=== PATIENT | male | born 1965 | race Caucasian/White ===

== ENCOUNTER → 2021-06-01 08:03 | Outpatient (BNVA) | payer OTHER, MEDICAID, SELFPAY | PROVIDERS: PCP Internal Medicine Medical Oncology; Visit Provider Nurse Practitioner Family | DX: M48.061 Spinal stenosis, lumbar region without neurogenic claudication (principal); M53.3 Sacrococcygeal disorders, not elsewhere classified; M96.1 Postlaminectomy syndrome, not elsewhere classified | CPT/HCPCS: 99202 ==

== ENCOUNTER 2021-08-31 05:39 | Outpatient (REF) | payer OTHER, MEDICAID, SELFPAY ==
--- NOTE | ~2021-08-31 | FL_ITS ---
EXAMINATION: XR FLUOROSCOPY WITH IMAGES CLINICAL INFORMATION: M53.3 - Sacrococcygeal disorders, not elsewhere classified COMPARISON: MRI lumbar spine 07/26/2012 TECHNIQUE: Fluoroscopy performed by Dr. Lamont Lay. Fluoroscopy time: 0.1 minutes DAP: 3.67 Gycm2 Images: 2 FINDINGS: There are spinal needles overlying the bilateral lower SI joints. Contrast is seen in the atiya-articular soft tissues and likely early intra-articular contrast. No visible vascular communication. FL/FL guidance in treatment room IMPRESSION: Fluoroscopy for pain management procedures.
== END 2021-08-31 05:40 | disposition home or self-care (01) ==
LOC: HO.RADIR 05:39
PROVIDERS: Visit Provider Anesthesiology
DX: M53.3 Sacrococcygeal disorders, not elsewhere classified (principal); M96.1 Postlaminectomy syndrome, not elsewhere classified
CPT/HCPCS: Q9967

== ENCOUNTER → 2021-09-06 08:14 | Outpatient (BNVA) | payer OTHER, MEDICAID, SELFPAY | PROVIDERS: PCP Internal Medicine Medical Oncology; Visit Provider Anesthesiology | DX: M48.061 Spinal stenosis, lumbar region without neurogenic claudication (principal); M53.3 Sacrococcygeal disorders, not elsewhere classified; M96.1 Postlaminectomy syndrome, not elsewhere classified | CPT/HCPCS: 99212 ==

== ENCOUNTER 2024-04-02 10:19 | Outpatient (REF) | payer MEDICARE, SELFPAY ==
--- NOTE | ~2024-04-02 | US_ITS ---
EXAMINATION: US THYROID CLINICAL INFORMATION: Thyroid, and nontoxic, single thyroid nodule COMPARISON: None available. TECHNIQUE: Linear transducer grayscale and color Doppler examination with attention to the region of the thyroid. FINDINGS: SIZE: Measurements of the thyroid lobes and nodules are given in sagittal, anteroposterior and transverse dimensions respectively. Right Thyroid Lobe: 6.8 x 2.0 x 2.6 cm, volume 18.3 mL. Parenchyma: The gland echotexture is homogeneous. Thyroid vascularity is normal. Left Thyroid Lobe: 5.7 x 2.3 x 2.5 cm, volume 16.9 mL. Parenchyma: The gland echotexture is homogeneous. Thyroid vascularity is normal. Isthmus: 0.5 cm in maximum AP dimension. Estimated total number of nodules greater than or equal to 1 cm: 3. Rechecker nodules are described as follows: 1. Location: Right mid. Size: 2.2 x 1.2 x 2.0 cm, volume 2.7 mL. Nodule characteristics: Composition: Solid (2). Echogenicity: Hypoechoic (2). Shape: Not taller than wide (0). Margins: Smooth (0). Echogenic Foci: None (0. ACR TI-RADS total points: 4 ACR TI-RADS category: 4 2. Location: Left mid Size: 2.6 x 1.8 x 1.7 cm, volume 4.2 mL. Nodule characteristics: Composition: Mixed cystic and solid (1). Echogenicity: Isoechoic (1). Shape: Not taller than wide (0). Margins: Smooth (0). Echogenic Foci: None (0. ACR TI-RADS total points: 2 ACR TI-RADS category: 2 3. Location: Left lateral mid Size: 2.3 x 1.8 x 1.9 cm, volume 4.0 mL. Nodule characteristics: Composition: Mixed cystic and solid (1). Echogenicity: Isoechoic (1). Shape: Not taller than wide (0). Margins: Smooth (0). Echogenic Foci: None (0). ACR TI-RADS total points: 2 ACR TI-RADS category: 2 NODES: No lymphadenopathy is seen in the tissue surrounding the thyroid gland. US/US thyroid IMPRESSION: 1. Enlarged homogeneous thyroid gland. 2. 2.2 cm nodule in the mid right lobe, TR 4, fulfills the criteria for FNA. Biopsy should be considered. 3. No further follow-up of the 2 other nodules seen within the thyroid gland. ACR TI-RADS RECOMMENDATION REFERENCE: Ultrasound-guided fine-needle aspiration, followup ultrasound, no further follow up. * TR1 (0 point) and TR2 (2 points): No FNA or follow up. * TR3 (3 points): FNA if more than or equal to 2.5 cm in maximum dimension, followup ultrasound in 1, 3 and 5 years if 1.5 to 2.4 cm in maximum dimension. * TR4 (4-6 points): FNA if more than or equal to 1.5 cm in maximum dimension, followup ultrasound in 1, 2, 3 and 5 years if 1 to 1.4 cm in maximum dimension. * TR5 (more than or equal to 7 points): FNA if more than or equal to 1 cm in maximum dimension, followup ultrasound every year for 5 years if 0.5 to 0.9 cm in maximum dimension. * TR3, TR4 or TR5 nodules that are below the size threshold for followup receive no follow up.
== END 2024-04-02 10:20 | disposition home or self-care (01) ==
LOC: HO.US 10:19
PROVIDERS: PCP Internal Medicine Medical Oncology; Visit Provider Internal Medicine Medical Oncology
DX: E04.1 Nontoxic single thyroid nodule (principal)
CPT/HCPCS: 76536

== ENCOUNTER 2024-06-12 09:05 | Day surgery (SDC) | payer MEDICARE, SELFPAY ==
--- NOTE | ~2024-06-12 | FL_ITS ---
FLUOROSCOPIC GUIDED LUMBAR PUNCTURE INDICATION: Peripheral neuropathy. History of L4-5 laminectomy Risks and benefits and possible complications were discussed with the patient and the consent form was signed. Patient was placed prone on the fluoroscopy table. The back was prepped and draped in routine sterile fashion. Betadine was used as a skin antiseptic. Utilizing fluoroscopic guidance, the laminectomy space at the level of L4-L5 was accessed with a 22 gauge quinkie spinal needle and clear CSF fluid obtained. Opening pressure was 16 cm H20. 9 cc of fluid was sent for analysis. The needle was removed without immediate complications. Total fluoroscopy time: 1.2 min FL/FL guided lumbar puncture LP IMPRESSION: Successful fluoroscopic lumbar puncture at the level of L4/L5. This procedure was performed by Francisco Humphreys PA-C and supervised by Dr. Cameron.
[2024-06-12 09:40] VITALS: BMI 36.5
[2024-06-12 12:00] VITALS: BP 148/84; PULSE 74; RESP 18; TEMP 36.6; O2SAT 98
[2024-06-12 12:30] VITALS: BP 127/82; PULSE 77; RESP 18; O2SAT 97
[2024-06-12 12:45] VITALS: BP 130/81; PULSE 81; RESP 18; TEMP 36.6; O2SAT 98
[2024-06-12 13:01] LABS: CSF Appearance Clear, Colorless; CSF Tube # 1
[2024-06-12 13:10] LABS: Glucose CSF 118 mg/dL; Total Protein CSF 80.3 mg/dL (15-45)
[2024-06-12 13:27] LABS: Appearance CSF CLEAR; CSF Tube # 4; Color CSF COLORLESS; White Blood Cell CSF 4 MM*3
[2024-06-12 13:28] LABS: CSF Monos 64 %; CSF Other Cells % 8 %; Lymphocytes CSF 24 %; Neutrophils CSF 4 %; Red Blood Cell CSF 18 MM*3
[2024-06-15 23:08] LABS: Albumin, CSF 54.2 mg/dL (8.0-42.0); IgG 717 mg/dL (600-1640); IgG Synthesis Rate 1.3 mg/24 h (-9.9-3.3); IgG, CSF 4.2 mg/dL (0.8-7.7)
[2024-06-17 13:10] LABS: Oligoclonal Serum Yes
[2024-06-17 13:57] LABS: Oligoclonal Banding Absent (Absent)
== END 2024-06-12 13:02 | disposition home or self-care (01) ==
PROVIDERS: Physician Assistant Surgical; PCP Internal Medicine Medical Oncology; Visit Provider Psychiatry & Neurology Neurology
PROC: 009U3ZZ Drainage of Spinal Canal, Percutaneous Approach (ICD-10-PCS; CPT 62270; principal; 2024-06-12 11:00)
DX: G62.9 Polyneuropathy, unspecified (principal); I10 Essential (primary) hypertension; E11.9 Type 2 diabetes mellitus without complications; Z79.4 Long term (current) use of insulin; Z79.899 Other long term (current) drug therapy; Z98.890 Other specified postprocedural states
CPT/HCPCS: 62328; 82042; 82945; 83916; 84157; 87015; 87070; 87205; 89051

== ENCOUNTER → 2024-06-12 11:20 | Outpatient (BNV) | payer MEDICARE, SELFPAY | PROVIDERS: PCP Internal Medicine Medical Oncology; Visit Provider Physician Assistant Surgical | DX: G62.9 Polyneuropathy, unspecified (principal) | CPT/HCPCS: 62328 ==

== ENCOUNTER 2024-10-14 08:46 | Outpatient (REF) | payer MEDICARE, SELFPAY ==
--- OUTSIDE RECORDS SUMMARY | 2024-10-14 08:54 | XMS_ITS ---
Author Organization Xander Del Rosario III, MD Address [address] [place] [address] [place] [address] Care Team Providers Care Public Health Inspector Name Role Phone Xander Del Rosario Primary Care Provider [phone] REASON FOR VISIT Message Medications Medication SIG (Take, Route, Fr equency, Duration) Notes Start Date End Date Status Pyridium 200 MG 1 tablet Orally Thre e times a day for 5 days 10/02/2024 10/12/2024 Active Social History Sex Assigned At : Social History Observation Description Sex Assigned At Male Encounters Encounter Location Date Provider Diagnosis Xander Del Rosario III, MD [address] [place] [address] [place] [address] 10/02/2024 Xander Del Rosario Plan Of Treatment Medication Medication Name Sig Start Date Stop Date Notes Pyridium 200 MG 1 tablet Orally Thre e times a day for 5 days 10/02/2024 10/12/2024 Next Appt Details Provider Name:Xander Del Rosario, 11/04/2024 10:45:00 AM, [address] [facility] [place], [address], Provider Name:Xander Del Rosario, 05/14/2025 10:00:00 AM, [address] [place] [address] [place], [address], Progress Notes * Ap JONESDOB: [birth year] (59 yo M)Acc No.[id number]:10/02/2024 Patient:?Ap JONES :1965???Age:59 Y???Sex:Male Address:[address] [place] [id number] * Refills? Start Pyridium Tablet, 200 MG, Orally, 15 Tablet, 1 tablet, Three times a day, 5 days, Refills=1 * true * Date:? Generated for Eladia ramires/Althea/eTcocosmitting on:?10/14/2024 08:54 AM EST
--- OUTSIDE RECORDS SUMMARY | 2024-10-14 08:55 | XMS_ITS | Patient Health Record ---
Author Organization Xander Del Rosario III, MD Address [address] [place] [address] [place] [address] Care Team Providers Care Literature Professor Name Role Phone Xander Del Rosario Primary Care Provider [phone] Allergies Allergen (clinical drug ingredient) Drug/Non Drug Allergy documented on EMR Reaction Allergy Type Onset Date Status Penicillin anaphylaxis Drug Allergy Acti ve erythromycin Erythromycin Unknown Drug Allergy A ctive ciprofloxacin Cipro Unknown Drug Allergy Act tyrese Results Component Value Reference Range Notes URINE DIP STICK Reviewed date:05/13/2024 01:46:20 PM Interpretation: Performing Lab: Notes/Report: SG 1.020 1.005 - 1.025 pH 5.0 5.0 - 9.0 GIO Negative Negative - NIT Negative Negative - PRO 15 Negative - Trace GLU Negative Negative - KET Negative Negative - UBG 0.2 0.1 - 1.8 GLADIS Negative 0.2 - 1.3 BLD Negative Negative - US thyroid Reviewed date:06/30/2024 07:26:08 AM Interpretation: Performing Lab: Notes/Report: [address] [address] Ultrasound Report Signed Patient: Ap Jones MR#: [id number] 41 : 1965 Acct:[id number] Age/Sex: 58 / M ADM Date: 04/02/24 Loc: HO.US Attending Dr: Xander Del Rosario MD Ordering Physician: Xander Del Rosario MD Date of Service: 04/02/24 Procedure(s): US thyroid Accession Number(s): [id number] cc: Xander Del Rosario MD EXAMINATION: US THYROID CLINICAL INFORMATION: Thyroid, and nontoxic, single thyroid nodule COMPARISON: None available. TECHNIQUE: Linear transducer grayscale and color Doppler examination with attention to the region of the thyroid. FINDINGS: SIZE: Measurements of the thyroid lobes and nodules are given in sagittal, anteroposterior and transverse dimensions respectively. Right Thyroid Lobe: 6.8 x 2.0 x 2.6 cm, volume 18.3 mL. Parenchyma: The gland echotexture is homogeneous. Thyroid vascularity is normal. Left Thyroid Lobe: 5.7 x 2.3 x 2.5 cm, volume 16.9 mL. Parenchyma: The gland echotexture is homogeneous. Thyroid vascularity is normal. Isthmus: 0.5 cm in maximum AP dimension. Estimated total number of nodules greater than or equal to 1 cm: 3. Flexographic Press Helper nodules are described as follows: 1. Location: Right mid. Size: 2.2 x 1.2 x 2.0 cm, volume 2.7 mL. Nodule characteristics: Composition: Solid (2). Echogenicity: Hypoechoic (2). Shape: Not taller than wide (0). Margins: Smooth (0). Echogenic Foci: None (0. ACR TI-RADS total points: 4 ACR TI-RADS category: 4 2. Location: Left mid Size: 2.6 x 1.8 x 1.7 cm, volume 4.2 mL. Nodule characteristics: Composition: Mixed cystic and solid (1). Echogenicity: Isoechoic (1). Shape: Not taller than wide (0). Margins: Smooth (0). Echogenic Foci: None (0. ACR TI-RADS total points: 2 ACR TI-RADS category: 2 3. Location: Left lateral mid Size: 2.3 x 1.8 x 1.9 cm, volume 4.0 mL. Nodule characteristics: Composition: Mixed cystic and solid (1). Echogenicity: Isoechoic (1). Shape: Not taller than wide (0). Margins: Smooth (0). Echogenic Foci: None (0). ACR TI-RADS total points: 2 ACR TI-RADS category: 2 NODES: No lymphadenopathy is seen in the tissue surrounding the thyroid gland. US/US thyroid IMPRESSION: 1. Enlarged homogeneous thyroid gland. 2. 2.2 cm nodule in the mid right lobe, TR 4, fulfills the criteria for FNA. Biopsy should be considered. 3. No further follow-up of the 2 other nodules seen within the thyroid gland. ACR TI-RADS RECOMMENDATION REFERENCE: Ultrasound-guided fine-needle aspiration, followup ultrasound, no further follow up. * TR1 (0 point) and TR2 (2 points): No FNA or follow up. * TR3 (3 points): FNA if more than or equal to 2.5 cm in maximum dimension, followup ultrasound in 1, 3 and 5 years if 1.5 to 2.4 cm in maximum dimension. * TR4 (4-6 points): FNA if more than or equal to 1.5 cm in maximum dimension, followup ultrasound in 1, 2, 3 and 5 years if 1 to 1.4 cm in maximum dimension. * TR5 (more than or equal to 7 points): FNA if more than or equal to 1 cm in maximum dimension, followup ultrasound every year for 5 years if 0.5 to 0.9 cm in maximum dimension. * TR3, TR4 or TR5 nodules that are below the size threshold for followup receive no follow up. 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 TECHNIQUE: Linear transducer grayscale and color Doppler examination with attention to the reg ion of the thyroid. FINDINGS: SIZE: Measurements o f the thyroid lobes and nodules are given in sagittal, anteroposterior and transverse dimensions respectively. Right Thyroid Lobe: 6.8 x 2.0 x 2.6 cm, volume 18.3 mL. Parenchyma: The glan d echotexture is homogeneous. Thyroid vascularity is normal. Left Thyroid Lobe: 5 .7 x 2.3 x 2.5 cm, volume 16.9 mL. Parenchyma: The glan d echotexture is homogeneous. Thyroid vascularity is normal. Isthmus: 0.5 cm in maximum AP dimension. Estimated total numb er of nodules greater than or equal to 1 cm: 3. Flexographic Press Helper nodul es are described as follows: 1. Location: Right mid. Size: 2.2 x 1.2 x 2. 0 cm, volume 2.7 mL. Nodule characteristics: Composition: Solid (2). Echogenicity: Hypoechoic (2). Shape: Not taller th an wide (0). Margins: Smooth (0). Echogenic Foci: None (0. ACR TI-RADS total points: 4 ACR TI-RADS category: 4 2. Location: Left mid Size: 2.6 x 1.8 x 1. 7 cm, volume 4.2 mL. Nodule characteristics: Composition: Mixed cystic and solid (1). Echogenicity: Isoech oic (1). Shape: Not taller th an wide (0). Margins: Smooth (0). Echogenic Foci: None (0. ACR TI-RADS total points: 2 ACR TI-RADS category: 2 3. Location: Left lateral mid Size: 2.3 x 1.8 x 1. 9 cm, volume 4.0 mL. Nodule characteristics: Composition: Mixed cystic and solid (1). Echogenicity: Isoech oic (1). Shape: Not taller th an wide (0). Margins: Smooth (0). Echogenic Foci: None (0). ACR TI-RADS total points: 2 ACR TI-RADS category: 2 NODES: No lymphadenopathy is seen in the tissue surrounding the thyroid gland. US/US thyroid IMPRESSION: 1. Enlarged homogene ous thyroid gland. 2. 2.2 cm nodule in the mid right lobe, TR 4, fulfills the criteria for FNA. Biopsy should b e considered. 3. No further follow -up of the 2 other nodules seen within the thyroid gland. ACR TI-RADS RECOMMENDATION REFERENCE: Ultrasound-guided fine-needle aspiration, followup ultrasound, no further follow up. * TR1 (0 point) and TR2 (2 points): No FNA or follow up. * TR3 (3 points): FN A if more than or equal to 2.5 cm in maximum dimension, followup ultrasound in 1, 3 and 5 years if 1.5 to 2.4 cm in maximum dimension. * TR4 (4-6 points): FNA if more than or equal to 1.5 cm in maximum dimension, followup ultrasound in 1, 2, 3 and 5 years if 1 to 1.4 cm in maximum dimension. * TR5 (more than or equal to 7 points): FNA if more than or equal to 1 cm in maximum dimension, followup ultrasound every year for 5 years if 0.5 to 0.9 cm in maximum dimension. * TR3, TR4 or TR5 nodules that are below the size threshold for followup receive no follow up. 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: CSF Glucose Reviewed date:06/30/2024 07:26:08 AM Interpretation: Performing Lab:[address] [address] Notes/Report: CSF Appearance Clear, Colorless RBC butto n present CSF Tube # 1 Glucose CSF 118 CSF Total Protein Reviewed date:06/30/2024 07:26:08 AM Interpretation: Performing Lab:[facility], [address] [place] [phone] Notes/Report: Total Protein CSF 80.3 15-45 mg/dL CSF Cell Count w Diff Reviewed date:06/30/2024 07:26:08 AM Interpretation: Performing Lab:[address] [address] Notes/Report: Appearance CSF CLEAR CSF Tube # 4 CSF Volume 2.0 Color CSF COLORLESS White Blood Cell CSF 4 Body Fluid WBC is a total nucleated cell count. When a differential is performed, the specimen is concentrated by cytocentrifugation. This sometimes results in the number of cells in the differential being greater than the actual cell count performed on the non-concentrated specimen. Red Blood Cell CSF 18 The reference interval(s) and other method performance specifications are unavailable for this body fluid. Comparison of the result with concentration in the blood, serum, or plasma is recommended. Neutrophils CSF 4 Lymphocytes CSF 24 CSF Monos 64 CSF Other Cells % 8 IgG Index CSF Reviewed date:06/30/2024 07:26:08 AM Interpretation: Performing Lab:[facility], [address] [place] [phone] Notes/Report: Albumin 5.0 3.6-5.1 g/dL THIS TEST WAS PERFORMED AT: [facility] [facility] [place] [address] [place], [place] ROXANA MENDIETA MD,PHD IgG 092 255-1423 mg/dL IgG, CSF 4.2 0.8-7.7 mg/dL Albumin, CSF 54.2 8.0-42.0 mg/dL IgG Index 0.54 <0.70 The IgG Synthesis rate, CSF and IgG index, CSF are two formulae for estimating the amount of IgG produced in the central nervous system. Evidence of increased synthesis of IgG provides support for the diagnosis of multiple sclerosis. IgG Synthesis Rate 1.3 -9.9-3.3 mg/24 h Oligoclonal Banding Reviewed date:06/30/2024 07:26:08 AM Interpretation: Performing Lab:[facility], [address] [place] [phone] Notes/Report: Oligoclonal Banding Absent Absent No Oligoclonal bands are identified in the patient's CSF when compared to the corresponding serum sample. Oligoclonal bands are present in the CSF of more than 85% of patients with clinically definite multiple sclerosis (MS). To distinguish between oligoclonal bands in the CSF due to a peripheral gammopathy and oligoclonal bands due to local production in the FRANCHISE MANAGER, serum and CSF should be tested simultaneously. Oligoclonal bands can however be observed in a variety of other diseases, e.g., subacute sclerosing panen- cephalitis, inflammatory polyneuropathy, FRANCHISE MANAGER lupus, and brain tumors and infarctions. The clinical significance of a numerical band count, determined by isoelectric focusing, has not been definitively defined. The data should be interpreted in conjunction with all pertinent clinical and laboratory data for this patient. THIS TEST WAS PERFORMED AT: [facility] [address] ROXANA MENDIETA MD,PHD Gram stain Reviewed date:06/30/2024 07:26:08 AM Interpretation: Performing Lab:[facility], [address] [place] [phone] Notes/Report: TUBE #2 Gram stain Gram stain results: Gram stain No polys Gram stain 3+ red blood cells Gram stain No organisms seen CSF Volume Reviewed date:06/30/2024 07:26:08 AM Interpretation: Performing Lab:[facility], [address] [place] [phone] Notes/Report: TUBE #2 CSF Volume CSF volume mL CSF Volume 2 Appearance Reviewed date:06/30/2024 07:26:08 AM Interpretation: Performing Lab:[facility], [address] [place] [phone] Notes/Report: TUBE #2 Appearance Appearance Appearance Clear Appearance COLORLESS CSF Culture Reviewed date:06/30/2024 07:26:08 AM Interpretation: Performing Lab:[facility], [address] [place] [phone] Notes/Report: TUBE #2 CSF Culture No growth after 3 days. FL guided lumbar puncture LP Reviewed date:06/30/2024 07:26:08 AM Interpretation: Performing Lab: Notes/Report: [address] [place] [address] Fluoroscopy Report Signed Patient: Ap Jones MR#: [id number] 41 : 1965 Acct:[id number] Age/Sex: 58 / M ADM Date: 06/12/24 Loc: [facility] Attending Dr: Rona Ríos MD Ordering Physician: Rona Ríos MD Date of Service: 06/12/24 Procedure(s): FL guided lumbar puncture LP Accession Number(s): [id number] cc: Xander Del Rosario MD; Rona Ríos MD FLUOROSCOPIC GUIDED LUMBAR PUNCTURE INDICATION: Peripheral neuropathy. History of L4-5 laminectomy Risks and benefits and possible complications were discussed with the patient and the consent form was signed. Patient was placed prone on the fluoroscopy table. The back was prepped and draped in routine sterile fashion. Betadine was used as a skin antiseptic. Utilizing fluoroscopic guidance, the laminectomy space at the level of L4-L5 was accessed with a 22 gauge quinkie spinal needle and clear CSF fluid obtained. Opening pressure was 16 cm H20. 9 cc of fluid was sent for analysis. The needle was removed without immediate complications. Total fluoroscopy time: 1.2 min FL/FL guided lumbar puncture LP IMPRESSION: Successful fluoroscopic lumbar puncture at the level of L4/L5. This procedure was performed by Francisco Humphreys PA-C and supervised by Dr. Cameron. 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 Attending Dr: Sharri Ríos MD Ordering Physician: Rona Ríos MD Date of Service: 06/12/24 Procedure(s): FL forrest ded lumbar puncture LP Accession Number(s): [id number] cc: Xander Del Rosario MD; Rona Ríos MD FLUOROSCOPIC GUIDED LUMBAR PUNCTURE INDICATION: Peripher al neuropathy. History of L4-5 laminectomy Risks and benefits a nd possible complications were discussed with the patient and the cons ent form was signed. Patient was placed prone on the fluoroscopy tabl e. The back was prepped and draped in routine sterile fashion. Betadine was used as a skin antiseptic. Utilizing fluoroscopic guidanc e, the laminectomy space at the level of L4-L5 was accessed with a 22 gauge quinkie spinal needle and clear CSF fluid obtained. Opening pressure was 16 cm H20. 9 cc of fluid was sent for analysis. The needle was removed without immediate complications. Total fluoroscopy ti me: 1.2 min FL/FL guided lumbar puncture LP IMPRESSION: Successf ul fluoroscopic lumbar puncture at the level of L4/L5. This procedure was performed by Francisco Humphreys PA-C and supervised by Dr. Cameron. 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 90) Diagnosis 2 Muscle wasting and a trophy, not elsewhere classified, left hand (M62.542) Diagnosis 3 Weakness (R53.1) Referral Organization Xander Del Rosario III, MD Referring Provider First Name Xander Referring Provider Last Name Carin Referring Provider Speciality Internal M edicine Referred Provider Shelby Ochoa Referred Provider Specialty Neurology General Notes Clemencia Dc 2023 03:35:38 PM EDT > Faxed referral and progress noteDao Amber 02/19/2024 02:52:13 PM EDT > Office received referral and will be reaching out to patient to schedule. Referral Priority Routine Referral Appointment Date 03/21/2024 Reason Consult and Treat Re sume Patient Care Chest Tightness Family History of Premature Coronary Artery Disease Diagnosis 1 Chest tightness (R07 .89) Referral Organization Xander Del Rosario III, MD Referring Provider First Name Xander Referring Provider Last Name Carin Referring Provider Speciality Internal edicine Referred Organization [facility]erred Address [address], [place], [id number], Referred Provider Specialty Cardiology General Notes Clemencia Dc 2023 10:15:24 AM EDT > Faxed referral and progress note.Dao Amber 04/11/2024 03:56:04 PM EDT > Patient is considered a new patient and are only able to get him in on 07/29/24 @ 10:05am at the [place] Location at [facility] at [address] Evans, if this does not work for the patient, patient can all [phone]. Patient made aware and mailed appt. Referral Priority Routine Referral Appointment Date 07/29/2024 Reason recent hospitalizati on at [facility] for chest pain nonsustained VT and elevated Tropoinin level Diagnosis 1 Chest pain, unspecif ied type (R07.9) Diagnosis 2 VT (ventricular tach ycardia) (I47.20) Diagnosis 3 Elevated troponin le mary (R79.89) Referral Organization Xander Del Rosario III, MD Referring Provider First Name Xander Referring Provider Last Name Carin Referring Provider Speciality Internal M edicine Referred Provider Wes Horowitz [facility] Referred Provider Specialty Cardiology General Notes Ana Griffith CMA 03/30 10:31:20 AM EDT > ref/progress note/hospital notes/Echo faxed to [facility] asking for a urgent appt , Ana Griffith CMA 04/18/2024 11:22:45 AM EDT > Called [facility] at [phone] they stated they did not received ref and it needs to be faxed to [phone] this was done today asking for urgent appt and for them to contact the patient with appt . , Ana Carter CMA 04/25/2024 01:56:43 PM EDT > I called [facility] they stated they did not have appt for patient as of yet and would leave message for new pt coordinator call office back with appt emilia , Ana Carter CMA 04/25/2024 02:31:15 PM EDT > Left message for Annie Freeman new pt coordinator at [phone] that pt had holter monitor and echo done by [facility] we have not received results and pt thinks he was seen while inpt at [facility] by a [facility] MD he is not going to [facility] cardio and we would like [facility] for follow up with pt cardiology care . LM today for Annie to call back with appt for patient, Ana Pike YOLANDA 08/22/2024 01:13:30 PM >pt was seen today in office for appt and told us he has already been seen by cardiology and is all set at this time Referral Priority Routine Medications Medication SIG (Take, Route, Frequency, Duration) Notes Start Date End Date Status NovoLOG 100 UNIT/ML 10-22 units Injection three times a day on sliding scale E11.9 DM (diabetes mellitus) Active FreeStyle Lite w/Device as directed - patient to test four times a day 10/04/2021 Active metFORMIN HCl 500 MG TAKE 2 TABLETS BY MOUTH TWICE A DAY WITH MEALS for 90 Active LORazepam 2 MG 1 tablet at bedtime as needed Orally every 6 hours x 2 days prn anxiety during air travel 07/30/2024 Active FreeStyle Lite Test - as directed In Vitro testing four times a day 10/04/2021 Active BD Insulin Syringe U/F 31G X 5/16 1 ML USE WITH INSULIN 5 TIMES DAILY Active Ozempic (1 MG/DOSE) 4 MG/3ML as directed Subcutaneous weekly 08/22/2024 Active BD Pen Needle Original U/F 29G X 12.7MM as directed Subcutaneous 3 times a day 08/07/2020 Active Lisinopril 40 MG TAKE 1 TABLET BY MOUTH EVERY DAY Active Meclizine HCl 25 MG 1 tablet as needed Orally every 12 hrs Active hydroCHLOROthiazide 25 MG TAKE 1 TABLET BY MOUTH EVERY DAY IN THE MORNING Active Ozempic (0.25 or 0.5 MG/DOSE) 2 MG/3ML 0.5 mg Subcutaneous weekly 05/03/2024 Active diazePAM 10 MG 1 tablet as needed Orally before closed MRI procedure 04/10/2024 Active Lantus SoloStar 100 UNIT/ML INJECT 50 UN ITS IN THE MORNING AND 70 UNITS AT BEDTIME Active Metoprolol Tartrate 25 MG 1 tablet with food Orally Twice a day Active Meloxicam Active Clobetasol Propionate 0.05 % APPLY DAILY TO SKIN TO AFFECTED AREA TWICE A DAY FOR 2 WEEKS Active Rosuvastatin Calcium 10 MG TAKE 1 TABLET BY MOUTH EVERY DAY Active Ketoconazole 2 % 1 application Externally Twice a day 10/06/2023 Active Fenofibrate 160 MG TAKE 1 TABLET BY MOUTH EVERY DAY WITH MEALS for 90 Active Immunizations Vaccine Route Administration Date Status Comme nts Influenza Unknown 08/07/2014 Administered Pneumococcal SC Subcutaneous 08/29/2014 Administered Tetanus and Diphtheria Toxoids Adsorbed IM Intramuscular 01/30/2017 Administered Pneumococcal Unknown 11/08/2021 Administered Influenza, quad Unknown 11/08/2021 Administered PPV 23 Unknown 08/31/2020 Administered COVID- 19 Vaccine Unknown 02/02/2021 Administered COVID- 19 Vaccine Unknown 08/27/2021 Administered SHINGRIX Unknown 08/31/2020 Administered SHINGRIX Unknown 11/03/2020 Administered Influenza, quad IM Intramuscular 08/04/2022 Administered Influenza, quad Unknown 07/25/2024 Administered Social History Tobacco Use: Social History Observation Description Date Details (start date - stop date) Former Smoker NA - NA Sex Assigned At : Social History Observation Description Sex Assigned At Male Tobacco Use/Smoking Question Answer Notes Patient is a former smoker How long has it been since you last smoked? > 10 years Additional Findings: Tobacco Non-User Ex-cigaret te smoker Alcohol Screen Question Answer Notes Did you have a drink contain ing alcohol in the past year? Yes How often did you have a dri nk containing alcohol in the past year? Monthly or less (1 point) How many drinks did you have on a typical day when you were drinking in the past year? 1 or 2 drinks (0 point) How often did you have 6 or more drinks on one occasion in the past year? Never (0 point) Points 1 Interpretation Negative Problems Problem Type SNOMED Code ICD Code Onset Dates Problem Status W/U Status Risk Notes Problem 9624016 Former smoker (Z87.891) Active confirmed He is highly motivated not to smoke. He has a plan for prevention of abstinence. We have discussed abstinence today. Problem 170981879 Obesity (E66.9) Active confirmed He has gained 4 pounds and now weighs 273 with a body mass index is 38.07. He continues on Ozempic. Problem DM - Diabetes mellitus (90961851) DM (diabetes mellitus) (E11.9) Active confirmed Comprehensive blood work including A1c was ordered today. No change in his medication was necessary. Problem 104884115 Thrombocytopeni a (D69.6) Active confirmed His last platelet count was February 27, 2024. This value was 149,000. He is cleared for surgery. He has had no bleeding. He is not taking aspirin.He had no bleeding during his recent surgery. Problem 1052758 Other specified arthritis, left shoulder (M13.812) Active confirmed He is scheduled to have a left shoulder arthroplasty at [facility]. I have seen and examined him carefully today. Assuming that he is cleared by the clinical social work aide he is cleared medically for the surgery. Because of his comorbidities his risk would be higher than that of the average 60-year-old man but I think the risk is acceptable. He has been instructed to take his insulin night before surgery but not thereafter. Problem 57429345 Essential hypertension (I10) Active confirmed His blood pressure is currently stable. No change in his regimen was made today. Problem 66661867 Penicillin allergy (Z88.0) Active confirmed Problem Thyroid nodule (818575761) Thyroid nodule (E04.1) Active confirmed He has been referred to endocrinology for a biopsy. Problem 577380360 Multinodular thyroid (E04.2) Active confirmed An incidenta l finding on neck arteriography recently was a multinodular thyroid. A thyroid ultrasound has been ordered. Problem 63008454 Hyperlipidemia, unspecified hyperlipidemia type (E78.5) Active confirmed A comprehensivee set of labs will be ordered prior to his next visit which will include a lipid profile. Problem [id number] Herniated intervertebral disc of lumbar spine (M51.26) Active confirmed He continues to have back pain radiates down his leg. He has seen a neurosurgeon. This workup is in progress and treatment will be available. Problem Pure hypercholesterolem ia ([id number]) Hyperlipidemia type II (E78.01) Active confirmed His lipids have been well controlled. His weight is stable. He was continued on current medication and comprehensive blood work with a lipid profile has been ordered. 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 He did not wish to take an antidepressant. He was given emotional support and close follow-up. Problem [id number] Benign prostatic hyperplasia, unspecified whether lower urinary tract symptoms present (N40.0) Active confirmed He rises fro m sleep once a night, sometimes twice. We discussed lifestyle modification as a way of reducing nocturia. Problem [id number] Left foot drop (M21.372) Active confirmed He continues to wear the brace to good effect. His gait is fairly normal. Vital Signs Heart Rate 78 /min 09/23/2024 Temperature 97.1 degrees Fahrenheit 09/23/2024 Blood pressure diastolic 76 mm Hg 09/23/2024 Height 71 in 09/23/2024 Blood pressure systolic 138 mm Hg 09/23/2024 Weight 273 lbs 09/23/2024 BMI 38.07 kg/m2 09/23/2024 Encounters Encounter Location Date Provider Diagnosis Xander Del Rosario III, MD [address] [place] [address] [place] [address] 10/19/2023 Xander Del Rosario Obesity E66.9 ; DM (diabetes mellitus) E11.9 ; Hyperlipidemia, unspecified hyperlipidemia type E78.5 ; Skin rash R21 ; Former smoker Z87.891 and Unspecified thoracic, thoracolumbar and lumbosacral intervertebral disc disorder M51.9 Xander Del Rosario III, MD [address] [place] [address] [place] [address] 01/18/2024 Xander Del Rosario Obesity E66.9 ; Diab etes mellitus type 2 in nonobese E11.9 ; Essential hypertension I10 ; Former smoker Z87.891 ; Reactive depression F32.9 ; Herniated intervertebral disc of lumbar spine M51.26 ; Thrombocytopenia D69.6 and Left foot drop M21.372 Xander Del Rosario III, MD [address] [place] [address] [place] [address] 02/23/2024 Xander Del Rosario Obesity E66.9 ; Left shoulder pain M25.512 ; Former smoker Z87.891 ; Diabetes mellitus type 2 in nonobese E11.9 ; Essential hypertension I10 ; Reactive depression F32.9 ; Herniated intervertebral disc of lumbar spine M51.26 ; Left foot drop M21.372 and Benign prostatic hyperplasia, unspecified whether lower urinary tract symptoms present N40.0 Xander Del Rosario III, MD [address] [place] [address] [place] [address] 03/20/2024 Xander Del Rosario Obesity E66.9 ; Labyrinthitis of both ears H83.03 ; Multinodular thyroid E04.2 ; Former smoker Z87.891 ; Essential hypertension I10 ; Reactive depression F32.9 ; Hyperlipidemia type II E78.01 ; Left foot drop M21.372 ; Benign prostatic hyperplasia, unspecified whether lower urinary tract symptoms present N40.0 and DM (diabetes mellitus) E11.9 Xander Del Rosario III, MD [address] [place] [address] [place] [address] 04/04/2024 Xander Del Rosario Obesity E66.9 ; Diab etes mellitus type 2 in nonobese E11.9 ; Former smoker Z87.891 ; Essential hypertension I10 ; Reactive depression F32.9 ; Herniated intervertebral disc of lumbar spine M51.26 ; Thrombocytopenia D69.6 ; Hyperlipidemia type II E78.01 ; Left foot drop M21.372 ; Benign prostatic hyperplasia, unspecified whether lower urinary tract symptoms present N40.0 and DM (diabetes mellitus) E11.9 Xander Del Rosario III, MD [address] [place] [address] [place] [address] 04/22/2024 Xander Del Rosario Obesity E66.9 ; Form er smoker Z87.891 ; Essential hypertension I10 ; Diabetes mellitus type 2 in nonobese E11.9 and Herniated intervertebral disc of lumbar spine M51.26 Xander Del Rosario III, MD [address] [place] [address] [place] [address] 05/13/2024 Xander Del Rosario Hyperlipidemia type II E78.01 ; Obesity E66.9 ; Former smoker Z87.891 ; Essential hypertension I10 ; Thrombocytopenia D69.6 ; Herniated intervertebral disc of lumbar spine M51.26 ; Reactive depression F32.9 ; Benign prostatic hyperplasia, unspecified whether lower urinary tract symptoms present N40.0 ; Left foot drop M21.372 and Thyroid nodule E04.1 Xander Del Rosario III, MD [address] [place] [address] [place] [address] 08/22/2024 Xander Del Rosario Obesity E66.9 ; Form er smoker Z87.891 ; Essential hypertension I10 ; Thrombocytopenia D69.6 ; Left foot drop M21.372 ; Benign prostatic hyperplasia, unspecified whether lower urinary tract symptoms present N40.0 ; Herniated intervertebral disc of lumbar spine M51.26 ; Other specified arthritis, left shoulder M13.812 and DM (diabetes mellitus) E11.9 Xander Del Rosario III, MD [address] [place] [address] [place] [address] 09/23/2024 Xander Del Rosario Obesity E66.9 ; DM (diabetes mellitus) E11.9 ; Essential hypertension I10 ; Thrombocytopenia D69.6 ; Herniated intervertebral disc of lumbar spine M51.26 ; Hyperlipidemia type II E78.0 ; Former smoker Z87.891 and Left foot drop M21.372 Xander Del Rosario III, MD [address] [place] [address] [place] [address] 11/01/2023 Xander Del Rosario III, MD [address] [place] [address] 11/01/2023 Xander Del Rosario III, MD [address] [facility] [place] [address] 11/21/2023 Xander Del Rosario III, MD [address] [facility] [place] [address] 11/29/2023 Xander Del Rosario III, MD [address] [facility] [place] [address] 12/29/2023 Xander Del Rosario III, MD [address] [place] [address] 01/01/2024 Xander Del Rosario III, MD [address] [facility] [place] [address] 01/11/2024 Xander Del Rosario III, MD [address] [facility] [place] [address] 01/29/2024 Xander Del Rosario III, MD [address] [facility] [place] [address] 01/31/2024 Xander Del Rosario III, MD [address] [facility] [place] [address] 04/08/2024 Xander Del Rosario III, MD [address] [facility] [place] [address] 04/08/2024 Xander Del Rosario Obesity E66.9 Xander Del Rosario III, MD [address] [facility] [place] [address] 04/10/2024 Xander Del Rosario III, MD [address] [place] [address] 04/15/2024 Xander Carin Obesity E66.9 Xander Del Rosario III, MD [address] [facility] [place] [address] 05/03/2024 Xander Del Rosario III, MD [address] [facility] [place] [address] 07/11/2024 Xander Del Rosario III, MD [address] [place] [address] [place] [address] 07/30/2024 Xander Del Rosario III, MD [address] [place] [address] [place] [address] 07/30/2024 Xander Del Rosario III, MD [address] [place] [address] [place] [address] 09/30/2024 Xander Del Rosario Multinodular thyroid E04.2 Xander Del Rosario III, MD [address] [place] [address] [place] [address] 10/02/2024 Xander Del Rosario III, MD [address] [place] [address] [place] [address] 10/02/2024 Xander Del Rosario Assessments Encounter Date Diagnosis (ICD Code) Assessment Notes T reatment Notes Treatment Clinical Notes 10/19/2023 Obesity (ICD-10 - E66.9) He now weighs 252 pounds with a body mass index of 35. We reviewed his weight loss strategy today. He will try to lose weight at a rate of one half of a pound per week. 10/19/2023 DM (diabetes mellitu s) (ICD-10 - E11.9) He was continued on his diabetic regimen today. He will try and lose weight. No change his medications was made. 01/18/2024 Obesity (ICD-10 - E66.9) He has gained 8 pounds since his last visit. His body mass index is 36.2. we have reviewed his weight loss strategy. We have reviewed his nutrition. He will lose weight at a rate of one half of a pound per week to a diet restricted in fat calories and sodium. 01/18/2024 Diabetes mellitus ty pe 2 in nonobese (ICD-10 - E11.9) He has lost 3 pounds and is trying to lose weight further. Comprehensive blood work with a hemoglobin A1c and microalbumin have been ordered. Reports a fasting glucose of 140-150. 02/23/2024 Obesity (ICD-10 - E66.9) He admits to stress eating. He has gained 18 pounds in the last year andd 10 pounds since last September. We reviewed his diet and nutriition. We reeviiewed ways he ccould deal witth stress without eating. I have offered to refer him to the weight loss clinic [facility] and he will deecide about that. 02/23/2024 Left shoulder pain (ICD-10 - M25.512) The pain is unchanged. He will continue to be seen by orthopedics. I suggested acetaminophen instead of ibuprofen in view of the diabetes. He was referred back to orthopedics for another injection. A shoulder replacement has been planned [facility] next July. 03/20/2024 Obesity (ICD-10 - E66.9) He has lost 6 pounds since his last visit. We reviewed his weight loss strategy. He was encouraged to continue to lose weight to his body mass index is in the normal range. 03/20/2024 Labyrinthitis of bot h ears (ICD-10 - H83.03) The vertigo has now resolved with Meclizine. 04/04/2024 Obesity (ICD-10 - E66.9) He has gained 8 pounds since his last visit. We reviewed his weight loss strategy. He was encouraged to continue to lose weight to his body mass index is in the normal range. Patient has 48 hour holter on now ordered by Gisel LONGO done by [facility] pt will be referred to [facility] for eval when progress notes are completed they will be faxed to [facility] for appt 04/04/2024 Diabetes mellitus ty pe 2 in nonobese (ICD-10 - E11.9) He has gained 8 pounds and is trying to lose weight further. Comprehensive blood work with a hemoglobin A1c and microalbumin have been ordered. Reports a fasting glucose of 140-150. 04/22/2024 Former smoker (ICD-1 0 - Z87.891) He is highly motivated not to smoke. He has a plan for prevention of abstinence. We have discussed abstinence today. 04/22/2024 Obesity (ICD-10 - E66.9) I have increased the dose of ozempic and reviewed the elements of the weight-loss diabetic diet. 05/13/2024 Obesity (ICD-10 - E66.9) I have increased the dose of ozempic and reviewed the elements of the weight-loss diabetic diet. His body mass index is 37.1. We reviewed the elements of his weight loss diabetic diet. 05/13/2024 Hyperlipidemia type II (ICD-10 - E78.01) His lipids have been well controlled. His weight is stable. He was continued on current medication and comprehensive blood work with a lipid profile has been ordered. 08/22/2024 Former smoker (ICD-1 0 - Z87.891) He is highly motivated not to smoke. He has a plan for prevention of abstinence. We have discussed abstinence today. 08/22/2024 Obesity (ICD-10 - E66.9) I have increased the dose of ozempic and reviewed the elements of the weight-loss diabetic diet. His body mass index is 37.1. We reviewed the elements of his weight loss diabetic diet. 09/23/2024 Obesity (ICD-10 - E66.9) He has gained 4 pounds and now weighs 273 with a body mass index is 38.07. He continues on Ozempic. 09/23/2024 DM (diabetes mellitu s) (ICD-10 - E11.9) Comprehensive blood work including A1c was ordered today. No change in his medication was necessary. 04/08/2024 Obesity (ICD-10 - E66.9) 04/15/2024 Obesity (ICD-10 - E66.9) 09/30/2024 Multinodular thyroid (ICD-10 - E04.2) 10/19/2023 Hyperlipidemia, unspecified hyperlipidemia type (ICD-10 - E78.5) A comprehensivee set of labs will be ordered prior to his next visit which will include a lipid profile. 01/18/2024 Essential hypertensi on (ICD-10 - I10) His blood pressure is currently in the normal range at 130/70 and no change in his regimen was needed. I have recommended aggressive weight loss and sodium restriction combined with physical activity. 02/23/2024 Former smoker (ICD-1 0 - Z87.891) He is highly motivated not to smoke. He has a plan for prevention of abstinence. We have discussed abstinence today. 03/20/2024 Multinodular thyroid (ICD-10 - E04.2) An incidental finding on neck arteriography recently was a multinodular thyroid. A thyroid ultrasound has been ordered. 04/04/2024 Former smoker (ICD-1 0 - Z87.891) He is highly motivated not to smoke. He has a plan for prevention of abstinence. We have discussed abstinence today. 04/22/2024 Essential hypertensi on (ICD-10 - I10) His blood pressure is currently in the normal range and no change in his regimen was needed. I have recommended aggressive weight loss and sodium restriction combined with physical activity. 05/13/2024 Former smoker (ICD-1 0 - Z87.891) He is highly motivated not to smoke. He has a plan for prevention of abstinence. We have discussed abstinence today. 08/22/2024 Essential hypertensi on (ICD-10 - I10) His blood pressure is currently in the normal range A 135/78 and no change in his regimen was needed. I have recommended aggressive weight loss and sodium restriction combined with physical activity. 09/23/2024 Essential hypertensi on (ICD-10 - I10) His blood pressure is currently stable. No change in his regimen was made today. 10/19/2023 Skin rash (ICD-10 - R21) He will use the cclobetasoll on a when necessary basis. He was warned to avoid putting it on his face. He will notify me once if the rash returns. 01/18/2024 Former smoker (ICD-1 0 - Z87.891) He is highly motivated not to smoke. He has a plan for prevention of abstinence. We have discussed abstinence today. 02/23/2024 Diabetes mellitus ty pe 2 in nonobese (ICD-10 - E11.9) He has lost 3 pounds and is trying to lose weight further. Comprehensive blood work with a hemoglobin A1c and microalbumin have been ordered. Reports a fasting glucose of 140-150. 03/20/2024 Former smoker (ICD-1 0 - Z87.891) He is highly motivated not to smoke. He has a plan for prevention of abstinence. We have discussed abstinence today. 04/04/2024 Essential hypertensi on (ICD-10 - I10) His blood pressure is currently in the normal range at 138/82 and no change in his regimen was needed. I have recommended aggressive weight loss and sodium restriction combined with physical activity. 04/22/2024 Diabetes mellitus ty pe 2 in nonobese (ICD-10 - E11.9) He has gained 1 pound and is trying to lose weight further. Comprehensive blood work with a hemoglobin A1c and microalbumin have been ordered. Reports a fasting glucose of 140-150. 05/13/2024 Essential hypertensi on (ICD-10 - I10) His blood pressure is currently in the normal range A 130/78 and no change in his regimen was needed. I have recommended aggressive weight loss and sodium restriction combined with physical activity. 08/22/2024 Thrombocytopenia (ICD-10 - D69.6) His last platelet count was February 27, 2024. This value was 149,000. He is cleared for surgery. He has had no bleeding. He is not taking aspirin. 09/23/2024 Thrombocytopenia (ICD-10 - D69.6) His last platelet count was February 27, 2024. This value was 149,000. He is cleared for surgery. He has had no bleeding. He is not taking aspirin.He had no bleeding during his recent surgery. 10/19/2023 Former smoker (ICD-1 0 - Z87.891) He is highly motivated not to smoke. He has a plan for prevention of abstinence. We have discussed abstinence today. 01/18/2024 Reactive depression (ICD-10 - F32.9) He has lost his Perdomo feels very sad. He did not wish to take an antidepressant. He was given emotional support and close follow-up. 02/23/2024 Essential hypertensi on (ICD-10 - I10) His blood pressure is currently in the normal range at 130/70 and no change in his regimen was needed. I have recommended aggressive weight loss and sodium restriction combined with physical activity. 03/20/2024 Essential hypertensi on (ICD-10 - I10) His blood pressure is currently in the normal range at 138/82 and no change in his regimen was needed. I have recommended aggressive weight loss and sodium restriction combined with physical activity. 04/04/2024 Reactive depression (ICD-10 - F32.9) He has lost his Perdomo feels very sad. He did not wish to take an antidepressant. He was given emotional support and close follow-up. 04/22/2024 Herniated intervertebral disc of lumbar spine (ICD-10 - M51.26) He continues to have back pain radiates down his leg. He has seen a neurosurgeon. This workup is in progress and treatment will be available. 05/13/2024 Thrombocytopenia (ICD-10 - D69.6) The most recent platelet count is100,000. He is avoiding aspirin. He has had no bleeding. A CBC has been ordered to be done in the next few days. 08/22/2024 Left foot drop (ICD- 10 - M21.372) He continues to wear the brace to good effect. His gait is fairly normal. 09/23/2024 Herniated intervertebral disc of lumbar spine (ICD-10 - M51.26) He continues to have back pain radiates down his leg. He has seen a neurosurgeon. This workup is in progress and treatment will be available. 10/19/2023 Unspecified thoracic , thoracolumbar and lumbosacral intervertebral disc disorder (ICD-10 - M51.9) He continues to have pain in his lumbar spine and neck. His current therapy was continued. 01/18/2024 Herniated intervertebral disc of lumbar spine (ICD-10 - M51.26) He continues to have back pain radiates down his leg. He has seen a neurosurgeon. This workup is in progress and treatment will be available. 02/23/2024 Reactive depression (ICD-10 - F32.9) He has lost his Perdomo feels very sad. He did not wish to take an antidepressant. He was given emotional support and close follow-up. 03/20/2024 Reactive depression (ICD-10 - F32.9) He has lost his Perdomo feels very sad. He did not wish to take an antidepressant. He was given emotional support and close follow-up. 04/04/2024 Herniated intervertebral disc of lumbar spine (ICD-10 - M51.26) He continues to have back pain radiates down his leg. He has seen a neurosurgeon. This workup is in progress and treatment will be available. 05/13/2024 Herniated intervertebral disc of lumbar spine (ICD-10 - M51.26) He continues to have back pain radiates down his leg. He has seen a neurosurgeon. This workup is in progress and treatment will be available. 08/22/2024 Benign prostatic hyperplasia, unspecified whether lower urinary tract symptoms present (ICD-10 - N40.0) He rises from sleep once a night, sometimes twice. We discussed lifestyle modification as a way of reducing nocturia. 09/23/2024 Hyperlipidemia type II (ICD-10 - E78.0) His lipids are currently stable and no change in his regimen was made. 01/18/2024 Thrombocytopenia (ICD-10 - D69.6) The most recent platelet count is100,000. He is avoiding aspirin. He has had no bleeding. A CBC has been ordered to be done in the next few days. 02/23/2024 Herniated intervertebral disc of lumbar spine (ICD-10 - M51.26) He continues to have back pain radiates down his leg. He has seen a neurosurgeon. This workup is in progress and treatment will be available. 03/20/2024 Hyperlipidemia type II (ICD-10 - E78.01) A fasting lipid profile has been ordered. He has lost 3 pounds and is trying to consume a healthy diet. 04/04/2024 Thrombocytopenia (ICD-10 - D69.6) The most recent platelet count is100,000. He is avoiding aspirin. He has had no bleeding. A CBC has been ordered to be done in the next few days. 05/13/2024 Reactive depression (ICD-10 - F32.9) He has lost his Perdomo feels very sad. He did not wish to take an antidepressant. He was given emotional support and close follow-up. 08/22/2024 Herniated intervertebral disc of lumbar spine (ICD-10 - M51.26) He continues to have back pain radiates down his leg. He has seen a neurosurgeon. This workup is in progress and treatment will be available. 09/23/2024 Former smoker (ICD-1 0 - Z87.891) He is highly motivated not to smoke. He has a plan for prevention of abstinence. We have discussed abstinence today. 01/18/2024 Left foot drop (ICD- 10 - M21.372) He continues to wear the brace to good effect. His gait is fairly normal. 02/23/2024 Left foot drop (ICD- 10 - M21.372) He continues to wear the brace to good effect. His gait is fairly normal. 03/20/2024 Left foot drop (ICD- 10 - M21.372) He continues to wear the brace to good effect. His gait is fairly normal. 04/04/2024 Hyperlipidemia type II (ICD-10 - E78.01) A fasting lipid profile has been ordered. He has lost 3 pounds and is trying to consume a healthy diet. 05/13/2024 Benign prostatic hyperplasia, unspecified whether lower urinary tract symptoms present (ICD-10 - N40.0) He rises from sleep once a night, sometimes twice. We discussed lifestyle modification as a way of reducing nocturia. 08/22/2024 Other specified arthritis, left shoulder (ICD-10 - M13.812) He is scheduled to have a left shoulder arthroplasty at [facility]. I have seen and examined him carefully today. Assuming that he is cleared by the clinical social work aide he is cleared medically for the surgery. Because of his comorbidities his risk would be higher than that of the average 60-year-old man but I think the risk is acceptable. He has been instructed to take his insulin night before surgery but not thereafter. 09/23/2024 Left foot drop (ICD- 10 - M21.372) He continues to wear the brace to good effect. His gait is fairly normal. 02/23/2024 Benign prostatic hyperplasia, unspecified whether lower urinary tract symptoms present (ICD-10 - N40.0) 03/20/2024 Benign prostatic hyperplasia, unspecified whether lower urinary tract symptoms present (ICD-10 - N40.0) He rises from sleep once a night, sometimes twice. We discussed lifestyle modification as a way of reducing nocturia. 04/04/2024 Left foot drop (ICD- 10 - M21.372) He continues to wear the brace to good effect. His gait is fairly normal. 05/13/2024 Left foot drop (ICD- 10 - M21.372) He continues to wear the brace to good effect. His gait is fairly normal. 08/22/2024 DM (diabetes mellitu s) (ICD-10 - E11.9) He was continued on his diabetic regimen today. He will try and lose weight. No change his medications was made. 03/20/2024 DM (diabetes mellitu s) (ICD-10 - E11.9) He was continued on his diabetic regimen today. He will try and lose weight. No change his medications was made. 04/04/2024 Benign prostatic hyperplasia, unspecified whether lower urinary tract symptoms present (ICD-10 - N40.0) He rises from sleep once a night, sometimes twice. We discussed lifestyle modification as a way of reducing nocturia. 05/13/2024 Thyroid nodule (ICD- 10 - E04.1) He has been referred to endocrinology for a biopsy. 04/04/2024 DM (diabetes mellitu s) (ICD-10 - E11.9) He was continued on his diabetic regimen today. He will try and lose weight. No change his medications was made. Plan Of Treatment Pending Test Test Name Order Date PROFILE, FASTING (COMPREHENSIVE METABOLI C) 05/18/2020 PROFILE, FASTING (COMPREHENSIVE METABOLI C) 03/25/2020 PROFILE, FASTING (COMPREHENSIVE METABOLI C) 03/03/2023 PROFILE, FASTING (COMPREHENSIVE METABOLI C) 11/04/2022 PROFILE, FASTING (COMPREHENSIVE METABOLI C) 10/25/2019 PROFILE, FASTING (COMPREHENSIVE METABOLI C) 06/03/2019 PROFILE, FASTING (COMPREHENSIVE METABOLI C) 08/04/2022 PROFILE, FASTING (COMPREHENSIVE METABOLI C) 01/31/2022 PROFILE, FASTING (COMPREHENSIVE METABOLI C) 05/03/2022 PROFILE, FASTING (COMPREHENSIVE METABOLI C) 01/12/2021 PROFILE, FASTING (COMPREHENSIVE METABOLI C) 07/17/2018 PROFILE, FASTING (COMPREHENSIVE METABOLI C) 03/18/2022 PROFILE, FASTING (COMPREHENSIVE METABOLI C) 10/01/2021 PROFILE, FASTING (COMPREHENSIVE METABOLI C) 03/14/2018 PROFILE, FASTING (COMPREHENSIVE METABOLI C) 01/16/2018 PROFILE, FASTING (COMPREHENSIVE METABOLI C) 09/23/2024 PROFILE, FASTING (COMPREHENSIVE METABOLI C) 12/02/2021 PROFILE, FASTING (COMPREHENSIVE METABOLI C) 08/21/2020 PROFILE, FASTING (COMPREHENSIVE METABOLI C) 09/19/2023 PROFILE, FASTING (COMPREHENSIVE METABOLI C) 02/23/2024 PROFILE, FASTING (COMPREHENSIVE METABOLI C) 07/30/2021 PROFILE, FASTING (COMPREHENSIVE METABOLI C) 05/09/2023 PROFILE, FASTING (COMPREHENSIVE METABOLI C) 02/12/2019 PROFILE, FASTING (COMPREHENSIVE METABOLI C) 10/19/2023 PROFILE, FASTING (COMPREHENSIVE METABOLI C) 05/13/2024 PROFILE, RANDOM (COMPREHENSIVE METABOLIC ) 11/28/2018 HEMOGLOBIN A1C (GLYCOHEMOGLOBIN) 021 HEMOGLOBIN A1C (GLYCOHEMOGLOBIN) 023 HEMOGLOBIN A1C (GLYCOHEMOGLOBIN) 020 HEMOGLOBIN A1C (GLYCOHEMOGLOBIN) 020 HEMOGLOBIN A1C (GLYCOHEMOGLOBIN) 023 HEMOGLOBIN A1C (GLYCOHEMOGLOBIN) 019 HEMOGLOBIN A1C (GLYCOHEMOGLOBIN) 023 HEMOGLOBIN A1C (GLYCOHEMOGLOBIN) 019 HEMOGLOBIN A1C (GLYCOHEMOGLOBIN) 022 HEMOGLOBIN A1C (GLYCOHEMOGLOBIN) 022 HEMOGLOBIN A1C (GLYCOHEMOGLOBIN) 022 HEMOGLOBIN A1C (GLYCOHEMOGLOBIN) 021 HEMOGLOBIN A1C (GLYCOHEMOGLOBIN) 022 HEMOGLOBIN A1C (GLYCOHEMOGLOBIN) 021 HEMOGLOBIN A1C (GLYCOHEMOGLOBIN) 018 HEMOGLOBIN A1C (GLYCOHEMOGLOBIN) 022 HEMOGLOBIN A1C (GLYCOHEMOGLOBIN) 020 HEMOGLOBIN A1C (GLYCOHEMOGLOBIN) 023 LIPID PANEL 02/12/2019 LIPID PANEL 08/21/2020 LIPID PANEL 05/09/2023 LIPID PANEL 05/18/2020 LIPID PANEL 03/25/2020 LIPID PANEL 03/03/2023 LIPID PANEL 10/25/2019 LIPID PANEL 11/04/2022 LIPID PANEL 07/17/2018 LIPID PANEL 06/03/2019 LIPID PANEL 01/16/2018 LIPID PANEL 01/31/2022 LIPID PANEL 05/03/2022 LIPID PANEL 01/12/2021 LIPID PANEL 03/14/2018 PSA, TOTAL 02/23/2024 PSA, TOTAL 01/31/2022 PSA, TOTAL 01/12/2021 PSA, TOTAL 03/14/2018 PSA, TOTAL 09/19/2023 PSA, TOTAL 10/25/2019 PSA, TOTAL 11/04/2022 PSA, TOTAL 10/01/2021 MICROALBUMIN, RANDOM 05/03/2022 MICROALBUMIN, RANDOM 10/01/2021 MICROALBUMIN, RANDOM 01/31/2022 MICROALBUMIN, RANDOM 09/19/2023 MICROALBUMIN, RANDOM 05/09/2023 MICROALBUMIN, RANDOM 11/28/2018 MICROALBUMIN, RANDOM 03/25/2020 MICROALBUMIN, RANDOM 03/18/2022 MICROALBUMIN, RANDOM 06/03/2019 CBC w DIFF 01/16/2018 CBC w DIFF 12/02/2021 CBC w DIFF 03/18/2022 CBC w DIFF 06/03/2019 CBC w DIFF 07/30/2021 CBC w DIFF 02/12/2019 CBC w DIFF 05/03/2022 CBC w DIFF 01/12/2021 CBC w DIFF 08/21/2020 CBC w DIFF 10/01/2021 CBC w DIFF 03/14/2018 CBC w DIFF 01/31/2022 CBC w DIFF 09/19/2023 CBC w DIFF 05/18/2020 CBC w DIFF 05/09/2023 CBC w DIFF 03/03/2023 CBC w DIFF 11/28/2018 CBC w DIFF 08/04/2022 CBC w DIFF 03/25/2020 CBC w DIFF 10/25/2019 CBC w DIFF 11/04/2022 CBC w DIFF 07/17/2018 PLATELET COUNT (BLUE TOP) 01/16/2018 MRI LUMBAR SPINE NO CONTRAST 11/10/2017 MRI LUMBAR SPINE NO CONTRAST 04/27/2021 MRI PELVIS NO CONTRAST 04/27/2021 XR LUMBAR SPINE 4+ VIEWS 11/03/2017 CBC WITH AUTO DIFF 10/19/2023 CBC WITH AUTO DIFF 05/13/2024 CBC WITH AUTO DIFF 02/23/2024 CBC WITH AUTO DIFF 09/23/2024 Lipid Panel 08/04/2022 Lipid Panel 09/23/2024 Lipid Panel 12/02/2021 Lipid Panel 10/19/2023 Lipid Panel 03/18/2022 Lipid Panel 05/13/2024 Lipid Panel 02/23/2024 Lipid Panel 07/30/2021 Lipid Panel 10/01/2021 Lipid Panel 09/19/2023 Microalbumin, Random 10/19/2023 Microalbumin, Random 02/23/2024 Microalbumin, Random 08/04/2022 US thyroid 09/30/2024 Hemoglobin A1c 09/23/2024 Hemoglobin A1c 05/13/2024 Hemoglobin A1c 10/19/2023 Hemoglobin A1c 02/23/2024 Next Appt Details Provider Name:Xander Del Rosario, 11/04/2024 10:45:00 AM, [address] [place] [address] [place], [address], Provider Name:Xander Del Rosario, 05/14/2025 10:00:00 AM, [address] [place] [address] [place], [address], Insurance Providers Payer Name Payer Address Payer Phone Subscriber Number Group Number Insured Name Patient Relationship to Insured Coverage Start Date Coverage End Date MEDICARE NGS [address] [place] [address] [id number] Ap Jones Self - patient is the insured [facility] CLAIM DIV [address] [place] [address] [id number] Ap Jones Self - patient is the insured Medical (General) History Medical History History ICD Code diabetes mellitus obesity hypertension penicillin allergy erythromycin allergy back pain herniated disc lumbosacral pain hyperlipidemia Mild aortic stenosis Bicuspid aortic multiple thyroid nodules Surgical History Surgery Date(Month/Year) laminectomy of the spine fractured left ankle right hip arthroplasty cardiac catheterization: 25% LAD, EF 65% 02/[address] Jones 01/2018 Left shoulder replacement 08/29/2024 Shoulder replacement surgery - august 29, [facility] 07/2024 Right hip surgery - scoped, no complicat ions since. Hospitalization History Reason Date(Month/Year) intomas [facility] due to hypertension/dehydrati on/vertigo 03/16/2024 No history
--- OUTSIDE RECORDS SUMMARY | 2024-10-14 08:55 | XMS_ITS ---
Author Organization Xander Del Rosario III, MD Address [address] [place] [address] [place] [address] Care Team Providers Care Pediatric Clinical Dietician Name Role Phone Xander Del Rosario Primary Care Provider [phone] REASON FOR VISIT Rx Request Medications Medication SIG (Take, Route, Frequency, Duration) Notes Start Date End Date Status Sulfamethoxazole-Trimetho prim 800-160 MG 1 tablet Orally twice a day for 7 days 10/02/2024 10/09/2024 Active Social History Sex Assigned At : Social History Observation Description Sex Assigned At Male Encounters Encounter Location Date Provider Diagnosis Xander Del Rosario III, MD [address] [place] [address] [place] [address] 10/02/2024 Xander Del Rosario Plan Of Treatment Medication Medication Name Sig Start Date Stop Date Notes Sulfamethoxazole-Trimethopri m 800-160 MG 1 tablet Orally twice a day for 7 days 10/02/2024 10/09/2024 Next Appt Details Provider Name:Xander Del Rosario, 11/04/2024 10:45:00 AM, [address] [place] [address] [place], [address], Provider Name:Xander Del Rosario, 05/14/2025 10:00:00 AM, [address] [place] [address] [place], [address], Progress Notes * Nancy JONES: 4 (59 yo M)Acc No.[id number]:10/02/2024 Patient:?Ap JONES :1965???Age:59 Y???Sex:Male Address:[address] [place] [id number] * Refills? Start Sulfamethoxazole-Trimethoprim Tablet, 800-160 MG, Orally, 14 Tablet, 1 tablet, twice a day, 7 days, Refills=0 Subjective: * Chief Complaints: * ???Rx Request * Medical History:? * Surgical History:? * Hospitalization/Major Diagno stic Procedure:? * Medications:? Objective: * Vitals:? * Physical Examination:? Assessment: Plan: * Treatment: * Procedure Codes:? * true * Date:? Generated for Eladia ramires/Althea/Samanthaitting on:?10/14/2024 08:54 AM EST
--- OUTSIDE RECORDS SUMMARY | 2024-10-14 08:55 | XMS_ITS ---
Author Organization Xander Del Rosario III, MD Address [address] [place] [address] Care Team Providers Care Lead Python Developer Name Role Phone Xander Del Rosario Primary Care Provider REASON FOR VISIT Test results Social History Sex Assigned At : Social History Observation Description Sex Assigned At Male Encounters Encounter Location Date Provider Diagnosis Xander Del Rosario III, MD [address] [place] [address] [place] [address] 09/30/2024 Xander Del Rosario Multinodular thyroid E04.2 Assessments Encounter Date Diagnosis (ICD Code) Assessment Notes Treat ment Notes Treatment Clinical Notes 09/30/2024 Multinodular thyroid (ICD-10 - E04.2) Plan Of Treatment Pending Test Test Name Order Date US thyroid 09/30/2024 Next Appt Details Provider Name:Xander Del Rosario, 11/04/2024 10:45:00 AM, [address] [facility] [place], [address], Provider Name:Xander Del Rosario, 05/14/2025 10:00:00 AM, [address] [facility] [place], [address], Progress Notes * Ap JONESDOB: 4 (59 yo M)Acc No.[id number]:09/30/2024 Patient:?Ap JONES :1965???Age:59 Y???Sex:Male Address:[address] [place] [address] [place] [address] Subjective: * Chief Complaints: * ???Test results * Medical History:? * Surgical History:? * Hospitalization/Major Diagno stic Procedure:? * Medications:? Objective: * Vitals:? * Physical Examination:? Assessment: * Assessment: 1.?Multinodular thyroid - E0 4.2??? Plan: * Treatment: * Procedure Codes:? * true * Date:? Generated for Eladia ramires/Althea/Katiesmitting on:?10/14/2024 08:54 AM EST
--- OUTSIDE RECORDS SUMMARY | 2024-10-14 08:55 | XMS_ITS | Data Portability ---
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 ASSESSMENT: - Advanced arthritis, left shoulder - History of shoulder dislocation - Type 2 diabetes, well-controlled PLAN: The patient has advanced arthritis in the left shoulder, consistent with his symptoms of significant pain and limited motion. The next step in management includes considering a shoulder replacement, specifically a reverse shoulder replacement, due to the severity of the arthritis and the patient's age. The patient is informed about the risks and benefits of the surgery, including the potential for improved pain and function but also the risks of infection and the longevity of the implant. The patient is advised to continue taking Meloxicam and is provided with information about a shoulder cooling unit to help manage postoperative pain and swelling. The patient will undergo a pre-screening visit at [facility] to assess his heart and lungs and ensure he is safe for anesthesia. A CAT scan will be performed to aid in surgical planning. The patient is instructed to avoid formal physical therapy initially to prevent overexertion and is given exercises to perform at home. Follow-up is scheduled to discuss any further questions and to finalize surgical plans. Had a lengthy conversation today with the patient regarding their shoulder. Patient has watched the pre-visit video. Explained to patient in detail the anatomy of a shoulder. Reviewed X-Rays. Reviewed all possible treatment options which include: nothing until pain is unbearable, injections or surgery. Discussed the possible surgical options would be a total shoulder replacement or a reverse shoulder replacement. I am more inclined to perform a reverse for the patient given the anatomic replacement's risk for rotator cuff tearing in the future, as well as the reverse's improved longevity comparatively. Discussed optimal treatment outcomes, with realistic healing, pain and range of motion levels postoperatively. Discussed overall postoperative satisfaction rate of patients, with 97% being satisfied to very satisfied with their outcome, while the remaining 3% are neutral or unsatisfied. Reviewed the seven surgical risks; infection, medical risk factors, dislocation/popping out of socket, implant failure, nerve injury, stress fracture, and the possibility of still having pain. Should any of these complications occur, explained they may be unchanged or worse than their preoperative status. Barring any complications, however, surgical intervention should improve their symptoms reliably. Despite the risks and benefits, they would like to proceed with surgery, as the pain and dysfunction affect their quality of life on a daily basis. He is scheduled for a LEFT Reverse for 08/29/2024. Jordan will administer a cortisone injection into his RIGHT shoulder in-office today. This should not interfere with his upcoming diagnostic lumbar tap this Monday. Reviewed operative and post op healing process. Discussed that patient is allowed to do small movements in front of body and driving usually is allowed within 2-6 weeks, once they are off pain medication and has practiced with family/friends. Patient received a pre-op binder. Given the patient's pain, dysfunction, and advanced degenerative changes, advised against enrollment in a formal physical therapy program, as this will likely exacerbate their shoulder pain. I spent a total of 45 minutes on the day of the visit which included In depth discussion and shared decision making with patient regarding options for non-surgical and surgical treatment. This discussion included but was not limited to preoperative optimization, surgical procedure and approach, appropriate implant selection and technologies, benefits and risks of surgery as well as postoperative care and recovery. This plan is subject to change based on clinical presentation and intraoperative decision making. This appointment note was dictated in real-time using AI-assisted software. The patient consented to use of this software during the duration of their visit with me. Given the limitations of this software, please disregard any redundancies, grammatical errors, or oversimplification of medical terminology throughout this transcript. [email or web address] Not available 06/10/2024 10:49:48 06/10/2024 06/10/2024 PROCEDURE: right shoulder injection MEDICATION: 2 mL Kenalog 40 mg/1 mL, and 2 mL of 0.25% bupivacaine plain (glenohumeral); 1 mL Kenalog 40 mg/1 mL and 1 mL 0.25% bupivacaine plain (subacromial). TREATMENT GIVEN: I confirmed that the patient does not have a history of prior adverse reactions, active infections, or relevant allergies. There was no erythema or warmth, and the skin was clear. After discussion of the risks including, but not limited to infection, localized soreness and swelling, reaction to medications, the patient consented to proceeding with the procedure.?? Under sterile conditions, the shoulder was prepped with alcohol and chlorhexadine. Sterile ultrasound gel and the Avinger Ultrasound was used to ensure accurate needle placement. Using a medial approach and a 20-gauge spinal needle, the glenohumeral injection was performed. The needle was then redirected to the subacromial space, placement confirmed with the ultrasound, and the subacromial injection was performed. Ultrasound images were scanned into the patient's chart. The injection was completed without complication and a Band-Aid was applied. The patient tolerated the procedure well and was instructed to avoid strenuous activity for the next 24-48 hours and use ice, NSAIDs, or Tylenol for pain as needed.?? Not available 06/10/2024 10:23:29 09/06/2024 09/06/2024 59-year-old male status post left RSA 08/29/2024. Incision looks great, I dressed the wound as stated earlier, and applied a new Aquacel. He was instructed to sponge back to keep the dressing dry, and I will see him back in about a week for a wound check in his first postop visit with x-rays. Not available 09/11/2024 10:55:33 09/13/2024 09/13/2024 Diagnostic Imagi ng: Grashey, axillary, and humerus views of left shoulder demonstrate well aligned prosthetic components. There is no evidence of hardware failure, there is no periprosthetic lucency. The prosthesis is well centered. Alignment is unchanged compared to prior x-rays. No radiographic abnormalities noted. Assessment/Plan: 59-year-old male doing well status post left RSA 08/29/2024. X-rays look great, incision looks great. All prosthetic components are in good alignment / position with no evidence of hardware failure. The patient no longer needs to wear the sling during the day but may continue to do so for comfort. The patient should continue to sleep in it at night. The patient may begin to use their shoulder for light ADLs while keeping their hands in front of their body and avoiding motions to the side. The ELBOW can go to the side and behind their back. Taught the patient standard 1st POV exercises to perform on their own at home as they tolerate. The patient can also shower and get the incision site wet, but should avoid soaking in the shower. Additionally, the patient may begin to practice driving with a friend or family member once they feel comfortable, but should be mindful of the gear shift and ensure their operative side stays inside the strikezone when reaching for it. F/u in 4 weeks for their 2nd POV. Not available 09/13/2024 12:35:18 10/07/2024 10/07/2024 X-Ray AP/Grashey Left shoulder-10/07/2024: Well-placed reverse prosthesis. No evidence of hardware failure or radiographic lucencies. ASSESSMENT: - Post-operative follow-up for right shoulder. PLAN: The patient is advised to start using his shoulder more and moving it around without doing any specific exercises. He is instructed not to lift more than 5 lbs for the next six weeks to avoid causing any harm, despite the shoulder being solid. The patient is informed that he can lift anything he wants after six weeks. He is reassured that his shoulder will continue to improve significantly over the next six weeks and beyond. The patient is scheduled for a follow-up appointment in six weeks. Patient presents to clinic 6 weeks s/p reverse total shoulder arthroplasty. They are doing well at this time. All prosthetic components are in good alignment with no notable changes in comparison to previous radiographs. At this time, they no longer need to wear their sling during the day or at night. They no longer need to stay within the strikezone when performing ADLs. Taught them standard 2nd POV exercises to perform on their own at home as they tolerate. Most importantly, they may begin to use their shoulder more often for light ADLs as they tolerate. Emphasized that they will experience great improvements in both pain and ROM over the next 6 weeks. F/u in 6 weeks for their 3rd POV. I spent a total of 15 minutes on the day of the visit with the patient. This includes time spent reviewing pertinent medical records, test results, and radiographs prior to the appointment. With the patient, a medically necessary physical examination was performed. Finally, time was spent counseling/educating the patient on next steps in the postoperative timeline, continued shoulder care, planning and documenting information in the EHR. This appointment note was dictated in real-time using AI-assisted software. Given the limitations of this software, please disregard any redundancies, grammatical errors, or oversimplification of medical terminology throughout this transcript. [email or web address] Not available 10/07/2024 14:24:01 Plan of Treatment Reminders Order Date Submit Date Provider Last Modified By Organization Details Last Modified Time Details Appointments Est. New to Provider 2024 11:30A M QING CALVILLO Not available Not available Not available Post-Oper ative F/U 2024 11:40A M HANSA WATKINS MD Not available Not available Not available Lab None recorded. Referral None recorded. Procedures None recorded. Surgeries orthopaed ic surgery (SURG) 2023 024 [email or web address] [facility] (Surgery Scheduling), [address] [place] [address], [id number], 08/14/2024 14:38:53 Imaging None recorded. Medication Orders Kenalog 40 mg/mL suspensio n for injection 2023 024 [id number], [address], [place], [address], 06/10/2024 13:24:05 Patient TargetsNo targets recorded. Patient InstructionsNo instructions recorded. Reason for Referral None Reported. Results Created Date Observation Date Name Description Value Unit Range Abnormal Flag Note LastModifiedBy Organization Detail LastModifiedTime 08/13/2008/13/2024 HEMOG LOBIN A1C hemoglobin A1C 7.5 % 4.5-6. 2 high Not Available [facility] - Lab [address] [facility], [place], [address], 08/13/2024 15:17:05 08/13/20 24 08/13/2024 HEMOG LOBIN A1C estimated average glucose (instr. calc) 168 mg/dL Not Available [facility] - Lab [address] [facility], [place], [address], 08/13/2024 15:17:05 08/13/20 24 08/13/2024 BASIC METAB OLIC PANEL sodium 138 mmol/ L 135-14 5 Not Available [facility] Lab [address] [facility], [place], [address], 08/13/2024 15:55:09 08/13/2008/13/2024 BASIC METAB OLIC PANEL potassium 4.3 mmol/ L 3.5-5. 3 Not Available [facility] - Lab [address] [facility], [place], [address], 08/13/2024 15:55:09 08/13/20 24 08/13/2024 BASIC METAB OLIC PANEL chloride 100 mmol/ L 100-11 2 Not Available [facility] Lab [address] [facility], [place], [address], 08/13/2024 15:55:09 08/13/20 24 08/13/2024 BASIC METAB OLIC PANEL total CO2 28 mmol/ L 21-30 Not Available [facility] - Lab [address] [facility], [place], [address], 08/13/2024 15:55:09 08/13/20 24 08/13/2024 BASIC METAB OLIC PANEL anion gap 10 mmol/ L 4-20 Not Available [facility] Lab [address] [facility], [place], [address], 08/13/2024 15:55:09 08/13/20 24 08/13/2024 BASIC METAB OLIC PANEL BUN 18 mg/dL 6-20 Not Available [facility] - Lab [address] [facility] [place], [address], 08/13/2024 15:55:09 08/13/20 24 08/13/2024 BASIC METAB OLIC PANEL creatinine 0.70 mg/dL 0.00-1 .30 Not Available [facility] - Lab [address] [facility], [place], [address], 08/13/2024 15:55:09 08/13/20 24 08/13/2024 BASIC METAB OLIC PANEL glucose 108 mg/dL 70-105 high Not Available [facility] - Lab [address] [facility], [place], [address], 08/13/2024 15:55:09 08/13/2008/13/2024 BASIC METAB OLIC PANEL calcium 9.5 mg/dL 8.4-10 .2 Not Available [facility] Lab [address] [facility], [place], [address], 08/13/2024 15:55:09 08/13/20 24 08/13/2024 BASIC METAB OLIC PANEL estimated GFR (CKD-epi) 106 mL/mi n/bsa >=60 Not Available [facility] Lab [address] [facility], [place], [address], 08/13/2024 15:55:09 08/13/20 24 08/13/2024 TYPE AND SCREE N ABO and Rh B POS Not Available [facility] Lab [address] [facility], [place], [address], 08/13/2024 16:41:05 08/13/20 24 08/13/2024 TYPE AND SCREE N antibody screen NEG Not Available [facility] Lab [address] [facility], [place], [address], 08/13/2024 16:41:05 08/13/20 24 08/13/2024 TYPE AND SCREE N ts expiration date 2023 23:59 Not Available [facility] Lab [address] [facility], [place], [address], 08/13/2024 16:41:05 08/13/2008/13/2024 CBC WBC 7.53 K/uL 4.00-1 1.00 Not Available [facility] - Lab [address] [facility], [place], [address], 08/14/2024 07:22:03 08/13/2008/13/2024 CBC RBC 4.73 M/uL 4.20-5 .80 Not Available [facility] - Lab [address] [facility], [place], [address], 08/14/2024 07:22:03 08/13/2008/13/2024 CBC hemoglobin 13.9 g/dL 14.0-1 7.0 low Not Available [facility] - Lab [address] [facility], [place], [address], 08/14/2024 07:22:03 08/13/2008/13/2024 CBC hematocrit 41.9 % 42.0-5 1.0 low Not Available [facility] Lab [address] [facility], [place], [address], 08/14/2024 07:22:03 08/13/2008/13/2024 CBC MCH 29.4 pg 27.0-3 4.0 Not Available [facility] - Lab [address] [facility], [place], [address], 08/14/2024 07:22:03 08/13/2008/13/2024 CBC MCHC 33.2 g/dL 31.0-3 6.0 Not Available [facility] - Lab [address] [facility], [place], [address], 08/14/2024 07:22:03 08/13/2008/13/2024 CBC MCV 89 fL 80-98 Not Available [facility] - Lab [address] [facility], [place], [address], 08/14/2024 07:22:03 08/13/20 24 08/13/2024 CBC RDW 12.8 % 11.5-1 4.5 Not Available [facility] - Lab [address] [facility], [place], [address], 08/14/2024 07:22:03 08/13/20 24 08/13/2024 CBC RDW-SD 41.1 fL 35.1-4 6.3 Not Available [facility] - Lab [address] [facility], [place], [address], 08/14/2024 07:22:03 08/13/2008/13/2024 CBC plt-F Remov ed due to clump ing Previ ously repor braden as 106 K/uL on 08/13 at 5:02 PM EDT Not Available [facility] Lab [address] [facility], [place], [address], 08/14/2024 07:22:03 08/13/20 24 08/13/2024 CBC mean platelet volume 10.0 fL 9.4-12 .4 Not Available [facility] Lab [address] [facility], [place], [address], 08/14/2024 07:22:03 08/13/20 24 08/13/2024 MRSA/ SA BY PCR MRSA/SA by PCR negati ve for methic illin resist ant staphy lococc us aureus . abnormal Negat tyrese for Methi cilli n Resis tant Staph yloco ccus aureu s (MRSA ); Posit tyrese for Staph yloco ccus aureu s. Not Available [facility] Lab [address] [facility], [place], [address], 08/13/2024 19:03:05 08/29/20 24 08/29/2024 POCI GLUCO SE POC glucose 152 mg/dL 70-105 high Not Available [facility] - Lab [address] [facility], [place], [address], 08/29/2024 10:58:26 08/29/20 24 08/29/2024 POCI GLUCO SE POC glucose 264 mg/dL 70-105 high Not Available [facility] - Lab [address] [facility], [place], [address], 08/29/2024 18:06:32 08/29/20 24 08/29/2024 POCI GLUCO SE POC glucose 293 mg/dL 70-105 high Not Available [facility] - Lab [address] [facility], [place], [address], 08/29/2024 21:09:29 08/29/20 24 08/29/2024 SURGI LEATHA PATHO LOGY TISSU E EXAM lab AP case report Surgi leatha Patho logy Repor t Case: [id number] CASE REPOR T Surgi leatha Patho logy Repor t Case: [id number] Autho laestefany Provi brenna: Ruel Watkins MD Colle cted: 08/29 01:04 PM Order ing Locat ion: [facility] Recei caorlina: 08/30 06:58 AM Hospi tyron OR Patho logis t: Geraldo Kimble MD Speci men: Joint , Shoul brenna, Right shoul brenna bone and tissu e FINAL DIAGN OSIS Left shoul brenna joint : Moore es consi stent with osteo arthr itis (akanksha s descr iptio n only) . Elect karrie nick d by Geraldo Kimble MD on 2023 at 6:11 AM [facility] LEATHA INFOR MATIO N Pre-o p diagn osis: Prima ry osteo arthr itis of left shoul brenna LH LAB GROSS DESCR IPTIO N The speci men is recei carolina fresh , label ed with the patie nt's name and left shoul brenna bone and tissu e . It consi sts of multi ple fragm ents of bone and soft tissu e measu ring 6 x 5.5 x 1.5 cm in aggre gate. The large st bone fragm ent is consi stent with a porti on of humer al head measu ring 5.5 [address] in wides t diame ter. The artic ular surfa ce demon strat es areas of eburn ation with the remai lilian carti ted being rough and velve ty. Osteo phyto sis is seen Secti oning demon strat es subch ondra l scler osis under neath the eburn ated areas . Scatt ered throu ghout the bone and soft tissu e are ann white chalk y depos its. Upon secti oning the soft tissu e, no nodul es are ident ified . Gross only. Not Available [facility] Lab [address] [facility], [place], [address], 09/02/2024 06:12:12 08/30/20 24 08/30/2024 POCI GLUCO SE POC glucose 259 mg/dL 70-105 high Not Available [facility] Lab [address] [place], [address], 08/30/2024 01:13:23 08/30/20 24 08/30/2024 POCI GLUCO SE POC glucose 316 mg/dL 70-105 high Not Available [facility] Lab [address] [place], [address], 08/30/2024 05:49:37 08/30/20 24 08/30/2024 POCI GLUCO SE POC glucose 329 mg/dL 70-105 high Not Available [facility] Lab [address] [facility], [place], [address], 08/30/2024 10:53:16 08/30/20 24 08/30/2024 POCI GLUCO SE POC glucose 253 mg/dL 70-105 high Not Available [facility] Lab [address] [place], [address], 09/04/2024 08:49:13 08/30/20 24 08/30/2024 POCI GLUCO SE POC glucose 289 mg/dL 70-105 high Not Available [facility] Lab [address] [facility] [place], [address], 09/04/2024 08:49:15 08/18/20 24 08/13/2024 CT, dez ceja, w/o contr ast [facility] Pt Name : KATIE JULES 2 - Date: 1964 Sex: M Locati on : [facility] CT Visit: [id number] Admit Date: 2023 Date of Servic e: 2023 Exam : CT SHOULD ER LEFT WO CONTRA ST Status : Final Order MD : Courtney WATKINS NDREW Ord Tel#:[phone] CC Provid er:, ------ ------ ------ ------ ------ ------ ------ ------ ------ ------ ------ ------ ------ - CLINIC AL INDICA TION: Preope rative planni ng for should er arthro plasty . Primar y osteoa rthrit is of the left should er. TECHNI QUE: Helica l CT of the left should er withou t contra st was perfor med accord ing to Matchp oint protoc ol. The helica l data set was reform atted in the sagitt al and helms l planes . Additi onally a 3-D model of the data set was perfor med at an indepe [facility]. Dose reduct ion techni ques were utiliz ed includ ing mA and/or kV adjust ment. YENNY GS: Severe left glenoh umeral osteoa rthrit is with bone-o n-bone anteri niko and inferi niko, eburna tion, margin al osteop hytes, joint effusi on, and synovi al minera lizati on. Preser carolina rotato r cuff muscle bulk. Mild degene rative change of the acromi oclavi cular joint. No mass or consol idatio n at the imaged left lung. There are scatte red nonspe cific calcif icatio ns at the slight ly hetero geneou s left thyroi d lobe withou t apprec iable nodule . Helms ry artery and aortic arch calcif icatio ns are noted. No lympha denopa thy. IMPRES QI: Severe left glenoh umeral osteoa rthrit is. Rotato r cuff muscle bulk is preser carolina. REPORT SIGNED BY: NINI MCCABE EARebel 15:11: 17 Left Should er, Pre Op Planni ike for TSA MATC HPOINT PROTOC OL PASU 08/13 @ 11am, please mine munguia same day, thank you [address] [place], [address], 08/18/2024 20:26:16 Result Notes None recorded. Problems Name Problem SNOMED Code Status Onset Date Resolution Date Notes Provider Name and Address Organization Details Recorded Time Localized, primary osteoarthritis of the shoulder region 942586144 Active 2023 QING REYES [address] [place] [address], [id number] [place] [address] [facility] 08:53:39 Problem Notes None recorded. Procedures Surgical History Date Name Laterality Status Provider Name and Address Organization Details Recorded Time Orthopaedic Surgery completed Alvaro Garcia [facility] 09/13/2024 11:39:27 8 Other completed Juany Harvey [facility] 02/05/2024 08:29:13 Imaging Results Imaging Date Name Status LastModified by Organiz ation Details LastModified Time 08/13/2024 CT, shoulder, w/o contrast completed [address] [facility], [place], [address], 08/18/2024 20:26:16 Procedure Notes None recorded. Medical Equipment None Reported. Allergies Allergen ID Allergen Name Allergen Category Reaction Reaction Severity Criticality Documentation Date Start Date Code Code System Note Provider Name and Address Organization Details Recorded Time 20340602 Medicinal product containin g penicilli n and acting as antibacte rial agent (product) medicatio n Not available Not available Not available 02/05/2024 71802 05 SNOMED Juany Harvey [facility] 4 08:27:17 246111 clarithro mycin medicatio n Not available Not available Not available 02/05/202488262 RxNorm Juany chris [facility] 4 08:27:30 290001 Cipro medicatio n Not available Not available Not available 02/05/202482032 3 RxNorm Juany Harvey [facility] 4 08:27:35 Medications Name Sig Start Date Stop Date Status Note LastModified by Organization Details LastModified Time Kenalog 40 mg/mL suspension for injection Take 3 mL by injectio n route. 2023 active US Guided Not Available Not Available Not Available cephalexin 500 mg capsule Take 1 capsule twice a day by oral route for 7 days. 10/07 completed Not Available Not Available Not Available lisinopril active Not Available Not Av ailable Not Available metformin active Not Available Not Kendy ilable Not Available Crestor active Not Available Not Avail able Not Available hydrochlor othiazide (bulk) active Not Available Not Available Not Available Trulicity 06/10 completed Not Available Not Available Not Available Humalog Curtis KwikPen U-100 active Not Available Not Available Not Available Ozempic active Not Available Not Avail able Not Available Vitals Date Recorded Body height Provider Name an d Address Organization Details Last Updated DateTime 06/10/2024 179.07 cm Mahendra [facility] 06/10/2024 09:42:32 Date Recorded Body height Provider Name an d Address Organization Details Last Updated DateTime 09/06/2024 179.07 cm Mahendra [facility] 09/06/2024 13:32:00 Date Recorded Body height Body mass index (BMI) Body weight Provider Name and Address Organization Details Last Updated DateTime 10/07/2024 179.07 cm 36.8 kg/m2 629447.02 g Lakshmi Girard [facility] 10/07/2024 13:52:14 Social History Question Answer Notes LastModified by Organizat ion Details LastModified Time Tobacco Smoking Status Former Smoker Juany Harvey [facility] 02/05/2024 08:26:57 What Is Your Level Of Alcohol Consumption? Occasional Information not available 02/05/2024 Do You Or Have You Ever Used E-cigarettes Or Vape? Never Used Electronic Cigarettes Information not available 02/05/2024 What Is Your Occupation? Retired Information not available 02/05/2024 Do You Or Have You Ever Used Smokeless Tobacco? [id number] Information not available 02/05/2024 How Much Tobacco Do You Smoke? No Information not available 02/05/2024 How Many Years Have You Smoked Tobacco? 2 Information not available 02/05/2024 Sex: Unknown Functional Status None recorded. Mental Status None recorded. Family History Relationship Description Onset Age of this Age Resolved Age Notes LastModified by Organization Details LastModified Time Father Myocardial infarction [email or web address] Not available 06/10 09:43:07 Medical History Condition Response Diabetes Y High Blood Pressure Y Irregular Heartbeat Y Past Encounters Encounter ID Performer Location Encounter Start Date Encounter Closed Date Diagnosis/Indication Diagnosis SNOMED-CT Code Diagnosis ICD10 Code [id number] QING REYES [address] [address] 02/05/2024 07:41:03 02/05/2024 09:55:56 Localized, primary osteoarthritis of the shoulder region 765483631 M19.802 [id number] HANSA WATKINS MD [address] [address] 06/10/2024 09:08:25 06/10/2024 10:26:04 Localized, primary osteoarthritis of the shoulder region 387151883 M19.817 [id number] QING REYES [address] [address] 06/10/2024 10:19:58 06/10/2024 12:48:44 Shoulder pain 22816716 M25.519 [id number] QING REYES [place] [facility] [address] [facility],[address] [address] 09/06/2024 13:25:39 09/06/2024 13:54:27 Localized, primary osteoarthritis of the shoulder region 688766524 M19.776 [id number] QING REYES [place] [facility] [address] [place] [address], [address] [place] [address] 09/13/2024 10:56:18 09/13/2024 13:01:24 Localized, primary osteoarthritis of the shoulder region 095959894 M19.511 [id number] HANSA WATKINS MD [place] [facility] [address] [place] [address] 10/07/2024 13:12:57 10/07/2024 14:14:53 Localized, primary osteoarthritis of the shoulder region 920885935 M19.012 Health Concerns Section Related Observation LastModified by Organization Detai ls LastModified Time None Recorded Concern Status LastModified by Organization Details LastModified Time None Recorded Advance Directives Directive None Recorded Payers Encounter Date Sequence Insurance Name Policy Number Policy Andrade Covered Member ID Andrade Member ID Guarantor Name 06/10/2024 1 [place] Ap J Aubrey [id number] Ap Aubrey 06/10/2024 2 [employer] HE[employer] OPTIONS (MEDICARE SUPPLEMENT) Ap Aubrey [id number] Ap Aubrey 06/10/2024 1 [place] Ap J Aubrey [id number] Ap Aubrey 06/10/2024 2 [employer] HE[employer] OPTIONS (MEDICARE SUPPLEMENT) Ap Aubrey [id number] Ap Aubrey 09/06/2024 1 [place] Ap J Aubrey [id number] Ap Aubrey 09/06/2024 2 [employer] HE[employer] OPTIONS (MEDICARE SUPPLEMENT) Ap Aubrey [id number] Ap Aubrey 09/13/2024 1 [place] Ap J Aubrey [id number] Ap Aurbey 09/13/2024 2 [employer] HEALTHCARE OPTIONS (MEDICARE SUPPLEMENT) Ap Aubrey [id number] Ap Aubrey 10/07/2024 1 [place]ERNMENT [place] Ap J Aubrey [id number] Ap Aubrey 10/07/2024 2 [employer] HE[employer] OPTIONS (MEDICARE SUPPLEMENT) Ap Aubrey [id number] Ap Jules Notes Date Note Type Note Provider Name and Address Organization Details Recorded Time 06/10/2024 text/html Ap Jules i s a 58-year-old male who presents to the clinic for evaluation of his left shoulder pain. The patient reports experiencing significant pain and stiffness in the left shoulder, which limits his range of motion and affects his daily activities and quality of life. He mentions that the shoulder locks up frequently and he is unable to sleep on it at night. The patient has a history of dislocating the shoulder at approximately 17 years old while playing softball, which continued to dislocate intermittently for about five years. He managed to reduce the dislocations himself. Over time, the condition has progressively worsened. The patient has a background in martial arts, including judo, karate, and [employer], which he practiced for the last 23 years but has had to cease due to the shoulder pain. He also experiences pain radiating down into his elbow. The patient has previously had radiographs taken at another facility, which demonstrated arthritis in both shoulders. He is currently taking Meloxicam for pain management. The patient has type 2 diabetes, which is well-controlled. PAIN - {{ 9#}}: ASES - {{ 24#}}: SANE - {{ 24#}}. HANSA WATKINS MD [address] [place] [address], [phone], [facility] 06/11/2024 14:19:09 09/06/2024 text/html 59-year-old male presents to follow-up left RSA 08/29/2024. He contacted yesterday, noted increase in spotting in his dressing, and presents today for a wound check. QING REYES [address] [place] [address], [place], [address], [facility] 09/11/2024 10:55:36 09/13/2024 text/html 59-year-old male status post left RSA 08/29/2024. Overall, is doing very well. His incision is not draining. He is taking the Keflex as directed, and has about 2 days left. He rates pain as 2/10, improved compared to preop. He has been wearing the sling as directed. QING REYES [address] [place] [address], [phone], [facility] 09/13/2024 12:35:20 10/07/2024 text/html Ap Jules i s a 59-year-old male presenting to the clinic due to a post-operative follow-up for his right shoulder. The patient reports that his shoulder is doing pretty well and feels great. He mentions that he has been lifting his arm as high as he can tolerate and has been using his shoulder more, although he has not been doing any specific exercises. He has not used his sling in weeks as he found himself babying it, which caused more pain. He continues to ice his shoulder when it gets sore and uses a machine for relief. He notes that he has a different bump on the side of his shoulder, which feels weird but does not hurt. The patient also mentions a history of a broken wrist, which limits his range of motion. PAIN - {{ 2#}}: ASES - {{ 76#}}: SANE - {{ 70#}}. HANSA WATKINS MD [address] [place], [address], [facility] 10/08/2024 16:54:53
--- OUTSIDE RECORDS SUMMARY | 2024-10-14 08:56 | XMS_ITS | Continuity of Care Document ---
Author Organization [facility] [place] [facility] Address [address] [facility] [address], [address] [place] [address] Care Team Providers Care Digital Technician Name Role Phone RODNEY LAZAR Primary Care Provider Assessment Encounter Date Assessment Date Assessment LastModified by Organization Details LastModified Time 09/13/2024 09/13/2024 Diagnostic Imaging: Grashey, axillary, and humerus views of left [...] their 2nd POV. Not available 09/13/2024 12:35:18 Plan of Treatment Reminders Order Date Submit Date Provider Last Modified By Organization Details Last Modified Time Details Appointments Est. New to Provider 30 2024 11:30A M QING CALVILLO Not available Not available Not available Post-Oper ative F/U 2024 11:40A M HANSA WATKINS MD Not available Not available Not available Lab None recorded. Referral None recorded. Procedures None recorded. Surgeries None recorded. Imaging None recorded. Medication Orders None recorded. Patient TargetsNo targets recorded. Patient InstructionsNo instructions recorded. Reason for Referral None Reported. Results Created Date Observation Date Name Description Value Unit Range Abnormal Flag Note LastModifiedBy Organization Detail LastModifiedTime 08/18/20 24 08/13/2024 CT, dez ceja, w/o contr ast [facility] Pt Name : KATIE JULES 2 - Date: 1964 Sex: M Locati on : [facility] CT Visit: [id number] Admit Date: 2023 Date of Servic e: 2023 Exam : CT SHOULD ER LEFT WO CONTRA ST Status : Final Order MD : Courtney WATKINS NDREW Ord Tel#:[phone] CC Provid er:, ------ ------ ------ ------ [...] reform atted in the sagitt al and jacome l planes . Additi onally a 3-D model of the data set was perfor med at an [facility]. Dose reduct ion techni ques were utiliz [...] lobe withou t apprec iable nodule . Jacome ry artery and aortic arch calcif icatio ns are noted. No lympha denopa thy. IMPRES QI: Severe left glenoh umeral osteoa rthrit is. Rotato r cuff muscle bulk is preser [place]. REPORT SIGNED BY: NINI ADEN 15:11: 17 Left Should er, Pre Op Planni ng for TSA MATC HPOINT PROTOC OL NIDHI 08/13 @ 11am, please mine munguia same day, thank you kle[address] [place] [address] - Rad [address] [facility], [place], [address], 08/18/2024 20:26:16 Result Notes None recorded. Problems Name Problem SNOMED Code Status Onset Date Resolution Date Notes Provider Name and Address Organization Details Recorded Time Localized, primary osteoarthritis of the shoulder region 888535016 Active 2023 QING REYES [address] [place] [address], [place], [address] [place] [address] [facility] 08:53:39 Problem Notes None recorded. Procedures Surgical History Date Name Laterality Status Provider Name and Address Organization Details Recorded Time 4 Orthopaedic Surgery completed Alvaro Garcia [facility] 09/13/2024 11:39:27 8 Other completed Juany Harvey [facility] 02/05/2024 08:29:13 Imaging Results None recorded. Procedure Notes None recorded. Medical Equipment None Reported. Allergies Allergen ID Allergen Name Allergen Category Reaction Reaction Severity Criticality Documentation Date Start Date Code Code System Note Provider Name and Address Organization Details Recorded Time 830998 Medicinal product containin g penicilli n and acting as antibacte rial agent (product) medicatio n Not available Not available Not available 02/05/2024 18231 05 SNOMED Juany crhis [facility] 4 08:27:17 521803 clarithro mycin medicatio n Not available Not available Not available 02/05/2024 05375 RxNorm Juany chris [facility] 4 08:27:30 970658 Cipro medicatio n Not available Not available Not available 02/05/202456657 3 RxNorm Juany chris [facility] 4 08:27:35 Medications Name [...] Available Not Avail able Not Available Vitals None Recorded Social History Question Answer Notes LastModified by Organizat ion Details LastModified Time Tobacco Smoking Status Former Smoker Juany chris [facility] 02/05/2024 08:26:57 What Is Your Level Of Alcohol Consumption? Occasional Information not available 02/05/2024 Do You Or Have You Ever Used E-cigarettes Or Vape? Never Used Electronic Cigarettes Information not available 02/05/2024 What Is Your Occupation? Retired Information not available 02/05/2024 Do You Or Have You Ever Used Smokeless Tobacco? [id number] Information not available 02/05/2024 How Much Tobacco Do You Smoke? No Information not available 02/05/2024 How Many Years Have You Smoked Tobacco? 2 Information not available 02/05/2024 Sex: Unknown Functional Status None recorded. Mental Status None recorded. Family History Relationship Description Onset Age of this Age Resolved Age Notes LastModified by Organization Details LastModified Time Father Myocardial infarction [email or web address] Not available 06/10 09:43:07 Medical History Condition Response Diabetes Y High Blood Pressure Y Irregular Heartbeat Y Past Encounters Encounter ID Performer Location Encounter Start Date Encounter Closed Date Diagnosis/Indication Diagnosis SNOMED-CT Code Diagnosis ICD10 Code [id number] QING REYES [place] [facility] [address] [facility] [address] [place] [address] 09/06/2024 13:25:39 09/06/2024 13:54:27 Localized, primary osteoarthritis of the shoulder region 842560125 M19.727 [id number] QING REYES [place] [facility] [address] [facility], [address] [place] [address] 09/13/2024 10:56:18 09/13/2024 13:01:24 Localized, primary osteoarthritis of the shoulder region 930466667 M19.012 Health Concerns Section Related Observation LastModified by Organization Detai ls LastModified Time None Recorded Concern Status LastModified by Organization Details LastModified Time None Recorded Payers Encounter Date Sequence Insurance Name Policy Number Policy Andrade Covered Member ID Andrade Member ID Guarantor Name 09/13/2024 1 [place] Ap Jules [id number] Ap Jules 09/13/2024 2 [facility] HEALTHC[facility] OPTIONS (MEDICARE SUPPLEMENT) Ap Jules [id number] Ap Jules Notes Date Note Type Note Provider Name and Address Organization Details Recorded Time 09/13/2024 text/html 59-year-old male status post left RSA 08/29/2024. Overall, is doing very well. His incision is not draining. He is taking the Keflex as directed, and has about 2 days left. He rates pain as 2/10, improved compared to preop. He has been wearing the sling as directed. QING REYES [address] [place] [address], [phone], [facility] 09/13/2024 12:35:20
--- OUTSIDE RECORDS SUMMARY | 2024-10-14 08:56 | XMS_ITS ---
Author Organization [facility] Address [address] [place] [address] Care Team Providers Care Retail Sales Associate Seasonal Name Role Phone Xander Del Rosario MD Primary Care Provider Unavailab Xander Hall Unavailable [phone] REASON FOR VISIT Patient presents today for a COLON SCREENING Encounters Encounter Location Date Provider Diagnosis [facility] [address] [place] [phone] 10/10/2023 Xander Moon PLAN OF TREATMENT No Information
--- OUTSIDE RECORDS SUMMARY | 2024-10-14 08:56 | XMS_ITS | Patient Health Record ---
Author Organization [facility] Address [address] [place] [address] Care Team Providers Care Terminal Operations Manager Name Role Phone Carin DURHAM, Xander Primary Care Provider Xander August Unavailable [phone] REASON FOR REFERRAL No Information SOCIAL HISTORY Sex Assigned At : Social History Observation Description Sex Assigned At Unknown PLAN OF TREATMENT No Information Insurance Providers Payer Name Payer Address Payer Phone Subscriber Number Group Number Insured Name Patient Relationship to Insured Coverage Start Date Coverage End Date MEDICARE OF [place] [address] [place] [address] [id number] JORGE A RYLAN Self - patient is the insured AAR MEDI COMP (REFERRAL REQUIRED) [address] [address] [place] [address] [phone] [id number] JORGE A RYLAN Self - patient is the insured
--- OUTSIDE RECORDS SUMMARY | 2024-10-14 08:56 | XMS_ITS ---
Author Organization [facility] Address [address] [place] [address] Care Team Providers Care Civil Engineering Technician Name Role Phone Xander Del Rosario MD Primary Care Provider Unavailab Xander Hall Unavailable [phone] Encounters Encounter Location Date Provider Diagnosis [facility] [address] [place] [address] 10/10/2023 Xander Moon PLAN OF TREATMENT No Information
--- OUTSIDE RECORDS SUMMARY | 2024-10-14 08:56 | XMS_ITS | Continuity of Care Document ---
Author Organization [facility] [place] [facility] Address [address] [place] [address] Care Team Providers Care Card Brusher Name Role Phone NAGI RODNEY Primary Care Provider Assessment Encounter Date Assessment Date Assessment LastModified by Organization Details LastModified Time 10/07/2024 10/07/2024 X-Ray AP/Grashey Left shoulder-10/07/2024: Well-placed [...] Not available Not available Post-Oper ative F/U 20 2024 11:40A M HANSA WATKINS MD Not available Not available Not available Lab None recorded. Referral None recorded. Procedures None recorded. Surgeries None recorded. Imaging None recorded. Medication Orders None recorded. Patient TargetsNo targets recorded. Patient InstructionsNo instructions recorded. Reason for Referral None Reported. Problems Name Problem SNOMED Code Status Onset Date Resolution Date Notes Provider Name and Address Organization Details Recorded Time Localized, primary osteoarthritis of the shoulder region 562640251 Active 2023 QING REYES [address] [place] [address], [phone] [place] [address] [facility] 08:53:39 Problem Notes None recorded. Procedures Surgical History Date Name Laterality Status Provider Name and Address Organization Details Recorded Time 4 Orthopaedic Surgery completed Alvaro Garcia [facility] 09/13/2024 11:39:27 8 Other completed Juany Harvey [facility] 02/05/2024 08:29:13 Imaging [...] Not available Not available Not available 02/05/2024 06511 05 SNOMED Juany chris [place] [facility] 4 08:27:17 653792 clarithro mycin medicatio n Not available Not available Not available 02/05/2024 74672 RxNorm Juany chris [facility] 4 08:27:30 862683 Cipro medicatio n Not available Not available Not available 02/05/202434753 3 RxNorm Juany chris [facility] 4 08:27:35 Medications [...] Not Available Vitals Date Recorded Body height Body mass index (BMI) Body weight Provider Name and Address Organization Details Last Updated DateTime 10/07/2024 179.07 cm 36.8 kg/m2 975803.02 g Lakshmi Girard [facility] 10/07/2024 13:52:14 Social History Question Answer Notes LastModified by Organizat ion Details LastModified Time Tobacco Smoking Status Former Smoker Juany chris [facility] 02/05/2024 08:26:57 What Is Your Level Of Alcohol Consumption? Occasional Information not available 02/05/2024 Do You Or Have You Ever Used E-cigarettes Or Vape? Never Used Electronic Cigarettes Information not available 02/05/2024 What Is Your Occupation? Retired Information not available 02/05/2024 Do You Or Have You Ever Used Smokeless Tobacco? [id number] Information not available 02/05/2024 How Much Tobacco Do You Smoke? No Information not available 02/05/2024 How Many Years Have You Smoked Tobacco? 2 Information not available 02/05/2024 Sex: Unknown Functional Status None recorded. Mental Status None recorded. Family History Relationship Description Onset Age of this Age Resolved Age Notes LastModified by Organization Details LastModified Time Father Myocardial infarction [email or web address] Not available 06/10 09:43:07 Medical History Condition Response Diabetes Y High Blood Pressure Y Irregular Heartbeat Y Past Encounters Encounter ID Performer Location Encounter Start Date Encounter Closed Date Diagnosis/Indication Diagnosis SNOMED-CT Code Diagnosis ICD10 Code [id number] QING REYES [place] [facility] [address] [place] [address], [address] [facility] [place] [address] 09/13/2024 10:56:18 09/13/2024 13:01:24 Localized, primary osteoarthritis of the shoulder region 827082667 M19.359 [id number] HANSA WATKINS MD [place] [facility] [address] [place] [address] 10/07/2024 13:12:57 10/07/2024 14:14:53 Localized, primary osteoarthritis of the shoulder region 239479178 M19.012 Health Concerns Section Related Observation LastModified by Organization Detai ls LastModified Time None Recorded Concern Status LastModified by Organization Details LastModified Time None Recorded Payers Encounter Date Sequence Insurance Name Policy Number Policy Andrade Covered Member ID Andrade Member ID Guarantor Name 10/07/2024 1 [place] Ap Burgos [id number] Ap Aubrey 10/07/2024 2 [employer] OPTIONS (MEDICARE SUPPLEMENT) Ap Huntuto [id number] Ap Huntuto Notes Date Note Type Note Provider Name and Address Organization Details Recorded Time 10/07/2024 text/html Ap Burgos i s a 59-year-old male presenting to [...] SANE - {{ 70#}}. HANSA WATKINS MD [address] [place] [address], [phone], [facility] 10/08/2024 16:54:53
== END 2024-10-14 08:47 | disposition home or self-care (01) ==
LOC: HO.US 08:46
PROVIDERS: PCP Internal Medicine Medical Oncology; Visit Provider Internal Medicine Medical Oncology
DX: E04.2 Nontoxic multinodular goiter (principal)
CPT/HCPCS: 76536

== ENCOUNTER → 2024-10-14 09:08 | Outpatient (BNV) | payer MEDICARE, SELFPAY | PROVIDERS: PCP Internal Medicine Medical Oncology; Visit Provider Radiology Diagnostic Radiology | DX: E04.2 Nontoxic multinodular goiter (principal) | CPT/HCPCS: 76536 ==

== ENCOUNTER 2024-12-26 15:29 | Outpatient (AMB) | payer MEDICARE, SELFPAY ==
[2024-12-26 15:30] VITALS: BP 140/76; PULSE 87; O2SAT 98; BMI 36.1
--- NOTE | 2024-12-26 15:30 | MHC.OFFVIS ---
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 Accompanied by: Self / Same As Patient Allergies Penicillins Allergy (Severe, Verified 12/26/24 15:35) Anaphylaxis ciprofloxacin Allergy (Verified 12/26/24 15:35) Rash erythromycin base Adverse Reaction (Intermediate, Verified 12/26/24 15:35) GI upset Medication List - Last Reconciled 12/26/24 by Laura Villatoro MD fenofibrate 160 mg PO DAILY hydrochlorothiazide 25 mg PO DAILY insulin glargine 70 units subcut QPM insulin lispro (Humalog U-100 Insulin) 10 - 22 units subcut TID lisinopril (Zestril) 40 mg PO DAILY meloxicam 15 mg PO DAILY metformin 850 mg PO BID metoprolol tartrate 25 mg PO BID rosuvastatin 10 mg PO BEDTIME semaglutide (Ozempic) 0.25 mg subcut QWEEK HPI Comments Details: 59-year-old male here today for initial evaluation of multinodular goiter. Ultrasound thyroid from March 2024, I reviewed the images myself showed a right midpole 2.2 cm solid, hypoechoic TR 4 category nodule, this med criteria for FNA. On the left side there was a left upper/midpole 2.6 cm nodule which was solid isoechoic TR 3 category. Another left mid lobe 2.3 cm solid, isoechoic TR 3 category nodule. Ultrasound of the thyroid was repeated in September 2024 which I reviewed the images myself showed a right midpole 2 cm solid hypoechoic TR 4 category nodule which meets criteria for FNA, the left mid superior pole nodule had decreased somewhat in size to 1.9 cm in the maximum dimension which is solid, isoechoic TR 3 category. We can monitor this for now. The left midpole 2.5 cm nodule, is stable in size however solid, hypoechoic/isoechoic with punctate echogenic foci, TR 5 category. This also meets criteria for FNA. Patient currently denies heat or cold intolerance, diarrhea or constipation, hair loss, palpitation, anxiety, , mood changes, low energy, changes in appearance of eyes or vision changes, tremors, increased diaphoresis or dry skin. Lost 40 lbs trying to lose weight. ? Patient denies any difficulty swallowing, pain on swallowing or voice changes or difficulty breathing. Patient denies any history of childhood neck radiation. Denies having ever used lithium, amiodarone or biotin supplements. Patient denies any family history of thyroid cancer or thyroid disease. Physical exam General: sitting comfortably in no acute distress HEENT: normocephalic/atraumatic, Neck: supple, palpable 2 cm right-sided nodule, palpable 2 cm left-sided nodule Cardiac: normal heart sounds Pulm: normal breath sounds B/L, no added breath sounds Abd: not distended, no tenderness Extremities: no edema, no signs of myxedema Labs 11/25/2024 US THYROID 10/14/24 CLINICAL INFORMATION: Multinodular goiter COMPARISON: Ultrasound thyroid 04/02/2024 TECHNIQUE: Linear transducer grayscale and color Doppler examination with attention to the region of the thyroid. FINDINGS: SIZE: Measurements of the thyroid lobes and nodules are given in sagittal, anteroposterior and transverse dimensions respectively. Right Thyroid Lobe: 6.1 x 2.1 x 2.2 cm, volume 14.7 mL. Parenchyma: The gland echotexture is homogeneous. Thyroid vascularity is normal. Left Thyroid Lobe: 5.5 x 2.4 x 2.4 cm, volume 16.7 mL. Enlarged. Parenchyma: The gland echotexture is heterogeneous. Thyroid vascularity is normal. Isthmus: 0.6 cm in maximum AP dimension. Previously measured 0.5 cm Estimated total number of nodules greater than or equal to 1 cm: 3. [employer] nodules are described as follows: 1. Location: Right mid pole. Size: 2.0 x 1.0 x 1.9 cm, volume 2.0 mL. Previously measured 2.2 x 1.2 x 2.0 cm volume 2.7 mL Nodule characteristics: Composition: Solid (2). Echogenicity: Hyperechoic (1). Shape: Wider Margins: Smooth (0). Echogenic Foci: None (0). ACR TI-RADS total points: 4 ACR TI-RADS category: 4 2. Location: Left midpole. Size: 1.9 x 0.9 x 1.8 cm, volume 1.6 mL. Previously measured 2.6 x 1.8 x 1.7 cm and volume 4.2 Nodule characteristics: Composition: Solid (2). Echogenicity: Isoechoic (1). Shape: Wider Margins: Smooth (0). Echogenic Foci: None (0). ACR TI-RADS total points: 3 ACR TI-RADS category: 2 3. Location: Left midpole. Size: 2.5 x 1.9 x 2.0 cm, volume 5.0 mL. Previously measured 2.3 x 1.8 x 1.9 cm Nodule characteristics: Composition: Solid (2). Echogenicity: Hyperechoic (1). Shape: Wider Margins: Smooth (0). Echogenic Foci: None (0 ACR TI-RADS total points: 7 ACR TI-RADS category: Large 5 NODES: No lymphadenopathy is seen in the tissue surrounding the thyroid gland. US/US thyroid IMPRESSION: Enlarged left thyroid lobe. Bilateral nodules are stable compared to previous exam 04/02/2024. There is unchanged in total points and antibiotics in mid pole left thyroid nodule. I would recommend a biopsy of this nodule. US THYROID 04/02/24 CLINICAL INFORMATION: Thyroid, and nontoxic, single thyroid nodule COMPARISON: None available. TECHNIQUE: Linear transducer grayscale and color Doppler examination with attention to the region of the thyroid. FINDINGS: SIZE: Measurements of the thyroid lobes and nodules are given in sagittal, anteroposterior and transverse dimensions respectively. Right Thyroid Lobe: 6.8 x 2.0 x 2.6 cm, volume 18.3 mL. Parenchyma: The gland echotexture is homogeneous. Thyroid vascularity is normal. Left Thyroid Lobe: 5.7 x 2.3 x 2.5 cm, volume 16.9 mL. Parenchyma: The gland echotexture is homogeneous. Thyroid vascularity is normal. Isthmus: 0.5 cm in maximum AP dimension. Estimated total number of nodules greater than or equal to 1 cm: 3. [employer] nodules are described as follows: 1. Location: Right mid. Size: 2.2 x 1.2 x 2.0 cm, volume 2.7 mL. Nodule characteristics: Composition: Solid (2). Echogenicity: Hypoechoic (2). Shape: Not taller than wide (0). Margins: Smooth (0). Echogenic Foci: None (0. ACR TI-RADS total points: 4 ACR TI-RADS category: 4 2. Location: Left mid Size: 2.6 x 1.8 x 1.7 cm, volume 4.2 mL. Nodule characteristics: Composition: Mixed cystic and solid (1). Echogenicity: Isoechoic (1). Shape: Not taller than wide (0). Margins: Smooth (0). Echogenic Foci: None (0. ACR TI-RADS total points: 2 ACR TI-RADS category: 2 3. Location: Left lateral mid Size: 2.3 x 1.8 x 1.9 cm, volume 4.0 mL. Nodule characteristics: Composition: Mixed cystic and solid (1). Echogenicity: Isoechoic (1). Shape: Not taller than wide (0). Margins: Smooth (0). Echogenic Foci: None (0). ACR TI-RADS total points: 2 ACR TI-RADS category: 2 NODES: No lymphadenopathy is seen in the tissue surrounding the thyroid gland. US/US thyroid IMPRESSION: 1. Enlarged homogeneous thyroid gland. 2. 2.2 cm nodule in the mid right lobe, TR 4, fulfills the criteria for FNA. Biopsy should be considered. 3. No further follow-up of the 2 other nodules seen within the thyroid gland. [facility] Medical History (Updated 12/26/24 @ 15:53 by Laura Villatoro MD) Multinodular goiter Surgical History History of left shoulder replacement Physical Exam Vital Signs: Last Vital Signs Pulse 87 12/26/24 15:30 BP 140/76 H 12/26/24 15:30 Pulse Ox 98 12/26/24 15:30 Oxygen Delivery Method Room Air 12/26/24 15:30 BMI result Body Mass Index 36.1 Assessment & Plan Assessment & Plan (1) Multinodular goiter: Code(s): E04.2 - Nontoxic multinodular goiter Category: Medical Plan: 59-year-old male here today for initial evaluation of multinodular goiter. Ultrasound thyroid from March 2024, I reviewed the images myself showed a right midpole 2.2 cm solid, hypoechoic TR 4 category nodule, this med criteria for FNA. On the left side there was a left upper/midpole 2.6 cm nodule which was solid isoechoic TR 3 category. Another left mid lobe 2.3 cm solid, isoechoic TR 3 category nodule. Ultrasound of the thyroid was repeated in September 2024 which I reviewed the images myself showed a right midpole 2 cm solid hypoechoic TR 4 category nodule which meets criteria for FNA, the left mid superior pole nodule had decreased somewhat in size to 1.9 cm in the maximum dimension which is solid, isoechoic TR 3 category. We can monitor this for now. The left midpole 2.5 cm nodule, is stable in size however solid, hypoechoic/isoechoic with punctate echogenic foci, TR 5 category. This also meets criteria for FNA. I explained that it is common to have thyroid nodules. About 95% of the time these nodules are benign. However if the nodule is > 1 cm in size or suspicious on ultrasound then a fine need aspiration biopsy is recommended. We discussed that a FNAB involves 4-5 passes with a small gauge needle and material obtained is sent off for cytology.If the cytopathology is benign then the nodule will be followed annually with repeat ultrasounds. However if it is suspicious or malignant, we will need to discuss further management. Indeterminate cytology can be further investigated with repeat FNA, genetic testing or empiric lobectomy. Malignant cytology is managed with either lobectomy or total thyroidectomy. We discussed briefly that thyroid cancer is, in most patients, an indolent disease that does not affect mortality. We will arrange for FNA of the right mid 2 cm and left mid 2.5 cm thyroid nodules at next available opening and patient will follow up with me in clinic thereafter for results and further decision making. Plan: -scheduled for FNA of the right mid 2 cm and left mid 2.5 cm thyroid nodules and a follow up 2 weeks after to discuss results Plan See above Orders: Orders US biopsy thyroid Today E04.2 - Nontoxic multinodular goiter Coding Level of Care Code New Pt Level 4 (31092) Diagnoses Multinodular goiter E04.2
--- OUTSIDE RECORDS SUMMARY | 2024-12-26 18:48 | XMS_ITS | Data Portability ---
Author Organization [place] - [facility], [facility] Office Address [address] [facility], [address] [place] [address] Care Team Providers Care Personal Care Attendant Name Role Phone RODNEY LAZAR Primary Care Provider [phone] Assessment Encounter Date Assessment Date Assessment LastModified [...] transcript. [email or web address] Not available 10/07/2024 14:24:01 11/13/2024 11/13/2024 Ap is a 59-year-old male presents today for evaluation of the lumbar spine. He has past surgical history of a laminectomy in 2018 after which she endorsed improvement in posture as well as lower extremity symptoms but has been consistently burdened by low back pain since. He reports progressive lower extremity weakness as well as limitations in standing and walking. He is not able to walk more than about 25 feet before needing to sit to rest. Similarly he cannot stand for greater than 5 minutes citing lower extremity weakness as well as back pain. On exam he has 3/5 weakness bilaterally in dorsiflexion and great toe extension. He reports left-sided weakness has been longstanding since his previous surgery in 2018 but his right sided foot drop is new. I discussed with Ap that given his profound lower extremity motor weakness coupled with his progressive symptoms of neurogenic claudication I feel that conservative treatment will have limited utility in his case. I believe that surgical intervention is likely in his best interest at this point. We discussed updating his lumbar MRI and having him return for full spine x-rays as well as surgical consultation with Dr. Gold. He and his are in agreement with this plan, he will go for an MRI and was instructed to call to arrange follow-up with Dr. Gold once he knows the date of that imaging. He and his had all questions and concerns addressed. [email or web address] Not available 11/13/2024 12:35:44 11/22/2024 11/22/2024 Ap is a 59-year-old male with right shoulder pain, here for cortisone injection today. After discussion of the risks including, but not limited to infection, localized soreness and swelling, reaction to medications, the patient elected to proceed with a right subacromial and glenohumeral cortisone injection. Confirmed that the patient does not have history of prior adverse reactions, active infections, or relevant allergies. There was no erythema, or warmth, and the skin was clear. The skin was sterilized with alcohol & Betadine. Bitrockr Ultrasound was used to ensure accuracy of placement of the injection. 1cc of Kenalog and 1cc of Lidocaine was injected into the subacromial space was visualized and confirmed on ultrasound. Direction was turned to the glenohumeral joint. Anesthesia was achieved subcutaneously with 2cc of 2% Lidocaine. Augmi Labsolta Ultrasound was used to ensure accuracy of placement of the injection. After re-prepping with Betadine, A 22-gauge spinal needle was used inject 2cc of Kenalog and 2cc of Lidocaine under ultrasound guidance into the glenohumeral joint with sterile gel and a sterile probe. Injection was visualized and confirmed to be in the correct location on ultrasound. The injection was completed without complication and Band-Aids were applied. The patient tolerated the procedure well and was instructed to avoid strenuous activity for the next 24-48 hours and use ice, NSAIDs or Tylenol for pain as needed. The patient will call immediately with any signs of infection or allergic reaction. He tolerated the procedure well today. He will follow-up with Dr. Watkins on an as-needed basis. [email or web address] Not available 11/22/2024 16:07:02 11/22/2024 11/22/2024 X-Ray AP/Grashey left shoulder-11/22/24: Well-placed reverse prosthesis. No evidence of hardware failure or radiographic lucencies. ASSESSMENT: - Post-operative shoulder stiffness - Normal post-operative fatigue PLAN: I advised the patient that his shoulder is healing well and that he can continue to perform activities as tolerated. I reassured him that the stiffness and fatigue he is experiencing are normal parts of the recovery process and will improve over time. I recommended that he continue with his current activities and follow up at the 1-year cindy, with subsequent follow-ups at the 2-year, 5-year, and 10-year alarcon. If any issues arise, he should contact the office. Patient will also proceed with a right shoulder cortisone injection with Chitra Tavarez PA-C today. Patient presents to clinic 3 months s/p reverse total shoulder arthroplasty. They are doing well at this time. Explained that all prosthetic components are well-fixated with no evidence of hardware failure or radiographic lucencies. Taught them standard 3rd POV exercises to encourage stretching and strengthening. At this point, they are cleared to continue using their shoulder for whatever actions they tolerate. F/u in 9 months for their 1 year f/u appointment. I spent a total of 15 minutes [...] throughout this transcript. [email or web address] 1 Not available 11/22/2024 12:00:37 12/11/2024 12/11/2024 Ap is a 59-year-old male presents today for follow-up of the lumbar spine He has past surgical history of a laminectomy in 2018 which she endorses having improved his lower extremity symptoms and his posture but his back pain persisted. Seen by us for initial evaluation on November 13 he reported longstanding and progressive low back as well as lower extremity symptoms described as weakness in his lower extremities. He reports pain into his bilateral buttocks as well as shakiness and cramping into his bilateral quads. He is not able to stand or walk more than a few minutes without needing to sit to rest. On exam he had left-sided weakness and great toe extension and dorsiflexion which she reports have been present since his previous surgery in 2018 however he also had right sided weakness in dorsiflexion and great toe extension which she felt was newer. He has participated in physical therapy extensively and also reports having undergone lumbar spine injections which would provide transient relief. I discussed with Ap today that his lumbar MRI shows severe central spinal stenosis above the levels of his previous laminectomy. We discussed that given his significant functional limitations nonoperative treatments would have limited utility here. He will return for an in person visit with Dr. Gold to discuss his options regarding surgical intervention. He was in agreement with this plan, he will questions or concerns addressed. [email or web address] Not available 12/11/2024 11:05:20 Plan of Treatment Reminders Order Date Submit Date Provider Last Modified By Organization Details Last Modified Time Details Appointments Establish ed 30 2024 09:00A M NOE GOLD MD Not available Not available Not available Lab None recorded. Referral None recorded. Procedures None recorded. Surgeries None recorded. Imaging MRI, lumbar spine, w/wo contrast 2024 025 [email or web address] [facility] ([facility]), [address], [place], [address], 11/14/2024 16:25:22 Medication Orders Kenalog 40 mg/mL suspensio n for injection 2024 025 [email or web address] [id number], [address] [place], [address], 11/22/2024 12:36:28 Patient TargetsNo targets recorded. Patient InstructionsNo instructions recorded. Reason for Referral None Reported. Results Created Date Observation Date Name Description Value Unit Range Abnormal Flag Note LastModifiedBy Organization Detail LastModifiedTime 11/13/1905/03/2021 MRI, lumba r spine , w/o contr ast No observ ation record ed. [email or web address] [facility] ([facility]) [address], [place], [address], 11/13/2024 15:19:17 12/12/19 25 12/09/2024 MRI, lumba r spine , w/wo contr ast [facility] Access ion Number : [id number] Bobbi smith Name: Ramu Burgos Record Number : [id number] Date of : 1964 Date of Exam: 2024 Referr ing Physic diann: Virgil Ibrahim [facility] [address] [facility] [address], [place] [address] Exam: MR Lumbar Spine (C-/C+ ) CPT 92203 Room Descri ption: Angela Siem Verio 3.0T HISTOR Y: Low back pain. Neurog enic claudi cation . Bilate ral leg pain and parest hesias . Previo us lumbar surger y. TECHNI QUE: Multip lanar multis equenc e MRI of the lumbar spine was obtain ed before and after the admini strati on of 26 cc of Dotare m. COMPAR ROSALIND: 05/03/20 21 FINDIN GS: Multip le images are degrad ed by bobbi lofton which dimini shes detail , and interp retati on was made in light of this techni leatha confin e. A transi tional verteb ral body is presen t, and this may repres ent a partia lly lumbar ized sacral verteb ral body which will be labele d S1 for the purpos es of this examin ation. A mild rightw seamus curvat ure of the lumbar spine is presen t. No signif icant sublux ation. There is new mild chroni c loss of height of the L1 verteb ral body. Mild chroni c loss of height of L3 is unchan ged. No spondy lolysi s or marrow edema. Congen ital narrow ing of the spinal canal due to shorte milind pedicl es. Multil evel loss of disc space height is simila r with severe loss of height of L5-S1 and modera te-sev ere loss of height of L2-L3 and L4-L5. Vacuum disc phenom enon, margin al osteop hytes, and facet arthro ses are presen t at multip le levels . The visual ized lower thorac ic cord is unrema rkable , and the conus termin ates at approx imatel y L1-L2. No epidur al fluid collec tion or abnorm al leptom eninge al enhanc ement. Fatty atroph y and postop erativ e change s of the street light mechanic ior parasp inal muscul ature. Atroph y of the iliacu s muscle s. L1-L2: Mild concen tric disc bulge with anteri or margin al spurri ng. Minima l centra l canal narrow ing. Mild forami nal narrow ing. L2-L3: Concen tric disc-o steoph yte comple x asymme tric to the left street light mechanic iorly. Mild-m oderat e to modera te centra l canal stenos is. Left subart icular recess narrow ing with crowdi ng of and probab le compre ssion of the left L3 nerve roots. Mild right and modera te left forami nal stenos is. No signif icant overal l change . L3-L4: Concen tric disc-o steoph yte comple x. A superi mposed centra l disc extrus ion has decrea sed in size. Facet arthro sis and ligame ntum flavum infold ing. Modera te-sev ere centra l canal stenos is. Subart icular recess narrow ing with crowdi ng of and possib le imping ement of the L4 nerve roots. Modera te right and severe left forami nal stenos is. Possib le small right lamino caitlyn defect . L4-L5: Status post right lamino caitlyn. No signif icant granul ation tissue . Concen tric disc-o steoph yte comple x. Mild-m oderat e centra l canal stenos is (right greate r than left). Right subart icular recess narrow ing with crowdi ng of the right L5 nerve roots. At least modera te bilate ral forami nal stenos es. L5-S1: Concen tric disc-o steoph yte comple x. Facet arthro sis. Mild-m oderat e centra l canal stenos is. Subart icular recess narrow ing with crowdi ng of the S1 nerve roots. Modera te right and mild-m oderat e left forami nal stenos is. Possib le small lamino caitlyn defect s. No signif icant granul ation tissue . IMPRES QI: 1. Transi tional verteb ral body and counti ng scheme as descri bed above. 2. Degene rative and postop erativ e change s of the lumbar spine superi mposed upon a congen itally -narro wed spinal canal with centra l canal and forami nal narrow ing as detail ed above. These can be correl ated with the patien t's sympto ms and neurol ogical examin ation. Electr onical ly Signed By: Severo Whittaker MD [email or web address] [facility] ([facility]) [address], [place], [address], 12/12/2024 11:58:54 12/12/19 25 12/09/2024 MRI, lumba r spine , w/o contr ast No observ ation record ed. [email or web address] [address] [place], [address], 12/12/2024 12:01:31 Result Notes None recorded. Problems Name Problem SNOMED Code Status Onset Date Resolution Date Notes Provider Name and Address Organization Details Recorded Time Localized, primary osteoarthritis of the shoulder region 468651830 Active 2023 QING REYES [address] [place] [address], [phone] , [facility] 08:53:39 Problem Notes None recorded. Procedures Surgical History Date Name Laterality Status Provider Name and Address Organization Details Recorded Time Orthopaedic Surgery completed Alvaro Garcia [facility] 09/13/2024 11:39:27 8 Other completed Juany Harvey [facility] 02/05/2024 08:29:13 Imaging Results Imaging Date Name Status LastModified by Organiz ation Details LastModified Time 05/03/2021 MRI, lumbar spine, w/o contrast completed [email or web address] [facility] ([facility]) [address] [place], [address], 11/13/2024 15:19:17 12/09/2024 MRI, lumbar spine, w/wo contrast completed [email or web address] [facility] ([facility]) [address] [place], [address], 12/12/2024 11:58:54 12/09/2024 MRI, lumbar spine, w/o contrast completed [email or web address] [address] [place], [address], 12/12/2024 12:01:31 Procedure Notes None recorded. Medical Equipment None Reported. Allergies Allergen ID Allergen Name Allergen Category Reaction Reaction Severity Criticality Documentation Date Start Date Code Code System Note Provider Name and Address Organization Details Recorded Time 20340602 Product containin g penicilli n (product) medicatio n Not available Not available Not available 02/05/2024 47013 8001 SNOMED Juany Harvey [facility] 4 08:27:17 585781 clarithro mycin medicatio n Not available Not available Not available 02/05/2024 81256 RxNorm Juany Adamesrowan [facility] 4 08:27:30 042283 Cipro medicatio n Not available Not available Not available 02/05/202485184 3 RxNorm Juany Harvey [facility] 4 08:27:35 Medications Name Sig Start Date Stop Date Status Note LastModified by Organization Details LastModified Time Kenalog 40 mg/mL suspension for injection Take 3 mL by injection route. 2024 active Not Available Not Available Not Avai lable Valium 5 mg tablet Take 1 tablet 30 minutes prior to MRI, take second tablet as needed 2024 active Not Available Not Available Not Avai lable cephalexin 500 mg capsule Take 1 capsule twice a day by oral route for 7 days. 10/07 completed Not Available Not Available Not Available lisinopril active Not Available Not Av ailable Not Available metformin active Not Available Not Kendy ilable Not Available Crestor active Not Available Not Avail able Not Available hydrochloro thiazide (bulk) active Not Available Not Available Not Available Trulicity 06/10 completed Not Available Not Available Not Available Humalog Curtis KwikPen U-100 active Not Available Not Available Not Available Ozempic active Not Available Not Avail able Not Available Vitals Date Recorded Body height Body mass index (BMI) Body weight Provider Name and Address Organization Details Last Updated DateTime 10/07/2024 179.07 cm 36.8 kg/m2 007074.02 g Lakshmi Girard [facility] 10/07/2024 13:52:14 Date Recorded Body height Provider Name an d Address Organization Details Last Updated DateTime 11/13/2024 179.07 cm Hieu Vaughan [facility] 11/13/2024 11:48:02 Date Recorded Body height Body mass index (BMI) Body weight Provider Name and Address Organization Details Last Updated DateTime 11/22/2024 179.07 cm 36.8 kg/m2 441936.02 g Mercy Bee-Jennifer choudhary [facility] 11/22/2024 11:12:49 Date Recorded Body height Provider Name an d Address Organization Details Last Updated DateTime 11/22/2024 179.07 cm Emily Case [facility] 11/22/2024 11:45:43 Date Recorded Body height Provider Name an d Address Organization Details Last Updated DateTime 12/11/2024 179.07 cm Hieu Vaughan [facility] 12/11/2024 10:21:58 Social History Question Answer Notes LastModified by Organizat ion Details LastModified Time Tobacco Smoking Status [facility] 02/05/2024 08:26:57 What Is Your Level Of Alcohol Consumption? Occasional Information not available 02/05/2024 Do You Or Have You Ever Used E-cigarettes Or Vape? Never Used Electronic Cigarettes Information not available 02/05/2024 What Is Your Occupation? Retired Information not available 02/05/2024 Do You Or Have You Ever Used Smokeless Tobacco? [id number] Information not available 02/05/2024 How Much Tobacco Do You Smoke? No Information not available 02/05/2024 How Many Years Have You Smoked Tobacco? 2 Information not available 02/05/2024 Sex: Unknown Functional Status None recorded. Mental Status None recorded. Family History Relationship Description Onset Age of this Age Resolved Age Notes LastModified by Organization Details LastModified Time Father Myocardial infarction Not available 06/10 09:43:07 Medical History Condition Response High Blood Pressure Y Irregular Heartbeat Y Diabetes Y Past Encounters Encounter ID Performer Location Encounter Start Date Encounter Closed Date Diagnosis/Indication Diagnosis SNOMED-CT Code Diagnosis ICD10 Code Diagnosis Note [id number] QING REYES [facility] Office [address] [place] [address] 02/05/2024 07:41:03 02/05/2024 09:55:56 Localized, primary osteoarthritis of the shoulder region 742040513 M19.972 [id number] HANSA WATKINS MD [address] [address] 06/10/2024 09:08:25 06/10/2024 10:26:04 Localized, primary osteoarthritis of the shoulder region 197258894 M19.630 [id number] QING REYES [address] [address] 06/10/2024 10:19:58 06/10/2024 12:48:44 Shoulder pain 13293264 M25.524 [id number] QING REYES [facility] Office [address] [address] 09/06/2024 13:25:39 09/06/2024 13:54:27 Localized, primary osteoarthritis of the shoulder region 639048557 M19.958 [id number] QING REYES [facility] Office [address] [facility], [address] [place] [address] 09/13/2024 10:56:18 09/13/2024 13:01:24 Localized, primary osteoarthritis of the shoulder region 037439830 M19.442 [id number] HANSA WATKINS MD [address] [address] 10/07/2024 13:12:57 10/07/2024 14:14:53 Localized, primary osteoarthritis of the shoulder region 865184148 M19.752 [id number] QING CALVILLO [address] [address] 11/13/2024 10:37:20 11/13/2024 13:07:27 Degenerative lumbar spinal stenosis 898181001 M48.994 [id number] HANSA WATKINS MD [address] [address] 11/22/2024 10:40:47 11/22/2024 11:21:35 Localized, primary osteoarthritis of the shoulder region 722907467 M19.447 [id number] QING SAGE [address] [place] [address] 11/22/2024 11:38:23 11/22/2024 12:35:31 Osteoarthritis of joint of right shoulder region 3185934303 55391 M19.319 [id number] QING Calvillo Office [address] [place] [address], [address] [place] [address] 12/11/2024 09:57:58 12/11/2024 11:22:12 Spinal stenosis of lumbar region 79251447 M48.062 Weakness o f bilateral lower limb 6236942442 28044 M62.81 Health Concerns Section Related Observation LastModified by Organization Detai ls LastModified Time None Recorded Concern Status LastModified by Organization Details LastModified Time None Recorded Advance Directives Directive None Recorded Payers Encounter Date Sequence Insurance Name Policy Number Policy Andrade Covered Member ID Andrade Member ID Guarantor Name 10/07/2024 1 [place] Ap J Aubrey [id number] Ap Aubrey 10/07/2024 2 [employer] OPTIONS (MEDICARE SUPPLEMENT) Ap Aubrey [id number] Ap Aubrey 11/13/2024 1 [place] Ap J Aubrey [id number] Ap Aubrey 11/13/2024 2 [employer] OPTIONS (MEDICARE SUPPLEMENT) Ap Aubrey [id number] Ap Aubrey 11/22/2024 1 [place] Ap J Aubrey [id number] Ap Aubrey 11/22/2024 2 [employer] OPTIONS (MEDICARE SUPPLEMENT) Ap Aubrey [id number] Ap Aubrey 11/22/2024 1 [place] Ap J Aubrey [id number] Ap Aubrey 11/22/2024 2 [employer] OPTIONS (MEDICARE SUPPLEMENT) Ap Aubrey [id number] Ap Aubrey 12/11/2024 1 [place] Ap J Aubrey [id number] Ap Aubrey 12/11/2024 2 [employer] OPTIONS (MEDICARE SUPPLEMENT) Ap Aubrey [id number] Ap Burgos Notes Date Note Type Note Provider Name [...] SANE - {{ 70#}}. HANSA WATKINS MD [address] [place] [address], [phone] 10/08/2024 16:54:53 11/13/2024 text/html Ap is a 59 y/o male who presents today for evaluation of the lumbar spine He reports past surgical history of lumbar laminectomy [place] [address] Jones which he reports improved his ability to stand up straight and also reports some improvement in lower extremity symptoms but back pain continued to be a significant issue. Today he reports right sided low back pain which can progress to become diffuse describing stiffness, he struggles with bending and twisting. He reports right greater than left LE symptoms describing shakiness and cramping into his quads bilaterally, he endorses pain bilaterally into his buttocks. He reports longstanding left sided foot drop since 2018 but also endorses diffuse LE global weakness which has been progressing, He is not able to walk for more than about 25 feet before needing to sit, he reports back pain and LE weakness as limiting him in this capacity. He can only stand for a few minutes as well. He endorses a positive shopping cart sign. Sitting is comfortable for him in most cases depending on the chair. He has had multiple falls including one recently where he suffered a rib fracture. He endorses some intermittent urinary leakage, reports he is on antibiotics from his PCP for a prostate infection. He reports bowel function is normal, he denies any numbness/tingling around his penis anus or scrotum. He reports doing physical therapy in the aftermath of surgery in 2018 but denies any recent treatments. He also reports having undergone injections in the remote past which provided transient relief of symtpoms. QING CALVILLO [address] [place] [address], [place], [address], [facility] 11/14/2024 09:50:28 11/22/2024 text/html Ap Burgos i s a 59-year-old male who presents for a post-operative follow-up. He reports significant improvement since his surgery, describing the outcome as a godsend. He mentions experiencing some stiffness, particularly when reaching behind his back, but notes that his shoulder is generally doing well. He was able to lift 100 pounds of salt yesterday without any issues from his shoulder, although his back did not tolerate it as well. He experiences normal fatigue towards the end of the day, which he recognizes as part of his recovery process. He is currently able to perform most activities without significant discomfort.PAIN - {{ 2#}}: ASES - {{ 82#}}: SANE - {{ 88#}}. HANSA WATKINS MD [address] [place] [address], [phone], [facility] 11/22/2024 13:35:52 11/22/2024 text/html Ap is a 59-year-old male who is seen in the office today by Dr. Watkins for follow-up evaluation of his left shoulder replacement. While in the office today, he reported worsening right shoulder pain. He has had an injection in the right shoulder with Jordan previously with good effect. He is interested in repeating this injection today and provides consent for the procedure. QING SAGE [address] [place] [address], [place], [address], [facility] 11/25/2024 08:49:03 12/11/2024 text/html Ap is a 59-year-old male presents today for follow up of the lumbar spine. He has past surgical history of a laminectomy in 2018 after which she endorsed improvement in posture as well as lower extremity symptoms but has been consistently burdened by low back pain since. He reports progressive lower extremity weakness as well as limitations in standing and walking. He is not able to walk more than about 25 feet before needing to sit to rest. Similarly he cannot stand for greater than 5 minutes citing lower extremity weakness as well as back pain. He reports pain into his buttocks bilaterally. On exam he had 3/5 weakness bilaterally in dorsiflexion and great toe extension. He reports left-sided weakness has been longstanding since his previous surgery in 2018 but his right sided foot drop is new. Today Ap denies any change in symptoms since his last office visit. He denies any bowel/bladder dysfunction or numbness around his penis anus or scrotum. QING Calvillo [address] [place] [address], [phone], [facility] [place] 12/11/2024 16:11:36
--- OUTSIDE RECORDS SUMMARY | 2024-12-26 18:49 | XMS_ITS ---
Author Organization Xander Del Rosario III, MD Address [address] [place] [address] [place] [address] Care Team Providers Care Inward Toll Operator Name Role Phone Xander Del Rosario Primary Care Provider [phone] REASON FOR VISIT Message Social History Sex Assigned At : Social History Observation Description Sex Assigned At Male Encounters Encounter Location Date Provider Diagnosis Xander Del Rosario III, MD [address] [place] [address] [place] [address] 12/03/2024 Xander Del Rosario Plan Of Treatment Next Appt Details Provider Name:Xander Del Rosario, 02/03/2025 10:45:00 AM, [address] [place] [address] [place], [address], Provider Name:Xander Del Rosario, 05/14/2025 10:00:00 AM, [address] [place] [address] [place], [address], Progress Notes * Ap JONESDOB: [birth year] (59 yo M)Acc No.[id number]:12/03/2024 Patient:?Ap JONES :1965???Age:59 Y???Sex:Male Address:[place] [address] * true * Date:? Generated for Printi ng/Faxing/eTransmitting on:?12/26/2024 06:48 PM EST
--- OUTSIDE RECORDS SUMMARY | 2024-12-26 18:49 | XMS_ITS | Continuity of Care Document ---
Author Organization [place] [facility] Office Address [address] [facility] [address], [address] [place] [address] Care Team Providers Care Corset Fitter Name Role Phone RODNEY LAZAR Primary Care Provider Assessment Encounter Date Assessment Date Assessment LastModified by Organization Details LastModified Time 12/11/2024 12/11/2024 Ap is a 59-year-old male [...] ast No observ ation record ed. [email or web address] [facility] ([facility]) [address], [place], [address], 11/13/2024 15:19:17 12/12/1912/09/2024 MRI, lumba r spine , w/wo contr ast [facility] Access ion Number : [id number] Bobbi sarah Name: Ramu Burgos Record Number : [id number] Date of : 1964 Date of Exam: 2024 Referr ing Physic diann: Virgil Ibrahim [facility] [address] [facility] [place] [address] Exam: MR Lumbar Spine (C-/C+ ) CPT 46514 Room Descri ption: [facility] Verio 3.0T HISTOR Y: Low back pain. [...] le images are degrad ed by bobbi smith motion which dimini shes detail , and interp [...] postop erativ e change s of the promotions executive ior parasp inal muscul ature. Atroph y of the iliacu s muscle s. L1-L2: Mild concen tric disc bulge with anteri or margin al spurri ng. Minima l centra l canal narrow ing. Mild forami nal narrow ing. L2-L3: Concen tric disc-o steoph yte comple x asymme tric to the left promotions executive iorly. Mild-m oderat e to modera te [...] onical ly Signed By: Severo Whittaker MD [facility] ([facility]) [address] [place], [address], 12/12/2024 11:58:54 12/12/19 25 12/09/2024 MRI, lumba r spine , w/o contr ast No observ ation record ed. [address], [address], 12/12/2024 12:01:31 Result Notes None recorded. Problems Name Problem SNOMED Code Status Onset Date Resolution Date Notes Provider Name and Address Organization Details Recorded Time Localized, primary osteoarthritis of the shoulder region 038766414 Active 2023 QING REYES [address] [place] [address], [phone] , [facility] [place] 08:53:39 Problem Notes None recorded. Procedures Surgical History Date Name Laterality Status Provider Name and Address Organization Details Recorded Time 4 Orthopaedic Surgery completed Alvaro Garcia [facility] [place] 09/13/2024 11:39:27 8 Other completed Juanydavid Harvey [facility] [place] 02/05/2024 08:29:13 Imaging Results None recorded. Procedure Notes None recorded. Medical Equipment None Reported. Allergies Allergen ID Allergen Name Allergen Category Reaction Reaction Severity Criticality Documentation Date Start Date Code Code System Note Provider Name and Address Organization Details Recorded Time 20340602 Product containin g penicilli n (product) medicatio n Not available Not available Not available 02/05/2024 63241 8001 SNOMED Juanydavid Harvey [facility] [place] 4 08:27:17 938549 clarithro mycin medicatio n Not available Not available Not available 02/05/2024 92231 RxNorm Juany Harvey [facility] [place] 4 08:27:30 078559 Cipro medicatio n Not available Not available Not available 02/05/202423606 3 RxNorm Juany McGmarco [facility] [place] 4 08:27:35 Medications Name Sig Start Date [...] Updated DateTime 12/11/2024 179.07 cm Hieu Vaughan [facility] [place] 12/11/2024 10:21:58 Social History Question Answer Notes LastModified by Organizat ion Details LastModified Time Tobacco Smoking Status Former Smoker Juany Harvey aries [facility] [place] 02/05/2024 08:26:57 What Is Your Level Of Alcohol Consumption? Occasional Information not available 02/05/2024 Do You Or Have You Ever Used E-cigarettes Or Vape? Never Used Electronic Cigarettes Information not available 02/05/2024 What Is Your Occupation? Retired Information not available 02/05/2024 Do You Or Have You Ever Used Smokeless Tobacco? [id number] Information not available 02/05/2024 How Much Tobacco Do You Smoke? No Information not available 02/05/2024 How Many Years Have You Smoked Tobacco? 2 Information not available 02/05/2024 Sex: Unknown Functional Status None recorded. Mental Status None recorded. Family History Relationship Description Onset Age of this Age Resolved Age Notes LastModified by Organization Details LastModified Time Father Myocardial infarction [email or web address] Not available 06/10 09:43:07 Medical History Condition Response High Blood Pressure Y Irregular Heartbeat Y Diabetes Y Past Encounters Encounter ID Performer Location Encounter Start Date Encounter Closed Date Diagnosis/Indication Diagnosis SNOMED-CT Code Diagnosis ICD10 Code Diagnosis Note [id number] QING CALVILLO [address] [address] 11/13/2024 10:37:20 11/13/2024 13:07:27 Degenerative lumbar spinal stenosis 915596009 M48.736 [id number] HANSA WATKINS MD [address] [address] 11/22/2024 10:40:47 11/22/2024 11:21:35 Localized, primary osteoarthritis of the shoulder region 123239775 M19.169 [id number] QING SAGE [address] [address] 11/22/2024 11:38:23 11/22/2024 12:35:31 Osteoarthritis of joint of right shoulder region 2158060443 02379 M19.663 [id number] QING Calvillo [place] [facility] [address] [facility], [address] [place] [address] 12/11/2024 09:57:58 12/11/2024 11:22:12 Spinal stenosis of lumbar region 07706027 M48.062 Weakness o f bilateral lower limb 9829383507 67416 M62.81 Health Concerns Section Related Observation LastModified by Organization Detai ls LastModified Time None Recorded Concern Status LastModified by Organization Details LastModified Time None Recorded Payers Encounter Date Sequence Insurance Name Policy Number Policy Andrade Covered Member ID Andrade Member ID Guarantor Name 12/11/2024 1 [place] [employer] Ap Martines Aubrey [id number] Ap Aubrey 12/11/2024 2 [employer] OPTIONS (MEDICARE SUPPLEMENT) Ap Aubrey [id number] Ap Aubrey Notes Date Note Type Note Provider Name and Address Organization Details Recorded Time 12/11/2024 text/html Ap is a 59-year-old male [...] his penis anus or scrotum. QING Calvillo [address] [place], [address], [facility] [place] 12/11/2024 16:11:36
--- OUTSIDE RECORDS SUMMARY | 2024-12-26 18:49 | XMS_ITS ---
Author Organization [facility] Address [address] [place] [address] Care Team Providers Care Cylinder Press Feeder Name Role Phone Xander Del Rosario MD Primary Care Provider Unavailab Xander Hall Unavailable [phone] REASON FOR VISIT Patient presents today for a COLON SCREENING Encounters Encounter Location Date Provider Diagnosis [facility] [address] [place] [address] 10/10/2023 Xander Moon PLAN OF TREATMENT No Information
--- OUTSIDE RECORDS SUMMARY | 2024-12-26 18:49 | XMS_ITS ---
Author Organization Xander Del Rosario III, MD Address [address] [facility] [place] [address] Care Team Providers Care Administrative Law Judge Name Role Phone Xander Del Rosario Primary Care Provider REASON FOR VISIT Refills Medications Medication SIG (Take, Route, Frequency, Duration) Notes Start Date End Date Status BD Pen Needle Original U/F 29G X 12.7MM use three times a day to administer insulin for 90 days use three times a day to administer insulin DX: E11.9 Diabetes 08/07/2020 Active Social History Sex Assigned At : Social History Observation Description Sex Assigned At Male Encounters Encounter Location Date Provider Diagnosis Xander Del Rosario III, MD [address] [place] [address] [place] [address] 12/03/2024 Xander Del Rosario Plan Of Treatment Medication Medication Name Sig Start Date Stop Date Notes BD Pen Needle Original U/F 29G X 12.7MM use three times a day to administer insulin for 90 days 08/07/2020 DX: E11.9 Diabetes Next Appt Details Provider Name:Xander Del Rosario, 02/03/2025 10:45:00 AM, [address] [facility] [place], [address], Provider Name:Xander Del Rosario, 05/14/2025 10:00:00 AM, [address] [facility] [place], [address], Progress Notes * Ap JONESDOB: [birth year] (59 yo M)Acc No.[id number]:12/03/2024 Patient:?Ap JONES :1965???Age:59 Y???Sex:Male Address:[address] [place] [address] * Refills? Refill BD Pen Needle Original U/F Miscellaneous, 29G X 12.7MM, 6 Pack, use three times a day to administer insulin, 90 days, Refills=3 * true * Date:? Generated for Eladia ramires/Althea/eTcocosmitting on:?12/26/2024 06:49 PM EST
--- OUTSIDE RECORDS SUMMARY | 2024-12-26 18:50 | XMS_ITS | Continuity of Care Document ---
Author Organization [facility] ter Address [address] [place] [address]- Care Team Providers Care Dispensing Lead Name Role Phone Carin DURHAM, Xander Monk Primary Care Physician Encounter 12/09/24 - 12/10/[address] [address]- Attending Physician: Not on Staff, Attending MD Referring Physician: Not on Staff, Referring MD Encounter Type: [facility] Allergies, Adverse Reactions, Alerts Substance Criticality Severity Reaction Reaction Severity Status erythromycin Active penicillin Active Medications Marcela By Mouth, 0 Refills, Maintenance, 07/29/24 10:10:00 AM EDT, Partial fill upon patient request if theprescription is for a schedule II opioid drug. Start Date: 07/29/24 Status: Ordered Repeat number: 1 amLODIPine 10 mg oral tablet 10 mg, 1, tablet, By Mouth, Daily, # 90 tablet, Refills 3, Tot. Refills 3, Maintenance, 01/12/21 3:28:00 PM EDT, Route to Pharmacy Electronically, [facility]/pharmacy #[id number], 180, cm, 11/21/19 15:05:00 EST, Height Start Date: 01/12/21 Stop Date: 01/07/22 Status: Ordered Quantity: 90.0 Unit: tablet Repeat number: 4 amLODIPine 10 mg oral tablet 1 tablet, By Mouth, Daily, # 90 tablet, 3 Refills, [id number], 180, cm, 07/01/21 12:56:00 EDT,Height Start Date: 10/27/21 Status: Ordered Quantity: 90.0 Unit: tablet Repeat number: 1 BD INSULIN SYR UF 1 ML [id number] BD INSULIN SYR UF 1 ML [id number], 0 Refills, Maintenance, 01/10/19 2:03:06 PM EDT Start Date: 01/10/19 Status: Ordered Repeat number: 1 cyclobenzaprine 10 mg oral tablet 10 mg, 1, tablet, By Mouth, Daily at bedtime, # 14 tablet, Refills 5, Maintenance, 07/29/24 10:09:00AM EDT, Partial fill upon patient request if the prescription is for a schedule II opioid drug. Start Date: 07/29/24 Status: Ordered Quantity: 14.0 Unit: tablet Repeat number: 1 fenofibrate 160 mg oral tablet 1 tablet = 160 mg, By Mouth, Daily, # 90 tablet, 3 Refills, Maintenance, 08/05/13 2:11:50 PM EDT, [facility] Start Date: 08/05/13 Status: Ordered Quantity: 90.0 Unit: tablet Repeat number: 4 GlipiZIDE By Mouth, Daily, 0 Refills, Maintenance, 10/05/17 3:40:25 PM EST Start Date: 10/05/17 Status: Ordered Repeat number: 1 hydrochlorothiazide 25 mg oral tablet 25 mg, 1, tablet, By Mouth, Daily, # 30 tablet, Refills 11, Tot. Refills 11, Maintenance, 02/28/17 9:50:35 AM EDT, Route to Pharmacy Electronically, [facility]/pharmacy #[id number] Start Date: 02/28/17 Stop Date: 02/23/18 Status: Ordered Quantity: 30.0 Unit: tablet Repeat number: 12 Insulin Syringe, BD Ultra-Fine 1 cc 31 G x 8 mm (5/16in) See Instructions, # 450 each, Refills 5, Tot. Refills 5, Maintenance, use with insulin 5x daily, 08/06/19 2:30:38 PM EDT, E11.9, 90 DAY SUPPLY, Compound Start Date: 08/06/19 Status: Ordered Quantity: 450.0 Unit: each Repeat number: 6 Lantus Solostar Pen 100 units/mL subcutaneous solution 60, Subcutaneous Injection, Daily, 60 u in Am 70 U pm, # 10 mL, 0 Refills, Maintenance, 07/29/24 10:09:00 AM EDT, Solution, Partial fill upon patient request if the prescription is for a schedule II opioid drug. Start Date: 07/29/24 Status: Ordered Quantity: 10.0 Unit: mL Repeat number: 1 lisinopril 40 mg oral tablet 1 tablet = 40 mg, By Mouth, Daily, # 30 tablet, 7 Refills, Maintenance, 01/17/11 12:11:59 PM EDT, Tablet, [facility] Start Date: 01/17/11 Status: Ordered Quantity: 30.0 Unit: tablet Repeat number: 8 meloxicam 15 mg oral tablet 1 tablet = 15 mg, By Mouth, Daily, # 90 tablet, 0 Refills, Maintenance, 07/29/24 10:08:00 AM EDT, Tablet, Partial fill upon patient request if the prescription is for a schedule II opioid drug. Start Date: 07/29/24 Status: Ordered Quantity: 90.0 Unit: tablet Repeat number: 1 metFORMIN 500 mg oral tablet 2 tablet = 1,000 mg, By Mouth, 2 times a day, # 360 tablet, 5 Refills, Maintenance, 08/06/19 2:31:50PM EDT, Tablet, [facility]/pharmacy #2476, E11.9, 90 DAY SUPPLY Start Date: 08/06/19 Status: Ordered Quantity: 360.0 Unit: tablet Repeat number: 6 Metoprolol Tartrate 25 mg oral tablet 1 tablet = 25 mg, By Mouth, 2 times a day, # 60 tablet, 0 Refills, Maintenance, 07/29/24 10:10:00 AMEDT, Tablet, Partial fill upon patient request if the prescription is for a schedule II opioid drug. Start Date: 07/29/24 Status: Ordered Quantity: 60.0 Unit: tablet Repeat number: 1 Novolin N human recombinant 100 u/ml subcutaneous injection Subcutaneous Infusion, 2 times a day, 20iu in am and 55iu in pm, 0 Refills, Maintenance, 08/28/14 10:34:52 AM EDT Start Date: 08/28/14 Status: Ordered Repeat number: 1 Novolin R human recombinant 100 u/ml injectable injection Subcutaneous Infusion, sliding scale, 0 Refills, Maintenance, 08/28/14 10:34:36 AM EDT Start Date: 08/28/14 Status: Ordered Repeat number: 1 One Touch Delica Lancets See Instructions, # 400 application, Refills 3, Tot. Refills 3, Maintenance, Test blood glucose 4X daily, 02/18/11 2:00:09 PM EDT Start Date: 02/18/11 Status: Ordered Quantity: 400.0 Unit: application Repeat number: 4 Ozempic 2 mg/3 mL (0.25 mg or 0.5 mg dose) subcutaneous solution = 0.5 mg, Subcutaneous Injection, Every week, rotate injection sites, # 1 each, 0 Refills, Maintenance, 07/29/24 10:09:00 AM EDT, Solution, Partial fill upon patient request if the prescription is fora schedule II opioid drug. Start Date: 07/29/24 Status: Ordered Quantity: 1.0 Unit: each Repeat number: 1 rosuvastatin 5 mg oral tablet 2 tablet = 10 mg, By Mouth, Daily, # 180 tablet, 3 Refills, Maintenance, 11/13/12 11:52:09 AM EST, Tablet, [facility] Start Date: 11/13/12 Stop Date: 11/08/13 Status: Ordered Quantity: 180.0 Unit: tablet Repeat number: 4 Trulicity Pen 1.5 mg/0.5 mL subcutaneous solution 0.5 mL = 1.5 mg, Subcutaneous Injection, Every week, # 2.5 mL, 11 Refills, Maintenance, 08/06/19 2:32:27 PM EDT, Solution, [facility]/pharmacy #2476, E11.9 Start Date: 08/06/19 Status: Ordered Quantity: 2.5 Unit: mL Repeat number: 12 ZyrTEC 10 mg oral tablet 1 tablet = 10 mg, By Mouth, Daily, 0 Refills, Maintenance, 08/06/15 9:11:48 AM EDT Start Date: 08/06/15 Status: Ordered Repeat number: 1 Problem List Condition Confirmation Course Effective Dates Status Health St atus Informant Dyslipidemia Confirmed Active Hypertension Confirmed 08/15/11 Active Obesity Confirmed Active Severe obesity (BMI 35.0-39.9) with comorbidity Confirmed Active Type 2 diabetes mellitus Confirmed Active Social History Social History Type Response Smoking Status Former smoker; Tobac co user in household: No; Other: He quit in December of 1989; entered on: 08/06/15 Sex Sex Representation Male (finding) Patient Care team information Care Team Personnel Name: Xander Del Rosario MD Position: [facility] Physician - Oncology Member Role: PCP Address: [address] [place] [address] [address] [place] [address]- Telecom: Care Team Related Persons Name: JORGE ASTIVEN Insurance Providers Guarantor name: RYLAN Ohmx Plan Information #: 1 Payer: MEDICARE PART B OUTPT Member Number: NA Policy Number: NA Group Number: NA Health Plan Information #: 2 Payer: [employer] SUP Member Number: NA Policy Number: NA Group Number: NA
--- OUTSIDE RECORDS SUMMARY | 2024-12-26 18:50 | XMS_ITS | Clinical Summary ---
Author Organization [facility] Address [address] [place] [address] Phone Care Team Providers Care Boiler House Mechanic Name Role Phone Xander Del Rosario MD Primary Care Provider Allergies Active Allergy Reactions Criticality Noted Date Comments Ciprofloxacin Anaphylaxis,Unknown High 08/13/2024 Clarithromycin Unknown 08/13/2024 diarrhea Erythromycin 11/10/2024 Penicillins Anaphylaxis,Unknown High 08/13/2024 Medications No known medications Encounters Date Type Department Care Team Description 11/10/2024 12:43 PM EST - 11/10/2024 4:40 PM EST Emergency [facility] Emergency [address] [place] [address] Discharge Disposition: Home or Self Care from Last 3 Months Social History Tobacco Use Types Packs/Day Years Used Date Smoking Tobacco: Unknown Tobacco Cessation:Counseling Given: Not Answered Sex and Gender Information Value Date Recorded Sex Assigned at Not on file Legal Sex Male 12:51 PM EST Gender Identity Not on file Sexual Orientation Not on file Obstetrics History Last Filed Vital Signs Vital Sign Reading Time Taken Comments Blood Pressure 151/88 11/10/2024 1:28 PM EST Pulse 98 11/10/2024 1:28 PM EST Temperature 37.2 ??C (99 ??F) 11/10/2024 1:28 PM EST Respiratory Rate 20 11/10/2024 1:28 PM EST Oxygen Saturation 97% 11/10/2024 1:28 PM EST Inhaled Oxygen Concentration - - Weight 125 kg (275 lb) 11/10/2024 1:28 PM EST Height 177.8 cm (5' 10 ) 11/10/2024 1:28 PM EST Body Mass Index 39.46 11/10/2024 1:28 PM EST Plan of Treatment Health Maintenance Due Date Last Done Comments Diabetes: Annual Foot Exam 1974 Diabetes: Annual Retina Eye Exam 1974 Cholesterol Screening (Lipid Panel) 09/27/2022 Colorectal Cancer Screening: Colonoscopy 09/27/2022 Depression Screening 09/27/2022 HIV Screening 09/27/2022 Hepatitis C Screening 09/27/2022 Medicare Annual Wellness Visit 09/27/2022 Social Influencers of Health Screening 09/27/2022 Pneumococcal Vaccine: 50+ Years (2 of 2 - PCV) 11/08/2022 11/08/2021, 08/31/2020 COVID-19 Vaccine ( season) 2024 08/27/2021, 02/02/2021, 01/05/2021 RSV Immunization Patients 60+ Years Old (1 - Risk 60-74 years 1-dose series) 2024 Diabetes: Annual Urine Albumin-Creatinine Ratio (uACR) 11/10/2024 Diabetes: Blood Sugar Control Test (HGBA1C) 02/11/2025 08/13/2024 Diabetes: Annual GFR (Glomerular Filtration Rate) 11/10/2025 11/10/2024, 08/13/2024, 08/13/2024 Hypertension/CHF/CAD Annual BMP Blood Test 11/10/2025 11/10/2024, 08/13/2024, 08/13/2024 DTaP,Tdap,and Td Vaccines (2 - Td or Tdap) 01/30/2027 01/30/2017 Zoster Vaccines Completed 11/03/2020, 08/31/2020 Pneumococcal Vaccine: Pediatrics (0 to 5 Years) and At-Risk Patients (6 to 64 Years) Aged Out 11/08/2021, 08/31/2020 No longer eligibl e based on patient's age to complete this topic Influenza Vaccine Completed 07/25/2024, , 11/08/2021, Additional history exists HIB Vaccines Aged Out No longer eligi ble based on patient's age to complete this topic HPV Vaccines Aged Out No longer eligi ble based on patient's age to complete this topic Hepatitis A Vaccines Aged Out No long er eligible based on patient's age to complete this topic Hepatitis B Vaccines Aged Out No long er eligible based on patient's age to complete this topic IPV Vaccines Aged Out No longer eligi ble based on patient's age to complete this topic MMR Vaccines Aged Out No longer eligi ble based on patient's age to complete this topic Meningococcal ACWY Vaccine Aged Out N o longer eligible based on patient's age to complete this topic Meningococcal B Vacine Aged Out No lo nger eligible based on patient's age to complete this topic RSV Immunization Patients Under 20 months Aged Out No longer eligible based on patient's age to complete this topic Varicella Vaccines Aged Out No longer eligible based on patient's age to complete this topic Procedures Procedure Name Priority Date/Time Associated Diagnosis Comments CBC WITH AUTO DIFFERENTIAL STAT 11/10/2024 1:47 PM EST HERNANDEZ URINE CULTURE TUBE STAT 11/10/2024 1:47 PM EST URINALYSIS WITH REFLEX MICROSCOPIC AND CULTURE STAT 11/10/2024 1:47 PM EST BASIC METABOLIC PANEL STAT 11/10/2024 1:47 PM EST CBC AND DIFFERENTIAL STAT 11/10/2024 1:47 PM EST URINALYSIS WITH REFLEX MICROSCOPIC AND CULTURE STAT 11/10/2024 1:47 PM EST CULTURE URINE STAT 11/10/2024 1:47 PM EST from Last 3 Months Results * (ABNORMAL) Urinalysis with reflex microscopic and culture (11/10/2024 1:47 PM EST) Specific [place] Urine 1.020 1.003 - 1.030 LAB URINALYSIS - AUTOMATED METHOD 11/10/2024 2:09 PM EST [facility] pH, Urine 5.5 5.0 - 8.0 pH LAB URINALYSIS - AUTOMATED METHOD 11/10/2024 2:09 PM EST [facility] Leukocytes, Urine Large(A) Negative LAB URINALYSIS - AUTOMATED METHOD 11/10/2024 2:09 PM [facility] Nitrite, Urine Negative Negative LAB URINALYSIS - AUTOMATED METHOD 11/10/2024 2:09 PM [facility] Protein, Urine Trace <=Trace mg/dL LAB URINALYSIS - AUTOMATED METHOD 11/10/2024 2:09 PM [facility] Glucose, Urine Negative Negative mg/dL LAB URINALYSIS - AUTOMATED METHOD 11/10/2024 2:09 PM [facility] Ketones, Urine Negative Negative mg/dL LAB URINALYSIS - AUTOMATED METHOD 11/10/2024 2:09 PM [facility] Urobilinogen, Urine 1.0 0.2 - 1.0 mg/dL LAB URINALYSIS - AUTOMATED METHOD 11/10/2024 2:09 PM [facility] Bilirubin, Urine Negative Negative LAB URINALYSIS - AUTOMATED METHOD 11/10/2024 2:09 PM [facility] Blood, Urine Large(A) Negative LAB URINALYSIS - AUTOMATED METHOD 11/10/2024 2:09 PM [facility] RBC, Urine 573.2(H) 0 - 4 /HPF LAB URINALYSIS - AUTOMATED METHOD 11/10/2024 2:09 PM [facility] WBC, Urine 410.2(H) 0 - 4 /HPF LAB URINALYSIS - AUTOMATED METHOD 11/10/2024 2:09 PM [facility] Squamous Epithelial, Urine 14 0 - 60 /LPF LAB URINALYSIS - AUTOMATED METHOD 11/10/2024 2:09 PM [facility] Bacteria, Urine Negative Negative /HPF LAB URINALYSIS - AUTOMATED METHOD 11/10/2024 2:09 PM [facility] Hyaline Casts, Urine 0.0 0 - 3 /LPF LAB URINALYSIS - AUTOMATED METHOD 11/10/2024 2:09 PM [facility] Urine Urine specimen obtained by clean catch procedure / Unknown Non-blood Collection / Unknown 11/10/2024 1:47 PM EST 11/10/2024 1:58 PM EST Yosef Freed MD LAB URINE ORDERABLES Betty l Result Performing Organization Address [facility]/ZIP Co de Phone Number [facility] [address] [place] [address], [place] [phone] * Hernandez urine culture tube (11/10/2024 1:47 PM EST) Pathologist [facility] Extra Tube Hold for add-ons. 11/10/2024 3:01 PM EST [facility] Comment:Auto resulted. Urine Urine specimen obtained by clean catch procedure / Unknown Non-blood Collection / Unknown 11/10/2024 1:47 PM EST 11/10/2024 1:58 PM EST Yosef Freed MD LAB URINE ORDERABLES Betty l Result Performing Organization Address [facility]/ZIP Co de Phone Number [facility] [address] [place] [address], [place] [phone] * (ABNORMAL) CBC auto differential (11/10/2024 1:47 PM EST) WBC 10.4 4.8 - 10.8 K/mcL LAB HEMETOLOGY METHOD 11/10/2024 2:31 PM [facility] RBC 4.70 4.50 - 5.50 M/mcL LAB HEMETOLOGY METHOD 11/10/2024 2:31 PM [facility] Hemoglobin 13.6 13.5 - 17.5 g/dL LAB HEMETOLOGY METHOD 11/10/2024 2:31 PM [facility] Hematocrit 40.8(L) 42.0 - 54.0 % LAB HEMETOLOGY METHOD 11/10/2024 2:31 PM [facility] MCV 86.4 79.0 - 98.0 FL LAB HEMETOLOGY METHOD 11/10/2024 2:31 PM [facility] MCH 28.8 27.0 - 32.0 pcg LAB HEMETOLOGY METHOD 11/10/2024 2:31 PM [facility] MCHC 33.3 32.0 - 37.0 g/dL LAB HEMETOLOGY METHOD 11/10/2024 2:31 PM [facility] RDW 13.1 11.0 - 15.0 % LAB HEMETOLOGY METHOD 11/10/2024 2:31 PM [facility] Platelets 11/10/2024 2:31 PM [facility] Comment:Not measured. Unable to quantitate due to platelet clumping MPV 9.0 7.0 - 11.0 FL LAB HEMETOLOGY METHOD 11/10/2024 2:31 PM [facility] NRBC 0.0 <1.0 % LAB HEMETOLOGY METHOD 11/10/2024 2:31 PM [facility] NRBC Absolute 0.00 <0.10 K/mcL LAB HEMETOLOGY METHOD 11/10/2024 2:31 PM [facility] Neutrophils Relative 68.5 % LAB HEMETOLOGY METHOD 11/10/2024 2:31 PM [facility] Lymphocytes Relative 20.9 % LAB HEMETOLOGY METHOD 11/10/2024 2:31 PM [facility] Monocytes Relative 8.4 % LAB HEMETOLOGY METHOD 11/10/2024 2:31 PM [facility] Eosinophils Relative 1.5 % LAB HEMETOLOGY METHOD 11/10/2024 2:31 PM [facility] Basophils Relative 0.2 % LAB HEMETOLOGY METHOD 11/10/2024 2:31 PM [facility] Immature Granulocytes Relative 0.5 % LAB HEMETOLOGY METHOD 11/10/2024 2:31 PM EST [facility] Neutrophils Absolute 7.15(H) 1.50 - 7.00 K/mcL LAB HEMETOLOGY METHOD 11/10/2024 2:31 PM [facility] Lymphocytes Absolute 2.18 1.00 - 5.00 K/mcL LAB HEMETOLOGY METHOD 11/10/2024 2:31 PM EST [facility] Monocytes Absolute 0.88 0.20 - 1.00 K/mcL LAB HEMETOLOGY METHOD 11/10/2024 2:31 PM [facility] Eosinophils Absolute 0.16 0.00 - 0.50 K/mcL LAB HEMETOLOGY METHOD 11/10/2024 2:31 PM [facility] Basophils Absolute 0.02 0.00 - 0.20 K/mcL LAB HEMETOLOGY METHOD 11/10/2024 2:31 PM [facility] Immature Granulocytes Absolute 0.05(H) 0.00 - 0.03 K/mcL LAB HEMETOLOGY METHOD 11/10/2024 2:31 PM [facility] Blood Venous blood specimen / Unknown Venipuncture / Unknown 11/10/2024 1:47 PM EST 11/10/2024 1:59 PM EST Yosef Freed MD LAB BLOOD ORDERABLES Betty ambrose Result [facility] [address] [place] [address], * Culture urine (11/10/2024 1:47 PM EST) Culture, Urine <10,000 CFU/mL gram negative bacilli, insignificant count, no further workup 11/11/2024 11:20 AM EST [facility] Urine Urine specimen obtained by clean catch procedure / Unknown Non-blood Collection / Unknown 11/10/2024 1:47 PM EST 11/10/2024 2:09 PM EST us Yosef Freed MD LAB MICROBIOLOGY - GENERA L ORDERABLES Final Result [facility] [address] [place] [address], [place] [phone] * (ABNORMAL) Basic metabolic panel (11/10/2024 1:47 PM EST) Sodium 131(L) 133 - 145 mmol/L LAB CHEMISTRY METHOD 11/10/2024 2:26 PM [facility] Potassium 4.2 3.5 - 5.5 mmol/L LAB CHEMISTRY METHOD 11/10/2024 2:26 PM [facility] Chloride 99 96 - 110 mmol/L LAB CHEMISTRY METHOD 11/10/2024 2:26 PM [facility] CO2 29 21 - 32 mmol/L LAB CHEMISTRY METHOD 11/10/2024 2:26 PM [facility] Anion Gap 3 3 - 11 LAB CHEMISTRY METHOD 11/10/2024 2:26 PM [facility] Glucose 114(H) 70 - 100 mg/dL LAB CHEMISTRY METHOD 11/10/2024 2:26 PM [facility] BUN 25 5 - 25 mg/dL LAB CHEMISTRY METHOD 11/10/2024 2:26 PM [facility] Creatinine 0.87 0.70 - 1.30 mg/dL LAB CHEMISTRY METHOD 11/10/2024 2:26 PM [facility] eGFR 99 >=60 mL/min/1. 73m2 LAB CHEMISTRY METHOD 11/10/2024 2:26 PM [facility] Comment:Calculation based on the??Chronic Kidney Disease Epidemiology Collaboration (CKD-EPI) equation refit??without adjustment for race. BUN/Creatinine Ratio 28.7 LAB CHEMISTRY METHOD 11/10/2024 2:26 PM [facility] Calcium 9.3 8.5 - 10.5 mg/dL LAB CHEMISTRY METHOD 11/10/2024 2:26 PM EST [facility] Blood Venous blood specimen / Unknown Venipuncture / Unknown 11/10/2024 1:47 PM EST 11/10/2024 1:59 PM EST us Yosef Freed MD LAB BLOOD ORDERABLES Betty l Result [facility] [address] [place] [address], [place] [phone] from Last 3 Months Insurance [facility] MEDICARE Care Teams Boiler House Mechanic Relationship Specialty Start Date End Date Xander Del Rosario MD PCP - General Oncology 01/10/18
--- OUTSIDE RECORDS SUMMARY | 2024-12-26 18:50 | XMS_ITS | Patient Health Record ---
Author Organization [facility] Address [address] [place] [phone] Care Team Providers Care Cold Header Name Role Phone Carin DURHAM, Xander Primary Care Provider Xander August Unavailable [phone] REASON FOR REFERRAL No Information SOCIAL HISTORY Sex Assigned At : Social History Observation Description Sex Assigned At Unknown PLAN OF TREATMENT No Information Insurance Providers Payer Name Payer Address Payer Phone Subscriber Number Group Number Insured Name Patient Relationship to Insured Coverage Start Date Coverage End Date MEDICARE OF [place] [address] [place] [address] [phone] [id number] JORGE A RYLAN Self - patient is the insured [employer] (REFERRAL REQUIRED) [address] [address] [place] [address] [id number] JORGE A RYLAN Self - patient is the insured
--- OUTSIDE RECORDS SUMMARY | 2024-12-26 18:50 | XMS_ITS ---
Author Organization [facility] Address [address] [place] [phone] Care Team Providers Care Microelectronics Engineer Name Role Phone Xander Del Rosario MD Primary Care Provider Unavailab Xander Hall Unavailable [phone] Encounters Encounter Location Date Provider Diagnosis [facility] [address] [place] [phone] 10/10/2023 Xander Moon PLAN OF TREATMENT No Information
== END 2024-12-26 15:58 | disposition home or self-care (01) ==
PROVIDERS: PCP Internal Medicine Medical Oncology; Visit Provider Student in an Organized Health Care Education/Training Program
DX: E04.2 Nontoxic multinodular goiter (principal)
CPT/HCPCS: 99204

== ENCOUNTER → 2024-12-26 15:29 | Outpatient (BNVA) | payer MEDICARE, SELFPAY | PROVIDERS: PCP Internal Medicine Medical Oncology; Visit Provider Student in an Organized Health Care Education/Training Program | DX: E04.2 Nontoxic multinodular goiter (principal) | CPT/HCPCS: 99202 ==

== ENCOUNTER 2025-01-08 07:44 | Outpatient (REF) | payer MEDICARE, SELFPAY ==
--- OUTSIDE RECORDS SUMMARY | 2025-01-08 07:47 | XMS_ITS ---
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 Name Role Phone Xander Del Rosario Primary Care Provider Allergies Allergen (clinical drug ingredient) Drug/Non Drug Allergy documented on EMR Reaction Allergy Type Onset Date Status Penicillin anaphylaxis Drug Allergy Acti ve erythromycin Erythromycin Unknown Drug Allergy A ctive ciprofloxacin Cipro Unknown Drug Allergy Act tyrese REASON FOR VISIT Insulin-dependent diabetes mellitus, Urinary tract infection, resolved, Sinusitis, resolved, Obesity, Back pain, Benign prostatic hypertrophy, Multinodular goiter Medications Medication SIG (Take, Route, Frequency, Duration) Notes Start Date End Date Status Lantus SoloStar 100 UNIT/ML INJECT 50 UNITS IN THE MORNING AND 70 UNITS AT BEDTIME Active Ozempic (2 MG/DOSE) 8 MG/3ML 2 mg Subcutaneous weekly 11/04/2024 Active Meloxicam Active Meclizine HCl 25 MG 1 tablet as needed Orally every 12 hrs Active FreeStyle Lite w/Device as directed - patient to test four times a day 10/04/2021 Active FreeStyle Lite Test - as directed In Vitro testing four times a day 10/04/2021 Active Ketoconazole 2 % 1 application Externally Twice a day 10/06/2023 Active hydroCHLOROthiazide 25 MG TAKE 1 TABLET BY MOUTH EVERY DAY IN THE MORNING Active BD Insulin Syringe U/F 31G X 5/16 1 ML USE WITH INSULIN 5 TIMES DAILY Active Metoprolol Tartrate 25 MG 1 tablet with food Orally Twice a day Active Lisinopril 40 MG TAKE 1 TABLET BY MOUTH EVERY DAY Active Clobetasol Propionate 0.05 % APPLY DAILY TO SKIN TO AFFECTED AREA TWICE A DAY FOR 2 WEEKS Active Rosuvastatin Calcium 10 MG TAKE 1 TABLET BY MOUTH EVERY DAY Active diazePAM 10 MG 1 tablet as needed Orally before closed MRI procedure 04/10/2024 Active Doxycycline Hyclate 100 MG 1 capsule Ora lly twice a day 11/12/2024 Active Fenofibrate 160 MG TAKE 1 TABLET BY MOUTH EVERY DAY WITH MEALS Active metFORMIN HCl 500 MG TAKE 2 TABLETS BY MOUTH TWICE A DAY WITH MEALS Active LORazepam 2 MG 1 tablet at bedtime as needed Orally every 6 hours x 2 days prn anxiety during air travel 07/30/2024 Active NovoLOG 100 UNIT/ML 10-22 units Injection three times a day on sliding scale E11.9 DM (diabetes mellitus) Active BD Pen Needle Original U/F 29G X 12.7MM use three times a day to administer insulin use three times a day to administer insulin DX: E11.9 Diabetes 08/07/2020 Active Basaglar KwikPen 100 UNIT/ML as directed Subcutaneous 50 units every morning and 70 units every evening please dispense one month supply 11/13/2024 Active Social History Tobacco Use: Social History Observation Description Date Details (start date - stop date) Former Smoker NA - NA Sex Assigned At : Social History Observation Description Sex Assigned At Male Tobacco Use/Smoking Question Answer Notes Patient is a former smoker How long has it been since you last smoked? > 10 years Additional Findings: Tobacco Non-User Ex-cigaret te smoker Vital Signs Height 71 in 12/23/2024 Weight 276 lbs 12/23/2024 BMI 38.49 kg/m2 12/23/2024 Encounters Encounter Location Date Provider Diagnosis Xander Del Rosario III, MD [address] [place] [address] DR [place], [place] [phone] 12/23/2024 Xander Del Rosario Former smoker Z87.89 1 ; Diabetes mellitus type 2 in nonobese E11.9 ; Essential hypertension I10 ; Obesity E66.9 and Acute non-recurrent sinusitis of other sinus J01.80 Assessments Encounter Date Diagnosis (ICD Code) Assessment Notes Treatment Notes Treatment Clinical Notes 12/23/2024 Former smoker (ICD-10 - Z87.891) He is highly motivated not to smoke. He has a plan for prevention of abstinence. We have discussed abstinence today. 12/23/2024 Diabetes mellitus type 2 in nonobese (ICD-10 - E11.9) He has gained 1 pound and is trying to lose weight further. Comprehensive blood work with a hemoglobin A1c and microalbumin have been ordered. Reports a fasting glucose of 140-150. 12/23/2024 Essential hypertension (ICD-10 - I10) His blood pressure has been stable. No change in his regimen was made today. 12/23/2024 Obesity (ICD-10 - E66.9) His weight has been stable. He continues on Ozempic. 12/23/2024 Acute non-recurrent sinusitis of other sinus (ICD-10 - J01.80) He reports that the sinus suction has resolved. Plan Of Treatment Medication Medication Name Sig Start Date Stop Date Notes Lantus SoloStar 100 UNIT/ML INJECT 50 UN ITS IN THE MORNING AND 70 UNITS AT BEDTIME Ozempic (2 MG/DOSE) 8 MG/3ML 2 mg Subcut aneous weekly 11/04/2024 Meloxicam Meclizine HCl 25 MG 1 tablet as needed Orally every 12 hrs FreeStyle Lite w/Device as directed - patient to test four times a day 10/04/2021 FreeStyle Lite Test - as directed In Vit ro testing four times a day 10/04/2021 Ketoconazole 2 % 1 application Externally Twice a day 10/06/2023 hydroCHLOROthiazide 25 MG TAKE 1 TABLET BY MOUTH EVERY DAY IN THE MORNING BD Insulin Syringe U/F 31G X 5/16 1 ML USE WITH INSULIN 5 TIMES DAILY Metoprolol Tartrate 25 MG 1 tablet with food Orally Twice a day Lisinopril 40 MG TAKE 1 TABLET BY MOUTH EVERY DAY Clobetasol Propionate 0.05 % APPLY DAILY TO SKIN TO AFFECTED AREA TWICE A DAY FOR 2 WEEKS Rosuvastatin Calcium 10 MG TAKE 1 TABLET BY MOUTH EVERY DAY diazePAM 10 MG 1 tablet as needed Orally before closed MRI procedure 04/10/2024 Doxycycline Hyclate 100 MG 1 capsule Ora lly twice a day 11/12/2024 Fenofibrate 160 MG TAKE 1 TABLET BY MOUTH EVERY DAY WITH MEALS metFORMIN HCl 500 MG TAKE 2 TABLETS BY MOUTH TWICE A DAY WITH MEALS LORazepam 2 MG 1 tablet at bedtime as needed Orally every 6 hours x 2 days prn anxiety during air travel 07/30/2024 NovoLOG 100 UNIT/ML 10-22 units Injection three times a day on sliding scale E11.9 DM (diabetes mellitus) BD Pen Needle Original U/F 29G X 12.7MM use three times a day to administer insulin 08/07/2020 DX: E11.9 Diabetes Basaglar KwikPen 100 UNIT/ML as directed Subcutaneous 50 units every morning and 70 units every evening 11/13/2024 please dispense one month supply Pending Test Test Name Order Date PROFILE, FASTING (COMPREHENSIVE METABOLI C) 12/23/2024 CBC WITH AUTO DIFF 12/23/2024 Lipid Panel 12/23/2024 Hemoglobin A1c 12/23/2024 Next Appt Details Follow Up: As Scheduled, Rosenda son: OV Provider Name:Xander Del Rosario, 02/03/2025 10:45:00 AM, [address] [place] [address] [address], [place], [phone], Provider Name:Xander Del Rosario, 05/14/2025 10:00:00 AM, [address] [place] [address] [address], [place], [phone], Progress Notes * Ap JONESDOB: [birth year] (59 yo M)Acc No.[id number]:12/23/2024 Patient:?Ap JONES Provider:?Xander Del Rosario MD :1965???Age:59 Y???Sex:Male Jaylan e:12/23/2024 Address:[address] [place] [id number] Subjective: * Chief Complaints: * ???Insulin-dependent diabete s mellitusUrinary tract infection, resolvedSinusitis, resolvedObesityBack painBenign prostatic hypertrophyMultinodular goiter * HPI: ???:? He returns for management of multiple problems.? He has an appointment with orthopedics in [place] to discuss the surgical therapy of his shoulder pain.? It has improved somewhat with physical therapy.? He is taking 70 units of Zaccaro every morning and 60 at night.? He has been feeling fairly well.? His low back pain is stable at present continuously.He has no new complaints.? He has a multinodular goiter with one thyroid nodule that meets criteria for biopsy.? He has been referred to endocrinology and is awaiting this appointment.? He shows no signs of hyperthyroidism. ?Telehealth?Location of provider rendering services:?{...} [address] [facility] [address] ?Location of patient:?address listed in demographics for today's visit ?Patient identification confirmed using:?Name, ?Telehealth method:?Telephone only. Patient not visible to care provider. ?Consent:?Patient verbally consented to treatment, Patient verbally consented to billing insurance company, Patient informed of any privacy concerns related to method of visit ?Total time spent with patient (mins)?15 * ROS:?General/Constitutional:?pain?Shoulders and low back.?Chills?denies.?Fatigue?admits.?Fever?denies.?ENT:?Decreased hearing?denies.?Respiratory:?Cough?denies.?Cardiovascular:?Chest pain with exertion?denies.?Dyspnea on exertion?denies.?Shortness of breath?denies.?Gastrointestinal:?Constipation?occasional.?Decreased appetite?denies.?Diarrhea?denies.?Heartburn?denies.?Nausea?denies.?Rectal bleeding?denies.?Vomiting?denies.?Hematology:?bruising?denies.?petechiae?denies.?Swollen glands?none have been noted.?Genitourinary:?Frequent urination?twice a night.?Musculoskeletal:?Muscle aches?denies.?Painful joints?Hips knees and low back and shoulders.?Sciatica?denies.?Weakness?in the left leg.?Skin:?Itching?denies.?Rash?denies.?Skin lesion(s)?denies.?Neurologic:?Difficulty speaking?denies.?Dizziness?denies.?Headache?denies.?Low back pain?denies.?Psychiatric:?Depressed mood?denies.? * Medical History:? * Surgical History:?laminectom y of the spine fractured left ankle right hip arthroplasty cardiac catheterization: 25% LAD, EF 65% 02/2011decompresion Dr. Jones 01/2018Left shoulder replacement 08/29/2024Shoulder replacement surgery - august 29, [facility] ight hip surgery - scoped, no complications since. * Hospitalization/Major Diagno stic Procedure:?inpt [facility] due to hypertension/dehydration/vertigo 03/16/2024Left shoulder replacement, [place] 2024 * Family History:?Father: dece ased 51 yrs, diagnosed with Hyperlipidemia.?Mother: angina, hemochromatosis.?Maternal Grand Mother: hemochromatosis.?2 brother(s) . .? His mother and grand mother had hemochromotosis. His mother had CAD and copd. His father at 51 of obesity, hyperlipidemia and CAD. He has a personal history of depression. Other than that, he has no knowledge of any family history of mental illness or substance use disorder, or addictions. * Social History:?Tobacco Use:?Tobacco Use/Smoking?Patient is a?former smoker ?How long has it been since you last smoked??> 10 years ?Additional Findings: Tobacco Non-User?Ex-cigarette smoker ???He lives with his and does not smoke. 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 He was born in [place], [place]. * Medications:?TakingBasaglar KwikPen 100 UNIT/ML Solution Pen-injector as directed Subcutaneous 50 units every morning and 70 units every evening , Notes to Pharmacist: please dispense one month supplyDoxycycline Hyclate 100 MG Capsule 1 capsule Orally twice a day Fenofibrate 160 MG Tablet TAKE 1 TABLET BY MOUTH EVERY DAY WITH MEALS metFORMIN HCl 500 MG Tablet TAKE 2 TABLETS BY MOUTH TWICE A DAY WITH MEALS LORazepam 2 MG Tablet 1 tablet at bedtime as needed Orally every 6 hours x 2 days prn anxiety during air travel NovoLOG 100 UNIT/ML Solution 10-22 units Injection three times a day on sliding scale , Notes to Pharmacist: E11.9 DM (diabetes mellitus)Clobetasol Propionate 0.05 % Cream APPLY DAILY TO SKIN TO AFFECTED AREA TWICE A DAY FOR 2 WEEKS Rosuvastatin Calcium 10 MG Tablet TAKE 1 TABLET BY MOUTH EVERY DAY diazePAM 10 MG Tablet 1 tablet as needed Orally before closed MRI procedure Metoprolol Tartrate 25 MG Tablet 1 tablet with food Orally Twice a day Lisinopril 40 MG Tablet TAKE 1 TABLET BY MOUTH EVERY DAY hydroCHLOROthiazide 25 MG Tablet TAKE 1 TABLET BY MOUTH EVERY DAY IN THE MORNING BD Insulin Syringe U/F 31G X 5/16 1 ML Miscellaneous USE WITH INSULIN 5 TIMES DAILY FreeStyle Lite w/Device Kit as directed - patient to test four times a day FreeStyle Lite Test - Strip as directed In Vitro testing four times a day Ketoconazole 2 % Cream 1 application Externally Twice a day Lantus SoloStar 100 UNIT/ML Solution Pen-injector INJECT 50 UNITS IN THE MORNING AND 70 UNITS AT BEDTIME Meloxicam Meclizine HCl 25 MG Tablet 1 tablet as needed Orally every 12 hrs Ozempic (2 MG/DOSE) 8 MG/3ML Solution Pen-injector 2 mg Subcutaneous weekly BD Pen Needle Original U/F 29G X 12.7MM Miscellaneous use three times a day to administer insulin use three times a day to administer insulin, Notes to Pharmacist: DX: E11.9 DiabetesTaking Basaglar KwikPen 100 UNIT/ML Solution Pen-injector as directed Subcutaneous 50 units every morning and 70 units every evening , Notes to Pharmacist: please dispense one month supplyTaking Doxycycline Hyclate 100 MG Capsule 1 capsule Orally twice a day Taking Fenofibrate 160 MG Tablet TAKE 1 TABLET BY MOUTH EVERY DAY WITH MEALS Taking metFORMIN HCl 500 MG Tablet TAKE 2 TABLETS BY MOUTH TWICE A DAY WITH MEALS Taking LORazepam 2 MG Tablet 1 tablet at bedtime as needed Orally every 6 hours x 2 days prn anxiety during air travel Taking NovoLOG 100 UNIT/ML Solution 10-22 units Injection three times a day on sliding scale , Notes to Pharmacist: E11.9 DM (diabetes mellitus)Taking Clobetasol Propionate 0.05 % Cream APPLY DAILY TO SKIN TO AFFECTED AREA TWICE A DAY FOR 2 WEEKS Taking Rosuvastatin Calcium 10 MG Tablet TAKE 1 TABLET BY MOUTH EVERY DAY Taking diazePAM 10 MG Tablet 1 tablet as needed Orally before closed MRI procedure Taking Metoprolol Tartrate 25 MG Tablet 1 tablet with food Orally Twice a day Taking Lisinopril 40 MG Tablet TAKE 1 TABLET BY MOUTH EVERY DAY Taking hydroCHLOROthiazide 25 MG Tablet TAKE 1 TABLET BY MOUTH EVERY DAY IN THE MORNING Taking BD Insulin Syringe U/F 31G X 5/16 1 ML Miscellaneous USE WITH INSULIN 5 TIMES DAILY Taking FreeStyle Lite w/Device Kit as directed - patient to test four times a day Taking FreeStyle Lite Test - Strip as directed In Vitro testing four times a day Taking Ketoconazole 2 % Cream 1 application Externally Twice a day Taking Lantus SoloStar 100 UNIT/ML Solution Pen-injector INJECT 50 UNITS IN THE MORNING AND 70 UNITS AT BEDTIME Taking Meloxicam Taking Meclizine HCl 25 MG Tablet 1 tablet as needed Orally every 12 hrs Taking Ozempic (2 MG/DOSE) 8 MG/3ML Solution Pen-injector 2 mg Subcutaneous weekly Taking BD Pen Needle Original U/F 29G X 12.7MM Miscellaneous use three times a day to administer insulin use three times a day to administer insulin, Notes to Pharmacist: DX: E11.9 DiabetesDiscontinuedOzempic (1 MG/DOSE) 4 MG/3ML Solution Pen-injector as directed Subcutaneous weekly Medication List reviewed and reconciled with the patientDiscontinued Ozempic (1 MG/DOSE) 4 MG/3ML Solution Pen-injector as directed Subcutaneous weekly Medication List reviewed and reconciled with the patient * Allergies:?ErythromycinCipro Penicillin: anaphylaxisno[Allergies Verified] Objective: * Vitals:?Ht: 71, Wt: 276, BMI :38.49, Ht-cm: 180.34, Wt-k.19. * ???Past Orders: Imaging:US thyroid * Performed Date 10/14/2024 04/02/2024 09:08 AM 10:49 AM Order Date 10/14/2024 04/02/2024 Assessment: * Assessment: 1.?Diabetes mellitus type 2 in nonobese - E11.9 (Primary)???Notes :He has gained 1 pound and is trying to lose weight further. Comprehensive blood work with a hemoglobin A1c and microalbumin have been ordered. Reports a fasting glucose of 140-150.???2.?Former smoker - Z87.891???Notes :He is highly motivated not to smoke. He has a plan for prevention of abstinence. We have discussed abstinence today.???3.?Essential hypertension - I10???Notes :His blood pressure has been?stable. No change in his regimen was made today.???4.?Obesity - E66.9???Notes :His weight has been stable. ?He continues on Ozempic.???5.?Acute non-recurrent sinusitis of other sinus - J01.80???Notes :He reports that the sinus suction has resolved.??? Plan: * Treatment: 2.?Others? Continue BD Pen Needle Original U/F Miscellaneous, 29G X 12.7MM, use three times a day to administer insulin use three times a day to administer insulin, Notes to Pharmacist: DX: E11.9 Diabetes;?Continue Basaglar KwikPen Solution Pen-injector, 100 UNIT/ML, as directed, Subcutaneous, 50 units every morning and 70 units every evening, Notes to Pharmacist: please dispense one month supply;?Continue Doxycycline Hyclate Capsule, 100 MG, 1 capsule, Orally, twice a day;?Continue Fenofibrate Tablet, 160 MG, TAKE 1 TABLET BY MOUTH EVERY DAY WITH MEALS;?Continue metFORMIN HCl Tablet, 500 MG, TAKE 2 TABLETS BY MOUTH TWICE A DAY WITH MEALS;?Continue LORazepam Tablet, 2 MG, 1 tablet at bedtime as needed, Orally, every 6 hours x 2 days prn anxiety during air travel;?Continue NovoLOG Solution, 100 UNIT/ML, 10-22 units, Injection, three times a day on sliding scale, Notes to Pharmacist: E11.9 DM (diabetes mellitus);?Continue Clobetasol Propionate Cream, 0.05 %, APPLY DAILY TO SKIN TO AFFECTED AREA TWICE A DAY FOR 2 WEEKS;?Continue Rosuvastatin Calcium Tablet, 10 MG, TAKE 1 TABLET BY MOUTH EVERY DAY;?Continue diazePAM Tablet, 10 MG, 1 tablet as needed, Orally, before closed MRI procedure;?Continue Metoprolol Tartrate Tablet, 25 MG, 1 tablet with food, Orally, Twice a day;?Continue Lisinopril Tablet, 40 MG, TAKE 1 TABLET BY MOUTH EVERY DAY; Continue hydroCHLOROthiazide Tablet, 25 MG, TAKE 1 TABLET BY MOUTH EVERY DAY IN THE MORNING;?Continue BD Insulin Syringe U/F Miscellaneous, 31G X 5/16 1 ML, USE WITH INSULIN 5 TIMES DAILY; Continue FreeStyle Lite Kit, w/Device, as directed, -, patient to test four times a day;?Continue FreeStyle Lite Test Strip, -, as directed, In Vitro, testing four times a day;?Continue Ketoconazole Cream, 2 %, 1 application, Externally, Twice a day;?Continue Lantus SoloStar Solution Pen-injector, 100 UNIT/ML, INJECT 50 UNITS IN THE MORNING AND 70 UNITS AT BEDTIME;?Continue Meloxicam;?Continue Meclizine HCl Tablet, 25 MG, 1 tablet as needed, Orally, every 12 hrs.?? * Labs:? * ?Lab: PROFILE, FASTING ( COMPREHENSIVE METABOLIC) ?Lab: CBC WITH AUTO DIFF ?Lab: Lipid Panel ?Lab: Hemoglobin A1c * Procedure Codes:? * Preventive Medicine:? ??Counseling:?Care goal follow-up plan:?Counseling for abnormal BMI given?Yes ?Above Normal BMI Follow-up?Dietary management education, guidance, and counseling, Dietary needs education, Exercise promotion: strength training, Exercise promotion: stretching, Feeding regime, Giving encouragement to exercise, Lifestyle education regarding diet, Nutrition / feeding management, Nutrition therapy, Prescribed activity/exercise education, Prescribed diet education, Prescribed dietary intake, Special diet education, Weight monitoring , Intervention, Order not done: Medical or Other reason not done ?Smoking/Tobacco Use?Patient counseled on the dangers of tobacco use and urged to quit.?12/23/2024 ??DM Care Plan:?Patient Lifestyle Goals?Patient wants to be able to manage diabetes without too much effort.?Treatment Goals?HbA1C < 7.0, Blood Sugars less than < 115.?Barriers?no barriers.?Self-Managment Goals?Work on weight loss, with a goal of losing 1 lb per week.? * Follow Up:?As Scheduled (Rosenda son: OV) * Images: * Sign off status: Completed true * Provider:?Xander Del Rosario MD Date:?12/01 Generated for Eladia ramires/Althea/Juan José on:?01/08/2025 07:47 AM EDT History and Physical Notes * HPI (History of Present Illness) Category Sub-Category Detail Notes Telehealth Location of [facility] rendering services:: {...} [address] [facility] [address] [place] [id number] Location of patient:: address listed in demographics for today's visit Patient identification confirmed using:: Name, Telehealth method:: Telephone only. Robyn ent not visible to care provider. Consent:: Patient verbally c onsented to treatment, Patient verbally consented to billing insurance company, Patient informed of any privacy concerns related to method of visit Total time spent with patient (mins): 15
--- OUTSIDE RECORDS SUMMARY | 2025-01-08 07:47 | XMS_ITS | Clinical Summary ---
Author Organization [facility] Address [address] [place] [address] Phone Care Team Providers Care Architect In Training Name Role Phone Xander Del Rosario MD Primary Care Provider [phone] Allergies Active Allergy Reactions Criticality Noted Date Comments Ciprofloxacin Anaphylaxis,Unknown High 08/13/2024 Clarithromycin Unknown 08/13/2024 diarrhea Erythromycin 11/10/2024 Penicillins Anaphylaxis,Unknown High 08/13/2024 Medications No known medications Encounters Date Type Department Care Team Description 11/10/2024 12:43 PM EST - 11/10/2024 4:40 PM EST [facility] Emergency [address] [place] [address] Discharge Disposition: Home or Self [...] and culture (11/10/2024 1:47 PM EST) Specific [place] Urine 1.020 1.003 - 1.030 LAB URINALYSIS - AUTOMATED METHOD 11/10/2024 2:09 PM EST [facility] pH, Urine 5.5 5.0 - 8.0 pH LAB URINALYSIS - AUTOMATED METHOD 11/10/2024 2:09 PM EST [facility] Leukocytes, Urine Large(A) Negative LAB URINALYSIS - AUTOMATED METHOD 11/10/2024 2:09 PM [facility] Nitrite, Urine Negative Negative LAB URINALYSIS - AUTOMATED METHOD 11/10/2024 2:09 PM [facility] Protein, Urine Trace <=Trace mg/dL LAB URINALYSIS - AUTOMATED METHOD 11/10/2024 2:09 PM [facility] Glucose, Urine Negative Negative mg/dL LAB URINALYSIS - AUTOMATED METHOD 11/10/2024 2:09 PM [facility] Ketones, Urine Negative Negative mg/dL LAB URINALYSIS - AUTOMATED METHOD 11/10/2024 2:09 PM [facility] Urobilinogen, Urine 1.0 0.2 - 1.0 mg/dL LAB URINALYSIS - AUTOMATED METHOD 11/10/2024 2:09 PM [facility] Bilirubin, Urine Negative Negative LAB URINALYSIS - AUTOMATED METHOD 11/10/2024 2:09 PM [facility] Blood, Urine Large(A) Negative LAB URINALYSIS - AUTOMATED METHOD 11/10/2024 2:09 PM [facility] RBC, Urine 573.2(H) 0 - 4 /HPF LAB URINALYSIS - AUTOMATED METHOD 11/10/2024 2:09 PM [facility] WBC, Urine 410.2(H) 0 - 4 /HPF LAB URINALYSIS - AUTOMATED METHOD 11/10/2024 2:09 PM [facility] Squamous Epithelial, Urine 14 0 - 60 /LPF LAB URINALYSIS - AUTOMATED METHOD 11/10/2024 2:09 PM [facility] Bacteria, Urine Negative Negative /HPF LAB URINALYSIS - AUTOMATED METHOD 11/10/2024 2:09 PM [facility] Hyaline Casts, Urine 0.0 0 - 3 /LPF LAB URINALYSIS - AUTOMATED METHOD 11/10/2024 2:09 PM [facility] Urine Urine specimen obtained by clean catch procedure / Unknown Non-blood Collection / Unknown 11/10/2024 1:47 PM EST 11/10/2024 1:58 PM EST Yosef Freed MD LAB URINE ORDERABLES Betty l Result Performing Organization Address [facility]/ZIP Co de Phone Number [facility] [address] [place] [address], [place] [phone] * Hernandez urine culture tube (11/10/2024 1:47 PM EST) Pathologist [facility] Extra Tube Hold for add-ons. 11/10/2024 3:01 PM EST [facility] Comment:Auto resulted. Urine Urine specimen obtained by clean catch procedure / Unknown Non-blood Collection / Unknown 11/10/2024 1:47 PM EST 11/10/2024 1:58 PM EST Yosef Freed MD LAB URINE ORDERABLES Betty l Result Performing Organization Address [facility]/ZIP Co de Phone Number [facility] [address] [place] [address], [place] [phone] * (ABNORMAL) CBC auto differential (11/10/2024 1:47 PM EST) WBC 10.4 4.8 - 10.8 K/mcL LAB HEMETOLOGY METHOD 11/10/2024 2:31 PM [facility] RBC 4.70 4.50 - 5.50 M/mcL LAB HEMETOLOGY METHOD 11/10/2024 2:31 PM [facility] Hemoglobin 13.6 13.5 - 17.5 g/dL LAB HEMETOLOGY METHOD 11/10/2024 2:31 PM [facility] Hematocrit 40.8(L) 42.0 - 54.0 % LAB HEMETOLOGY METHOD 11/10/2024 2:31 PM [facility] MCV 86.4 79.0 - 98.0 FL LAB HEMETOLOGY METHOD 11/10/2024 2:31 PM [facility] MCH 28.8 27.0 - 32.0 pcg LAB HEMETOLOGY METHOD 11/10/2024 2:31 PM [facility] MCHC 33.3 32.0 - 37.0 g/dL LAB HEMETOLOGY METHOD 11/10/2024 2:31 PM [facility] RDW 13.1 11.0 - 15.0 % LAB HEMETOLOGY METHOD 11/10/2024 2:31 PM [facility] Platelets 11/10/2024 2:31 PM [facility] Comment:Not measured. Unable to quantitate due to platelet clumping MPV 9.0 7.0 - 11.0 FL LAB HEMETOLOGY METHOD 11/10/2024 2:31 PM [facility] NRBC 0.0 <1.0 % LAB HEMETOLOGY METHOD 11/10/2024 2:31 PM [facility] NRBC Absolute 0.00 <0.10 K/mcL LAB HEMETOLOGY METHOD 11/10/2024 2:31 PM [facility] Neutrophils Relative 68.5 % LAB HEMETOLOGY METHOD 11/10/2024 2:31 PM [facility] Lymphocytes Relative 20.9 % LAB HEMETOLOGY METHOD 11/10/2024 2:31 PM [facility] Monocytes Relative 8.4 % LAB HEMETOLOGY METHOD 11/10/2024 2:31 PM [facility] Eosinophils Relative 1.5 % LAB HEMETOLOGY METHOD 11/10/2024 2:31 PM [facility] Basophils Relative 0.2 % LAB HEMETOLOGY METHOD 11/10/2024 2:31 PM [facility] Immature Granulocytes Relative 0.5 % LAB HEMETOLOGY METHOD 11/10/2024 2:31 PM EST [facility] Neutrophils Absolute 7.15(H) 1.50 - 7.00 K/mcL LAB HEMETOLOGY METHOD 11/10/2024 2:31 PM [facility] Lymphocytes Absolute 2.18 1.00 - 5.00 K/mcL LAB HEMETOLOGY METHOD 11/10/2024 2:31 PM EST [facility] Monocytes Absolute 0.88 0.20 - 1.00 K/mcL LAB HEMETOLOGY METHOD 11/10/2024 2:31 PM [facility] Eosinophils Absolute 0.16 0.00 - 0.50 K/mcL LAB HEMETOLOGY METHOD 11/10/2024 2:31 PM [facility] Basophils Absolute 0.02 0.00 - 0.20 K/mcL LAB HEMETOLOGY METHOD 11/10/2024 2:31 PM [facility] Immature Granulocytes Absolute 0.05(H) 0.00 - 0.03 K/mcL LAB HEMETOLOGY METHOD 11/10/2024 2:31 PM [facility] Blood Venous blood specimen / Unknown Venipuncture / Unknown 11/10/2024 1:47 PM EST 11/10/2024 1:59 PM EST Yosef Freed MD LAB BLOOD ORDERABLES Betty ambrose Result [facility] [address] [place] [address], * Culture urine (11/10/2024 1:47 PM EST) Culture, Urine <10,000 CFU/mL gram negative bacilli, insignificant count, no further workup 11/11/2024 11:20 AM EST [facility] Urine Urine specimen obtained by clean catch procedure / Unknown Non-blood Collection / Unknown 11/10/2024 1:47 PM EST 11/10/2024 2:09 PM EST us Yosef Freed MD LAB MICROBIOLOGY - GENERA L ORDERABLES Final Result [facility] [address] [place] [address], [place] [phone] * (ABNORMAL) Basic metabolic panel (11/10/2024 1:47 PM EST) Sodium 131(L) 133 - 145 mmol/L LAB CHEMISTRY METHOD 11/10/2024 2:26 PM [facility] Potassium 4.2 3.5 - 5.5 mmol/L LAB CHEMISTRY METHOD 11/10/2024 2:26 PM [facility] Chloride 99 96 - 110 mmol/L LAB CHEMISTRY METHOD 11/10/2024 2:26 PM [facility] CO2 29 21 - 32 mmol/L LAB CHEMISTRY METHOD 11/10/2024 2:26 PM [facility] Anion Gap 3 3 - 11 LAB CHEMISTRY METHOD 11/10/2024 2:26 PM [facility] Glucose 114(H) 70 - 100 mg/dL LAB CHEMISTRY METHOD 11/10/2024 2:26 PM [facility] BUN 25 5 - 25 mg/dL LAB CHEMISTRY METHOD 11/10/2024 2:26 PM [facility] Creatinine 0.87 0.70 - 1.30 mg/dL LAB CHEMISTRY METHOD 11/10/2024 2:26 PM [facility] eGFR 99 >=60 mL/min/1. 73m2 LAB CHEMISTRY METHOD 11/10/2024 2:26 PM [facility] Comment:Calculation based on the??Chronic Kidney Disease Epidemiology Collaboration (CKD-EPI) equation refit??without adjustment for race. BUN/Creatinine Ratio 28.7 LAB CHEMISTRY METHOD 11/10/2024 2:26 PM [facility] Calcium 9.3 8.5 - 10.5 mg/dL LAB CHEMISTRY METHOD 11/10/2024 2:26 PM EST [facility] Blood Venous blood specimen / Unknown Venipuncture / Unknown 11/10/2024 1:47 PM EST 11/10/2024 1:59 PM EST us Yosef Freed MD LAB BLOOD ORDERABLES Betty l Result [facility] [address] [place] [address], [place] [phone] from Last [address] [facility] MEDICARE Care Teams Architect In Training Relationship Specialty Start Date End Date Xander Del Rosario MD PCP - General Oncology 01/10/18
--- OUTSIDE RECORDS SUMMARY | 2025-01-08 07:47 | XMS_ITS ---
Author Organization Xander Del Rosario III, MD Address [address] [place] [address] Care Team Providers Care Morgue Librarian Name Role Phone Xander Del Rosario Primary Care Provider [phone] REASON FOR VISIT Message Social History Sex Assigned At : Social History Observation Description Sex Assigned At Male Encounters Encounter Location Date Provider Diagnosis Xander Del Rosario III, MD [address] [place] [address] [place] [address] 01/07/2025 Xander Del Rosario Plan Of Treatment Next Appt Details Provider Name:Xandre Del Rosario, 02/03/2025 10:45:00 AM, [address] [place] [address] [place], [address], Provider Name:Xander Del Rosario, 05/14/2025 10:00:00 AM, [address] [place] [address] [place], [address], Progress Notes * Ap JONESDOB: 4 (59 yo M)Acc No.[id number]:01/07/2025 Patient:?JORGE AAp :1965???Age:59 Y???Sex:Male Address:[place] [address] * * Date:?
--- OUTSIDE RECORDS SUMMARY | 2025-01-08 07:47 | XMS_ITS ---
Author Organization Xander Del Rsoario III, MD Address [address] [place] [address] Care Team Providers Care Plate Conditioner Name Role Phone Xander Del Rosario Primary Care Provider [phone] REASON FOR VISIT Refills Medications Medication SIG [...] Diagnosis Xander Del Rosario III, MD [address] [place] [address] [place] [address] 12/03/2024 Xander Del Rosario Plan Of Treatment Medication Medication Name Sig Start Date Stop Date Notes BD Pen Needle Original U/F 29G X 12.7MM use three times a day to administer insulin for 90 days 08/07/2020 DX: E11.9 Diabetes Next Appt Details Provider Name:Xander Del Rosario, 02/03/2025 10:45:00 AM, [address], [address], Provider Name:Xander Del Rosario, 05/14/2025 10:00:00 AM, [address] [place], [address], Progress Notes * Ap JONESDOB: [birth year] (59 yo M)Acc No.[id number]:12/03/2024 Patient:?Ap JONES :1965???Age:59 Y???Sex:Male Address:[address] [place] [address] * Refills? Refill BD Pen Needle Original U/F Miscellaneous, 29G X 12.7MM, 6 Pack, use three times a day to administer insulin, 90 days, Refills=3 * true * Date:? Generated for Eladia ramires/Althea/eTcocosmitting on:?01/08/2025 07:46 AM EDT
--- OUTSIDE RECORDS SUMMARY | 2025-01-08 07:47 | XMS_ITS | Patient Health Record ---
Author Organization [facility] Address [address] [place] [address] Care Team Providers Care Netezza Developer Name Role Phone Xander Del Rosario MD Primary Care Provider Xander August Unavailable [phone] Reason For Referral No Information Plan Of Treatment No Information Insurance Providers Payer Name Payer Address Payer Phone Subscriber Number Group Number Insured Name Patient Relationship to Insured Coverage Start Date Coverage End Date MEDICARE OF [place] [address] [place] [address] [phone] [id number] RYLAN JULES Self - patient is the [facility]AL [facility]QUIRED[facility] [address] [address] [place] [address] [id number] RYLAN JULES Self - patient is the insured
--- OUTSIDE RECORDS SUMMARY | 2025-01-08 07:47 | XMS_ITS | Data Portability ---
Author Organization [place] [facility], [facility] Office Address [address] [place] [address] Care Team Providers Care Sequins Slinger Name Role Phone RODNEY LAZAR Primary Care Provider [phone] Assessment Encounter Date Assessment Date Assessment LastModified [...] skin was sterilized with alcohol & Betadine. [employer] Ultrasound was used to ensure accuracy of placement of the injection. 1cc of Kenalog and 1cc of Lidocaine was injected into the subacromial space was visualized and confirmed on ultrasound. Direction was turned to the glenohumeral joint. Anesthesia was achieved subcutaneously with 2cc of 2% Lidocaine. [employer] Ultrasound was used to ensure accuracy of [...] MRI, lumbar spine, w/wo contrast 2024 025 [email or web address] [facility] ([facility]), [address], [place], [address], 11/14/2024 16:25:22 Medication Orders Kenalog 40 mg/mL suspensio n for injection 2024 025 [email or web address] [id number], [address] [place], [address], 11/22/2024 12:36:28 Patient TargetsNo targets recorded. Patient InstructionsNo instructions recorded. Reason for Referral None Reported. Results Created Date Observation Date Name Description Value Unit Range Abnormal Flag Note LastModifiedBy Organization Detail LastModifiedTime 11/13/1905/03/2021 MRI, lumba r spine , w/o contr ast No observ ation record ed. [email or web address] [facility] ([facility]) [address], [place], [address], 11/13/2024 15:19:17 12/12/19 25 12/09/2024 MRI, lumba r spine , w/wo contr ast [facility] Access ion Number : [id number] Bobbi smith Name: Ramu Burgos Record Number : [id number] Date of : 1964 Date of Exam: 2024 Referr ing Physic diann: Virgil Ibrahim [facility] [address] [facility] [place] [address] Exam: MR Lumbar Spine (C-/C+ ) CPT 13419 Room Descri ption: [facility] Verio 3.0T HISTOR Y: Low back pain. [...] postop erativ e change s of the application release manager ior parasp inal muscul ature. Atroph y of the iliacu s muscle s. L1-L2: Mild concen tric disc bulge with anteri or margin al spurri ng. Minima l centra l canal narrow ing. Mild forami nal narrow ing. L2-L3: Concen tric disc-o steoph yte comple x asymme tric to the left application release manager iorly. Mild-m oderat e to modera te [...] onical ly Signed By: Severo Whittaker MD [email or web address] [facility] ([facility]) [address], [place], [address], 12/12/2024 11:58:54 12/12/19 25 12/09/2024 MRI, lumba r spine , w/o contr ast No observ ation record ed. [email or web address] [facility] [address] [place], [address], 12/12/2024 12:01:31 Result Notes None recorded. Problems Name Problem SNOMED Code Status Onset Date Resolution Date Notes Provider Name and Address Organization Details Recorded Time Localized, primary osteoarthritis of the shoulder region 978724219 Active 2023 QING REYES [address] [place] [address], [address] [place] [address] [facility] 08:53:39 Problem Notes None recorded. Procedures Surgical History Date Name Laterality Status Provider Name and Address Organization Details Recorded Time Orthopaedic Surgery completed Alvaro Garcia [facility] 09/13/2024 11:39:27 8 Other completed Juany Harvey [facility] 02/05/2024 08:29:13 Imaging Results Imaging Date Name Status LastModified by Organiz ation Details LastModified Time 05/03/2021 MRI, lumbar spine, w/o contrast completed [email or web address] [facility] ([facility] [address] [facility] [address], [place], [address], 11/13/2024 15:19:17 12/09/2024 MRI, lumbar spine, w/wo contrast completed [email or web address] [facility] [address] [facility] [place], [address], 12/12/2024 11:58:54 12/09/2024 MRI, lumbar spine, w/o contrast completed [facility] [address] [place], [address], 12/12/2024 12:01:31 Procedure Notes None recorded. Medical Equipment None Reported. Allergies Allergen ID Allergen Name Allergen Category Reaction Reaction Severity Criticality Documentation Date Start Date Code Code System Note Provider Name and Address Organization Details Recorded Time 20340602 Product containin g penicilli n (product) medicatio n Not available Not available Not available 02/05/2024 90404 8001 SNOMED Juany Harvey [facility] 4 08:27:17 938327 clarithro mycin medicatio n Not available Not available Not available 02/05/2024 58953 RxNorm Juany Damonmarco [facility] 4 08:27:30 595173 Cipro medicatio n Not available Not available Not available 02/05/202407022 3 RxNorm Juany Harvey [facility] 4 08:27:35 Medications Name Sig Start Date [...] Updated DateTime 10/07/2024 179.07 cm 36.8 kg/m2 044116.02 g Lakshmi Girard [facility] 10/07/2024 13:52:14 Date Recorded Body height Provider Name an d Address Organization Details Last Updated DateTime 11/13/2024 179.07 cm Hieu Vaughan [facility] 11/13/2024 11:48:02 Date Recorded Body height Body mass index (BMI) Body weight Provider Name and Address Organization Details Last Updated DateTime 11/22/2024 179.07 cm 36.8 kg/m2 389377.02 g Mercy BeeBarbara choudhary [facility] 11/22/2024 11:12:49 Date Recorded Body height Provider Name an d Address Organization Details Last Updated DateTime 11/22/2024 179.07 cm Emily Case [facility] [place] [facility] [place] 11/22/2024 11:45:43 Date Recorded Body height Provider Name an d Address Organization Details Last Updated DateTime 12/11/2024 179.07 cm Hieu Vaughan [facility] 12/11/2024 10:21:58 Social History Question Answer Notes LastModified by Organizat ion Details LastModified Time Tobacco Smoking Status [facility] 02/05/2024 08:26:57 What Is Your Level Of Alcohol Consumption? Occasional Information not available 02/05/2024 Do You Or Have You Ever Used E-cigarettes Or Vape? Never Used Electronic Cigarettes Information not available 02/05/2024 What Is Your Occupation? Retired Information not available 02/05/2024 Do You Or Have You Ever Used Smokeless Tobacco? [id number] Information not available 02/05/2024 How Much Tobacco Do You Smoke? No Information not available 02/05/2024 How Many Years Have You Smoked Tobacco? 2 Information not available 02/05/2024 Sex: Unknown Functional Status None recorded. Mental Status None recorded. Family History Relationship Description Onset Age of this Age Resolved Age Notes LastModified by Organization Details LastModified Time Father Myocardial infarction [email or web address] Not available 06/10 09:43:07 Medical History Condition Response Diabetes Y High Blood Pressure Y Irregular Heartbeat Y Past Encounters Encounter ID Performer Location Encounter Start Date Encounter Closed Date Diagnosis/Indication Diagnosis SNOMED-CT Code Diagnosis ICD10 Code Diagnosis Note [id number] QING REYES [facility] Office [address] [place] [address] 02/05/2024 07:41:03 02/05/2024 09:55:56 Localized, primary osteoarthritis of the shoulder region 698467051 M19.106 [id number] HANSA WATKINS MD [address] [address] 06/10/2024 09:08:25 06/10/2024 10:26:04 Localized, primary osteoarthritis of the shoulder region 757663821 M19.450 [id number] QING REYES [address] [address] 06/10/2024 10:19:58 06/10/2024 12:48:44 Shoulder pain 65273186 M25.[id number] [facility] Office [address] [address] 09/06/2024 13:25:39 09/06/2024 13:54:27 Localized, primary osteoarthritis of the shoulder region 916557013 M19.174 [id number] QING REYES [facility] Office [address] [facility], [address] [place] [address] 09/13/2024 10:56:18 09/13/2024 13:01:24 Localized, primary osteoarthritis of the shoulder region 878819058 M19.601 [id number] HANSA WATKINS MD [address] [address] 10/07/2024 13:12:57 10/07/2024 14:14:53 Localized, primary osteoarthritis of the shoulder region 062332424 M19.055 [id number] QING CALVILLO [address] [address] 11/13/2024 10:37:20 11/13/2024 13:07:27 Degenerative lumbar spinal stenosis 665558196 M48.719 [id number] HANSA WATKINS MD [address] [address] 11/22/2024 10:40:47 11/22/2024 11:21:35 Localized, primary osteoarthritis of the shoulder region 423714149 M19.039 [id number] QING SAGE [address] [place] [address] 11/22/2024 11:38:23 11/22/2024 12:35:31 Osteoarthritis of joint of right shoulder region 4711638862 40817 M19.140 [id number] QING Calvillo [place] [facility] [address] [place] [address], [address] [place] [address] 12/11/2024 09:57:58 12/11/2024 11:22:12 Spinal stenosis of lumbar region 50222653 M48.062 Weakness o f bilateral lower limb 1969788164 20385 M62.81 Health Concerns Section Related Observation LastModified by Organization Detai ls LastModified Time None Recorded Concern Status LastModified by Organization Details LastModified Time None Recorded Advance Directives Directive None Recorded Payers Encounter Date Sequence Insurance Name Policy Number Policy Andrade Covered Member ID Andrade Member ID Guarantor Name 10/07/2024 1 [place] [employer] Ap J Aubrey [id number] Ap Aubrey 10/07/2024 2 [employer] OPTIONS (MEDICARE SUPPLEMENT) Ap Aubrey [id number] Ap Aubrey 11/13/2024 1 [place] Ap J Aubrey [id number] Ap Aubrey 11/13/2024 2 [employer] OPTIONS (MEDICARE SUPPLEMENT) Ap Aubrey [id number] Ap Aubrey 11/22/2024 1 [place] Ap J Aubrey [id number] Ap Aubrey 11/22/2024 2 [employer] OPTIONS (MEDICARE SUPPLEMENT) Ap Aubrey [id number] Ap Aubrey 11/22/2024 1 [place] Ap J Aubrey [id number] Ap Aubrey 11/22/2024 2 [employer] OPTIONS (MEDICARE SUPPLEMENT) Ap Aubrey [id number] Ap Aubrey 12/11/2024 1 [place] Ap J Aubrey [id number] Ap Aubrey 12/11/2024 2 [employer] OPTIONS (MEDICARE SUPPLEMENT) Ap Aubrey [id number] Ap Burgos Notes Date Note Type Note [...] SANE - {{ 70#}}. HANSA WATKINS MD [address] [place] [address], [address] 10/08/2024 16:54:53 11/13/2024 text/html Ap is a [...] provided transient relief of symtpoms. QING CALVILLO [address] [place] [address], [address], [facility] 11/14/2024 09:50:28 11/22/2024 text/html Ap Burgos i [...] SANE - {{ 88#}}. HANSA WATKINS MD [address] [place] [address], [address], [facility] 11/22/2024 13:35:52 11/22/2024 text/html Ap is a [...] provides consent for the procedure. QING SAGE [address] [facility], [place], [address], [facility] 11/25/2024 08:49:03 12/11/2024 text/html Ap is a [...] his penis anus or scrotum. QING Calvillo [address] [place] [address], [phone], [facility] 12/11/2024 16:11:36
--- OUTSIDE RECORDS SUMMARY | 2025-01-08 07:47 | XMS_ITS ---
Author Organization [facility] Address [address] [place] [address] Care Team Providers Care Cnc Field Service Engineer Name Role Phone Carin DURHAM, Xander Primary Care Provider Unavailab Xander Hall [facility] [phone] REASON FOR VISIT Patient presents today for a COLON SCREENING Encounters Encounter Location Date Provider Diagnosis [facility] [address] [place] [phone] 10/10/2023 Xander Moon Plan Of Treatment No Information Progress Notes * RYLAN JULESDOB: 4 (59 yo M)Acc No.[id number]:10/10/2023 Progress Notes Patient:?RYLAN JULES Provider:?Xander Moon MD :1965???Age:58 Y???Sex:Male Jaylan e:10/10/2023 Address:[address] [place], [place] [id number] Pcp:Xander Del Rosario MD Subjective: * Chief Complaints: * ???1. Patient presents today for a COLON SCREENING. * Medical History:? Objective: * Vitals:? Assessment: Plan: * Treatment: * * The named appointment provid er may or may not be the originator of this progress note, and it is not deemed complete until electronically signed by the appointment provider. Sign off status: Pending * Provider:?Xander Moon MD Date:? 023 Generated for Eladia ramires/Althea/eTransmitting on:?01/08/2025 07:46 AM EDT
--- OUTSIDE RECORDS SUMMARY | 2025-01-08 07:47 | XMS_ITS ---
Author Organization [facility] Address [address] [place] [phone] Care Team Providers Care Rd Project Manager Name Role Phone Carin DURHAM, Xander Primary Care Provider Unavailab Xander Hall Unavailable [phone] Encounters Encounter Location Date Provider Diagnosis [facility] [address] [place] [phone] 10/10/2023 Xander Moon Plan Of Treatment No Information Progress Notes * RYLAN JULESDOB: 4 (58 yo M)Acc No.[id number]:10/10/2023 Patient:?RYLAN JULES :1965???Age:58 Y???Sex:Male Address:[address] [place] [address], [address] * true * Date:? Generated for Eladia ramires/Althea/eTransmitting on:?01/08/2025 07:47 AM EDT
--- OUTSIDE RECORDS SUMMARY | 2025-01-08 07:47 | XMS_ITS | Continuity of Care Document ---
Author Organization [facility] Office Address [address] , [address] [place] [address] Care Team Providers Care Usability Specialist Name Role Phone RODNEY LAZAR Primary Care [...] ast No observ ation record ed. [email or web address] [facility] ([facility] [address], [place], [address], 11/13/2024 15:19:17 12/12/1912/09/2024 MRI, lumba r spine , w/wo contr ast [facility] Access ion Number : [id number] Robyncastillo smith Name: Ramu Burgos Record Number : [id number] Date of : 1964 Date of Exam: 2024 Referr ing Physic diann: Virgil Ibrahim [facility] [address] [facility] [place] [address] Exam: MR Lumbar Spine (C-/C+ ) CPT 59202 Room Descri ption: Kimberton Siem Verio 3.0T HISTOR Y: Low back [...] postop erativ e change s of the resistor coater ior parasp inal muscul ature. Atroph y of the iliacu s muscle s. L1-L2: Mild concen tric disc bulge with anteri or margin al spurri ng. Minima l centra l canal narrow ing. Mild forami nal narrow ing. L2-L3: Concen tric disc-o steoph yte comple x asymme tric to the left resistor coater iorly. Mild-m oderat e to modera te [...] onical ly Signed By: Severo Whittaker MD [email or web address] [facility] ([facility]) [address] [place], [address], 12/12/2024 11:58:54 12/12/19 25 12/09/2024 MRI, lumba r spine , w/o contr ast No observ ation record ed. [address], [address], 12/12/2024 12:01:31 Result Notes None recorded. Problems Name Problem SNOMED Code Status Onset Date Resolution Date Notes Provider Name and Address Organization Details Recorded Time Localized, primary osteoarthritis of the shoulder region 911304465 Active 2023 QING REYES [address] [place] [address], [phone], [facility] [place] [facility] 08:53:39 Problem Notes None recorded. Procedures Surgical History Date Name Laterality Status Provider Name and Address Organization Details Recorded Time 4 Orthopaedic Surgery completed Alvaro Garcia [facility] [place] 09/13/2024 11:39:27 8 Other completed Juanydavid Harvey [facility] [place] 02/05/2024 08:29:13 Imaging Results None recorded. Procedure Notes None recorded. Medical Equipment None Reported. Allergies Allergen ID Allergen Name Allergen Category Reaction Reaction Severity Criticality Documentation Date Start Date Code Code System Note Provider Name and Address Organization Details Recorded Time 20340602 Product containin g penicilli n (product) medicatio n Not available Not available Not available 02/05/2024 29823 8001 SNOMED Juany Harvey [facility] [place] 4 08:27:17 008293 clarithro mycin medicatio n Not available Not available Not available 02/05/2024 80392 RxNorm Juany Harvey [facility] [place] 4 08:27:30 729508 Cipro medicatio n Not available Not available Not available 02/05/2024 21669 3 RxNorm Juany Nelsonmarco [facility] [place] 4 08:27:35 Medications Name Sig Start Date [...] Updated DateTime 12/11/2024 179.07 cm Hieu Vaughan [facility] [place] 12/11/2024 10:21:58 Social History Question Answer Notes LastModified by Organizat ion Details LastModified Time Tobacco Smoking Status Former Smoker Juany Harvey aries [facility] [place] 02/05/2024 08:26:57 What Is Your Level Of Alcohol Consumption? Occasional Information not available 02/05/2024 Do You Or Have You Ever Used E-cigarettes Or Vape? Never Used Electronic Cigarettes Information not available 02/05/2024 What Is Your Occupation? Retired Information not available 02/05/2024 Do You Or Have You Ever Used Smokeless Tobacco? [id number] Information not available 02/05/2024 How Much Tobacco [...] SNOMED-CT Code Diagnosis ICD10 Code Diagnosis Note [id number] QING CALVILLO [address] [address] 11/13/2024 10:37:20 11/13/2024 13:07:27 Degenerative lumbar spinal stenosis 257704365 M48.411 [id number] HANSA WATKINS MD [address] [address] 11/22/2024 10:40:47 11/22/2024 11:21:35 Localized, primary osteoarthritis of the shoulder region 909011153 M19.756 [id number] QING SAGE [address] [address] 11/22/2024 11:38:23 11/22/2024 12:35:31 Osteoarthritis of joint of right shoulder region 2123450804 75844 M19.030 [id number] QING Calvillo [facility] [address] [facility], [address] [place] [address] 12/11/2024 09:57:58 12/11/2024 11:22:12 Spinal stenosis of lumbar region 34516582 M48.062 Weakness o f bilateral lower limb 8540168174 73350 M62.81 Health Concerns Section Related Observation LastModified by Organization Detai ls LastModified Time None Recorded Concern Status LastModified by Organization Details LastModified Time None Recorded Payers Encounter Date Sequence Insurance Name Policy Number Policy Andrade Covered Member ID Andrade Member ID Guarantor Name 12/11/2024 1 MEDICARE [place]: [employer] Ap Martines Aubrey [id number] Ap Aubrey 12/11/2024 2 [employer] OPTIONS (MEDICARE SUPPLEMENT) Ap Aubrey [id number] Ap Aubrey Notes Date Note Type Note [...] his penis anus or scrotum. QING Calvillo [address] [place] [address], [phone], [facility] 12/11/2024 16:11:36
--- NOTE | 2025-01-08 08:44 | PM.PROC ---
Brief Operative Note Date of procedure: 01/08/25 Post-op diagnosis: same Procedure: THYROID FINE NEEDLE ASPIRATION PROCEDURE NOTE ? PROCEDURE PERFORMED: Ultrasound-guided FNA of thyroid nodule ? OPERATORS: Dr. Laura Villatoro ? INDICATION: right mid 2 cm and left mid 2.5 cm thyroid nodules; FNA performed to assess for malignancy ? DESCRIPTION OF PROCEDURE: The indications for FNA (to assess for malignancy) were reviewed with the patient in detail. Potential complications (e.g., bleeding, infection, damage to local structures, absence of clear diagnosis after FNA) were reviewed. Alternatives to FNA including conservative observation or surgery were described. The patient understood and agreed to proceed. This was documented by the signing of the written informed consent form. A time-out was performed to confirm the patient's identity and the site of planned FNA. The nodules of interest were identified using ultrasound (14 MHz linear array probe). The sites of FNA was then draped in the usual fashion and carefully cleaned and prepared using alcohol swabs. The skin at the previously-identified sites of needle insertion was iced and sprayed with numbing spray. First for the right mid 2 cm nodule , Under ultrasound guidance, _4_ passes were performed using a 1.5-inch, 25-gauge needle, and sample was obtained via capillary action. The needle tip was clearly visualized to be within the nodule at the time of sampling for _4_ of _4_ passes. Then for the left mid 2.5 cm nodule , Under ultrasound guidance, _5_ passes were performed using a 1.5-inch, 25-gauge needle, and sample was obtained via capillary action. The needle tip was clearly visualized to be within the nodule at the time of sampling for _3_ of _5_ passes The patient tolerated the procedure well. There were no immediate complications. A small adhesive bandage was applied, and the patient was advised to take acetaminophen (rather than NSAIDs) for any discomfort and to report any signs of inflammation/infection or marked swelling. IMPRESSION: Technically successful ultrasound-guided fine needle aspiration of right mid 2 cm and left mid 2.5 cm thyroid nodules. PLAN: The patient was advised that I will provide follow-up regarding the cytology result and any subsequent plans. Laura Villatoro MD Endocrinology Attending Condition: stable Disposition: same day
== END 2025-01-08 07:45 | disposition home or self-care (01) ==
LOC: HO.US 07:44
PROVIDERS: PCP Internal Medicine Medical Oncology; Visit Provider Student in an Organized Health Care Education/Training Program
DX: E04.2 Nontoxic multinodular goiter (principal)
CPT/HCPCS: 10005; 10006; 88173; 88305

== ENCOUNTER → 2025-01-08 07:44 | Outpatient (BNV) | payer MEDICARE, SELFPAY | PROVIDERS: PCP Internal Medicine Medical Oncology; Visit Provider Student in an Organized Health Care Education/Training Program | DX: E04.2 Nontoxic multinodular goiter (principal) | CPT/HCPCS: 10005; 10006 ==

== ENCOUNTER 2025-01-22 12:50 | Outpatient (AMB) | payer MEDICARE, SELFPAY ==
[2025-01-22 12:54] VITALS: BP 147/81; PULSE 96; O2SAT 96; BMI 38.1
--- NOTE | 2025-01-22 12:54 | MHC.OFFVIS ---
Vital Signs 01/22/25 12:54 Height 5 ft 11 in Weight 273 lb 5.971 oz BMI 38.1 BP 147/81 H Blood Pressure Location Rt brachial Position Sitting Pulse 96 Pulse Source Pulse Oximeter Pulse Oximetry (%) 96 Oxygen Delivery Method Room Air Intake Visit Reasons: Biopsy f/u Intake Note: Patient present today for Biopsy Results. Pump And Still Operator Required: No Accompanied by: Significant Other Allergies Penicillins Allergy (Severe, Verified 01/22/25 12:56) Anaphylaxis ciprofloxacin Allergy (Verified 01/22/25 12:56) Rash erythromycin base Adverse Reaction (Intermediate, Verified 01/22/25 12:56) GI upset HPI Comments Details: 59-year-old male here today for follow up of multinodular goiter. HPI from prior visit Ultrasound thyroid from March 2024, I reviewed the images myself showed a right midpole 2.2 cm solid, hypoechoic TR 4 category nodule, this med criteria for FNA. On the left side there was a left upper/midpole 2.6 cm nodule which was solid isoechoic TR 3 category. Another left mid lobe 2.3 cm solid, isoechoic TR 3 category nodule. Ultrasound of the thyroid was repeated in September 2024 which I reviewed the images myself showed a right midpole 2 cm solid hypoechoic TR 4 category nodule which meets criteria for FNA, the left mid superior pole nodule had decreased somewhat in size to 1.9 cm in the maximum dimension which is solid, isoechoic TR 3 category. We can monitor this for now. The left midpole 2.5 cm nodule, is stable in size however solid, hypoechoic/isoechoic with punctate echogenic foci, TR 5 category. This also meets criteria for FNA. Patient currently denies heat or cold intolerance, diarrhea or constipation, hair loss, palpitation, anxiety, , mood changes, low energy, changes in appearance of eyes or vision changes, tremors, increased diaphoresis or dry skin. Lost 40 lbs trying to lose weight. ? Patient denies any difficulty swallowing, pain on swallowing or voice changes or difficulty breathing. Patient denies any history of childhood neck radiation. Denies having ever used lithium, amiodarone or biotin supplements. Patient denies any family history of thyroid cancer or thyroid disease. Normal TFTs from October 2024. Interval history 01/08/2025: Underwent FNA of the right midpole 2 cm nodule which came back as nondiagnostic, [place] category 1. Also underwent FNA of the left midpole 2.5 cm nodule which came back as benign [place] category 2. Physical exam General: sitting comfortably in no acute distress HEENT: normocephalic/atraumatic, Neck: supple, palpable 2 cm right-sided nodule, palpable 2 cm left-sided nodule Cardiac: normal heart sounds Pulm: normal breath sounds B/L, no added breath sounds Abd: not distended, no tenderness Extremities: no edema, no signs of myxedema Labs 11/25/2024 US THYROID 10/14/24 CLINICAL INFORMATION: Multinodular goiter COMPARISON: Ultrasound thyroid 04/02/2024 TECHNIQUE: Linear transducer grayscale and color Doppler examination with attention to the region of the thyroid. FINDINGS: SIZE: Measurements of the thyroid lobes and nodules are given in sagittal, anteroposterior and transverse dimensions respectively. Right Thyroid Lobe: 6.1 x 2.1 x 2.2 cm, volume 14.7 mL. Parenchyma: The gland echotexture is homogeneous. Thyroid vascularity is normal. Left Thyroid Lobe: 5.5 x 2.4 x 2.4 cm, volume 16.7 mL. Enlarged. Parenchyma: The gland echotexture is heterogeneous. Thyroid vascularity is normal. Isthmus: 0.6 cm in maximum AP dimension. Previously measured 0.5 cm Estimated total number of nodules greater than or equal to 1 cm: 3. [employer] nodules are described as follows: 1. Location: Right mid pole. Size: 2.0 x 1.0 x 1.9 cm, volume 2.0 mL. Previously measured 2.2 x 1.2 x 2.0 cm volume 2.7 mL Nodule characteristics: Composition: Solid (2). Echogenicity: Hyperechoic (1). Shape: Wider Margins: Smooth (0). Echogenic Foci: None (0). ACR TI-RADS total points: 4 ACR TI-RADS category: 4 2. Location: Left midpole. Size: 1.9 x 0.9 x 1.8 cm, volume 1.6 mL. Previously measured 2.6 x 1.8 x 1.7 cm and volume 4.2 Nodule characteristics: Composition: Solid (2). Echogenicity: Isoechoic (1). Shape: Wider Margins: Smooth (0). Echogenic Foci: None (0). ACR TI-RADS total points: 3 ACR TI-RADS category: 2 3. Location: Left midpole. Size: 2.5 x 1.9 x 2.0 cm, volume 5.0 mL. Previously measured 2.3 x 1.8 x 1.9 cm Nodule characteristics: Composition: Solid (2). Echogenicity: Hyperechoic (1). Shape: Wider Margins: Smooth (0). Echogenic Foci: None (0 ACR TI-RADS total points: 7 ACR TI-RADS category: Large 5 NODES: No lymphadenopathy is seen in the tissue surrounding the thyroid gland. US/US thyroid IMPRESSION: Enlarged left thyroid lobe. Bilateral nodules are stable compared to previous exam 04/02/2024. There is unchanged in total points and antibiotics in mid pole left thyroid nodule. I would recommend a biopsy of this nodule. US THYROID 04/02/24 CLINICAL INFORMATION: Thyroid, and nontoxic, single thyroid nodule COMPARISON: None available. TECHNIQUE: Linear transducer grayscale and color Doppler examination with attention to the region of the thyroid. FINDINGS: SIZE: Measurements of the thyroid lobes and nodules are given in sagittal, anteroposterior and transverse dimensions respectively. Right Thyroid Lobe: 6.8 x 2.0 x 2.6 cm, volume 18.3 mL. Parenchyma: The gland echotexture is homogeneous. Thyroid vascularity is normal. Left Thyroid Lobe: 5.7 x 2.3 x 2.5 cm, volume 16.9 mL. Parenchyma: The gland echotexture is homogeneous. Thyroid vascularity is normal. Isthmus: 0.5 cm in maximum AP dimension. Estimated total number of nodules greater than or equal to 1 cm: 3. [employer] nodules are described as follows: 1. Location: Right mid. Size: 2.2 x 1.2 x 2.0 cm, volume 2.7 mL. Nodule characteristics: Composition: Solid (2). Echogenicity: Hypoechoic (2). Shape: Not taller than wide (0). Margins: Smooth (0). Echogenic Foci: None (0. ACR TI-RADS total points: 4 ACR TI-RADS category: 4 2. Location: Left mid Size: 2.6 x 1.8 x 1.7 cm, volume 4.2 mL. Nodule characteristics: Composition: Mixed cystic and solid (1). Echogenicity: Isoechoic (1). Shape: Not taller than wide (0). Margins: Smooth (0). Echogenic Foci: None (0. ACR TI-RADS total points: 2 ACR TI-RADS category: 2 3. Location: Left lateral mid Size: 2.3 x 1.8 x 1.9 cm, volume 4.0 mL. Nodule characteristics: Composition: Mixed cystic and solid (1). Echogenicity: Isoechoic (1). Shape: Not taller than wide (0). Margins: Smooth (0). Echogenic Foci: None (0). ACR TI-RADS total points: 2 ACR TI-RADS category: 2 NODES: No lymphadenopathy is seen in the tissue surrounding the thyroid gland. US/US thyroid IMPRESSION: 1. Enlarged homogeneous thyroid gland. 2. 2.2 cm nodule in the mid right lobe, TR 4, fulfills the criteria for FNA. Biopsy should be considered. 3. No further follow-up of the 2 other nodules seen within the thyroid gland. [facility] Medical History Multinodular goiter Surgical History (Updated 01/22/25 @ 12:57 by WALT Berkowitz) History of biopsy History of left shoulder replacement Physical Exam Vital Signs: BMI result Body Mass Index 38.1 Assessment & Plan Assessment & Plan (1) Multinodular goiter: Code(s): E04.2 - Nontoxic multinodular goiter Category: Medical Plan: 59-year-old male here today for follow up of multinodular goiter. Ultrasound thyroid from March 2024, I reviewed the images myself showed a right midpole 2.2 cm solid, hypoechoic TR 4 category nodule, this med criteria for FNA. On the left side there was a left upper/midpole 2.6 cm nodule which was solid isoechoic TR 3 category. Another left mid lobe 2.3 cm solid, isoechoic TR 3 category nodule. Ultrasound of the thyroid was repeated in September 2024 which I reviewed the images myself showed a right midpole 2 cm solid hypoechoic TR 4 category nodule which meets criteria for FNA, the left mid superior pole nodule had decreased somewhat in size to 1.9 cm in the maximum dimension which is solid, isoechoic TR 3 category. We can monitor this for now. The left midpole 2.5 cm nodule, is stable in size however solid, hypoechoic/isoechoic with punctate echogenic foci, TR 5 category. This also meets criteria for FNA. 01/08/2025: Underwent FNA of the right midpole 2 cm nodule which came back as nondiagnostic, [place] category 1. Also underwent FNA of the left midpole 2.5 cm nodule which came back as benign [place] category 2. I explained to the patient that benign results me less than 3% chance of malignancy. This nodule we will just need follow up imaging. However given the right midpole 2 cm nodule came back as nondiagnostic, which could me in 5-20% risk of malignancy, we should repeat procedure. Plan: -scheduled for repeat FNA of the right mid 2 cm thyroid nodule in 3 months and a follow up 2 weeks after to discuss results Plan See above Orders: Orders US biopsy thyroid Today E04.2 - Nontoxic multinodular goiter Patient Instructions: We will bring you back in March for repeat right sided biopsy Coding Level of Care Code Est Pt Level 3 (75959) Diagnoses Multinodular goiter E04.2
--- OUTSIDE RECORDS SUMMARY | 2025-01-22 15:11 | XMS_ITS ---
Author Organization Xander Del Rosario III, MD Address [address] [place] [address] Care Team Providers Care Owner Oral Surgeon Name Role Phone Xander Del Rosario Primary [...] Provider Diagnosis Xander Del Rosario III, MD [address] [place] [address] [place] [address] 12/03/2024 Xander Del Rosario Plan Of Treatment Medication Medication Name Sig Start Date Stop Date Notes BD Pen Needle Original U/F 29G X 12.7MM use three times a day to administer insulin for 90 days 08/07/2020 DX: E11.9 Diabetes Next Appt Details Provider Name:Xander Del Rosario, 02/03/2025 10:45:00 AM, [address] [facility] [place], [address], Provider Name:Xander Del Rosario, 05/14/2025 10:00:00 AM, [address] [facility] [place], [address], Progress Notes * Ap JONESDOB: 4 (59 yo M)Acc No.[id number]:12/03/2024 Patient:?Ap JONES :1965???Age:59 Y???Sex:Male Address:[address] [place] [phone] * Refills? Refill BD Pen Needle Original U/F Miscellaneous, 29G X 12.7MM, 6 Pack, use three times a day to administer insulin, 90 days, Refills=3 * true * Date:? Generated for Eladia ramires/Althea/eTcocosmitting on:?01/22/2025 03:11 PM EDT
--- OUTSIDE RECORDS SUMMARY | 2025-01-22 15:11 | XMS_ITS | Data Portability ---
Author Organization [place] [facility], [facility] - INPATIENT Address [address] [place] [address] Care Team Providers Care Film And Video Graphics Designer Name Role Phone RODNEY LAZAR Primary Care Provider [phone] Assessment Encounter Date Assessment Date Assessment LastModified by Organization Details LastModified Time 11/13/2024 11/13/2024 Ap is a 59-year-old male [...] as well as surgical consultation with Dr. Hemphill. He and his are in agreement with this plan, he will go for an MRI and was instructed to call to arrange follow-up with Dr. Hemphill once he knows the date of that [...] skin was sterilized with alcohol & Betadine. [employer] Ultrasound was used to ensure accuracy of placement of the injection. 1cc of Kenalog and 1cc of Lidocaine was injected into the subacromial space was visualized and confirmed on ultrasound. Direction was turned to the glenohumeral joint. Anesthesia was achieved subcutaneously with 2cc of 2% Lidocaine. [employer] Ultrasound was used to ensure accuracy of [...] for an in person visit with Dr. Hemphill to discuss his options regarding surgical intervention. He was in agreement with this plan, he will questions or concerns addressed. [email or web address] Not available 12/11/2024 11:05:20 01/14/2025 01/14/2025 ASSESSMENT: - Lumbar spine stenosis, severe. PLAN: I discussed with the patient the complexity of back pain and the potential need for surgical intervention. We reviewed the patient's MRI and noted significant stenosis. I recommended a laminectomy with possible fusion of the affected vertebrae to address the stenosis and alleviate symptoms. I will order a CT scan to better define the bony anatomy and confirm the surgical plan. We will have a preoperative meeting to discuss the specifics of the surgery once the CT scan results are available. The patient will need to undergo preoperative evaluation at [facility]. The patient was informed about the potential for a more extensive surgery in the future if the spine continues to degenerate. Follow-up appointments will be scheduled at three weeks, three months, six months, and one year postoperatively to monitor progress and ensure proper healing. [email or web address] Not available 01/14/2025 12:28:05 Plan of Treatment Reminders Order Date Submit Date Provider Last Modified By Organization Details Last Modified Time Details Appointments None recorded. Lab None recorded. Referral None recorded. Procedures None recorded. Surgeries None recorded. Imaging MRI, lumbar spine, w/wo contrast 2024 025 [email or web address] [facility] ([facility]), [address] [place], [address], 5 16:25:22 Medication Orders Kenalog 40 mg/mL suspension for injection 2024 025 [email or web address] [id number], [address] [place], [address], 5 12:36:28 Patient TargetsNo targets recorded. Patient InstructionsNo instructions recorded. Reason for Referral None Reported. Results Created Date Observation Date Name Description Value Unit Range Abnormal Flag Note LastModifiedBy Organization Detail LastModifiedTime 11/13/19 25 05/03/2021 MRI, lumba r spine , w/o contr ast No observ ation record ed. [email or web address] [facility] ([facility]) [address], [place], [address], 11/13/2024 15:19:17 12/12/19 25 12/09/2024 MRI, lumba r spine , w/wo contr ast [facility] Access ion Number : [id number] Bobbi smith Name: Ramu Burgosa arnol Record Number : [id number] Date of : 1964 Date of Exam: 2024 Referr ing Physic diann: Virgil Ibrahim [facility] Nichol dav[address], [place] [address] Exam: MR Lumbar Spine (C-/C+ ) CPT 55325 Room Descri ption: [facility] Verio 3.0T HISTOR Y: Low back [...] postop erativ e change s of the pattern lease inspector ior parasp inal muscul ature. Atroph y of the iliacu s muscle s. L1-L2: Mild concen tric disc bulge with anteri or margin al spurri ng. Minima l centra l canal narrow ing. Mild forami nal narrow ing. L2-L3: Concen tric disc-o steoph yte comple x asymme tric to the left pattern lease inspector iorly. Mild-m oderat e to modera te [...] onical ly Signed By: Severo Whittaker MD [email or web address] [facility] ([facility]) [address] [place], [address], 12/12/2024 11:58:54 12/12/19 25 12/09/2024 MRI, lumba r spine , w/o contr ast No observ ation record ed. [email or web address] [address], [address], 12/12/2024 12:01:31 Result Notes None recorded. Problems Name Problem SNOMED Code Status Onset Date Resolution Date Notes Provider Name and Address Organization Details Recorded Time Localized, primary osteoarthritis of the shoulder region 837439101 Active 2023 QING REYES [address] [place] [address], [phone], [facility] 4 08:53:39 Adult degenerative scoliosis deformity of spine Active 2024 Fernando Hemphill MD [address] [place] [address], [address], [facility] 5 12:28:06 Spinal stenosis of lumbar region 91421518 Active 2024 Fernando Hemphill MD [address] [place] [address], [address], [facility] 5 12:28:07 Problem Notes None recorded. Procedures Surgical History Date Name Laterality Status Provider Name and Address Organization Details Recorded Time 4 Orthopaedic Surgery completed Alvaro Garcia [facility] 09/13/2024 11:39:27 8 Other completed Juany Harvey [facility] 02/05/2024 08:29:13 Imaging Results Imaging Date Name Status LastModified by Organiz ation Details LastModified Time 05/03/2021 MRI, lumbar spine, w/o contrast completed [email or web address] [facility] ([facility]) [address] [place], [address], 11/13/2024 15:19:17 12/09/2024 MRI, lumbar spine, w/wo contrast completed [facility] ([facility]) [address], [place], [address], 12/12/2024 11:58:54 12/09/2024 MRI, lumbar spine, w/o contrast completed [email or web address] [facility] [address] [place], [address], 12/12/2024 12:01:31 Procedure Notes None recorded. Medical Equipment None Reported. Allergies Allergen ID Allergen Name Allergen Category Reaction Reaction Severity Criticality Documentation Date Start Date Code Code System Note Provider Name and Address Organization Details Recorded Time 20340602 Product containin g penicilli n (product) medicatio n Not available Not available Not available 02/05/2024 48075 8001 SNOMED Juany Harvey [facility] 4 08:27:17 960704 clarithro mycin medicatio n Not available Not available Not available 02/05/202423459 RxNorm Juany Harvey [facility] 4 08:27:30 866056 Cipro medicatio n Not available Not available Not available 02/05/202422694 3 RxNorm Juany chrsi [facility] 4 08:27:35 Medications Name Sig Start Date [...] Details Last Updated DateTime 11/13/2024 179.07 cm Hieuaurelio Parrterese [facility] 11/13/2024 11:48:02 Date Recorded Body height Body mass index (BMI) Body weight Provider Name and Address Organization Details Last Updated DateTime 11/22/2024 179.07 cm 36.8 kg/m2 718760.02 [facility] 11/22/2024 11:12:49 Date Recorded Body height Provider Name an d Address Organization Details Last Updated DateTime 11/22/2024 179.07 cm Emily Case [facility] [place] 11/22/2024 11:45:43 Date Recorded Body height Provider Name an d Address Organization Details Last Updated DateTime 12/11/2024 179.07 cm Hieu Parrterese [facility] 12/11/2024 10:21:58 Date Recorded Body height Provider Name an d Address Organization Details Last Updated DateTime 01/14/2025 179.07 cm Royce Malik [facility] 01/14/2025 08:53:46 Social History Question Answer Notes LastModified by Organizat ion Details LastModified Time Tobacco Smoking Status Former Smoker Juany chris [place] [facility] 02/05/2024 08:26:57 What Is Your Level Of Alcohol Consumption? Occasional Information not available 02/05/2024 Do You Or Have You Ever Used E-cigarettes Or Vape? Never Used Electronic Cigarettes Information not available 02/05/2024 What Is Your Occupation? Retired Information not available 02/05/2024 Do You Or Have You Ever Used Smokeless Tobacco? [id number] Information not available 02/05/2024 How Much Tobacco Do You Smoke? No Information not available 02/05/2024 How Many Years Have You Smoked Tobacco? 2 Information not available 02/05/2024 Sex: Unknown Functional Status None recorded. Mental Status None recorded. Family History Relationship Description Onset Age of this Age Resolved Age Notes LastModified by Organization Details LastModified Time Father Myocardial infarction [email or web address] Not available 06/10 09:43:07 Medical History Condition Response High Blood Pressure Y Irregular Heartbeat Y Diabetes Y Past Encounters Encounter ID Performer Location Encounter Start Date Encounter Closed Date Diagnosis/Indication Diagnosis SNOMED-CT Code Diagnosis ICD10 Code Diagnosis Note [id number] QING REYES [facility] Office [address] [place] [phone] 1 02/05/2024 07:41:03 02/05/2024 09:55:56 Localized, primary osteoarthritis of the shoulder region 161503874 M19.530 [id number] HANSA WATKINS MD [facility] Office [address] [place] [phone] 1 06/10/2024 09:08:25 06/10/2024 10:26:04 Localized, primary osteoarthritis of the shoulder region 689191136 M19.636 [id number] QING REYES [address] [address] 06/10/2024 10:19:58 06/10/2024 12:48:44 Shoulder pain 09763366 M25.342 [id number] QING REYES [facility] [address] [facility],[address] [address] 09/06/2024 13:25:39 09/06/2024 13:54:27 Localized, primary osteoarthritis of the shoulder region 399541929 M19.618 [id number] QING REYES [facility] Office [address] [place] [phone] 4 09/13/2024 10:56:18 09/13/2024 13:01:24 Localized, primary osteoarthritis of the shoulder region 079285642 M19.585 [id number] HANSA WATKINS MD [facility] Office [address] [place] [address] 1 10/07/2024 13:12:57 10/07/2024 14:14:53 Localized, primary osteoarthritis of the shoulder region 978960660 M19.169 [id number] QING CALVILLO [facility] [address] [place] [phone] 1 11/13/2024 10:37:20 11/13/2024 13:07:27 Degenerative lumbar spinal stenosis 869373353 M48.786 [id number] HANSA WATKINS MD [facility] Office [address] [place] [address] 1 11/22/2024 10:40:47 11/22/2024 11:21:35 Localized, primary osteoarthritis of the shoulder region 225325137 M19.022 [id number] QING SAGE [address] [address] 11/22/2024 11:38:23 11/22/2024 12:35:31 Osteoarthritis of joint of right shoulder region 6189490518 69288 M19.311 [id number] QING Calvillo [place] [facility] [address] [place] [address], [address] [place] [phone] 12/11/2024 09:57:58 12/11/2024 11:22:12 Spinal stenosis of lumbar region 74350410 M48.062 Weakness o f bilateral lower limb 0682472523 63433 M62.81 [id number] Fernando Hemphill MD [facility] [facility] [address] [place] [id number] 1 01/14/2025 08:45:19 01/14/2025 12:47:49 Adult degenerative scoliosis deformity of spine 5780314760 M41.80 CT Lumbar Spinal mallory nosis of lumbar region 53192765 M48.062 Health Concerns Section Related Observation LastModified by Organization Detai ls LastModified Time None Recorded Concern Status LastModified by Organization Details LastModified Time None Recorded Advance Directives Directive None Recorded Payers Encounter Date Sequence Insurance Name Policy Number Policy Andrade Covered Member ID Andrade Member ID Guarantor Name 11/13/2024 1 [place] Ap Martines Aubrey [id number] Ap Aubrey 11/13/2024 2 [employer] OPTIONS (MEDICARE SUPPLEMENT) Ap Aubrey [id number] Ap Aubrey 11/22/2024 1 [place] Ap Martines Aubrey [id number] Ap Aubrey 11/22/2024 2 [employer] OPTIONS (MEDICARE SUPPLEMENT) Ap Aubrey [id number] Ap Aubrey 11/22/2024 1 [place] Ap Martines Aubrey [id number] Ap Aubrey 11/22/2024 2 [employer] OPTIONS (MEDICARE SUPPLEMENT) Ap Aubrey [id number] Ap Aubrey 12/11/2024 1 [place] Ap Martines Aubrey [id number] Ap Aubrey 12/11/2024 2 [employer] OPTIONS (MEDICARE SUPPLEMENT) Ap Aubrey [id number] Ap Aubrey 01/14/2025 1 [place] Ap Martines Aubrey [id number] Ap Aubrey 01/14/2025 2 [employer] OPTIONS (MEDICARE SUPPLEMENT) Ap Aubrey [id number] Ap Aubrey Notes Date Note Type Note Provider Name and Address Organization Details Recorded Time 11/13/2024 text/html Ap is a 59 y/o [...] provided transient relief of symtpoms. QING CALVILLO [address] [place] [address], [phone], [facility] 11/14/2024 09:50:28 11/22/2024 text/html Ap Burgos i [...] SANE - {{ 88#}}. HANSA WATKINS MD [address] [place] [address], [phone], [facility] 11/22/2024 13:35:52 11/22/2024 text/html Ap is a [...] provides consent for the procedure. QING SAGE [address] [place] [address], [phone], [facility] 11/25/2024 08:49:03 12/11/2024 text/html Ap is a [...] his penis anus or scrotum. QING Calvillo [address] [place] [address], [phone], [facility] 12/11/2024 16:11:36 01/14/2025 text/html Ap Burgos i s a 59-year-old male who presents for a follow-up visit regarding his lumbar spine. He reports experiencing mostly right-sided lower back pain, which is severe and limits his ability to walk. He states that the pain is alleviated when sitting. He has not received a cortisone injection in his back since 2018. Fernando Hemphill MD [address] [place] [address], [phone], [facility] 01/14/2025 12:28:40
--- OUTSIDE RECORDS SUMMARY | 2025-01-22 15:11 | XMS_ITS ---
Author Organization [facility] Address [address] [place] [phone] Care Team Providers Care Field Case Manager Name Role Phone Carin DURHAM, Xander Primary Care Provider Unavailab Xander [facility] [phone] REASON FOR VISIT Patient presents today for a COLON SCREENING Encounters Encounter Location Date Provider Diagnosis [facility] [address] [place] [phone] 10/10/2023 Xander Moon Plan Of Treatment No Information Progress Notes * RYLAN JULESDOB: 4 (59 yo M)Acc No.[id number]:10/10/2023 Progress Notes Patient:?RYLAN JULES Provider:?Xander Moon MD :1965???Age:58 Y???Sex:Male Jaylan e:10/10/2023 Address:[address] [place], [place] [phone] Pcp:Xander Del Rosario MD Subjective: * Chief [...] MD Date:? 023 Generated for Eladia ramires/Althea/eTransmitting on:?01/22/2025 03:11 PM EDT
--- OUTSIDE RECORDS SUMMARY | 2025-01-22 15:11 | XMS_ITS ---
Author Organization Xander Del Rosario III, MD Address [address] [place] [address] Care Team Providers Care Golf Course Equipment Operator Name Role Phone Xander Del Rosario Primary Care Provider [phone] REASON FOR VISIT Message Social History Sex Assigned At : Social History Observation Description Sex Assigned At Male Encounters Encounter Location Date Provider Diagnosis Xander Del Rosario III, MD [address] [place] [address] [place] [address] 01/07/2025 Xander Del Rosario Plan Of Treatment Next Appt Details Provider Name:Xander Del Rosario, 02/03/2025 10:45:00 AM, [address] [place] [address] [place], [address], Provider Name:Xander Del Rosario, 05/14/2025 10:00:00 AM, [address] [place] [address] [place], [address], Progress Notes * Ap JONESDOB: [birth year] (59 yo M)Acc No.[id number]:01/07/2025 Patient:?Ap JONES :1965???Age:59 Y???Sex:Male Address:[place] [address] * true * Date:? Generated for Printi ng/Faxing/eTransmitting on:?01/22/2025 03:10 PM EDT
--- OUTSIDE RECORDS SUMMARY | 2025-01-22 15:12 | XMS_ITS | Clinical Summary ---
Author Organization [facility] Address [address] [place] [address] Phone Care Team Providers Care Cable Inspector Name Role Phone Xander Del Rosario MD Primary Care Provider [phone] Allergies Active Allergy Reactions Criticality Noted Date Comments Ciprofloxacin Anaphylaxis,Unknown High 08/13/2024 Clarithromycin Unknown 08/13/2024 diarrhea Erythromycin 11/10/2024 Penicillins Anaphylaxis,Unknown High 08/13/2024 Medications No known medications Encounters Date Type Department Care Team Description 11/10/2024 12:43 PM EST - 11/10/2024 4:40 PM EST Emergency [facility] Emergency [address] [place] [address] Discharge Disposition: Home or Self [...] and culture (11/10/2024 1:47 PM EST) Specific [place] Urine 1.020 1.003 - 1.030 LAB URINALYSIS - AUTOMATED METHOD 11/10/2024 2:09 PM EST [facility] pH, Urine 5.5 5.0 - 8.0 pH LAB URINALYSIS - AUTOMATED METHOD 11/10/2024 2:09 PM EST [facility] Leukocytes, Urine Large(A) Negative LAB URINALYSIS - AUTOMATED METHOD 11/10/2024 2:09 PM [facility] Nitrite, Urine Negative Negative LAB URINALYSIS - AUTOMATED METHOD 11/10/2024 2:09 PM [facility] Protein, Urine Trace <=Trace mg/dL LAB URINALYSIS - AUTOMATED METHOD 11/10/2024 2:09 PM [facility] Glucose, Urine Negative Negative mg/dL LAB URINALYSIS - AUTOMATED METHOD 11/10/2024 2:09 PM [facility] Ketones, Urine Negative Negative mg/dL LAB URINALYSIS - AUTOMATED METHOD 11/10/2024 2:09 PM [facility] Urobilinogen, Urine 1.0 0.2 - 1.0 mg/dL LAB URINALYSIS - AUTOMATED METHOD 11/10/2024 2:09 PM [facility] Bilirubin, Urine Negative Negative LAB URINALYSIS - AUTOMATED METHOD 11/10/2024 2:09 PM [facility] Blood, Urine Large(A) Negative LAB URINALYSIS - AUTOMATED METHOD 11/10/2024 2:09 PM [facility] RBC, Urine 573.2(H) 0 - 4 /HPF LAB URINALYSIS - AUTOMATED METHOD 11/10/2024 2:09 PM [facility] WBC, Urine 410.2(H) 0 - 4 /HPF LAB URINALYSIS - AUTOMATED METHOD 11/10/2024 2:09 PM [facility] Squamous Epithelial, Urine 14 0 - 60 /LPF LAB URINALYSIS - AUTOMATED METHOD 11/10/2024 2:09 PM [facility] Bacteria, Urine Negative Negative /HPF LAB URINALYSIS - AUTOMATED METHOD 11/10/2024 2:09 PM [facility] Hyaline Casts, Urine 0.0 0 - 3 /LPF LAB URINALYSIS - AUTOMATED METHOD 11/10/2024 2:09 PM [facility] Urine Urine specimen obtained by clean catch procedure / Unknown Non-blood Collection / Unknown 11/10/2024 1:47 PM EST 11/10/2024 1:58 PM EST Yosef Frede MD LAB URINE ORDERABLES Betty l Result Performing Organization Address [facility]/ZIP Co de Phone Number [facility] [address] [place] [address], [place] [phone] * Hernandez urine culture tube (11/10/2024 1:47 PM EST) Pathologist [facility] Extra Tube Hold for add-ons. 11/10/2024 3:01 PM EST [facility] Comment:Auto resulted. Urine Urine specimen obtained by clean catch procedure / Unknown Non-blood Collection / Unknown 11/10/2024 1:47 PM EST 11/10/2024 1:58 PM EST Yosef Freed MD LAB URINE ORDERABLES Betty l Result Performing Organization Address [facility]/ZIP Co de Phone Number [facility] [address] [place] [address], [place] [phone] * (ABNORMAL) CBC auto differential (11/10/2024 1:47 PM EST) WBC 10.4 4.8 - 10.8 K/mcL LAB HEMETOLOGY METHOD 11/10/2024 2:31 PM [facility] RBC 4.70 4.50 - 5.50 M/mcL LAB HEMETOLOGY METHOD 11/10/2024 2:31 PM [facility] Hemoglobin 13.6 13.5 - 17.5 g/dL LAB HEMETOLOGY METHOD 11/10/2024 2:31 PM [facility] Hematocrit 40.8(L) 42.0 - 54.0 % LAB HEMETOLOGY METHOD 11/10/2024 2:31 PM [facility] MCV 86.4 79.0 - 98.0 FL LAB HEMETOLOGY METHOD 11/10/2024 2:31 PM [facility] MCH 28.8 27.0 - 32.0 pcg LAB HEMETOLOGY METHOD 11/10/2024 2:31 PM [facility] MCHC 33.3 32.0 - 37.0 g/dL LAB HEMETOLOGY METHOD 11/10/2024 2:31 PM [facility] RDW 13.1 11.0 - 15.0 % LAB HEMETOLOGY METHOD 11/10/2024 2:31 PM [facility] Platelets 11/10/2024 2:31 PM [facility] Comment:Not measured. Unable to quantitate due to platelet clumping MPV 9.0 7.0 - 11.0 FL LAB HEMETOLOGY METHOD 11/10/2024 2:31 PM [facility] NRBC 0.0 <1.0 % LAB HEMETOLOGY METHOD 11/10/2024 2:31 PM [facility] NRBC Absolute 0.00 <0.10 K/mcL LAB HEMETOLOGY METHOD 11/10/2024 2:31 PM [facility] Neutrophils Relative 68.5 % LAB HEMETOLOGY METHOD 11/10/2024 2:31 PM [facility] Lymphocytes Relative 20.9 % LAB HEMETOLOGY METHOD 11/10/2024 2:31 PM [facility] Monocytes Relative 8.4 % LAB HEMETOLOGY METHOD 11/10/2024 2:31 PM [facility] Eosinophils Relative 1.5 % LAB HEMETOLOGY METHOD 11/10/2024 2:31 PM [facility] Basophils Relative 0.2 % LAB HEMETOLOGY METHOD 11/10/2024 2:31 PM [facility] Immature Granulocytes Relative 0.5 % LAB HEMETOLOGY METHOD 11/10/2024 2:31 PM EST [facility] Neutrophils Absolute 7.15(H) 1.50 - 7.00 K/mcL LAB HEMETOLOGY METHOD 11/10/2024 2:31 PM [facility] Lymphocytes Absolute 2.18 1.00 - 5.00 K/mcL LAB HEMETOLOGY METHOD 11/10/2024 2:31 PM EST [facility] Monocytes Absolute 0.88 0.20 - 1.00 K/mcL LAB HEMETOLOGY METHOD 11/10/2024 2:31 PM [facility] Eosinophils Absolute 0.16 0.00 - 0.50 K/mcL LAB HEMETOLOGY METHOD 11/10/2024 2:31 PM [facility] Basophils Absolute 0.02 0.00 - 0.20 K/mcL LAB HEMETOLOGY METHOD 11/10/2024 2:31 PM [facility] Immature Granulocytes Absolute 0.05(H) 0.00 - 0.03 K/mcL LAB HEMETOLOGY METHOD 11/10/2024 2:31 PM [facility] Blood Venous blood specimen / Unknown Venipuncture / Unknown 11/10/2024 1:47 PM EST 11/10/2024 1:59 PM EST Yosef Freed MD LAB BLOOD ORDERABLES Betty ambrose Result [facility] [address] [place] [address], * Culture urine (11/10/2024 1:47 PM EST) Culture, Urine <10,000 CFU/mL gram negative bacilli, insignificant count, no further workup 11/11/2024 11:20 AM EST [facility] Urine Urine specimen obtained by clean catch procedure / Unknown Non-blood Collection / Unknown 11/10/2024 1:47 PM EST 11/10/2024 2:09 PM EST us Yosef Freed MD LAB MICROBIOLOGY - GENERA L ORDERABLES Final Result [facility] [address] [place] [address], [place] [phone] * (ABNORMAL) Basic metabolic panel (11/10/2024 1:47 PM EST) Sodium 131(L) 133 - 145 mmol/L LAB CHEMISTRY METHOD 11/10/2024 2:26 PM [facility] Potassium 4.2 3.5 - 5.5 mmol/L LAB CHEMISTRY METHOD 11/10/2024 2:26 PM [facility] Chloride 99 96 - 110 mmol/L LAB CHEMISTRY METHOD 11/10/2024 2:26 PM [facility] CO2 29 21 - 32 mmol/L LAB CHEMISTRY METHOD 11/10/2024 2:26 PM [facility] Anion Gap 3 3 - 11 LAB CHEMISTRY METHOD 11/10/2024 2:26 PM [facility] Glucose 114(H) 70 - 100 mg/dL LAB CHEMISTRY METHOD 11/10/2024 2:26 PM [facility] BUN 25 5 - 25 mg/dL LAB CHEMISTRY METHOD 11/10/2024 2:26 PM [facility] Creatinine 0.87 0.70 - 1.30 mg/dL LAB CHEMISTRY METHOD 11/10/2024 2:26 PM [facility] eGFR 99 >=60 mL/min/1. 73m2 LAB CHEMISTRY METHOD 11/10/2024 2:26 PM [facility] Comment:Calculation based on the??Chronic Kidney Disease Epidemiology Collaboration (CKD-EPI) equation refit??without adjustment for race. BUN/Creatinine Ratio 28.7 LAB CHEMISTRY METHOD 11/10/2024 2:26 PM [facility] Calcium 9.3 8.5 - 10.5 mg/dL LAB CHEMISTRY METHOD 11/10/2024 2:26 PM EST [facility] Blood Venous blood specimen / Unknown Venipuncture / Unknown 11/10/2024 1:47 PM EST 11/10/2024 1:59 PM EST us Yosef Freed MD LAB BLOOD ORDERABLES Betty l Result [facility] [address] [place] [address], [place] [phone] from Last 3 Months Insurance [facility] MEDICARE Care Teams Cable Inspector Relationship Specialty Start Date End Date Xander Del Rosario MD PCP - General Oncology 01/10/18
--- OUTSIDE RECORDS SUMMARY | 2025-01-22 15:12 | XMS_ITS ---
Author Organization [facility] Address [address] [place] [address] Care Team Providers Care Civil Engineering Professional Name Role Phone Carin DURHAM, Xander Primary Care Provider Unavailab Xander Hall Unavailable [phone] Encounters Encounter Location Date Provider Diagnosis [facility] [address] [place] [phone] 10/10/2023 Xander Moon Plan Of Treatment No Information Progress Notes * RYLAN JULESDOB: 4 (58 yo M)Acc No.[id number]:10/10/2023 Patient:?RYLAN JULES :1965???Age:58 Y???Sex:Male Address:[address] [place] [address], [address] * true * Date:? Generated for Eladia ramires/Althea/eTransmitting on:?01/22/2025 03:12 PM EDT
--- OUTSIDE RECORDS SUMMARY | 2025-01-22 15:12 | XMS_ITS | Continuity of Care Document ---
Author Organization [facility] Office Address [address] [place] [address] Care Team Providers Care All Round Butcher Name Role Phone RODNEY LAZAR Primary Care Provider Assessment Encounter Date Assessment Date Assessment LastModified by Organization Details LastModified Time 01/14/2025 01/14/2025 ASSESSMENT: - Lumbar spine stenosis, [...] will need to undergo preoperative evaluation at [facility]. The patient was informed about the potential for a more extensive surgery in the future if the spine continues to degenerate. Follow-up appointments will be scheduled at three weeks, three months, six months, and one year postoperatively to monitor progress and ensure proper healing. Not available 01/14/2025 12:28:05 Plan of Treatment Reminders Order Date Submit Date Provider Last Modified By Organization Details Last Modified Time Details Appointments None record ed. Lab None record ed. Referral None record ed. Procedures None record ed. Surgeries None record ed. Imaging None record ed. Medication Orders None record ed. Patient TargetsNo targets recorded. Patient Instructions Encounter Date Encounter Id Patient Instructions Last Modified By Organization Details Last Modified Time 01/14/[id number] LUMBAR Will schedule surgery - likely L3-5 laminectomy and fusion, instrumentation Pre-op meeting with JAJA ruiz Not available 01/14/2025 12:27:43 Reason for Referral None Reported. Problems Name Problem SNOMED Code Status Onset Date Resolution Date Notes Provider Name and Address Organization Details Recorded Time Localized, primary osteoarthritis of the shoulder region 906791864 Active 2023 QING REYES [address] [place] [address], [phone], [facility] 4 08:53:39 Adult degenerative scoliosis deformity of spine Active 2024 Fernando Hemphill MD [address] [place] [address], [phone], [facility] 5 12:28:06 Spinal stenosis of lumbar region 61076145 Active 2024 Fernando Hemphill MD [address] [place] [address], [phone], [facility] 5 12:28:07 Problem Notes None recorded. Procedures Surgical History Date Name Laterality Status Provider Name and Address Organization Details Recorded Time 4 Orthopaedic Surgery completed Alvaro Garcia [facility] 09/13/2024 11:39:27 8 Other completed Juany Harvey [facility] 02/05/2024 08:29:13 Imaging Results None recorded. Procedure Notes None recorded. Medical Equipment None Reported. Allergies Allergen ID Allergen Name Allergen Category Reaction Reaction Severity Criticality Documentation Date Start Date Code Code System Note Provider Name and Address Organization Details Recorded Time 20340602 Product containin g penicilli n (product) medicatio n Not available Not available Not available 02/05/2024 47428 8001 SNOMED Juany Harvey [facility] 4 08:27:17 332194 clarithro mycin medicatio n Not available Not available Not available 02/05/202477397 RxNorm Juany Harvey [facility] 4 08:27:30 900838 Cipro medicatio n Not available Not available Not available 02/05/202435705 3 [facility] 08:27:35 Medications Name Sig Start Date [...] Updated DateTime 01/14/2025 179.07 cm Royce Malik [facility] [place] 01/14/2025 08:53:46 Social History Question Answer Notes LastModified by Organizat ion Details LastModified Time Tobacco Smoking Status Former Smoker Juany chris [facility] 02/05/2024 08:26:57 What Is Your Level Of Alcohol Consumption? Occasional Information not available 02/05/2024 Do You Or Have You Ever Used E-cigarettes Or Vape? Never Used Electronic Cigarettes Information not available 02/05/2024 What Is Your Occupation? Retired Information not available 02/05/2024 Do You Or Have You Ever Used Smokeless Tobacco? [id number] Information not available 02/05/2024 How Much Tobacco Do You Smoke? No Information not available 02/05/2024 How Many Years Have You Smoked Tobacco? 2 Information not available 02/05/2024 Sex: Unknown Functional Status None recorded. Mental Status None recorded. Family History Relationship Description Onset Age of this Age Resolved Age Notes LastModified by Organization Details LastModified Time Father Myocardial infarction [email or web address] Not available 06/10 09:43:07 Medical History Condition Response High Blood Pressure Y Irregular Heartbeat Y Diabetes Y Past Encounters Encounter ID Performer Location Encounter Start Date Encounter Closed Date Diagnosis/Indication Diagnosis SNOMED-CT Code Diagnosis ICD10 Code Diagnosis Note [id number] Fernando Hemphill MD [facility] [address] [place] [phone] 01/14/2025 08:45:19 01/14/2025 12:47:49 Adult degenerative scoliosis deformity of spine 3907101704 M41.80 CT Lumbar Spinal mallory nosis of lumbar region 32462581 M48.062 Health Concerns Section Related Observation LastModified by Organization Detai ls LastModified Time None Recorded Concern Status LastModified by Organization Details LastModified Time None Recorded Payers Encounter Date Sequence Insurance Name Policy Number Policy Andrade Covered Member ID Andrade Member ID Guarantor Name 01/14/2025 1 [place] [employer] Ap Martines Caputo [id number] Ap Huntuto 01/14/2025 2 [employer] OPTIONS (MEDICARE SUPPLEMENT) Ap Huntuto [id number] Ap Lopezo Notes Date Note Type Note Provider Name and Address Organization Details Recorded Time 01/14/2025 text/html Ap Burgos i s a 59-year-old male who presents for a follow-up visit regarding his lumbar spine. He reports experiencing mostly right-sided lower back pain, which is severe and limits his ability to walk. He states that the pain is alleviated when sitting. He has not received a cortisone injection in his back since 2018. Fernando Hemphill MD [address] [place] [address], [phone], [facility] 01/14/2025 12:28:40
--- OUTSIDE RECORDS SUMMARY | 2025-01-22 15:12 | XMS_ITS ---
Author Organization Xander Del Rosario III, MD Address [address] [place] [address] [place] [address] Care Team Providers Care Glass Setter Name Role Phone Xander Del Rosario Primary Care Provider [phone] Allergies Allergen (clinical drug ingredient) Drug/Non Drug [...] Provider Diagnosis Xander Del Rosario III, MD [address] [place] [address] DR [place]DA[place], TEE [phone] 12/23/2024 Xander Del Rosario Former smoker Z87.89 [...] Provider Name:Xander Del Rosario, 02/03/2025 10:45:00 AM, [address] [place] [address] [address], [place], [phone], Provider Name:Xander Del Rosario, 05/14/2025 10:00:00 AM, [address] [place] [address] [address], [place], [address], Progress Notes * Ap JONESDOB: 4 (59 yo M)Acc No.[id number]:12/23/2024 Patient:?Ap JONES Provider:?Xander Del Rosario MD :1965???Age:59 Y???Sex:Male Jaylan e:12/23/2024 Address:[address] [place] [phone] Subjective: * Chief Complaints: * ???Insulin-dependent diabete s mellitusUrinary tract infection, resolvedSinusitis, resolvedObesityBack painBenign prostatic hypertrophyMultinodular goiter * HPI: ???:? He returns for management of multiple problems.? He has an appointment with orthopedics in [place] to discuss the surgical therapy of his [...] rendering services:?{...} [address] [facility] [address] ?Location of patient:?address listed in demographics for [...] replacement 08/29/2024Shoulder replacement surgery - august 29, [facility] ight hip surgery - scoped, no complications since. 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 He was born in [place], [place]. * Medications:?TakingBasaglar KwikPen 100 UNIT/ML Solution [...] MD Date:?12/01 Generated for Eladia ramires/Althea/Juan José on:?01/22/2025 03:11 PM EDT History and Physical Notes * HPI (History of Present Illness) Category Sub-Category Detail Notes [facility] {...} [facility] [address] [place] [address] Location of patient:: address listed in demographics [...]
--- OUTSIDE RECORDS SUMMARY | 2025-01-22 15:12 | XMS_ITS | Patient Health Record ---
Author Organization [facility] Address [address] [place] [address] Care Team Providers Care Manager Acquisition Name Role Phone Xander Del Rosario MD Primary Care Provider Xander August Unavailable [phone] Reason For Referral No Information Plan Of Treatment No Information Insurance Providers Payer Name Payer Address Payer Phone Subscriber Number Group Number Insured Name Patient Relationship to Insured Coverage Start Date Coverage End Date MEDICARE OF [place] [address] [place] [address] [id number] RYLAN JULES Self - patient is the insured [facility]ERRAL [facility]QU[facility]) [address] [address] [place] [address] [phone] [id number] RYLAN JULES Self - patient is the insured
== END 2025-01-22 13:11 | disposition home or self-care (01) ==
LOC: HO.ENCR 12:51
PROVIDERS: PCP Internal Medicine Medical Oncology; Visit Provider Student in an Organized Health Care Education/Training Program
DX: E04.2 Nontoxic multinodular goiter (principal)
CPT/HCPCS: 99213

== ENCOUNTER → 2025-01-22 12:50 | Outpatient (BNVA) | payer MEDICARE, SELFPAY | PROVIDERS: PCP Internal Medicine Medical Oncology; Visit Provider Student in an Organized Health Care Education/Training Program | DX: E04.2 Nontoxic multinodular goiter (principal) | CPT/HCPCS: 99212 ==

== ENCOUNTER 2025-04-02 09:42 | Outpatient (REF) | payer MEDICARE, SELFPAY ==
--- OUTSIDE RECORDS SUMMARY | 2025-04-02 10:11 | XMS_ITS | Patient Health Record ---
Author Organization Xander Del Rosario III, MD Address [address] [place] [address] [place] [address] Care Team Providers Care Head Of Digital Advertising & Integration Name Role Phone Xander Del Rosario Primary [...] date:06/30/2024 07:26:08 AM Interpretation: Performing Lab: Notes/Report: [address] [address] Ultrasound Report Signed Patient: Ap Jones MR#: [id number] 41 : 1965 Acct:[id number] Age/Sex: 58 / M ADM Date: 04/02/24 Loc: HO.US Attending Dr: Xander Del Rosario MD Ordering Physician: Xander Del Rosario MD Date of Service: 04/02/24 Procedure(s): US thyroid Accession Number(s): [id number] cc: Xander Del Rosario MD EXAMINATION: US [...] than or equal to 1 cm: 3. Optical Assistant nodules are described as follows: 1. Location: [...] in OV> 04/16/24 1641 DD/ 1049 TD/TT: Beam Builder Helper: [place] [address] Ultrasound Report Signed Patient: Lui Jones MR#: [id number] 41 : 1965 Acct:[id number] Age/Sex: 58 / M ADM Date: 04/02/24 Loc: HO.US Attending Dr: Xander Del Rosario MD Ordering Physician: Xander Del Rosario MD Date of Service: 04/02/24 Procedure(s): US thyroid Accession Number(s): [id number] cc: Xander Del Rosario MD EXAMINATION: US [...] than or equal to 1 cm: 3. Optical Assistant nodul es are described as follows: 1. [...] in OV> 04/16/24 1641 DD/ 1049 TD/TT: Beam Builder Helper: CSF Glucose Reviewed date:06/30/2024 07:26:08 AM Interpretation: Performing Lab:[address] [address] Notes/Report: CSF Appearance Clear, Colorless RBC butto n present CSF Tube # 1 Glucose CSF 118 CSF Total Protein Reviewed date:06/30/2024 07:26:08 AM Interpretation: Performing Lab:[facility], [address] [place] [address] Notes/Report: Total Protein CSF 80.3 15-45 mg/dL CSF Cell Count w Diff Reviewed date:06/30/2024 07:26:08 AM Interpretation: Performing Lab:[address] [address] Notes/Report: Appearance CSF CLEAR CSF Tube # [...] CSF Reviewed date:06/30/2024 07:26:08 AM Interpretation: Performing Lab:[facility], [address] [place] [address] Notes/Report: Albumin 5.0 3.6-5.1 g/dL THIS TEST WAS PERFORMED AT: [facility] [facility] [address] [place], [place] ROXANA MENDIETA MD,PHD IgG [phone] mg/dL IgG, CSF 4.2 0.8-7.7 mg/dL Albumin, [...] Banding Reviewed date:06/30/2024 07:26:08 AM Interpretation: Performing Lab:[facility], [address] [place] [address] Notes/Report: Oligoclonal Banding Absent Absent No Oligoclonal bands are identified in the patient's CSF when compared to the corresponding serum sample. Oligoclonal bands are present in the CSF of more than 85% of patients with clinically definite multiple sclerosis (MS). To distinguish between oligoclonal bands in the CSF due to a peripheral gammopathy and oligoclonal bands due to local production in the MINISTER, serum and CSF should be tested simultaneously. Oligoclonal bands can however be observed in a variety of other diseases, e.g., subacute sclerosing panen- cephalitis, inflammatory polyneuropathy, MINISTER lupus, and brain tumors and infarctions. The clinical significance of a numerical band count, determined by isoelectric focusing, has not been definitively defined. The data should be interpreted in conjunction with all pertinent clinical and laboratory data for this patient. THIS TEST WAS PERFORMED AT: [facility] [phone] ROXANA MENDIETA MD,PHD Gram stain Reviewed date:06/30/2024 07:26:08 AM Interpretation: Performing Lab:[facility], [address] [place] [address] Notes/Report: TUBE #2 Gram stain Gram stain results: Gram stain No polys Gram stain 3+ red blood cells Gram stain No organisms seen CSF Volume Reviewed date:06/30/2024 07:26:08 AM Interpretation: Performing Lab:[facility], [address] [place] [address] Notes/Report: TUBE #2 CSF Volume CSF volume mL CSF Volume 2 Appearance Reviewed date:06/30/2024 07:26:08 AM Interpretation: Performing Lab:[facility], [address] [place] [address] Notes/Report: TUBE #2 Appearance Appearance Appearance Clear Appearance COLORLESS CSF Culture Reviewed date:06/30/2024 07:26:08 AM Interpretation: Performing Lab:[facility], [address] [place] [phone] Notes/Report: TUBE #2 CSF Culture No growth after 3 days. FL guided lumbar puncture LP Reviewed date:06/30/2024 07:26:08 AM Interpretation: Performing Lab: Notes/Report: [address] [place] [address] Fluoroscopy Report Signed Patient: Ap Jones MR#: [id number] 41 : 1965 Acct:[id number] Age/Sex: 58 / M ADM Date: 06/12/24 Loc: [facility] Attending Dr: Rona Ríos MD Ordering Physician: Rona Ríos MD Date of Service: 06/12/24 Procedure(s): FL guided lumbar puncture LP Accession Number(s): [id number] cc: Xander Del Rosario MD; Rona Ríos [...] in OV> 06/12/24 1557 DD/ 1150 TD/TT: Beam Builder Helper: [place] [address] Fluoroscopy Report Signed Patient: Lui Jones MR#: [id number] 41 : 1965 Acct:[id number] Age/Sex: 58 / M ADM Date: 06/12/24 Loc: .[facility] Attending Dr: Sharri Ríos MD Ordering Physician: Rona Ríos MD Date of Service: 06/12/24 Procedure(s): FL forrest ded lumbar puncture LP Accession Number(s): [id number] cc: Xander Del Rosario MD; Rona Ríos [...] in OV> 06/12/24 1557 DD/ 1150 TD/TT: Beam Builder Helper: US thyroid Reviewed date:12/06/2024 09:31:56 AM Interpretation: Performing Lab: Notes/Report: [address] [address] Ultrasound Report Signed Patient: Ap Jones MR#: [id number] 41 : 1965 Acct:[id number] Age/Sex: 59 / M ADM Date: 10/14/24 Loc: HO.US Attending Dr: Xander Del Rosario MD Ordering Physician: Xander Del Rosario MD Date of Service: 10/14/24 Procedure(s): US thyroid Accession Number(s): [id number] cc: Xander Del Rosario MD EXAMINATION: US THYROID CLINICAL INFORMATION: Multinodular goiter COMPARISON: Ultrasound thyroid 04/02/2024 TECHNIQUE: Linear transducer grayscale and color Doppler examination with attention to the region of the thyroid. FINDINGS: SIZE: Measurements of the thyroid lobes and nodules are given in sagittal, anteroposterior and transverse dimensions respectively. Right Thyroid Lobe: 6.1 x 2.1 x 2.2 cm, volume 14.7 mL. Parenchyma: The gland echotexture is homogeneous. Thyroid vascularity is normal. Left Thyroid Lobe: 5.5 x 2.4 x 2.4 cm, volume 16.7 mL. Enlarged. Parenchyma: The gland echotexture is heterogeneous. Thyroid vascularity is normal. Isthmus: 0.6 cm in maximum AP dimension. Previously measured 0.5 cm Estimated total number of nodules greater than or equal to 1 cm: 3. Optical Assistant nodules are described as follows: 1. Location: Right mid pole. Size: 2.0 x 1.0 x 1.9 cm, volume 2.0 mL. Previously measured 2.2 x 1.2 x 2.0 cm volume 2.7 mL Nodule characteristics: Composition: Solid (2). Echogenicity: Hyperechoic (1). Shape: Wider Margins: Smooth (0). Echogenic Foci: None (0). ACR TI-RADS total points: 4 ACR TI-RADS category: 4 2. Location: Left midpole. Size: 1.9 x 0.9 x 1.8 cm, volume 1.6 mL. Previously measured 2.6 x 1.8 x 1.7 cm and volume 4.2 Nodule characteristics: Composition: Solid (2). Echogenicity: Isoechoic (1). Shape: Wider Margins: Smooth (0). Echogenic Foci: None (0). ACR TI-RADS total points: 3 ACR TI-RADS category: 2 3. Location: Left midpole. Size: 2.5 x 1.9 x 2.0 cm, volume 5.0 mL. Previously measured 2.3 x 1.8 x 1.9 cm Nodule characteristics: Composition: Solid (2). Echogenicity: Hyperechoic (1). Shape: Wider Margins: Smooth (0). Echogenic Foci: None (0 ACR TI-RADS total points: 7 ACR TI-RADS category: Large 5 NODES: No lymphadenopathy is seen in the tissue surrounding the thyroid gland. US/US thyroid IMPRESSION: Enlarged left thyroid lobe. Bilateral nodules are stable compared to previous exam 04/02/2024. There is unchanged in total points and antibiotics in mid pole left thyroid nodule. I would recommend a biopsy of this nodule. ACR TI-RADS RECOMMENDATION REFERENCE: Ultrasound-guided fine-needle aspiration, [...] threshold for followup receive no follow up. Electronically signed by: Chase Richard MD 11/12/2024 03:38 PM EST Dictated By: Chase Richard MD Signed By: <Electronically signed by Chase Richard MD in OV> 11/12/24 1538 DD/ 0908 TD/TT: 10/14/24 0916 Beam Builder Helper: [place] [id number] Ultrasound Report Signed Patient: Lui Jones MR#: [id number] 41 : 1965 Acct:[id number] Age/Sex: 59 / M ADM Date: 10/14/24 Loc: HO.US Attending Dr: Xander Del Rosario MD Ordering Physician: Xander Del Rosario MD Date of Service: 10/14/24 Procedure(s): US thyroid Accession Number(s): [id number] cc: Xander Del Rosario MD EXAMINATION: US THYROID CLINICAL INFORMATION: Multinodular goiter COMPARISON: Ultrasound thyroid 04/02/2024 TECHNIQUE: Linear transducer grayscale and color Doppler examination with attention to the reg ion of the thyroid. FINDINGS: SIZE: Measurements o f the thyroid lobes and nodules are given in sagittal, anteroposterior and transverse dimensions respectively. Right Thyroid Lobe: 6.1 x 2.1 x 2.2 cm, volume 14.7 mL. Parenchyma: The glan d echotexture is homogeneous. Thyroid vascularity is normal. Left Thyroid Lobe: 5 .5 x 2.4 x 2.4 cm, volume 16.7 mL. Enlarged. Parenchyma: The glan d echotexture is heterogeneous. Thyroid vascularity is normal. Isthmus: 0.6 cm in maximum AP dimension. Previously measured 0.5 cm Estimated total numb er of nodules greater than or equal to 1 cm: 3. Optical Assistant nodul es are described as follows: 1. Location: Right m id pole. Size: 2.0 x 1.0 x 1. 9 cm, volume 2.0 mL. Previously measured 2.2 x 1.2 x 2.0 cm volume 2.7 mL Nodule characteristics: Composition: Solid (2). Echogenicity: Hyperechoic (1). Shape: Wider Margins: Smooth (0). Echogenic Foci: None (0). ACR TI-RADS total points: 4 ACR TI-RADS category: 4 2. Location: Left midpole. Size: 1.9 x 0.9 x 1. 8 cm, volume 1.6 mL. Previously measured 2.6 x 1.8 x 1.7 cm and vol ume 4.2 Nodule characteristics: Composition: Solid (2). Echogenicity: Isoech oic (1). Shape: Wider Margins: Smooth (0). Echogenic Foci: None (0). ACR TI-RADS total points: 3 ACR TI-RADS category: 2 3. Location: Left midpole. Size: 2.5 x 1.9 x 2. 0 cm, volume 5.0 mL. Previously measured 2.3 x 1.8 x 1.9 cm Nodule characteristics: Composition: Solid (2). Echogenicity: Hyperechoic (1). Shape: Wider Margins: Smooth (0). Echogenic Foci: None (0 ACR TI-RADS total points: 7 ACR TI-RADS category : Large 5 NODES: No lymphadenopathy is seen in the tissue surrounding the thyroid gland. US/US thyroid IMPRESSION: Enlarged left thyroi d lobe. Bilateral nodules ar e stable compared to previous exam 04/02/2024. There is unchanged in tota l points and antibiotics in mid pole left thyroid nodule. I would recommend a biopsy of this nodule. ACR TI-RADS RECOMMENDATION REFERENCE: Ultrasound-guided fine-needle aspiration, [...] threshold for followup receive no follow up. Electronically sandoval d by: Chase Richard MD 11/12/2024 03:38 PM [facility] Dictated By: Chase Richard MD Signed By: <Electronically signed by Chase Richard MD in OV> 11/12/24 1538 DD/ 7 TD/TT: 10/14/24915 Beam Builder Helper: [facility] Pathology Reviewed date:02/08/2025 04:55:00 AM Interpretation: Performing Lab:[facility], [address] [place] [address] Notes/Report: --- Name: AubreyAp Age/Sex: 59/M : 1965 Unit#: [id number] Attend Dr: Laura Villatoro MD Re01/08/25 Status : DEP REF Location: [facility] Disch: --- SPEC : [id number] RECD : 01/09/25 STATUS: MIRANDA FELIX NUM: [id number] JONO: 01/08/[address]: Laura Villatoro MD ENTERED: 01/09/25 SP TYPE: Cytology OT DR: Xander Del Rosario MD ORDERED: Cell Block, Fine Ndl Asp/2 Diagnosis A. Thyroid, right mi d pole 2 cm nodule, fine needle aspiration: Non-diagnostic ([place] category I). COMMENT (A): Blood, fibrin and peripheral blood elements only. No follicular epithelial cells identified. Th e cell block is acellular and non-contributory. B. Thyroid, left mid pole 2.5 cm nodule, fine needle aspiration: Benign ([place] category II). COMMENT (B): Satisfactory for evaluation; moderately cellular specimen. Groups of follicular epithelia l cells mostly in a macrofollicular arrangement are seen; no cytologic atypia is present. Focal Hurthle cell change is present. Colloid is readily seen. Taken together , the findings are consistent with a benign thyroid nodule. Clinical History Right mid 2 cm and l eft mid 2.5 cm thyroid nodule FNA biopsy Material Received A. Right mid 2 cm thyroid nodule FNA biopsy B. Left mid 2.5 cm thyroid nodule FNA biopsy Gross Description A. Received is 30 cc of clear red fluid from which a ThinPrep slide and cell block are prepared. B. Received is 30 cc of clear, colorless fluid from which a ThinPrep slide is prepared. Copies To: Xander Del Rosario MD [address] [place] [address], [address] [place] [address] Laura Villatoro MD [facility] Endocrinology [address] [place] [address] [address] [place] [address] [email or web address] CONTINUED ON NEXT PAGE --- Name: Ap Jones Age/Sex: 59/M : 1965 Unit#: [id number] Attend Dr: Laura Villatoro MD Re01/08/25 Status : DEP REF Location: [facility] Disch: --- SPEC : [id number] RECD : 01/09/25 STATUS: MIRANDA FELIX NUM: [id number] JONO: 01/08/[address] [facility] [address]: Laura Villatoro MD ENTERED: 01/09/25 SP TYPE: Cytology OTHR DR: Xander Del Rosario MD ORDERED: Cell Block, Fine Ndl Asp/2 --- Signed (signature on file) Philipp Andrade MD 01/10/25 1627 --- END OF REPORT Reason For Referral Reason recent hospitalizati on at [facility] for chest pain nonsustained VT and elevated Tropoinin level Diagnosis 1 Chest pain, unspecif ied type (R07.9) Diagnosis 2 VT (ventricular tach ycardia) (I47.20) Diagnosis 3 Elevated troponin le mary (R79.89) Referral Organization Xander Del Rosario III, MD Referring Provider First Name Xander Referring Provider Last Name Del Rosario Referring Provider Speciality Internal M edicine Referred Provider Wes Horowitz Referred Provider Specialty Cardiology General Notes NachoDesireAnaajay GUERRERO 03/30 10:31:20 AM EDT > ref/progress note/hospital notes/Echo faxed to [facility] asking for a urgent appt , Ana Griffith CMA 04/18/2024 11:22:45 AM EDT > Called [facility] at [phone] they stated they did not received ref and it needs to be faxed to [phone] this was done today asking for urgent appt and for them to contact the patient with appt . , Ana Carter [facility] 04/25/2024 01:56:43 PM EDT > I called [facility] they stated they did not have appt for patient as of yet and would leave message for new pt coordinator call office back with appt info , Ana Carter [facility] 04/25/2024 02:31:15 PM EDT > Left message for Garry Freeman new pt coordinator at [phone] that pt had holter monitor and echo done by [facility] we have not received results and pt thinks he was seen while inpt at [facility] by a [facility] MD he is not going to [facility] cardio and we would like [facility] for follow up with pt cardiology care . LM today for Garry to call back with appt for patient, Ana Pike YOLANDA 08/22/2024 01:13:30 PM >pt was seen today in office for appt and told us he has already been seen by cardiology and is all set at this time Referral Priority Routine Reason Evaluate and Treat Thyroid Nodule that meets criteria for biospy Diagnosis 1 Thyroid nodule (E04. 1) Referral Organization Xander Del Rosario III, MD Referring Provider First Name Xander Referring Provider Last Name Del Rosario Referring Provider Speciality Internal M edicine Referred Provider [facility] Referred Provider Specialty Endocrinolog y General Notes Clemencia Krishna 11/13/2024 01:57:20 PM > Referral, Ultrasounds, and last progress note faxed., Clemencia Krishna 11/26/2024 09:28:29 AM > patient is being seen by Dr. Villatoro on 12/20/24 @ 8am Referral Priority Routine Referral Appointment Date 12/20/2024 Medications Medication SIG (Take, Route, Frequency, Duration) Notes Start Date End Date Status Lantus SoloStar 100 UNIT/ML INJECT 50 UNITS IN THE MORNING AND 70 UNITS AT BEDTIME Active Clobetasol Propionate 0.05 % APPLY DAILY TO SKIN TO AFFECTED AREA TWICE A DAY FOR 2 WEEKS Active Meloxicam Active Rosuvastatin Calcium 10 MG TAKE 1 TABLET BY MOUTH EVERY DAY Active Meclizine HCl 25 MG 1 tablet as needed Orally every 12 hrs Active diazePAM 10 MG 1 tablet as needed Orally before closed MRI procedure 04/10/2024 Active Ozempic (2 MG/DOSE) 8 MG/3ML 2 mg Subcutaneous weekly 11/04/2024 Active BD Pen Needle Original U/F 29G X 12.7MM use three times a day to administer insulin use three times a day to administer insulin DX: E11.9 Diabetes 08/07/2020 Active hydroCHLOROthiazide 25 MG 1 tablet every morning Orally Once a day for 90 days Active Basaglar KwikPen 100 UNIT/ML as directed Subcutaneous 50 units every morning and 70 units every evening please dispense one month supply 11/13/2024 Active BD Insulin Syringe U/F 31G X 5/16 1 ML USE WITH INSULIN 5 TIMES DAILY Active Fenofibrate 160 MG TAKE 1 TABLET BY MOUTH EVERY DAY WITH MEALS Active FreeStyle Lite w/Device as directed - patient to test four times a day 10/04/2021 Active Lisinopril 40 MG TAKE 1 TABLET BY MOUTH EVERY DAY for 90 Active metFORMIN HCl 500 MG TAKE 2 TABLETS BY MOUTH TWICE A DAY WITH MEALS Active FreeStyle Lite Test - as directed In Vitro testing four times a day 10/04/2021 Active LORazepam 2 MG 1 tablet at bedtime as needed Orally every 6 hours x 2 days prn anxiety during air travel 07/30/2024 Active Ketoconazole 2 % 1 application Externally Twice a day 10/06/2023 Active NovoLOG 100 UNIT/ML 10-22 units Injection three times a day on sliding scale E11.9 DM (diabetes mellitus) Active Metoprolol Tartrate 25 MG TAKE 1 TABLET BY MOUTH TWICE A DAY WITH FOOD FOR 30 DAYS for 90 Active Immunizations Vaccine Route Administration [...] Problem Status W/U Status Risk Notes Problem 0293875 Former smoker (Z87.891) Active confirmed He is highly motivated not to smoke. He has a plan for prevention of abstinence. We have discussed abstinence today. Problem 091776494 Obesity (E66.9) Active confirmed His body mass index is 37. We discussed diet and nutrition. Continue issues Ebbers her weight loss. Problem DM - Diabetes mellitus (34815470) DM (diabetes mellitus) (E11.9) Active confirmed Comprehensive blood work including A1c was ordered today. No change in his medication was necessary. Problem 064664261 Thrombocytopenia (D69.6) Active confirmed His last platelet count was February 27, 2024. This value was 149,000. He is cleared for surgery. He has had no bleeding. He is not taking aspirin.He had no bleeding during his recent surgery. Problem 9925462 Other specified arthritis, left shoulder (M13.812) Active confirmed He is scheduled to have a left shoulder arthroplasty at [facility]. I have seen and examined him carefully today. Assuming that he is cleared by the auto glass installer he is cleared medically for the surgery. Because of his comorbidities his risk would be higher than that of the average 60-year-old man but I think the risk is acceptable. He has been instructed to take his insulin night before surgery but not thereafter. Problem 69299754 Essential hypertension (I10) Active confirmed His blood pressure is 130/70. No change in his regimen was made today. Problem 95345562 Penicillin allergy (Z88.0) Active confirmed Problem 87586808 Left shoulder pain (M25.512) Active confirmed He has recently undergone shoulder replacement in [place] on the left side.He says he is feeling much better. Problem Diabetes mellitus type 2 in nonobese (983526999) Diabetes mellitus type 2 in nonobese (E11.9) Active confirmed He reports his fasting glucoses about 130 to 135.No changes in his regimen were made today. Problem 200940412 Multinodular thyroid (E04.2) Active confirmed An incidenta l finding on neck arteriography recently was a multinodular thyroid. A thyroid ultrasound has been ordered. Problem Pure hypercholesterolem ia (484595896) Hyperlipidemia type II (E78.01) Active confirmed His lipids have been well controlled. His weight is stable. He was continued on current medication and comprehensive blood work with a lipid profile has been ordered. 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 He did not wish to take an antidepressant . He was given emotional support and close follow-up. Problem 216968994 Benign prostatic hyperplasia, unspecified whether lower urinary tract symptoms present (N40.0) Active confirmed He rises from sleep once or twice a night to urinate. We have discussed lifestyle modifications achromatic reduce nocturia. We have discussed medications he could take. Problem 17351876 Spinal stenosis of lumbar region with neurogenic claudication (M48.062) Active confirmed He has been scheduled for a second laminectomy in [place] in the near future. Platelet count will be checked. Problem 865675494970817 Left foot drop (M21.372) Active confirmed He continues to wear the brace to good effect. His gait is fairly normal. Problem 626643653 Scoliosis of thoracolumbar spine, unspecified scoliosis type (M41.9) Active confirmed Diagnosis stenosing orthopedic facility with spinal stenosis and scoliosis. Debilitating pain and has been scheduled for garry operative procedure. Vital Signs Heart Rate 67 /min 03/17/2025 Temperature 97 degrees Fahrenheit 03/17/2025 Respiratory Rate 14 /min 03/17/2025 Oximetry 100 % 03/17/2025 Blood pressure diastolic 70 mm Hg 03/17/2025 Height 71 in 03/17/2025 Blood pressure systolic 130 mm Hg 03/17/2025 Weight 271 lbs 03/17/2025 BMI 37.79 kg/m2 03/17/2025 Encounters Encounter Location Date Provider Diagnosis Xander Del Rosario III, MD [address] [place] [address] [place] [address] 04/04/2024 Xander Del Rosario Obesity E66.9 ; [...] mellitus) E11.9 Xander Del Rosario III, MD [address] [place] [address] [place] [address] 04/22/2024 Xander Del Rosario Obesity E66.9 ; Form er smoker Z87.891 ; Essential hypertension I10 ; Diabetes mellitus type 2 in nonobese E11.9 and Herniated intervertebral disc of lumbar spine M51.26 Xander Del Rosario III, MD [address] [place] [address] [place] [address] 05/13/2024 Xander Del Rosario Hyperlipidemia type II E78.01 ; Obesity E66.9 ; Former smoker Z87.891 ; Essential hypertension I10 ; Thrombocytopenia D69.6 ; Herniated intervertebral disc of lumbar spine M51.26 ; Reactive depression F32.9 ; Benign prostatic hyperplasia, unspecified whether lower urinary tract symptoms present N40.0 ; Left foot drop M21.372 and Thyroid nodule E04.1 Xander Del Rosario III, MD [address] [place] [address] [place] [address] 08/22/2024 Xander Del Rosario Obesity E66.9 ; Form er smoker Z87.891 ; Essential hypertension I10 ; Thrombocytopenia D69.6 ; Left foot drop M21.372 ; Benign prostatic hyperplasia, unspecified whether lower urinary tract symptoms present N40.0 ; Herniated intervertebral disc of lumbar spine M51.26 ; Other specified arthritis, left shoulder M13.812 and DM (diabetes mellitus) E11.9 Xander Del Rosario III, MD [address] [place] [address] [place] [address] 09/23/2024 Xander Del Rosario Obesity E66.9 ; DM (diabetes mellitus) E11.9 ; Essential hypertension I10 ; Thrombocytopenia D69.6 ; Herniated intervertebral disc of lumbar spine M51.26 ; Hyperlipidemia type II E78.0 ; Former smoker Z87.891 and Left foot drop M21.372 Xander Del Rosario III, MD [address] [place] [address] [place] [address] 11/04/2024 Xander Del Rosario Former smoker Z87.89 1 ; Low back pain M54.5 ; Essential hypertension I10 ; Diabetes mellitus type 2 in nonobese E11.9 ; Obesity E66.9 ; Thrombocytopenia D69.6 ; Herniated intervertebral disc of lumbar spine M51.26 ; Hyperlipidemia type II E78.0 ; Left foot drop M21.372 ; Benign prostatic hyperplasia, unspecified whether lower urinary tract symptoms present N40.0 ; Multinodular thyroid E04.2 and Other specified arthritis, left shoulder M13.812 Xander Del Rosario III, MD [address] [place] [address] [place] [address] 11/25/2024 Xander Del Rosario Former smoker Z87.89 1 ; Left thyroid nodule E04.1 ; Essential hypertension I10 ; Diabetes mellitus type 2 in nonobese E11.9 ; Obesity E66.9 ; Thrombocytopenia D69.6 ; Left shoulder pain M25.512 and Left foot drop M21.372 Xander Del Rosario III, MD [address] [place] [address] [place] [address] 12/23/2024 Xander Del Rosario Former smoker Z87.89 1 ; Diabetes mellitus type 2 in nonobese E11.9 ; Essential hypertension I10 ; Obesity E66.9 and Acute non-recurrent sinusitis of other sinus J01.80 Xander Del Rosario III, MD [address] [place] [address] [place] [address] 02/03/2025 Xander Del Rosario Former smoker Z87.89 1 ; Spinal stenosis of lumbar region with neurogenic claudication M48.062 ; Obesity E66.9 ; Essential hypertension I10 ; Thrombocytopenia D69.6 ; Reactive depression F32.9 ; Scoliosis of thoracolumbar spine, unspecified scoliosis type M41.9 and DM (diabetes mellitus) E11.9 Xander Del Rosario III, MD [address] [place] [address] [place] [address] 03/17/2025 Xander Del Rosario Former smoker Z87.89 1 ; Spinal stenosis of lumbar region with neurogenic claudication M48.062 ; Obesity E66.9 ; Essential hypertension I10 ; Diabetes mellitus type 2 in nonobese E11.9 ; Benign prostatic hyperplasia, unspecified whether lower urinary tract symptoms present N40.0 ; Multinodular thyroid E04.2 and Other specified arthritis, left shoulder M13.812 Xander Del Rosario III, MD [address] [place] [address] [place] [address] 04/08/2024 Xander Del Rosario III, MD [address] [place] [address] [place] [address] 04/08/2024 Xander Del Rosario Obesity E66.9 Xander Del Rosario III, MD [address] [place] [address] [place] [address] 04/10/2024 Xander Del Rosario III, MD [address] [place] [address] [place] [address] 04/15/2024 Xander Del Rosario Obesity E66.9 Xander Del Rosario III, MD [address] [place] [address] [place] [address] 05/03/2024 Xander Del Rosario III, MD [address] [place] [address] [place] [address] 07/11/2024 Xander Del Rosario III, MD [address] [place] [address] [place] [address] 07/30/2024 Xander Del Rosario III, MD [address] [place] [address] [place] [address] 07/30/2024 Xander Del Rosario III, MD [address] [place] [address] [place] [address] 09/30/2024 Xander Del Rosario Multinodular thyroid E04.2 Xander Del Rosario III, MD [address] [facility] [place] [address] 10/02/2024 Xander Del Rosario III, MD [address] [place] [address] [place] [address] 10/02/2024 Xander Del Rosario III, MD [address] [place] [address] [place] [address] 10/21/2024 Xander Del Rosario Urinary tract infect ion without hematuria, site unspecified N39.0 Xander Del Rosario III, MD [address] [place] [address] [place] [address] 10/21/2024 Xander Del Rosario III, MD [address] [place] [address] [place] [address] 11/07/2024 Xander Del Rosario III, MD [address] [place] [address] [place] [address] 11/11/2024 Xander Del Rosario III, MD [address] [place] [address] [place] [address] 11/12/2024 Xander Del Rosario III, MD [address] [place] [address] [place] [address] 11/13/2024 Xander Del Rosario III, MD [address] [place] [address] [place] [address] 11/13/2024 Xander Del Rosario III, MD [address] [place] [address] [place] [address] 12/02/2024 Xander Del Rosario III, MD [address] [place] [address] [place] [address] 12/02/2024 Xander Del Rosario III, MD [address] [place] [address] [place] [address] 12/03/2024 Xander Del Rosario III, MD [address] [place] [address] [place] [address] 12/03/2024 Xander Del Rosario III, MD [address] [place] [address] [place] [address] 01/07/2025 Xander Del Rosario Assessments Encounter Date Diagnosis (ICD Code) Assessment Notes Treat ment Notes Treatment Clinical Notes 04/04/2024 Obesity (ICD-10 - E66.9) He has gained 8 pounds since his last visit. We reviewed his weight loss strategy. He was encouraged to continue to lose weight to his body mass index is in the normal range. Patient has 48 hour holter on now ordered by Gisel LONGO done by [facility] pt will be referred to [facility] for eval when progress notes are completed they will be faxed to [facility] for appt 04/04/2024 Diabetes mellitus ty pe [...] No change in his medication was necessary. 11/04/2024 Former smoker (ICD-1 0 - Z87.891) He is highly motivated not to smoke. He has a plan for prevention of abstinence. We have discussed abstinence today. 11/04/2024 Low back pain (ICD-1 0 - M54.5) He has undergone surgery with decompression in the past. Scheduled for further surgery in [place] on his back in the near future. 11/25/2024 Former smoker (ICD-1 0 - Z87.891) He is highly motivated not to smoke. He has a plan for prevention of abstinence. We have discussed abstinence today. 11/25/2024 Left thyroid nodule (ICD-10 - E04.1) One of the nodules in the midpole of the lef lobe of the thhyroid is 2.5 x 1.9 x 2.0 cm. A biopsy of this nodule is being a range.. 12/23/2024 Former smoker (ICD-1 0 - Z87.891) He is highly motivated not to smoke. He has a plan for prevention of abstinence. We have discussed abstinence today. 12/23/2024 Diabetes mellitus ty pe 2 in nonobese (ICD-10 - E11.9) He has gained 1 pound and is trying to lose weight further. Comprehensive blood work with a hemoglobin A1c and microalbumin have been ordered. Reports a fasting glucose of 140-150. 02/03/2025 Former smoker (ICD-1 0 - Z87.891) He is highly motivated not to smoke. He has a plan for prevention of abstinence. We have discussed abstinence today. 02/03/2025 Spinal stenosis of lumbar region with neurogenic claudication (ICD-10 - M48.062) He has been scheduled for a second laminectomy in [place] in the near future. Platelet count will be checked. 03/17/2025 Former smoker (ICD-1 0 - Z87.891) He is highly motivated not to smoke. He has a plan for prevention of abstinence. We have discussed abstinence today. 03/17/2025 Spinal stenosis of lumbar region with neurogenic claudication (ICD-10 - M48.062) He has been scheduled for a second laminectomy in [place] in the near future. Platelet count will be checked. 04/08/2024 Obesity (ICD-10 - E66.9) 04/15/2024 Obesity (ICD-10 - E66.9) 09/30/2024 Multinodular thyroid (ICD-10 - E04.2) 10/21/2024 Urinary tract infection without hematuria, site unspecified (ICD-10 - N39.0) 04/04/2024 Former smoker (ICD-1 0 - Z87.891) [...] change in his regimen was made today. 11/04/2024 Essential hypertensi on (ICD-10 - I10) His blood pressure is currently stable. No change in his regimen was made today. 11/25/2024 Essential hypertensi on (ICD-10 - I10) His blood pressure is currently stable. No change in his regimen was made today. 12/23/2024 Essential hypertensi on (ICD-10 - I10) His blood pressure has been stable. No change in his regimen was made today. 02/03/2025 Obesity (ICD-10 - E66.9) He weighs 270 pounds his body mass index was 37. He has lost 6 pouunds. He continues on Ozempic 0.5 mg by injection weekly. 03/17/2025 Obesity (ICD-10 - E66.9) His body mass index is 37. We discussed diet and nutrition. Continue issues Ebbers her weight loss. 04/04/2024 Essential hypertensi on (ICD-10 - I10) [...] had no bleeding during his recent surgery. 11/04/2024 Diabetes mellitus ty pe 2 in nonobese (ICD-10 - E11.9) He has gained 1 pound and is trying to lose weight further. Comprehensive blood work with a hemoglobin A1c and microalbumin have been ordered. Reports a fasting glucose of 140-150. 11/25/2024 Diabetes mellitus ty pe 2 in nonobese (ICD-10 - E11.9) He has gained 1 pound and is trying to lose weight further. Comprehensive blood work with a hemoglobin A1c and microalbumin have been ordered. Reports a fasting glucose of 140-150. 12/23/2024 Obesity (ICD-10 - E66.9) His weight has been stable. He continues on Ozempic. 02/03/2025 Essential hypertensi on (ICD-10 - I10) His blood pressure has been stable. No change in his regimen was made today. 03/17/2025 Essential hypertensi on (ICD-10 - I10) His blood pressure is 130/70. No change in his regimen was made today. 04/04/2024 Reactive depression (ICD-10 - F32.9) He [...] in progress and treatment will be available. 11/04/2024 Obesity (ICD-10 - E66.9) He has gained 4 pounds and now weighs 273 with a body mass index is 38.07. He continues on Ozempic. 11/25/2024 Obesity (ICD-10 - E66.9) He has gained 4 pounds and now weighs 273 with a body mass index is 38.07. He continues on Ozempic. 12/23/2024 Acute non-recurrent sinusitis of other sinus (ICD-10 - J01.80) He reports that the sinus suction has resolved. 02/03/2025 Thrombocytopenia (ICD-10 - D69.6) His last platelet count was February 27, 2024. This value was 149,000. He is cleared for surgery. He has had no bleeding. He is not taking aspirin.He had no bleeding during his recent surgery. 03/17/2025 Diabetes mellitus ty pe 2 in nonobese (ICD-10 - E11.9) He reports his fasting glucoses about 130 to 135.No changes in his regimen were made today. 04/04/2024 Herniated intervertebral disc of lumbar spine [...] no change in his regimen was made. 11/04/2024 Thrombocytopenia (ICD-10 - D69.6) His last platelet count was February 27, 2024. This value was 149,000. He is cleared for surgery. He has had no bleeding. He is not taking aspirin.He had no bleeding during his recent surgery. 11/25/2024 Thrombocytopenia (ICD-10 - D69.6) His last platelet count was February 27, 2024. This value was 149,000. He is cleared for surgery. He has had no bleeding. He is not taking aspirin.He had no bleeding during his recent surgery. 02/03/2025 Reactive depression (ICD-10 - F32.9) He has lost his Perdomo feels very sad. He did not wish to take an antidepressant. He was given emotional support and close follow-up. 03/17/2025 Benign prostatic hyperplasia, unspecified whether lower urinary tract symptoms present (ICD-10 - N40.0) He rises from sleep once or twice a night to urinate. We have discussed lifestyle modifications achromatic reduce nocturia. We have discussed medications he could take. 04/04/2024 Thrombocytopenia (ICD-10 - D69.6) The most [...] of abstinence. We have discussed abstinence today. 11/04/2024 Herniated intervertebral disc of lumbar spine (ICD-10 - M51.26) He continues to have back pain radiates down his leg. He has seen a neurosurgeon. This workup is in progress and treatment will be available. 11/25/2024 Left shoulder pain (ICD-10 - M25.512) He has recently undergone shoulder replacement in [place] on the left side.He says he is feeling much better. 02/03/2025 Scoliosis of thoracolumbar spine, unspecified scoliosis type (ICD-10 - M41.9) Diagnosis stenosing orthopedic facility with spinal stenosis and scoliosis. Debilitating pain and has been scheduled for garry operative procedure. 03/17/2025 Multinodular thyroid (ICD-10 - E04.2) An incidental finding on neck arteriography recently was a multinodular thyroid. A thyroid ultrasound has been ordered. 04/04/2024 Hyperlipidemia type II (ICD-10 - E78.01) [...] to have a left shoulder arthroplasty at [facility]. I have seen and examined him carefully today. Assuming that he is cleared by the auto glass installer he is cleared medically for the surgery. [...] good effect. His gait is fairly normal. 11/04/2024 Hyperlipidemia type II (ICD-10 - E78.0) His lipids are currently stable and no change in his regimen was made. 11/25/2024 Left foot drop (ICD- 10 - M21.372) He continues to wear the brace to good effect. His gait is fairly normal. 02/03/2025 DM (diabetes mellitu s) (ICD-10 - E11.9) Comprehensive blood work including A1c was ordered today. No change in his medication was necessary. 03/17/2025 Other specified arthritis, left shoulder (ICD-10 - M13.812) He is scheduled to have a left shoulder arthroplasty at [facility]. I have seen and examined him carefully today. Assuming that he is cleared by the auto glass installer he is cleared medically for the surgery. Because of his comorbidities his risk would be higher than that of the average 60-year-old man but I think the risk is acceptable. He has been instructed to take his insulin night before surgery but not thereafter. 04/04/2024 Left foot drop (ICD- 10 - [...] weight. No change his medications was made. 11/04/2024 Left foot drop (ICD- 10 - M21.372) He continues to wear the brace to good effect. His gait is fairly normal. 04/04/2024 Benign prostatic hyperplasia, unspecified whether lower urinary tract symptoms present (ICD-10 - N40.0) He rises from sleep once a night, sometimes twice. We discussed lifestyle modification as a way of reducing nocturia. 05/13/2024 Thyroid nodule (ICD- 10 - E04.1) He has been referred to endocrinology for a biopsy. 11/04/2024 Benign prostatic hyperplasia, unspecified whether lower urinary tract symptoms present (ICD-10 - N40.0) He rises from sleep once a night, sometimes twice. We discussed lifestyle modification as a way of reducing nocturia. 04/04/2024 DM (diabetes mellitu s) (ICD-10 - E11.9) He was continued on his diabetic regimen today. He will try and lose weight. No change his medications was made. 11/04/2024 Multinodular thyroid (ICD-10 - E04.2) An incidental finding on neck arteriography recently was a multinodular thyroid. A thyroid ultrasound has been ordered. 11/04/2024 Other specified arthritis, left shoulder (ICD-10 - M13.812) He is scheduled to have a left shoulder arthroplasty at [facility]. I have seen and examined him carefully today. Assuming that he is cleared by the auto glass installer he is cleared medically for the surgery. Because of his comorbidities his risk would be higher than that of the average 60-year-old man but I think the risk is acceptable. He has been instructed to take his insulin night before surgery but not thereafter. Plan Of Treatment Pending Test Test Name Order Date PROFILE, FASTING (COMPREHENSIVE METABOLI C) 12/23/2024 PROFILE, FASTING (COMPREHENSIVE METABOLI C) 11/04/2024 PROFILE, FASTING (COMPREHENSIVE METABOLI C) 03/17/2025 TSH (THYROID STIMULATING HORMONE) 2024 PSA, TOTAL 03/17/2025 CBC w DIFF 11/04/2024 CBC w DIFF 03/17/2025 MRI LUMBAR SPINE NO CONTRAST 11/10/2017 MRI LUMBAR SPINE NO CONTRAST 04/27/2021 MRI PELVIS NO CONTRAST 04/27/2021 XR LUMBAR SPINE 4+ VIEWS 11/03/2017 CBC WITH AUTO DIFF 12/23/2024 Lipid Panel 11/04/2024 Lipid Panel 03/17/2025 Lipid Panel 12/23/2024 Free T4 (Free Thyroxine) 11/04/2024 Microalbumin, Random 03/17/2025 Microalbumin, Random 11/04/2024 Hemoglobin A1c 11/04/2024 Hemoglobin A1c 12/23/2024 Hemoglobin A1c 03/17/2025 Next Appt Details Provider Name:Xander Del Rosario, 05/14/2025 10:00:00 AM, [address] [place] [address] [address], [place], [address], Insurance Providers Payer Name Payer Address Payer Phone Subscriber Number Group Number Insured Name Patient Relationship to Insured Coverage Start Date Coverage End Date MEDICARE NGS [address] [place] [phone] [id number] Ap Jones Self - patient is the insured [facility] CLAIM DIV [address] [place] [address] [id number] Ap Jones Self - patient is the insured Medical (General) History Medical History History ICD Code diabetes mellitus obesity hypertension penicillin allergy erythromycin allergy back pain herniated disc lumbosacral pain hyperlipidemia Mild aortic stenosis Bicuspid aortic multiple thyroid nodules Surgical History Surgery Date(Month/Year) Right hip surgery - scoped, no complicat ions since. Shoulder replacement surgery - august 29, [facility] 07/2024 Left shoulder replacement 08/29/[address] Jones 01/2018 cardiac catheterization: 25% LAD, EF 65% 02/2011 right hip arthroplasty fractured left ankle laminectomy of the spine Hospitalization History Reason Date(Month/Year) Left shoulder replacement, 2024 intomas [facility] due to hypertension/dehydrati on/vertigo 03/16/2024
--- NOTE | 2025-04-02 10:17 | PM.PROC ---
Brief Operative Note Date of procedure: 04/02/25 Pre-op diagnosis: right mid pole 2.2 cm thyroid nodule FNA biopsy Post-op diagnosis: same Procedure: THYROID FINE NEEDLE ASPIRATION PROCEDURE NOTE ? PROCEDURE PERFORMED: Ultrasound-guided FNA of thyroid nodule ? OPERATORS: Dr. Laura Villatoro ? INDICATION: right mid pole 2.2 cm thyroid nodule ; FNA performed to assess for malignancy ? DESCRIPTION OF PROCEDURE: The indications for FNA (to assess for malignancy) were reviewed with the patient in detail. Potential complications (e.g., bleeding, infection, damage to local structures, absence of clear diagnosis after FNA) were reviewed. Alternatives to FNA including conservative observation or surgery were described. The patient understood and agreed to proceed. This was documented by the signing of the written informed consent form. A time-out was performed to confirm the patient's identity and the site of planned FNA. The nodule of interest was identified using ultrasound (14 MHz linear array probe). The site of FNA was then draped in the usual fashion and carefully cleaned and prepared using alcohol swabs. The skin at the previously-identified site of needle insertion was iced and sprayed with numbing spray. Under ultrasound guidance, _5_ passes were performed using a 1.5-inch, 25-gauge needle, and sample was obtained via capillary action. The needle tip was clearly visualized to be within the nodule at the time of sampling for _5_ of 5__ passes The patient tolerated the procedure well. There were no immediate complications. A small adhesive bandage was applied, and the patient was advised to take acetaminophen (rather than NSAIDs) for any discomfort and to report any signs of inflammation/infection or marked swelling. IMPRESSION: Technically successful ultrasound-guided fine needle aspiration of right mid pole 2.2 cm thyroid nodule . PLAN: The patient was advised that I will provide follow-up regarding the cytology result and any subsequent plans. Laura Villatoro MD Endocrinology Attending Condition: stable Disposition: same day
== END 2025-04-02 09:43 | disposition home or self-care (01) ==
LOC: HO.US 09:42
PROVIDERS: PCP Internal Medicine Medical Oncology; Visit Provider Student in an Organized Health Care Education/Training Program
DX: E04.2 Nontoxic multinodular goiter (principal)
CPT/HCPCS: 10005; 88173; 88305

== ENCOUNTER → 2025-04-02 09:42 | Outpatient (BNV) | payer MEDICARE, SELFPAY | PROVIDERS: PCP Internal Medicine Medical Oncology; Visit Provider Student in an Organized Health Care Education/Training Program | DX: E04.1 Nontoxic single thyroid nodule (principal) | CPT/HCPCS: 10005 ==

== ENCOUNTER 2025-04-23 12:37 | Outpatient (AMB) | payer MEDICARE, SELFPAY ==
--- NOTE | 2025-04-23 12:39 | A.OFFVIS_ITS ---
Vital Signs 3 04/23/25 12:40 Height 5 ft 11 in Weight 267 lb 10.259 oz BMI 37.3 BP 138/78 Blood Pressure Location Lt brachial Position Sitting Pulse 84 Pulse Source Pulse Oximeter Pulse Oximetry (%) 96 Oxygen Delivery Method Room Air Intake Visit Reasons: Biopsy f/u Intake Note: Patient present today for follow up to biopsy. Appeals Specialist Required: No Accompanied by: Self / Same As Patient Allergies Penicillins Allergy (Severe, Verified 04/23/25 12:45) Anaphylaxis ciprofloxacin Allergy (Verified 04/23/25 12:45) Rash erythromycin base Adverse Reaction (Intermediate, Verified 04/23/25 12:45) GI upset HPI Comments Details: 59-year-old male here today for follow up of multinodular goiter. HPI from prior visit Ultrasound thyroid from March 2024, I reviewed the images myself showed a right midpole 2.2 cm solid, hypoechoic TR 4 category nodule, this med criteria for FNA. On the left side there was a left upper/midpole 2.6 cm nodule which was solid isoechoic TR 3 category. Another left mid lobe 2.3 cm solid, isoechoic TR 3 category nodule. Ultrasound of the thyroid was repeated in September 2024 which I reviewed the images myself showed a right midpole 2 cm solid hypoechoic TR 4 category nodule which meets criteria for FNA, the left mid superior pole nodule had decreased somewhat in size to 1.9 cm in the maximum dimension which is solid, isoechoic TR 3 category. We can monitor this for now. The left midpole 2.5 cm nodule, is stable in size however solid, hypoechoic/isoechoic with punctate echogenic foci, TR 5 category. This also meets criteria for FNA. Patient currently denies heat or cold intolerance, diarrhea or constipation, hair loss, palpitation, anxiety, , mood changes, low energy, changes in appearance of eyes or vision changes, tremors, increased diaphoresis or dry skin. Lost 40 lbs trying to lose weight. ? Patient denies any difficulty swallowing, pain on swallowing or voice changes or difficulty breathing. Patient denies any history of childhood neck radiation. Denies having ever used lithium, amiodarone or biotin supplements. Patient denies any family history of thyroid cancer or thyroid disease. Normal TFTs from October 2024. 01/08/2025: Underwent FNA of the right midpole 2 cm nodule which came back as nondiagnostic, [place] category 1. Also underwent FNA of the left midpole 2.5 cm nodule which came back as benign [place] category 2. Interval history 04/02/2025: Status post repeat FNA of the right midpole 2.2 cm nodule which again came back as nondiagnostic, [place] category 1. Physical exam General: sitting comfortably in no acute distress HEENT: normocephalic/atraumatic, Neck: supple, palpable 2 cm right-sided nodule, palpable 2 cm left-sided nodule Cardiac: normal heart sounds Pulm: normal breath sounds B/L, no added breath sounds Abd: not distended, no tenderness Extremities: no edema, no signs of myxedema Labs 11/25/2024 US THYROID 10/14/24 CLINICAL INFORMATION: Multinodular goiter COMPARISON: Ultrasound thyroid 04/02/2024 TECHNIQUE: Linear transducer grayscale and color Doppler examination with attention to the region of the thyroid. FINDINGS: SIZE: Measurements of the thyroid lobes and nodules are given in sagittal, anteroposterior and transverse dimensions respectively. Right Thyroid Lobe: 6.1 x 2.1 x 2.2 cm, volume 14.7 mL. Parenchyma: The gland echotexture is homogeneous. Thyroid vascularity is normal. Left Thyroid Lobe: 5.5 x 2.4 x 2.4 cm, volume 16.7 mL. Enlarged. Parenchyma: The gland echotexture is heterogeneous. Thyroid vascularity is normal. Isthmus: 0.6 cm in maximum AP dimension. Previously measured 0.5 cm Estimated total number of nodules greater than or equal to 1 cm: 3. [facility] nodules are described as follows: 1. Location: Right mid pole. Size: 2.0 x 1.0 x 1.9 cm, volume 2.0 mL. Previously measured 2.2 x 1.2 x 2.0 cm volume 2.7 mL Nodule characteristics: Composition: Solid (2). Echogenicity: Hyperechoic (1). Shape: Wider Margins: Smooth (0). Echogenic Foci: None (0). ACR TI-RADS total points: 4 ACR TI-RADS category: 4 2. Location: Left midpole. Size: 1.9 x 0.9 x 1.8 cm, volume 1.6 mL. Previously measured 2.6 x 1.8 x 1.7 cm and volume 4.2 Nodule characteristics: Composition: Solid (2). Echogenicity: Isoechoic (1). Shape: Wider Margins: Smooth (0). Echogenic Foci: None (0). ACR TI-RADS total points: 3 ACR TI-RADS category: 2 3. Location: Left midpole. Size: 2.5 x 1.9 x 2.0 cm, volume 5.0 mL. Previously measured 2.3 x 1.8 x 1.9 cm Nodule characteristics: Composition: Solid (2). Echogenicity: Hyperechoic (1). Shape: Wider Margins: Smooth (0). Echogenic Foci: None (0 ACR TI-RADS total points: 7 ACR TI-RADS category: Large 5 NODES: No lymphadenopathy is seen in the tissue surrounding the thyroid gland. US/US thyroid IMPRESSION: Enlarged left thyroid lobe. Bilateral nodules are stable compared to previous exam 04/02/2024. There is unchanged in total points and antibiotics in mid pole left thyroid nodule. I would recommend a biopsy of this nodule. US THYROID 04/02/24 CLINICAL INFORMATION: Thyroid, and nontoxic, single thyroid nodule COMPARISON: None available. TECHNIQUE: Linear transducer grayscale and color Doppler examination with attention to the region of the thyroid. FINDINGS: SIZE: Measurements of the thyroid lobes and nodules are given in sagittal, anteroposterior and transverse dimensions respectively. Right Thyroid Lobe: 6.8 x 2.0 x 2.6 cm, volume 18.3 mL. Parenchyma: The gland echotexture is homogeneous. Thyroid vascularity is normal. Left Thyroid Lobe: 5.7 x 2.3 x 2.5 cm, volume 16.9 mL. Parenchyma: The gland echotexture is homogeneous. Thyroid vascularity is normal. Isthmus: 0.5 cm in maximum AP dimension. Estimated total number of nodules greater than or equal to 1 cm: 3. [facility] nodules are described as follows: 1. Location: Right mid. Size: 2.2 x 1.2 x 2.0 cm, volume 2.7 mL. Nodule characteristics: Composition: Solid (2). Echogenicity: Hypoechoic (2). Shape: Not taller than wide (0). Margins: Smooth (0). Echogenic Foci: None (0. ACR TI-RADS total points: 4 ACR TI-RADS category: 4 2. Location: Left mid Size: 2.6 x 1.8 x 1.7 cm, volume 4.2 mL. Nodule characteristics: Composition: Mixed cystic and solid (1). Echogenicity: Isoechoic (1). Shape: Not taller than wide (0). Margins: Smooth (0). Echogenic Foci: None (0. ACR TI-RADS total points: 2 ACR TI-RADS category: 2 3. Location: Left lateral mid Size: 2.3 x 1.8 x 1.9 cm, volume 4.0 mL. Nodule characteristics: Composition: Mixed cystic and solid (1). Echogenicity: Isoechoic (1). Shape: Not taller than wide (0). Margins: Smooth (0). Echogenic Foci: None (0). ACR TI-RADS total points: 2 ACR TI-RADS category: 2 NODES: No lymphadenopathy is seen in the tissue surrounding the thyroid gland. US/US thyroid IMPRESSION: 1. Enlarged homogeneous thyroid gland. 2. 2.2 cm nodule in the mid right lobe, TR 4, fulfills the criteria for FNA. Biopsy should be considered. 3. No further follow-up of the 2 other nodules seen within the thyroid gland. [facility] Medical History Multinodular goiter Surgical History History of biopsy History of left shoulder replacement Physical Exam Vital Signs: Last Vital Signs Pulse 84 04/23/25 12:40 BP 138/78 04/23/25 12:40 Pulse Ox 96 04/23/25 12:40 Oxygen Delivery Method Room Air 04/23/25 12:40 BMI result Body Mass Index 37.3 Assessment & Plan Assessment & Plan (1) Multinodular goiter: Code(s): E04.2 - Nontoxic multinodular goiter Category: Medical Plan: 59-year-old male here today for follow up of multinodular goiter. Ultrasound thyroid from March 2024, I reviewed the images myself showed a right midpole 2.2 cm solid, hypoechoic TR 4 category nodule, this med criteria for FNA. On the left side there was a left upper/midpole 2.6 cm nodule which was solid isoechoic TR 3 category. Another left mid lobe 2.3 cm solid, isoechoic TR 3 category nodule. Ultrasound of the thyroid was repeated in September 2024 which I reviewed the images myself showed a right midpole 2 cm solid hypoechoic TR 4 category nodule which meets criteria for FNA, the left mid superior pole nodule had decreased somewhat in size to 1.9 cm in the maximum dimension which is solid, isoechoic TR 3 category. We can monitor this for now. The left midpole 2.5 cm nodule, is stable in size however solid, hypoechoic/isoechoic with punctate echogenic foci, TR 5 category. This also meets criteria for FNA. 01/08/2025: Underwent FNA of the right midpole 2 cm nodule which came back as nondiagnostic, [place] category 1. Also underwent FNA of the left midpole 2.5 cm nodule which came back as benign [place] category 2. 04/02/2025: Status post repeat FNA of the right midpole 2.2 cm nodule which again came back as nondiagnostic, [place] category 1. I explained to the patient that benign results me less than 3% chance of malignancy. This nodule we will just need follow up imaging. For the right midpole 2 cm nodule came back as nondiagnostic x2, which could yield a 5-20% risk of malignancy, however overall it appears low risk, we will keep an eye on this 1 as well.. Plan: -ordered ultrasound of the thyroid to be done in February 2026 with follow up in March 2026 -ordered TSH and free T4 to be done prior to follow up in March 2026 Plan See above Orders: Orders 2 US thyroid 03/16/26 E04.2 - Nontoxic multinodular goiter TSH reflex Free T4 03/16/26 E04.2 - Nontoxic multinodular goiter Patient Instructions: Do ultrasound of the thyroid in February 2026, someone we will call you to schedule this, please make sure this is done a few weeks prior to your follow up in March 2026 Do blood work a few days prior to your follow up in 03/2026, orders placed. Coding Level of Care Code Est Pt Level 3 (34493) Diagnoses Multinodular goiter E04.2
[2025-04-23 12:40] VITALS: BP 138/78; PULSE 84; O2SAT 96; BMI 37.3
--- OUTSIDE RECORDS SUMMARY | 2025-04-23 14:39 | XMS_ITS | Patient Health Record ---
Author Organization Xander Del Rosario III, MD Address [address] [place] [address] [place] [address] Care Team Providers Care Lurer Name Role Phone Xander Del Rosario Primary [...] 0.2 - 1.3 BLD Negative Negative - CSF Glucose Reviewed date:06/30/2024 07:26:08 AM Interpretation: Performing Lab:[facility], [address] [place] [address] Notes/Report: CSF Appearance Clear, Colorless RBC butto n present CSF Tube # 1 Glucose CSF 118 CSF Total Protein Reviewed date:06/30/2024 07:26:08 AM Interpretation: Performing Lab:[facility], [address] [place] [address] Notes/Report: Total Protein CSF 80.3 15-45 mg/dL CSF Cell Count w Diff Reviewed date:06/30/2024 07:26:08 AM Interpretation: Performing Lab:[facility], [address] [place] [address] Notes/Report: Appearance CSF CLEAR CSF Tube # [...] CSF Reviewed date:06/30/2024 07:26:08 AM Interpretation: Performing Lab:[facility], [address] [place] [address] Notes/Report: Albumin 5.0 3.6-5.1 g/dL THIS TEST WAS PERFORMED AT: [facility]/[address] [address] ROXANA MENDIETA MD,PHD IgG [phone] mg/dL IgG, CSF 4.2 0.8-7.7 mg/dL Albumin, [...] Banding Reviewed date:06/30/2024 07:26:08 AM Interpretation: Performing Lab:[facility], [address] [place] [address] Notes/Report: Oligoclonal Banding Absent Absent No Oligoclonal bands are identified in the patient's CSF when compared to the corresponding serum sample. Oligoclonal bands are present in the CSF of more than 85% of patients with clinically definite multiple sclerosis (MS). To distinguish between oligoclonal bands in the CSF due to a peripheral gammopathy and oligoclonal bands due to local production in the NUTRITION SPECIALIST, serum and CSF should be tested simultaneously. Oligoclonal bands can however be observed in a variety of other diseases, e.g., subacute sclerosing panen- cephalitis, inflammatory polyneuropathy, NUTRITION SPECIALIST lupus, and brain tumors and infarctions. The clinical significance of a numerical band count, determined by isoelectric focusing, has not been definitively defined. The data should be interpreted in conjunction with all pertinent clinical and laboratory data for this patient. THIS TEST WAS PERFORMED AT: [facility]/[address] [address] ROXANA MENDIETA MD,PHD Gram stain Reviewed date:06/30/2024 07:26:08 AM Interpretation: Performing Lab:[facility], [address] [place] [address] Notes/Report: TUBE #2 Gram stain Gram stain results: Gram stain No polys Gram stain 3+ red blood cells Gram stain No organisms seen CSF Volume Reviewed date:06/30/2024 07:26:08 AM Interpretation: Performing Lab:[facility], [address] [place] [address] Notes/Report: TUBE #2 CSF Volume CSF volume mL CSF Volume 2 Appearance Reviewed date:06/30/2024 07:26:08 AM Interpretation: Performing Lab:[facility], [address] [place] [phone] Notes/Report: TUBE #2 Appearance Appearance Appearance Clear Appearance COLORLESS CSF Culture Reviewed date:06/30/2024 07:26:08 AM Interpretation: Performing Lab:[facility], [address] [place] [phone] Notes/Report: TUBE #2 CSF Culture No growth after 3 days. FL guided lumbar puncture LP Reviewed date:06/30/2024 07:26:08 AM Interpretation: Performing Lab: Notes/Report: [address] [address] Fluoroscopy Report Signed Patient: Ap Jones MR#: [id number] 41 : 1965 Acct:[id number] Age/Sex: 58 / M ADM Date: 06/12/24 Loc: [facility] Attending Dr: Rona Ríos MD Ordering Physician: Rona Ríos MD Date of Service: 06/12/24 Procedure(s): FL guided lumbar puncture LP Accession Number(s): [id number] cc: Xander Del Rosario MD; Rona Ríos [...] in OV> 06/12/24 1557 DD/ 1150 TD/TT: [place]: [place] [address] Fluoroscopy Report Signed Patient: Lui Jones MR#: [id number] 41 : 1965 Acct:[id number] Age/Sex: 58 / M ADM Date: 06/12/24 Loc: [facility] Attending Dr: Sharri Ríos MD Ordering Physician: Rona Ríos MD Date of Service: 06/12/24 Procedure(s): FL forrest ded lumbar puncture LP Accession Number(s): [id number] cc: Xander Del Rosario MD; Rona Ríos MD FLUOROSCOPIC GUIDED LUMBAR PUNCTURE INDICATION: Peripher al neuropathy. History of L4-5 laminectomy Risks and benefits a nd possible complications were discussed with the patient and the cons ent form was signed. Patient was placed prone on the fluoroscopy tabl e. The back was prepped and draped in routine sterile fashion. Bet adine was used as a skin antiseptic. Utilizing fluoroscopic guidanc e, the laminectomy space at the level of L4-L5 was accessed with a 22 g auge quinkie spinal needle and clear CSF fluid obtained. Opening pr essure was 16 cm H20. 9 cc of fluid was sent for analysis. The needle was removed without immediate complications. Total fluoroscopy ti me: 1.2 min F L/FL guided lumbar puncture LP IMPRESSION: Successf ul fluoroscopic lumbar puncture at the level of L4/L5. This procedure was performed by Francisco Humphreys PA-C and supervised by Dr. Cameron. Dictated By: Jarret Humphreys Signed By: <Electron ically signed by Francisco Humphreys in OV> 06/12/24 1554 <Electronically sign ed by Kodi Cameron MD in OV> 06/12/24 1557 DD/ 1150 TD/TT: [place]: US thyroid Reviewed date:12/06/2024 09:31:56 AM Interpretation: Performing Lab: Notes/Report: [address] [address] Ultrasound Report Signed Patient: Ap Jones MR#: [id number] 41 : 1965 Acct:[id number] Age/Sex: 59 / M ADM Date: 10/14/24 Loc: HO.US Attending Dr: Xander Del Rosario MD Ordering Physician: Xander Del Rosario MD Date of Service: 10/14/24 Procedure(s): US thyroid Accession Number(s): [id number] cc: Xander Del Rosario MD EXAMINATION: US [...] than or equal to 1 cm: 3. Warper Creeler nodules are described as follows: 1. Location: [...] by: Chase Richard MD 11/12/2024 03:38 PM [facility] Dictated By: Chase Richard MD Signed By: <Electronically signed by Chase Richard MD in OV> 11/12/24 1538 DD/ 0908 TD/TT: 10/14/24 0916 [place]: [place] [address] Ultrasound Report Signed Patient: Lui Jones MR#: [id number] 41 : 1965 Acct:[id number] Age/Sex: 59 / M ADM Date: 10/14/24 Loc: HO.US Attending Dr: Xander Del Rosario MD Ordering Physician: Xander Del Rosario MD Date of Service: 10/14/24 Procedure(s): US thyroid Accession Number(s): [id number] cc: Xander Del Rosario MD EXAMINATION: US THYROID CLINICAL INFORMATION: Multinodular goiter COMPARISON: Ultrasound thyroid 04/02/2024 TECHNIQUE: Linear transducer grayscale and color Doppler examination with attention to the reg ion of the thyroid. FINDINGS: SIZE: Measurements o f the thyroid lobes and nodules are given in sagittal, anteropost erior and transverse dimensions respectively. Right Thyroid Lobe: 6.1 x 2.1 x 2.2 cm, volume 14.7 mL. Parenchyma: The glan d echotexture is homogeneous. Thyroid vascularity is normal. Left Thyroid Lobe: 5 .5 x 2.4 x 2.4 cm, volume 16.7 mL. Enlarged. Parenchyma: The glan d echotexture is heterogeneous. Thyroid vascularity is normal. Isthmus: 0.6 cm in m aximum AP dimension. Previously measured 0.5 cm Estimated total numb er of nodules greater than or equal to 1 cm: 3. Warper Creeler nodul es are described as follows: 1. Location: Right m id pole. Size: 2.0 x 1.0 x 1. 9 cm, volume 2.0 mL. Previously measured 2.2 x 1.2 x 2.0 cm volume 2.7 mL Nodule characteristics: Composition: Solid (2). Echogenicity: Hypere choic (1). Shape: Wider Margins: Smooth (0). Echogenic Foci: None (0). ACR TI-RADS total po ints: 4 ACR TI-RADS category: 4 2. Location: Left midpole. Size: 1.9 x 0.9 x 1. 8 cm, volume 1.6 mL. Previously measured 2.6 x 1.8 x 1.7 cm and vol ume 4.2 Nodule characteristics: Composition: Solid (2). Echogenicity: Isoech oic (1). Shape: Wider Margins: Smooth (0). Echogenic Foci: None (0). ACR TI-RADS total po ints: 3 ACR TI-RADS category: 2 3. Location: Left midpole. Size: 2.5 x 1.9 x 2. 0 cm, volume 5.0 mL. Previously measured 2.3 x 1.8 x 1.9 cm Nodule characteristics: Composition: Solid (2). Echogenicity: Hypere choic (1). Shape: Wider Margins: Smooth (0). Echogenic Foci: None (0 ACR TI-RADS total po ints: 7 ACR TI-RADS category : Large 5 NODES: No lymphadeno lita is seen in the tissue surrounding the thyroid gland. U S/US thyroid IMPRESSION: Enlarged left thyroi d lobe. Bilateral nodules ar e stable compared to previous exam 04/02/2024. There is unchanged in tota l points and antibiotics in mid pole left thyroid nodule. I would laura mmend a biopsy of this nodule. ACR TI-RADS RECOMMEN DATION REFERENCE: Ultrasound-guided fine-needle aspiration, followup ultrasound, no [...] or equal to 1 cm in maximum dimens ion, followup ultrasound every year for 5 years if 0.5 to 0.9 cm in max imum dimension. * TR3, TR4 or TR5 no dules that are below the size threshold for followup receive no follow up. Electronically sandoval d by: Chase Richard MD 11/12/2024 03:38 PM [facility] Dictated By: Mr hany Richard MD Signed By: <[facility]ron [facility] Chase Richard MD in OV> 11/12/24 1538 DD/ 7 TD/TT: 10/14/24915 [place]: [facility] Pathology Reviewed date:02/08/2025 04:55:00 AM Interpretation: Performing Lab:[facility], [address] [place] [phone] Notes/Report: ------ Name: AubreyAp Age/Sex: 59/M : 1965 Unit#: [id number] Attend Dr: Laura Villatoro MD Re01/08/25 Status : DEP REF Location: [facility] Disch: ------ SPEC : [id number] REC STATUS: MIRANDA FELIX NUM: [id number] JONO: 01/08/[address] [facility] [address]: Laura Villatoro MD ENTERED: 01/09/25 SP TYPE: Cytology OTHR DR: Xander Del Rosario MD ORDERED: Cell Block, Fine Ndl Asp/2 Diagnosis A. Thyroid, right mi d pole 2 cm nodule, fine needle aspiration: Non-diagnostic (Morganza category I). COMMENT (A): Blood, fibrin and peripheral blood elements only. No follicular epithelial cells identified. Th e cell block is acellular and non-contributory. B. Thyroid, left mid pole 2.5 cm nodule, fine needle aspiration: Benign (Morganza category II). COMMENT (B): Satisfa ctory for evaluation; moderately cellular specimen. Groups of [...] Material Received A. Right mid 2 cm th yroid nodule FNA biopsy B. Left mid 2.5 cm t hyroid nodule FNA biopsy Gross Description A. Received is 30 cc of clear red fluid from which a ThinPrep slide and cell block are prepared. B. Received is 30 cc of clear, colorless fluid from which a ThinPrep slide is prepared. Copies To: Xander Del Rosario MD [address] [place] [address], [address] [place] [address] Laura Villatoro MD [facility] Endocrinology [address] [place] [address] [address] [place] [address] [email or web address] CONTINUED ON NEXT PAGE ------ Name: Ap Jones Age/Sex: 59/M : 1965 Unit#: [id number] Attend Dr: Laura Villatoro MD Re01/08/25 Status : DEP REF Location: [facility] Disch: ------ SPEC : [id number] RECD : 01/09/25 STATUS: MIRANDA FELIX NUM: [id number] JONO: 01/08/[address] [facility] [address]: Laura Villatoro MD ENTERED: 01/09/25-05 21 SP TYPE: Cytology OTHR DR: Xander Del Rosario MD ORDERED: Dalia Berrios Asp/2 ------ Signed (signature on file) Philipp Andrade MD 01/10/25 4747 ------ END OF REPORT Pathology (Not yet reviewed by provider) Interpretation: Performing Lab:[facility], [address] [place] [phone] Notes/Report: ------ Name: Ap Jones Age/Sex: 59/M : 1965 Unit#: [id number] Attend Dr: Laura Villatoro MD Re04/02/25 Status : DEP REF Location: [facility] Disch: ------ SPEC : [id number] RECD : 04/02/25-114 STATUS: MIRANDA FELIX NUM: [id number] JONO: 04/02/25-[address] [facility] [address]: Laura Villatoro MD ENTERED: 04/02/25-12 02 SP TYPE: Cytology OTHR DR: Xander Del Rosario MD ORDERED: Cell Block, Fine Ndl Asp Diagnosis Thyroid, right mid n odule, fine needle aspiration: Non-diagnostic (Morganza category I). COMMENT: Review of t he cytology preparation demonstrates rare follicular groups. The cell block shows sca nt material. The follicular cell cellularity is insufficient therefore, specimen is non-diagnostic. A repeat aspiration should be considered if clinically indicated. Clinical History Right mid pole 2.2 c m thyroid nodule FNA biopsy, was previously biopsied 01/08/2025 with non- diagnostic cytology Material Received Right mid pole 2.2 c m thyroid nodule FNA biopsy Gross Description Received are 31 cc o f bloody tinged CytoLyt fluid from which a ThinPrep slide and cell block are prepared. IHC S/NG Disclaimer NOTE: Unless otherwi se stated, all tissue is formalin-fixed and paraffin-embedded. Some or all of the immunohistochemical tests reported herein may have been developed and their performance characteristics determined by [facility]. They have not been cleared or appr laurel by the U.S. Food and Drug Administration (FDA). However, the FDA has determined that such clearance or approval is not necessary. This laboratory is certified under the Clinical Laboratory Improvement Amendments of 1988 (CLIA) as qualified to perform high comp lexity clinical laboratory testing. Copies To: Xander Del Rosario MD [address] [place] [address], [address] [place] [address] Laura Villatoro MD [facility] Endocrinology [address] [place] [address] [address] [place] [address] CONTINUED ON NEXT PAGE ------ Name: Ap Jones Age/Sex: 59/M : 1965 Unit#: [id number] Attend Dr: Laura Villatoro MD Re04/02/25 Status : DEP REF Location: [facility] Disch: ------ SPEC : [id number] RECD : 04/02/25 STATUS: MIRANDA FELIX NUM: [id number] JONO: 04/02/25-[address] [facility] [address]: Laura Villatoro MD ENTERED: 04/02/25 SP TYPE: Cytology OTHR DR: Xander Del Rosario MD ORDERED: Cell Block, Fine Ndl Asp Copies To: (Continued) [email or web address] ------ Signed (signature on file) Marybeth Ang MD 04/03/25 1038 ------ END OF REPORT Reason For Referral Reason Evaluate and Treat Thyroid Nodule that meets criteria for biospy Diagnosis 1 Thyroid nodule (E04. 1) Referral Organization Xander Del Rosario III, MD Referring Provider First Name Xander Referring Provider Last Name Carin Referring Provider Speciality Internal M edicine Referred Provider [facility] Referred Provider Specialty [...] administer insulin DX: E11.9 Diabetes 08/07/2020 Active FreeStyle Lite Test - as directed In Vitro testing four times a day 10/04/2021 Active NovoLOG 100 UNIT/ML 10-22 units Injection three times a day on sliding scale for 90 days DX: Diabetes E11.9 Active FreeStyle Lite w/Device as directed - patient to test four times a day 10/04/2021 Active BD Insulin Syringe U/F 31G X 5/16 1 ML USE WITH INSULIN 5 TIMES DAILY Active diazePAM 10 MG 1 tablet as needed Orally before closed MRI procedure 04/10/2024 Active Metoprolol Tartrate 25 MG TAKE 1 TABLET BY MOUTH TWICE A DAY WITH FOOD FOR 30 DAYS Active Basaglar KwikPen 100 UNIT/ML as directed Subcutaneous 50 units every morning and 70 units every evening please dispense one month supply 11/13/2024 Active metFORMIN HCl 500 MG TAKE 2 TABLETS BY MOUTH TWICE A DAY WITH MEALS Active Meloxicam Active Fenofibrate 160 MG TAKE 1 TABLET BY MOUTH EVERY DAY WITH MEALS Active Lantus SoloStar 100 UNIT/ML INJECT 50 UNITS IN THE MORNING AND 70 UNITS AT BEDTIME Active Ketoconazole 2 % 1 application Externally Twice a day 10/06/2023 Active Rosuvastatin Calcium 10 MG TAKE 1 TABLET BY MOUTH EVERY DAY Active Lisinopril 40 MG TAKE 1 TABLET BY MOUTH EVERY DAY Active Clobetasol Propionate 0.05 % APPLY DAILY TO SKIN TO AFFECTED AREA TWICE A DAY FOR 2 WEEKS Active hydroCHLOROthiazide 25 MG 1 tablet every morning Orally Once a day Active Ozempic (2 MG/DOSE) 8 MG/3ML 2 mg Subcutaneous weekly 11/04/2024 Active LORazepam 2 MG 1 tablet at bedtime as needed Orally every 6 hours x 2 days prn anxiety during air travel 07/30/2024 Active Meclizine HCl 25 MG 1 tablet as needed Orally every 12 hrs Active Immunizations Vaccine Route Administration Date Status [...] Problem Status W/U Status Risk Notes Problem 1825982 Former smoker (Z87.891) Active confirmed He is highly motivated not to smoke. He has a plan for prevention of abstinence. We have discussed abstinence today. Problem 339976420 Obesity (E66.9) Active confirmed His body mass index is 37. We discussed diet and nutrition. Continue issues Ebbers her weight loss. Problem DM (diabetes mellitus) (E11.9) Active confirmed Comprehens tyrese blood work including A1c was ordered today. No change in his medication was necessary. Problem 038899627 Thrombocytopenia (D69.6) Active confirmed His last platelet count was February 27, 2024. This value was 149,000. He is cleared for surgery. He has had no bleeding. He is not taking aspirin.He had no bleeding during his recent surgery. Problem 6366221 Other specified arthritis, left shoulder (M13.812) Active confirmed He is scheduled to have a left shoulder arthroplasty at [facility]. I have seen and examined him carefully today. Assuming that he is cleared by the pattern keeper he is cleared medically for the surgery. Because of his comorbidities his risk would be higher than that of the average 60-year-old man but I think the risk is acceptable. He has been instructed to take his insulin night before surgery but not thereafter. Problem 52243459 Essential hypertension (I10) Active confirmed His blood pressure is 130/70. No change in his regimen was made today. Problem 08162709 Penicillin allergy (Z88.0) Active confirmed Problem 31239260 Left shoulder pain (M25.512) Active confirmed He has recently undergone shoulder replacement in [place] on the left side.He says he is feeling much better. Problem Diabetes mellitus type 2 in nonobese (745177258) Diabetes mellitus type 2 in nonobese (E11.9) Active confirmed He reports his fasting glucoses about 130 to 135.No changes in his regimen were made today. Problem 453196661 Multinodular thyroid (E04.2) Active confirmed An incidenta l finding on neck arteriography recently was a multinodular thyroid. A thyroid ultrasound has been ordered. Problem Hyperlipidemia type II (E78.01) Active confirmed His lipids have been well controlled. His weight is stable. He was continued on current medication and comprehensive blood work with a lipid profile has been ordered. Problem 28949393 Reactive depression (F32.9) Active confirmed He has lost his Perdomo feels very sad. He did not wish to take an antidepressant . He was given emotional support and close follow-up. Problem 700979843 Benign prostatic hyperplasia, unspecified whether lower urinary tract symptoms present (N40.0) Active confirmed He rises from sleep once or twice a night to urinate. We have discussed lifestyle modifications achromatic reduce nocturia. We have discussed medications he could take. Problem 24188374 Spinal stenosis of lumbar region with neurogenic claudication (M48.062) Active confirmed He has been scheduled for a second laminectomy in [place] in the near future. Platelet count will be checked. Problem 268241481170345 Left foot drop (M21.372) Active confirmed He continues to wear the brace to good effect. His gait is fairly normal. Problem 239178617 Scoliosis of thoracolumbar spine, unspecified scoliosis type (M41.9) Active confirmed Diagnosis stenosing orthopedic facility with spinal stenosis and scoliosis. Debilitating pain and has been scheduled for garry operative procedure. Vital Signs Heart Rate 67 /min 03/17/2025 Temperature 97 degrees Fahrenheit 03/17/2025 Respiratory Rate 14 /min 03/17/2025 Oximetry 100 % 03/17/2025 Blood pressure diastolic 70 mm Hg 03/17/2025 Height 71 in 04/07/2025 Blood pressure systolic 130 mm Hg 03/17/2025 Weight 271 lbs 04/07/2025 BMI 37.79 kg/m2 04/07/2025 Encounters Encounter Location Date Provider Diagnosis Xander Del Rosario III, MD [address] [place] [address] [place] [address] 05/13/2024 Xander Del Rosario Hyperlipidemia type II E78.01 ; Obesity E66.9 ; Former smoker Z87.891 ; Essential hypertension I10 ; Thrombocytopenia D69.6 ; Herniated intervertebral disc of lumbar spine M51.26 ; Reactive depression F32.9 ; Benign prostatic hyperplasia, unspecified whether lower urinary tract symptoms present N40.0 ; Left foot drop M21.372 and Thyroid nodule E04.1 Xander Del Rosario III, MD [address] [place] [address] [place] [address] 08/22/2024 Xander Del Rosario Obesity E66.9 ; Form er smoker Z87.891 ; Essential hypertension I10 ; Thrombocytopenia D69.6 ; Left foot drop M21.372 ; Benign prostatic hyperplasia, unspecified whether lower urinary tract symptoms present N40.0 ; Herniated intervertebral disc of lumbar spine M51.26 ; Other specified arthritis, left shoulder M13.812 and DM (diabetes mellitus) E11.9 Xander Del Rosario III, MD [address] [place] [address] [place] [address] 09/23/2024 Xander Del Rosario Obesity E66.9 ; DM (diabetes mellitus) E11.9 ; Essential hypertension I10 ; Thrombocytopenia D69.6 ; Herniated intervertebral disc of lumbar spine M51.26 ; Hyperlipidemia type II E78.0 ; Former smoker Z87.891 and Left foot drop M21.372 Xander Del Rosario III, MD [address] [place] [address] [place] [address] 11/04/2024 Xander Del Rosario Former smoker Z87.89 [...] shoulder M13.812 Xander Del Rosario III, MD [address] [place] [address] [place] [address] 11/25/2024 Xander [place]woodr[place] Former smoker Z87.89 1 ; Left thyroid nodule E04.1 ; Essential hypertension I10 ; Diabetes mellitus type 2 in nonobese E11.9 ; Obesity E66.9 ; Thrombocytopenia D69.6 ; Left shoulder pain M25.512 and Left foot drop M21.372 Xander Del Rosario III, MD [address] [place] [address] [place] [address] 12/23/2024 Xander [place] Former smoker Z87.89 1 ; Diabetes mellitus type 2 in nonobese E11.9 ; Essential hypertension I10 ; Obesity E66.9 and Acute non-recurrent sinusitis of other sinus J01.80 Xander Del Rosario III, MD [address] [place] [address] [place] [address] 02/03/2025 Xander Del Rosario Former smoker Z87.89 1 ; Spinal stenosis of lumbar region with neurogenic claudication M48.062 ; Obesity E66.9 ; Essential hypertension I10 ; Thrombocytopenia D69.6 ; Reactive depression F32.9 ; Scoliosis of thoracolumbar spine, unspecified scoliosis type M41.9 and DM (diabetes mellitus) E11.9 Xander Del Rosario III, MD [address] [place] [address] [place] [address] 03/17/2025 Xander [place]rne Former smoker Z87.89 1 ; Spinal stenosis of lumbar region with neurogenic claudication M48.062 ; Obesity E66.9 ; Essential hypertension I10 ; Diabetes mellitus type 2 in nonobese E11.9 ; Benign prostatic hyperplasia, unspecified whether lower urinary tract symptoms present N40.0 ; Multinodular thyroid E04.2 and Other specified arthritis, left shoulder M13.812 Xander Del Rosario III, MD [address] [place] [address] [place] [address] 04/07/2025 Xander Del Rosario Former smoker Z87.89 1 ; Benign prostatic hyperplasia, unspecified whether lower urinary tract symptoms present N40.0 ; Obesity E66.9 ; Essential hypertension I10 ; Thrombocytopenia D69.6 ; Multinodular thyroid E04.2 ; Other specified arthritis, left shoulder M13.812 ; Left shoulder pain M25.512 and Viral syndrome B34.9 Xander Del Rosario III, MD [address] [place] [address] [place] [address] 05/03/2024 Xander Del Rosario III, MD [address] [place] [address] [place] [address] 07/11/2024 Xander Del Rosario III, MD [address] [place] [address] [place] [address] 07/30/2024 Xander Del Rosario III, MD [address] [place] [address] [place] [address] 07/30/2024 Xander Del Rosario III, MD [address] [place] [address] [place] [address] 09/30/2024 Xander Del Rosario Multinodular thyroid E04.2 Xander Del Rosario III, MD [address] [place] [address] [place] [address] 10/02/2024 Xander Del Rosario III, MD [address] [place] [address] [place] [address] 10/02/2024 Xander Del Rosario III, MD [address] [place] [address] [place] [address] 10/21/2024 Xander Del Rosario Urinary tract infect ion without hematuria, site unspecified N39.0 Xander Del Rosario III, MD [address] [place] [address] [place] [address] 10/21/2024 Xander Del Rosario III, MD [address] [place] [address] [place] [address] 11/07/2024 Xander Del Rosario III, MD [address] [place] [address] [place] [address] 11/11/2024 Xander Del Rosario III, MD [address] [place] [address] [place] [address] 11/12/2024 Xander Del Rosario III, MD [address] [place] [address] [place] [address] 11/13/2024 Xander Del Rosario III, MD [address] [place] [address] [place] [address] 11/13/2024 Xander Del Rosario III, MD [address] [place] [address] [place] [address] 12/02/2024 Xander Del Rosario III, MD [address] [place] [address] [place] [address] 12/02/2024 Xander Del Rosario III, MD [address] [place] [address] [place] [address] 12/03/2024 Xander Del Rosario III, MD [address] [place] [address] [place] [address] 12/03/2024 Xander Del Rosario III, MD [address] [place] [address] [place] [address] 01/07/2025 Xander Del Rosario III, MD [address] [place] [address] [place] [address] 04/14/2025 Xander Del Rosario Assessments Encounter Date Diagnosis (ICD Code) Assessment Notes Treat ment Notes Treatment Clinical Notes 05/13/2024 Obesity (ICD-10 - E66.9) I have [...] the past. Scheduled for further surgery in [place] on his back in the near future. [...] been scheduled for a second laminectomy in [place] in the near future. Platelet count will be checked. 03/17/2025 Former smoker (ICD-1 0 - Z87.891) He is highly motivated not to smoke. He has a plan for prevention of abstinence. We have discussed abstinence today. 03/17/2025 Spinal stenosis of lumbar region with neurogenic claudication (ICD-10 - M48.062) He has been scheduled for a second laminectomy in [place] in the near future. Platelet count will be checked. 04/07/2025 Former smoker (ICD-1 0 - Z87.891) He is highly motivated not to smoke. He has a plan for prevention of abstinence. We have discussed abstinence today. 04/07/2025 Benign prostatic hyperplasia, unspecified whether lower urinary tract symptoms present (ICD-10 - N40.0) He rises from sleep once or twice a night to urinate. We have discussed lifestyle modifications achromatic reduce nocturia. We have discussed medications he could take. 09/30/2024 Multinodular thyroid (ICD-10 - E04.2) 10/21/2024 Urinary tract infection without hematuria, site unspecified (ICD-10 - N39.0) 05/13/2024 Former smoker (ICD-1 0 - Z87.891) [...] nutrition. Continue issues Ebbers her weight loss. 04/07/2025 Obesity (ICD-10 - E66.9) His body mass index is 37. We discussed diet and nutrition. Continue issues Ebbers her weight loss. 05/13/2024 Essential hypertensi on (ICD-10 - I10) [...] change in his regimen was made today. 04/07/2025 Essential hypertensi on (ICD-10 - I10) His blood pressure is 130/70. No change in his regimen was made today. 05/13/2024 Thrombocytopenia (ICD-10 - D69.6) The most [...] changes in his regimen were made today. 04/07/2025 Thrombocytopenia (ICD-10 - D69.6) His last platelet count was February 27, 2024. This value was 149,000. He is cleared for surgery. He has had no bleeding. He is not taking aspirin.He had no bleeding during his recent surgery. 05/13/2024 Herniated intervertebral disc of lumbar spine [...] We have discussed medications he could take. 04/07/2025 Multinodular thyroid (ICD-10 - E04.2) An incidental finding on neck arteriography recently was a multinodular thyroid. A thyroid ultrasound has been ordered. 05/13/2024 Reactive depression (ICD-10 - F32.9) He [...] He has recently undergone shoulder replacement in [place] on the left side.He says he is feeling much better. 02/03/2025 Scoliosis of thoracolumbar spine, unspecified scoliosis type (ICD-10 - M41.9) Diagnosis stenosing orthopedic facility with spinal stenosis and scoliosis. Debilitating pain and has been scheduled for garry operative procedure. 03/17/2025 Multinodular thyroid (ICD-10 - E04.2) An incidental finding on neck arteriography recently was a multinodular thyroid. A thyroid ultrasound has been ordered. 04/07/2025 Other specified arthritis, left shoulder (ICD-10 - M13.812) He is scheduled to have a left shoulder arthroplasty at [facility]. I have seen and examined him carefully today. Assuming that he is cleared by the pattern keeper he is cleared medically for the surgery. Because of his comorbidities his risk would be higher than that of the average 60-year-old man but I think the risk is acceptable. He has been instructed to take his insulin night before surgery but not thereafter. 05/13/2024 Benign prostatic hyperplasia, unspecified whether lower urinary tract symptoms present (ICD-10 - N40.0) He rises from sleep once a night, sometimes twice. We discussed lifestyle modification as a way of reducing nocturia. 08/22/2024 Other specified arthritis, left shoulder (ICD-10 - M13.812) He is scheduled to have a left shoulder arthroplasty at [facility]. I have seen and examined him carefully today. Assuming that he is cleared by the pattern keeper he is cleared medically for the surgery. [...] to have a left shoulder arthroplasty at [facility]. I have seen and examined him carefully today. Assuming that he is cleared by the pattern keeper he is cleared medically for the surgery. Because of his comorbidities his risk would be higher than that of the average 60-year-old man but I think the risk is acceptable. He has been instructed to take his insulin night before surgery but not thereafter. 04/07/2025 Left shoulder pain (ICD-10 - M25.512) He has recently undergone shoulder replacement in [place] on the left side.He says he is feeling much better. 05/13/2024 Left foot drop (ICD- 10 - [...] good effect. His gait is fairly normal. 04/07/2025 Viral syndrome (ICD- 10 - B34.9) I recommended a coronavirus test. He will use acetaminophen and antitussive and a decongestant. He will report immediately if he feels worse. 05/13/2024 Thyroid nodule (ICD- 10 - E04.1) He has been referred to endocrinology for a biopsy. 11/04/2024 Benign prostatic hyperplasia, unspecified whether lower urinary tract symptoms present (ICD-10 - N40.0) He rises from sleep once a night, sometimes twice. We discussed lifestyle modification as a way of reducing nocturia. 11/04/2024 Multinodular thyroid (ICD-10 - E04.2) An incidental finding on neck arteriography recently was a multinodular thyroid. A thyroid ultrasound has been ordered. 11/04/2024 Other specified arthritis, left shoulder (ICD-10 - M13.812) He is scheduled to have a left shoulder arthroplasty at [facility]. I have seen and examined him carefully today. Assuming that he is cleared by the pattern keeper he is cleared medically for the surgery. [...] 11/04/2024 Microalbumin, Random 03/17/2025 Microalbumin, Random 11/04/2024 Pathology 04/02/2025 Hemoglobin A1c 11/04/2024 Hemoglobin A1c 12/23/2024 Hemoglobin A1c 03/17/2025 Next Appt Details Provider Name:Xander Del Rosario, 05/14/2025 10:00:00 AM, [address] [place] [address] LU[place], [place], [address], Insurance Providers Payer Name Payer Address Payer Phone Subscriber Number Group Number Insured Name Patient Relationship to Insured Coverage Start Date Coverage End Date MEDICARE NGS [address] [place] [phone] [id number] Ap Jones Self - patient is the insured [facility] CLAIM DIV [address] [place] [address] [id number] Ap Jones Self - patient is the insured Medical (General) History Medical History History ICD Code diabetes mellitus obesity hypertension penicillin allergy erythromycin allergy back pain herniated disc lumbosacral pain hyperlipidemia Mild aortic stenosis Bicuspid aortic multiple thyroid nodules Surgical History Surgery Date(Month/Year) Right hip surgery - scoped, no complicat ions since. Shoulder replacement surgery - august 29, [facility] 07/2024 Left shoulder replacement 08/29/[address] Jones 01/2018 cardiac catheterization: 25% LAD, EF 65% 02/2011 right hip arthroplasty fractured left ankle laminectomy of the spine Hospitalization History Reason Date(Month/Year) Left shoulder replacement, 2024 inpt [facility] due to hypertension/dehydrati on/vertigo 03/16/2024
== END 2025-04-23 13:06 | disposition home or self-care (01) ==
LOC: HO.ENCR 12:37
PROVIDERS: PCP Internal Medicine Medical Oncology; Visit Provider Student in an Organized Health Care Education/Training Program
DX: E04.2 Nontoxic multinodular goiter (principal)
CPT/HCPCS: 99213

== ENCOUNTER → 2025-04-23 12:37 | Outpatient (BNVA) | payer MEDICARE, SELFPAY | PROVIDERS: PCP Internal Medicine Medical Oncology; Visit Provider Student in an Organized Health Care Education/Training Program | DX: E04.2 Nontoxic multinodular goiter (principal) | CPT/HCPCS: 99212 ==

== ENCOUNTER 2025-07-03 08:33 | Outpatient (REF) | payer MEDICARE, SELFPAY ==
--- OUTSIDE RECORDS SUMMARY | 2025-04-14 07:10 | XMS_ITS ---
Author Organization Xander Del Rosario III, MD Address [address] [place] [address] [place] [address] Care Team Providers Care Ledger Poster Name Role Phone Xander Del Rosario Primary Care Provider [phone] REASON FOR VISIT Rx Refill/Message Medications Medication SIG (Take, Route, Frequency, Duration) Notes Start Date End Date Status NovoLOG 100 UNIT/ML 10-22 units Injection three times a day on sliding scale for 90 days DX: Diabetes E11.9 Active Social History Sex Assigned At : Social History Observation Description Sex Assigned At Male Encounters Encounter Location Date Provider Diagnosis Xander Del Rosario III, MD [address] [place] [address] [place] [address] 04/14/2025 Xander Del Rosario Plan Of Treatment Medication Medication Name Sig Start Date Stop Date Notes NovoLOG 100 UNIT/ML 10-22 units Injectio n three times a day on sliding scale for 90 days DX: Diabetes E 11.9 Next Appt Details Provider Name:Xander Del Rosario, 09/01/2025 10:30:00 AM, [address] [facility], [address], Provider Name:Xander Del Rosario, 05/18/2026 10:00:00 AM, [address] [facility] [place], [address], Progress Notes * Nancy JONES: 4 (59 yo M)Acc No.[id number]:04/14/2025 Patient: Ap GAO :1965 A ge:59 Y S ex:Male Address:[address] [place] [address] * Refills Refill NovoLOG Solution, 100 UNIT/ML, 60, 10-22 units Injection three times a day on sliding scale, 90 days, Refills=3 * true * Date: Generated for Eladia ramires/Althea/Katiesmitting on: 0 07/03/2025 09:03 AM EDT
--- OUTSIDE RECORDS SUMMARY | 2025-05-14 06:00 | XMS_ITS ---
Author Organization Xander Del Rosario III, MD Address [address] [place] [address] [place] [address] Care Team Providers Care Poultry Scalder Name Role Phone Xander Del Rosario Primary Care Provider [phone] Allergies Allergen (clinical drug ingredient) Drug/Non Drug [...] Active BD Insulin Syringe U/F 31G X 16 1 ML USE WITH INSULIN 5 TIMES [...] Provider Diagnosis Xander Del Rosario III, MD [address] [place] [address] [place], [place] [address] 05/14/2025 Xander Del Rosario Former smoker Z87.89 [...] to have a left shoulder arthroplasty at [facility]. I have seen and examined him carefully today. Assuming that he is cleared by the advertising intern he is cleared medically for the surgery. [...] been scheduled for a second laminectomy in [place] in the near future. Platelet count will [...] 6 Weeks, Reason: OV Provider Name:Xander Del Rosario, 09/01/2025 10:30:00 AM, [address] [facility] [address], [place], [address], Provider Name:Xander Del Rosario, 05/18/2026 10:00:00 AM, [address] [facility] [address], [place], [address], Progress Notes * Ap JONESDOB: 4 (59 yo M)Acc No.[id number]:05/14/2025 Progress Notes Patient: Ap GAO Provider: Royce Del Rosario MD :1965 A ge:59 Y S ex:Male Date:05/14/2025 Address:[address] [place], [place] [address] [id number] Subjective: * Chief Complaints: * A nnual [...] is under the care of orthopedics in [place] who of recommended a major surgical procedure [...] replacement 08/29/2024Shoulder replacement surgery - august 29, [facility] ight hip surgery - scoped, no complications since. 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 * Medications: T akingBD Pen Needle [...] to have a left shoulder arthroplasty at [facility]. I have seen and examined him carefully today. Assuming that he is cleared by the advertising intern he is cleared medically for the surgery. [...] been scheduled for a second laminectomy in [place] in the near future. Platelet count will [...] * Provider: Royce Del Rosario MD Date: 05/14/2025 Generated for Eladia ramires/Althea/Samanthaitting on: 07/03/2025 09:03 AM EDT History and Physical Notes * [...]
--- OUTSIDE RECORDS SUMMARY | 2025-06-06 10:36 | XMS_ITS ---
Author Organization Xander Del Rosario III, MD Address [address] [place] [address] [place] [address] Care Team Providers Care Paste Maker Name Role Phone Xander Del Rosario Primary Care Provider Social History Sex Assigned At : Social History Observation Description Sex Assigned At Male Encounters Encounter Location Date Provider Diagnosis Xander Del Rosario III, MD [address] [place] [address] [place] [address] 06/06/2025 Xander Del Rosario Plan Of Treatment Next Appt Details Provider Name:Xander Del Rosario, 09/01/2025 10:30:00 AM, [address] [place] [address] [place], [address], Provider Name:Xander Del Rosario, 05/18/2026 10:00:00 AM, [address] [place] [address] [place], [address], Progress Notes * Ap JONESDOB: 4 (59 yo M)Acc No.[id number]:06/06/2025 Patient: Nain SMITHAkinAp :1965 A ge:59 Y S ex:Male Address:[address] [place] [address] [place] [address] * true * Date: Generated for Maryi ike/Althea/eTransmitting on: 0 07/03/2025 09:03 AM EDT
--- OUTSIDE RECORDS SUMMARY | 2025-06-25 13:15 | XMS_ITS ---
Author Organization Xander Del Rosario III, MD Address [address] [place] [address] Care Team Providers Care Needle Maker Name Role Phone Xander Del Rosario Primary Care Provider REASON FOR VISIT Follow up Social History Sex Assigned At : Social History Observation Description Sex Assigned At Male Encounters Encounter Location Date Provider Diagnosis Xander Del Rosario III, MD [address] [place] [address] [place] [address] 06/25/2025 Xander Del Rosario Plan Of Treatment Next Appt Details Provider Name:Xander Del Rosario, 09/01/2025 10:30:00 AM, [address] [place] [address] [place], [address], Provider Name:Xander Del Rosario, 05/18/2026 10:00:00 AM, [address] [place] [address] [place], [address], Progress Notes * Lui JONESakshatDOB: 4 (59 yo M)Acc No.[id number]:06/25/2025 Progress Notes Patient: Ap GAO Provider: Royce Del Rosario MD :1965 A ge:59 Y S ex:Male Date:06/25/2025 Address:[address] [place] [address] [id number] Subjective: * Chief Complaints: * 1 . [...] 0 06/25/2025 Generated for Eladia ramires/Althea/Samanthaitting on: 0 07/03/2025 09:02 AM EDT
--- OUTSIDE RECORDS SUMMARY | 2025-07-02 06:45 | XMS_ITS ---
Author Organization Xander Del Rosario III, MD Address [address] [place] [address] [place] [address] Care Team Providers Care Food Stylist Name Role Phone Xander Del Rosario Primary Care Provider [phone] Allergies Allergen (clinical drug ingredient) Drug/Non Drug Allergy documented on EMR Reaction Allergy Type Onset Date Status Penicillin anaphylaxis Drug Allergy Acti ve erythromycin Erythromycin Unknown Drug Allergy A ctive ciprofloxacin Cipro Unknown Drug Allergy Act tyrese REASON FOR VISIT Follow up Medications Medication SIG (Take, Route, Frequency, Duration) Notes Start Date End Date Status Metoprolol Tartrate 25 MG TAKE 1 TABLET BY MOUTH TWICE A DAY WITH FOOD FOR 30 DAYS Active Lisinopril 40 MG TAKE 1 TABLET BY MOUTH EVERY DAY Active hydroCHLOROthiazide 25 MG 1 tablet every morning Orally Once a day Active Ozempic (2 MG/DOSE) 8 MG/3ML 2 mg Subcutaneous weekly 11/04/2024 Active Meclizine HCl 25 MG 1 tablet as needed Orally every 12 hrs Active FreeStyle Lite w/Device as directed - patient to test four times a day 10/04/2021 Active Meloxicam Active Lantus SoloStar 100 UNIT/ML INJECT 50 UNITS IN THE MORNING AND 70 UNITS AT BEDTIME Active Ketoconazole 2 % 1 application Externally Twice a day 10/06/2023 Active FreeStyle Lite Test - as directed In Vitro testing four times a day 10/04/2021 Active BD Insulin Syringe U/F 31G X 5/16 1 ML USE WITH INSULIN 5 TIMES DAILY Active diazePAM 10 MG 1 tablet as needed Orally before closed MRI procedure 04/10/2024 Active Clobetasol Propionate 0.05 % APPLY DAILY TO SKIN TO AFFECTED AREA TWICE A DAY FOR 2 WEEKS Active LORazepam 2 MG 1 tablet at bedtime as needed Orally every 6 hours x 2 days prn anxiety during air travel 07/30/2024 Active metFORMIN HCl 500 MG TAKE 2 TABLETS BY MOUTH TWICE A DAY WITH MEALS Active Fenofibrate 160 MG TAKE 1 TABLET BY MOUTH EVERY DAY WITH MEALS Active Basaglar KwikPen 100 UNIT/ML as directed Subcutaneous 50 units every morning and 70 units every evening please dispense one month supply 11/13/2024 Active NovoLOG 100 UNIT/ML 10-22 units Injection three times a day on sliding scale DX: Diabetes E11.9 Active Pen Gallatin 31G X 8 MM use to administer insulin three times a day DX E11.9 Diabetes Active Rosuvastatin Calcium 10 MG TAKE 1 TABLET BY MOUTH EVERY DAY Active Social History Tobacco Use: Social History [...] Non-User Ex-cigaret te smoker Vital Signs Temperature 97.0 degrees Fahrenheit 07/02/20 25 Blood pressure systolic 134 mm Hg 07/02/20 25 Blood pressure diastolic 81 mm Hg 025 Heart Rate 79 /min 07/02/2025 Height 71 in 07/02/2025 Weight 266 lbs 07/02/2025 BMI 37.1 kg/m2 07/02/2025 Encounters Encounter Location Date Provider Diagnosis Xander Del Rosario III, MD [address] [place] [address] [place] [address] 07/02/2025 Xander Del Rosario Former smoker Z87.89 1 ; Obesity E66.9 ; Thrombocytopenia D69.6 ; Benign prostatic hyperplasia, unspecified whether lower urinary tract symptoms present N40.0 ; DM (diabetes mellitus) E11.9 ; Hyperlipidemia type II E78.01 and Foreign body (FB) in soft tissue M79.5 Assessments Encounter Date Diagnosis (ICD Code) Assessment Notes Treat ment Notes Treatment Clinical Notes 07/02/2025 Former smoker (ICD-1 0 - Z87.891) He is highly motivated not to smoke. He has a plan for prevention of abstinence. We have discussed abstinence today. 07/02/2025 Obesity (ICD-10 - E66.9) 07/02/2025 Thrombocytopenia (ICD-10 - D69.6) 07/02/2025 Benign prostatic hyperplasia, unspecified whether lower urinary tract symptoms present (ICD-10 - N40.0) 07/02/2025 DM (diabetes mellitu s) (ICD-10 - E11.9) 07/02/2025 Hyperlipidemia type II (ICD-10 - E78.01) 07/02/2025 Foreign body (FB) in soft tissue (ICD-10 - M79.5) Plan Of Treatment Medication Medication Name Sig Start Date Stop Date Notes Metoprolol Tartrate 25 MG TAKE 1 TABLET BY MOUTH TWICE A DAY WITH FOOD FOR 30 DAYS Lisinopril 40 MG TAKE 1 TABLET BY MOUTH EVERY DAY hydroCHLOROthiazide 25 MG 1 tablet every morning Orally Once a day Meclizine HCl 25 MG 1 tablet as needed Orally every 12 hrs FreeStyle Lite w/Device as directed - patient to test four times a day 10/04/2021 Meloxicam Lantus SoloStar 100 UNIT/ML INJECT 50 UN ITS IN THE MORNING AND 70 UNITS AT BEDTIME Ketoconazole 2 % 1 application Externally Twice a day 10/06/2023 FreeStyle Lite Test - as directed In Vit ro testing four times a day 10/04/2021 BD Insulin Syringe U/F 31G X 5/16 1 ML USE WITH INSULIN 5 TIMES DAILY diazePAM 10 MG 1 tablet as needed Orally before closed MRI procedure 04/10/2024 Clobetasol Propionate 0.05 % APPLY DAILY TO SKIN TO AFFECTED AREA TWICE A DAY FOR 2 WEEKS LORazepam 2 MG 1 tablet at bedtime as needed Orally every 6 hours x 2 days prn anxiety during air travel 07/30/2024 metFORMIN HCl 500 MG TAKE 2 TABLETS BY MOUTH TWICE A DAY WITH MEALS Fenofibrate 160 MG TAKE 1 TABLET BY MOUTH EVERY DAY WITH MEALS Basaglar KwikPen 100 UNIT/ML as directed Subcutaneous 50 units every morning and 70 units every evening 11/13/2024 please dispense one month supply NovoLOG 100 UNIT/ML 10-22 units Injection three times a day on sliding scale DX: Diabetes E11.9 Pen Gallatin 31G X 8 MM use to administer insulin three times a day Rosuvastatin Calcium 10 MG TAKE 1 TABLET BY MOUTH EVERY DAY Pending Test Test Name Order Date PROFILE, FASTING (COMPREHENSIVE METABOLI C) 07/02/2025 PSA, TOTAL 07/02/2025 CBC w DIFF 07/02/2025 XR ABD UPRIGHT DECUB 07/02/2025 Lipid Panel 07/02/2025 Microalbumin, Random 07/02/2025 Hemoglobin A1c 07/02/2025 Next Appt Details Follow Up: 2 Months, Reason: OV Provider Name:Xander Del Rosario, 09/01/2025 10:30:00 AM, [address] [place] [address] [address], [place], [address], Provider Name:Xander Del Rosario, 05/18/2026 10:00:00 AM, [address] [place] [address] [address], [place], [address], Progress Notes * Ap JONESDOB: 4 (59 yo M)Acc No.[id number]:07/02/2025 Progress Notes Patient: Ap GAO Provider: Royce Del Rosario MD :1965 A ge:59 Y S ex:Male Date:07/02/2025 Address:[address] [place] [id number] Subjective: * Chief Complaints: * 1 . Follow up. * HPI: C OVID-19 Screening: next mon si injection secnd one, right, tele [facility] re back bbj, fna of thyroid was nondiag no further test just monitor [facility]. Questions H ave you had any new onset fever, chills, cough, congestion, sore throat, shortness of breath, muscle aches? N o * ROS: G eneral/Constitutional: pain o nly normal aches and pains. C hills d enies.?Fatigue a dmits. F ever d enies. E NT: Decreased hearing d enies. R espiratory: Cough d enies. C ardiovascular: Chest pain with exertion d enies. D yspnea on exertion?denies. S hortness of breath d enies. G astrointestinal: Constipation d enies. D ecreased appetite d enies.?Diarrhea d enies. H eartburn d enies. N ausea d enies. R ectal bleeding?denies. V omiting d enies. H ematology: bruising d enies. p etechiae d enies. S wollen glands n one have been noted. G enitourinary: Frequent urination d enies. M usculoskeletal: Muscle aches d enies. P ainful joints d enies. S ciatica d enies. W eakness d enies. S kin: Itching d enies. R karen d enies. S kin lesion(s)?denies. N eurologic: Difficulty speaking d enies. D izziness d enies.?Headache d enies. L ow back pain d enies. P sychiatric: Depressed mood d enies. * Medical History: D iabetes mellitus, Obesity, Hypertension, Penicillin allergy, Erythromycin allergy, Back pain, Herniated disc, Lumbosacral pain, Hyperlipidemia, Mild aortic stenosis, Bicuspid aortic, Multiple thyroid nodules. * Surgical History: l aminectomy of the spine , fractured left ankle , right hip arthroplasty , cardiac catheterization: 25% LAD, EF 65% 02/2011, decompresion Dr. Jones 01/2018, Left shoulder replacement 08/29/2024, Shoulder replacement surgery - august 29, [facility] 07/2024, Right hip surgery - scoped, no complications since. . * Hospitalization/Major Diagno stic Procedure: i npt [facility] due to hypertension/dehydration/vertigo 03/16/2024, Left shoulder replacement, [place] 2024. * Family History: F ather: 51 yrs, [...] dditional Findings: Tobacco Non-User E x-cigarette smoker Bairon wilcox lives with his and does not smoke. 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 * Medications: T aking NovoLOG 100 UNIT/ML Solution 10-22 units Injection three times a day on sliding scale , Notes to Pharmacist: DX: Diabetes E11.9, Taking Basaglar KwikPen 100 UNIT/ML Solution Pen-injector as directed Subcutaneous 50 units every morning and 70 units every evening , Notes to Pharmacist: please dispense one month supply, Taking Fenofibrate 160 MG Tablet TAKE 1 TABLET BY MOUTH EVERY DAY WITH MEALS , Taking metFORMIN HCl 500 MG Tablet TAKE 2 TABLETS BY MOUTH TWICE A DAY WITH MEALS , Taking LORazepam 2 MG Tablet 1 tablet at bedtime as needed Orally every 6 hours x 2 days prn anxiety during air travel , Taking Clobetasol Propionate 0.05 % Cream APPLY DAILY TO SKIN TO AFFECTED AREA TWICE A DAY FOR 2 WEEKS , Taking diazePAM 10 MG Tablet 1 tablet as needed Orally before closed MRI procedure , Taking BD Insulin Syringe U/F 31G X 5/16 1 ML Miscellaneous USE WITH INSULIN 5 TIMES DAILY , Taking FreeStyle Lite w/Device Kit as directed - patient to test four times a day , Taking FreeStyle Lite Test - Strip as directed In Vitro testing four times a day , Taking Ketoconazole 2 % Cream 1 application Externally Twice a day , Taking Lantus SoloStar 100 UNIT/ML Solution Pen-injector INJECT 50 UNITS IN THE MORNING AND 70 UNITS AT BEDTIME , Taking Meloxicam , Taking Meclizine HCl 25 MG Tablet 1 tablet as needed Orally every 12 hrs , Taking Ozempic (2 MG/DOSE) 8 MG/3ML Solution Pen-injector 2 mg Subcutaneous weekly , Taking hydroCHLOROthiazide 25 MG Tablet 1 tablet every morning Orally Once a day , Taking Lisinopril 40 MG Tablet TAKE 1 TABLET BY MOUTH EVERY DAY , Taking Metoprolol Tartrate 25 MG Tablet TAKE 1 TABLET BY MOUTH TWICE A DAY WITH FOOD FOR 30 DAYS , Taking Pen Gallatin 31G X 8 MM Miscellaneous use to administer insulin three times a day DX E11.9 Diabetes, Taking Rosuvastatin Calcium 10 MG Tablet TAKE 1 TABLET BY MOUTH EVERY DAY , Medication List reviewed and reconciled with the patient * Allergies: E rythromycin, Cipro, Penicillin: anaphylaxis. Objective: * Vitals: H t: 71, Wt: 266, BMI:37.1, BP: 134/81, HR: 79, Temp: 97.0, Ht-cm: 180.34, Wt-k.66. * P ast Orders: Lab:Pathology * Collection Date 04/02/2025 01/08/2025 Collection Time 10:16 AM 08:43 AM Order Date 04/02/2025 01/08/2025 * Examination: G eneral Examination: GENERAL APPEARANCE: p leasant, well nourished, well developed, in no acute distress, calm and relaxed. HEAD: a traumatic, normocephalic. EYES: e edis, [...] sounds normal, no ascites, no organomegaly, no mass. RECTAL EXAM: n ot examined. MUSCULOSKELETAL: e xtremities unremarkable, no clubbing, cyanosis or edema. PERIPHERAL PULSES: n ormal. NEUROLOGIC: a lert and oriented, cranial nerves 2-12 grossly intact, deep tendon reflexes 2+ symmetrical, motor strength normal upper and lower extremities, sensory exam intact. PSYCH: a lert, oriented. Assessment: * Assessment: 1. F ormer smoker - Z87.891 N otes :He is highly motivated not to smoke. He has a plan for prevention of abstinence. We have discussed abstinence today. 2 . O besity - E66.9 3 . T hrombocytopenia - D69.6 & #160; 4 . B enign prostatic hyperplasia, unspecified whether lower urinary tract symptoms present - N40.0 5 . D M (diabetes mellitus) - E11.9 6 . H yperlipidemia type II - E78.01 7 . F oreign body (FB) in soft tissue - M79.5 ? Plan: * Treatment: 2. T hrombocytopenia L AB: PROFILE, FASTING (COMPREHENSIVE METABOLIC) L AB: PSA, TOTAL L AB: CBC w DIFF L AB: Lipid Panel L AB: Microalbumin, Random L AB: Hemoglobin A1c 3. B enign prostatic hyperplasia, unspecified whether lower urinary tract symptoms present L AB: PROFILE, FASTING (COMPREHENSIVE METABOLIC) L AB: PSA, TOTAL L AB: CBC w DIFF L AB: Lipid Panel L AB: Microalbumin, Random L AB: Hemoglobin A1c 4. D M (diabetes mellitus) L AB: PROFILE, FASTING (COMPREHENSIVE METABOLIC) L AB: PSA, TOTAL L AB: CBC w DIFF L AB: Lipid Panel L AB: Microalbumin, Random L AB: Hemoglobin A1c 5. H yperlipidemia type II L AB: PROFILE, FASTING (COMPREHENSIVE METABOLIC) L AB: PSA, TOTAL L AB: CBC w DIFF L AB: Lipid Panel L AB: Microalbumin, Random L AB: Hemoglobin A1c 6. F oreign body (FB) in soft tissue I maging: XR ABD UPRIGHT DECUB 7. O thers Continue Rosuvastatin Calcium Tablet, 10 MG, TAKE 1 TABLET BY MOUTH EVERY DAY; C ontinue Pen Gallatin Miscellaneous, 31G X 8 MM, use to administer insulin three times a day DX E11.9 Diabetes; C ontinue NovoLOG Solution, 100 UNIT/ML, 10-22 units Injection three times a day on sliding scale, Notes to Pharmacist: DX: Diabetes E11.9; C ontinue Basaglar KwikPen Solution Pen-injector, 100 [...] A DAY FOR 2 WEEKS; C ontinue diazePAM Tablet, 10 MG, 1 [...] DAY WITH FOOD FOR 30 DAYS. * Preventive Medicine: Counseling: C are goal [...] done: Medical or Other reason not done * Follow Up: 2 Months (Reason: OV) * Images: * The named appointment provid er may or may not be the originator of this progress note, and it is not deemed complete until electronically signed by the appointment provider. Sign off status: Pending * Provider: Royce Del Rosario MD Date: 07/02/2025 Generated for Eladia ramires/Althea/Samanthaitting on: 07/03/2025 09:03 AM EDT History and Physical Notes * HPI (History of Present Illness) Category Sub-Category Detail Notes COVID-19 Screening Questions Have you had any new onset fever, chills, cough, congestion, sore throat, shortness of breath, muscle aches?: No Examination Category Sub-Category Detail Notes General Examination GENERAL APPEARANCE: pleasant , well nourished, well developed, in no acute distress, calm and relaxed HEAD: atraumatic, normocep halic EYES: eomi, perrla, anicte tosin, conjugate EARS: normal NOSE: septum intact NECK/THYROID: no jugular venous di stention, no carotid bruit, thyroid normal HEART: no clicks, gallops, murmurs, or rubs, regular rhythm, S1, S2 normal, no s3, or vascular bruits LUNGS: clear to auscultatio n ABDOMEN: bowel sounds normal, no ascites, no organomegaly, no mass NEUROLOGIC: alert and oriented, cranial nerves 2-12 grossly intact, deep tendon reflexes 2+ symmetrical, motor strength normal upper and lower extremities, sensory exam intact SKIN: no suspicious lesion s, anicteric PERIPHERAL PULSES: normal BREASTS: no masses palpable b ilaterally MUSCULOSKELETAL: extremities unremark able, no clubbing, cyanosis or edema LYMPH NODES: no enlarged lymph no zohra,spleen normal RECTAL EXAM: not examined PSYCH: alert, oriented ORAL CAVITY: normal, unremarkable
--- NOTE | ~2025-07-03 | XR_ITS ---
EXAMINATION: XR ABDOMEN WITH DECUBITUS VIEWS CLINICAL INDICATION: FOREIGN BODY IN LEFT LOWER QUADRANT OF ABD COMPARISON: None available. TECHNIQUE: AP view abdomen and pelvis in supine position. FINDINGS: Patient's large body habitus. No gross metallic or radiopaque foreign body. There are a few, linear radiopaque structures both sides of the abdomen and pelvis probably artifactual. There is abundant stool in a nondilated large intestine. No air-fluid levels. Multilevel thoracolumbar spondylosis. Degenerative changes in the coxofemoral joints, mild to moderate. XR/XR abdomen w decubitus IMPRESSION: No radiopaque foreign body. No intestinal obstruction pattern. Electronically signed by: Prateek Kendrick MD 07/03/2025 09:08 AM EDT
--- OUTSIDE RECORDS SUMMARY | 2025-07-03 09:02 | XMS_ITS | Patient Health Record ---
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 Name Role Phone Xander Del Rosario Primary Care Provider Allergies Allergen (clinical drug ingredient) Drug/Non Drug Allergy documented on EMR Reaction Allergy Type Onset Date Status Penicillin anaphylaxis Drug Allergy Acti ve erythromycin Erythromycin Unknown Drug Allergy A ctive ciprofloxacin Cipro Unknown Drug Allergy Act tyrese Results Component Value Reference Range Notes US thyroid Reviewed date:12/06/2024 09:31:56 AM Interpretation: Performing Lab: Notes/Report: [address] [address] Ultrasound Report Signed Patient: Ap Jones MR#: [id number] 41 : 1965 Acct:[id number] Age/Sex: 59 / M ADM Date: 10/14/24 Loc: HO.US Attending Dr: Xander Del Rosario MD Ordering Physician: Xander Del Rosario MD Date of Service: 10/14/24 Procedure(s): US thyroid Accession Number(s): [id number] cc: Xander Del Rosario MD EXAMINATION: US [...] than or equal to 1 cm: 3. Concrete Bucket Loader nodules are described as follows: 1. Location: [...] by: Chase Richard MD 11/12/2024 03:38 PM [facility] Dictated By: Chase Richard MD Signed By: <Electronically signed by Chase Richard MD in OV> 11/12/24 1538 DD/ 0908 TD/TT: 10/14/24 0916 Practice Billing Associate: [place] [id number] Ultrasound Report Signed Patient: Lui Jones MR#: [id number] 41 : 1965 Acct:[id number] Age/Sex: 59 / M ADM Date: 10/14/24 Loc: HO.US Attending Dr: Xander Del Rosario MD Ordering Physician: Xander Del Rosario MD Date of Service: 10/14/24 Procedure(s): US thyroid Accession Number(s): [id number] cc: Xander Del Rosario MD EXAMINATION: US THYROID CLINICAL INFORMATION: Multinodular goiter COMPARISON: Ultrasound thyroid 04/02/2024 TECHNIQUE: Linear transducer gr ayscale and color Doppler examination with attention to [...] than or equal to 1 cm: 3. Concrete Bucket Loader nodul es are described as follows: 1. Location: Right mid pole. Size: 2.0 x 1.0 x 1. [...] ACR TI-RADS category: Large 5 NODES: No lymphadeno lita is seen in the tissue surrounding the thyroid gland. US/US thyroid IMPRESSION: Enlarged left thyroid lobe. Bilateral nodules ar e stable compared to previous exam 04/02/2024. There is unchanged in tota l points and antibiotics in mid pole left thyroid nodule. I would laura mmend a biopsy of this nodule. ACR TI-RADS RECOMMEN DATION REFERENCE: Ultrasound-guided fi ne-needle aspiration, followup ultrasound, no further follow up. [...] by: Chase Richard MD 11/12/2024 03:38 PM [facility] Dictated By: Chase Richard MD Signed By: <Electron icay signed by Chase Richard MD in OV> 11/12/24 1538 DD/ 7 TD/TT: 10/14/24915 Practice Billing Associate: [facility] Pathology Reviewed date:02/08/2025 04:55:00 AM Interpretation: Performing Lab:[facility], [address] [place] [phone] Notes/Report: Name: AubreyAp Age/Sex: 59/M : 1965 Unit#: [id number] Attend Dr: Laura Villatoro MD Re01/08/25 Status : DEP REF Location: [facility] Disch: SPEC : [id number] RECD : 01/09/25 STATUS: MIRANDA FELIX NUM: [id number] JONO: 01/08/25 [facility] DR: Laura Villatoro MD ENTERED: 01/09/25 SP TYPE: Cytology OTHR DR: Xander Del Rosario MD ORDERED: Cell Block, Fine Ndl Asp/2 Diagnosis A. Thyroid, right mi d pole 2 cm nodule, fine needle aspiration: Non-diagnostic ([place] category I). COMMENT (A): Blood, fibrin and peripheral blood elements only. No follicular epithelial cells identified. Th e cell block is acellular and non-contributory. B. Thyroid, left mid pole 2.5 cm nodule, fine needle aspiration: Benign ([place] category II). COMMENT (B): Satisfa ctory for [...] prepared. Copies To: Xander Del Rosario MD [address] [place] [address], [address] [place] [address] Laura Villatoro MD [facility] Endocrinology [address] [place] [address] [address] [place] [address] [email or web address] CONTINUED ON NEXT PAGE Name: Ap Jones Age/Sex: 59/M : 1965 Unit#: [id number] Attend Dr: Laura Villatoro MD Re01/08/25 Status : DEP REF Location: [facility] Disch: SPEC : [id number] RECD : 01/09/25 STATUS: MIRANDA FELIX NUM: [id number] JONO: 01/08/2543 [facility] DR: Laura Villatoor MD ENTERED: 01/09/25-05 21 SP TYPE: Cytology OTHR DR: Xander Del Rosario MD ORDERED: Dalia Berrios Ndarnol Asp/2 Signed (si gnature on file) Philipp Andrade MD 01/10/25 2787 END OF REPORT Pathology Reviewed date:05/02/2025 07:20:23 PM Interpretation: Performing Lab:[facility], [address] [place] [phone] Notes/Report: Name: Ap Jones Age/Sex: 59/M : 1965 Unit#: [id number] Attend Dr: Laura Villatoro MD Re04/02/25 Status : DEP REF Location: [facility] Disch: SPEC : [id number] RECD : 04/02/25-1143 STATUS: MIRANDA FELIX NUM: [id number] JONO: 04/02/25-[address] [facility] [address]: Laura Villatoro MD ENTERED: 04/02/25-12 02 SP TYPE: Cytology OTHR DR: Xander Del Rosario MD ORDERED: Cell Block, Fine Ndl Asp Diagnosis Thyroid, right mid n odule, fine needle aspiration: Non-diagnostic ([place] category I). COMMENT: Review of t he [...] and paraffin-embedded. Some or all of the immunohis tochemical tests reported herein may have been developed and their performance characte ristics determined by [facility]. They have not been cleared or appr laurel by the U.S. Food and Drug Administration (FDA). However, the FDA has determined that such clearance or approval is not necessary. This laboratory is certified under the Clinical Laboratory Improvement Amendments of 1988 (CLIA) as qualified to perform high comp lexity clinical laboratory testing. Copies To: Xander Del Rosario MD [address] [place] [address], [address] [place] [address] Laura Villatoro MD [facility] Endocrinology [address] [place] [address] [address] [place] [address] CONTINUED ON NEXT PAGE Name: Ap Jones Age/Sex: 59/M : 1965 Unit#: [id number] Attend Dr: Laura Villatoro MD Re04/02/25 Status : DEP REF Location: [facility] Disch: SPEC : [id number] RECD : 04/02/25 STATUS: MIRANDA FELIX NUM: [id number] JONO: 04/02/[address] [facility] [address]: Laura Villatoro MD ENTERED: 04/02/25 SP TYPE: Cytology OTHR DR: Xander Del Rosario MD ORDERED: Cell Block, Fine Ndl Asp Copies To: (Continued) [email or web address] Signed (si gnature on file) Marybeth Ang MD 04/03/25 1038 END OF REPORT Reason For Referral Reason Evaluate and Treat Thyroid Nodule that meets criteria for biospy Diagnosis 1 Thyroid nodule (E04. 1) Referral Organization Xander Del Rosario III, MD Referring Provider First Name Xander Referring Provider Last Name Carin Referring Provider Speciality Internal M edicine Referred Provider [facility] Referred Provider Specialty Endocrinolog y General Notes D, Clemencia 11/13/2024 01:57:20 PM > Referral, Ultrasounds, and last progress note faxed., D, Clemencia 11/26/2024 09:28:29 AM > patient is being seen by Dr. Villatoro on 12/20/24 @ 8am Referral Priority Routine Referral Appointment Date 12/20/2024 Medications Medication SIG (Take, Route, Frequency, Duration) Notes Start Date End Date Status FreeStyle Lite w/Device as directed - patient to test four times a day 10/04/2021 Active Clobetasol Propionate 0.05 % APPLY DAILY TO SKIN TO AFFECTED AREA TWICE A DAY FOR 2 WEEKS Active Lisinopril 40 MG TAKE 1 TABLET BY MOUTH EVERY DAY Active LORazepam 2 MG 1 tablet at bedtime as needed Orally every 6 hours x 2 days prn anxiety during air travel 07/30/2024 Active hydroCHLOROthiazide 25 MG 1 tablet every morning Orally Once a day Active metFORMIN HCl 500 MG TAKE 2 TABLETS BY MOUTH TWICE A DAY WITH MEALS Active Ozempic (2 MG/DOSE) 8 MG/3ML 2 mg Subcutaneous weekly 11/04/2024 Active Fenofibrate 160 MG TAKE 1 TABLET BY MOUTH EVERY DAY WITH MEALS Active Meclizine HCl 25 MG 1 tablet as needed Orally every 12 hrs Active Basaglar KwikPen 100 UNIT/ML as directed Subcutaneous 50 units every morning and 70 units every evening please dispense one month supply 11/13/2024 Active Meloxicam Active NovoLOG 100 UNIT/ML 10-22 units Injection three times a day on sliding scale DX: Diabetes E11.9 Active Lantus SoloStar 100 UNIT/ML INJECT 50 UNITS IN THE MORNING AND 70 UNITS AT BEDTIME Active Pen [place] 31G X 8 MM use to administer insulin three times a day DX E11.9 Diabetes Active Ketoconazole 2 % 1 application Externally Twice a day 10/06/2023 Active Rosuvastatin Calcium 10 MG TAKE 1 TABLET BY MOUTH EVERY DAY Active FreeStyle Lite Test - as directed [...] DAY WITH FOOD FOR 30 DAYS Active Immunizations Vaccine Route Administration Date Status [...] Problem Status W/U Status Risk Notes Problem 4232097 Former smoker (Z87.891) Active confirmed He is highly motivated not to smoke. He has a plan for prevention of abstinence. We have discussed abstinence today. Problem 433146913 Obesity (E66.9) Active confirmed His body mass index is 37. We discussed diet and nutrition. Continue issues Ebbers her weight loss. Problem DM - Diabetes mellitus (67740118) DM (diabetes mellitus) (E11.9) Active confirmed Comprehensive blood work including A1c was ordered today. No change in his medication was necessary. Problem 334473593 Thrombocytopenia (D69.6) Active confirmed His last platelet count was February 27, 2024. This value was 149,000. He is cleared for surgery. He has had no bleeding. He is not taking aspirin.He had no bleeding during his recent surgery. Problem 1672337 Other specified arthritis, left shoulder (M13.812) Active confirmed He is scheduled to have a left shoulder arthroplasty at [facility]. I have seen and examined him carefully today. Assuming that he is cleared by the rn lactation he is cleared medically for the surgery. Because of his comorbidities his risk would be higher than that of the average 60-year-old man but I think the risk is acceptable. He has been instructed to take his insulin night before surgery but not thereafter. Problem 17722852 Essential hypertension (I10) Active confirmed His blood pressure is 130/70. No change in his regimen was made today. Problem 01527306 Penicillin allergy (Z88.0) Active confirmed Problem 39811399 Left shoulder pain (M25.512) Active confirmed He has recently undergone shoulder replacement in [place] on the left side.He says he is feeling much better. Problem Diabetes mellitus type 2 in nonobese (686404687) Diabetes mellitus type 2 in nonobese (E11.9) Active confirmed He reports his fasting glucoses about 130 to 135.No changes in his regimen were made today. Problem 952156148 Multinodular thyroid (E04.2) Active confirmed An incidenta l finding on neck arteriography recently was a multinodular thyroid. A thyroid ultrasound has been ordered. Problem Pure hypercholesterolem ia (304861767) Hyperlipidemia type II (E78.01) Active confirmed His lipids have been well controlled. His weight is stable. He was continued on current medication and comprehensive blood work with a lipid profile has been ordered. 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 He did not wish to take an antidepressant . He was given emotional support and close follow-up. Problem 059789460 Benign prostatic hyperplasia, unspecified whether lower urinary tract symptoms present (N40.0) Active confirmed He rises from sleep once or twice a night to urinate. We have discussed lifestyle modifications achromatic reduce nocturia. We have discussed medications he could take. Problem 62193105 Spinal stenosis of lumbar region with neurogenic claudication (M48.062) Active confirmed He has been scheduled for a second laminectomy in [place] in the near future. Platelet count will be checked. Problem 664763854973577 Left foot drop (M21.372) Active confirmed He continues to wear the brace to good effect. His gait is fairly normal. Problem 672519427 Scoliosis of thoracolumbar spine, unspecified scoliosis type (M41.9) Active confirmed Diagnosis stenosing orthopedic facility with spinal stenosis and scoliosis. Debilitating pain and has been scheduled for garry operative procedure. Vital Signs Heart Rate 79 /min 07/02/2025 Temperature 97.0 degrees Fahrenheit 07/02/2025 Respiratory Rate 14 /min 03/17/2025 Oximetry 100 % 03/17/2025 Blood pressure diastolic 81 mm Hg 07/02/2025 Height 71 in 07/02/2025 Blood pressure systolic 134 mm Hg 07/02/2025 Weight 266 lbs 07/02/2025 BMI 37.1 kg/m2 07/02/2025 Encounters Encounter Location Date Provider Diagnosis Xander Del Rosario III, MD [address] [place] [address] [place] [address] 07/02/2025 Xander Del Rosario Former smoker Z87.89 1 ; Obesity E66.9 ; Thrombocytopenia D69.6 ; Benign prostatic hyperplasia, unspecified whether lower urinary tract symptoms present N40.0 ; DM (diabetes mellitus) E11.9 ; Hyperlipidemia type II E78.01 and Foreign body (FB) in soft tissue M79.5 Xander Del Rosario III, MD [address] [place] [address] [place] [address] 08/22/2024 Xander Del Rosario Obesity E66.9 ; Form er smoker Z87.891 ; Essential hypertension I10 ; Thrombocytopenia D69.6 ; Left foot drop M21.372 ; Benign prostatic hyperplasia, unspecified whether lower urinary tract symptoms present N40.0 ; Herniated intervertebral disc of lumbar spine M51.26 ; Other specified arthritis, left shoulder M13.812 and DM (diabetes mellitus) E11.9 Xander Del Rosario III, MD [address] [place] [address] [place] [address] 09/23/2024 Xander Del Rosario Obesity E66.9 ; DM (diabetes mellitus) E11.9 ; Essential hypertension I10 ; Thrombocytopenia D69.6 ; Herniated intervertebral disc of lumbar spine M51.26 ; Hyperlipidemia type II E78.0 ; Former smoker Z87.891 and Left foot drop M21.372 Xander Del Rosario III, MD [address] [place] [address] [place] [address] 11/04/2024 Xander Del Rosario Former smoker Z87.89 [...] shoulder M13.812 Xander Del Rosario III, MD [address] [place] [address] [place] [address] 11/25/2024 Xander Carin Former smoker Z87.89 1 ; Left thyroid nodule E04.1 ; Essential hypertension I10 ; Diabetes mellitus type 2 in nonobese E11.9 ; Obesity E66.9 ; Thrombocytopenia D69.6 ; Left shoulder pain M25.512 and Left foot drop M21.372 Xander Del Rosario III, MD [address] [place] [address] [place] [address] 12/23/2024 Xander Carin Former smoker Z87.89 1 ; Diabetes mellitus type 2 in nonobese E11.9 ; Essential hypertension I10 ; Obesity E66.9 and Acute non-recurrent sinusitis of other sinus J01.80 Xander Del Rosario III, MD [address] [place] [address] [place] [address] 02/03/2025 Xander Blackwoodrne Former smoker Z87.89 1 ; Spinal stenosis of lumbar region with neurogenic claudication M48.062 ; Obesity E66.9 ; Essential hypertension I10 ; Thrombocytopenia D69.6 ; Reactive depression F32.9 ; Scoliosis of thoracolumbar spine, unspecified scoliosis type M41.9 and DM (diabetes mellitus) E11.9 Xander Del Rosario III, MD [address] [place] [address] [place] [address] 03/17/2025 Xander Carin Former smoker Z87.89 1 ; Spinal stenosis of lumbar region with neurogenic claudication M48.062 ; Obesity E66.9 ; Essential hypertension I10 ; Diabetes mellitus type 2 in nonobese E11.9 ; Benign prostatic hyperplasia, unspecified whether lower urinary tract symptoms present N40.0 ; Multinodular thyroid E04.2 and Other specified arthritis, left shoulder M13.812 Xander Del Rosario III, MD [address] [place] [address] [place] [address] 04/07/2025 Xander Del Rosario Former smoker Z87.89 1 ; Benign prostatic hyperplasia, unspecified whether lower urinary tract symptoms present N40.0 ; Obesity E66.9 ; Essential hypertension I10 ; Thrombocytopenia D69.6 ; Multinodular thyroid E04.2 ; Other specified arthritis, left shoulder M13.812 ; Left shoulder pain M25.512 and Viral syndrome B34.9 Xander Del Rosario III, MD [address] [place] [address] [place] [address] 05/14/2025 Xander Del Rosario Former smoker Z87.89 [...] Diabetes mellitus type 2 in nonobese E11.9 Xander Del Rosario III, MD [address] [place] [address] [place] [address] 07/11/2024 Xander Del Rosario III, MD [address] [place] [address] [place] [address] 07/30/2024 Xander Del Rosario III, MD [address] [place] [address] [place] [address] 07/30/2024 Xander Del Rosario III, MD [address] [place] [address] [place] [address] 09/30/2024 Xander Del Rosario Multinodular thyroid E04.2 Xander Del Rosario III, MD [address] [place] [address] [place] [address] 10/02/2024 Xander Del Rosario III, MD [address] [place] [address] [place] [address] 10/02/2024 Xander Del Rosario III, MD [address] [place] [address] [place] [address] 10/21/2024 Xander Del Rosario Urinary tract infect ion without hematuria, site unspecified N39.0 Xander Del Rosario III, MD [address] [place] [address] [place] [address] 10/21/2024 Xander Del Rosario III, MD [address] [facility] [place] [address] 11/07/2024 Xander Del Rosario III, MD [address] [facility] [place] [address] 11/11/2024 Xander Del Rosario III, MD [address] [place] [address] [place] [address] 11/12/2024 Xander Del Rosario III, MD [address] [facility] [place] [address] 11/13/2024 Xander Del Rosario III, MD [address] [facility] [place] [address] 11/13/2024 Xander Del Rosario III, MD [address] [place] [address] [place] [address] 12/02/2024 Xander Del Rosario III, MD [address] [place] [address] [place] [address] 12/02/2024 Xander Del Rosario III, MD [address] [place] [address] [place] [address] 12/03/2024 Xander Del Rosario III, MD [address] [place] [address] [place] [address] 12/03/2024 Xander Del Rosario III, MD [address] [place] [address] [place] [address] 01/07/2025 Xander Del Rosario III, MD [address] [place] [address] [place] [address] 04/14/2025 Xander Del Rosario III, MD [address] [place] [address] [place] [address] 06/06/2025 Xander Del Rosario Assessments Encounter Date Diagnosis (ICD Code) Assessment Notes Treat ment Notes Treatment Clinical Notes 07/02/2025 Former smoker (ICD-1 0 - Z87.891) He is highly motivated not to smoke. He has a plan for prevention of abstinence. We have discussed abstinence today. 08/22/2024 Former smoker (ICD-1 0 - Z87.891) [...] the past. Scheduled for further surgery in [place] on his back in the near future. [...] been scheduled for a second laminectomy in [place] in the near future. Platelet count will be checked. 03/17/2025 Former smoker (ICD-1 0 - Z87.891) He is highly motivated not to smoke. He has a plan for prevention of abstinence. We have discussed abstinence today. 03/17/2025 Spinal stenosis of lumbar region with neurogenic claudication (ICD-10 - M48.062) He has been scheduled for a second laminectomy in [place] in the near future. Platelet count will [...] have discussed medications he could take. 05/14/2025 Former smoker (ICD-1 0 - Z87.891) He is highly motivated not to smoke. He has a plan for prevention of abstinence. We have discussed abstinence today. 05/14/2025 Scoliosis of thoracolumbar spine, unspecified scoliosis type (ICD-10 - M41.9) Diagnosis stenosing orthopedic facility with spinal stenosis and scoliosis. Debilitating pain and has been scheduled for garry operative procedure. 09/30/2024 Multinodular thyroid (ICD-10 - E04.2) 10/21/2024 Urinary tract infection without hematuria, site unspecified (ICD-10 - N39.0) 07/02/2025 Obesity (ICD-10 - E66.9) 08/22/2024 Essential hypertensi on (ICD-10 - I10) [...] Continue issues Ebbers her weight loss. 05/14/2025 Obesity (ICD-10 - E66.9) His body mass index is 37. We discussed diet and nutrition. Continue issues Ebbers her weight loss. 07/02/2025 Thrombocytopenia (ICD-10 - D69.6) 08/22/2024 Thrombocytopenia (ICD-10 - D69.6) His last [...] in his regimen was made today. 05/14/2025 Essential hypertensi on (ICD-10 - I10) His blood pressure is 130/70. No change in his regimen was made today. 07/02/2025 Benign prostatic hyperplasia, unspecified whether lower urinary tract symptoms present (ICD-10 - N40.0) 08/22/2024 Left foot drop (ICD- 10 - [...] no bleeding during his recent surgery. 05/14/2025 Thrombocytopenia (ICD-10 - D69.6) His last platelet count was February 27, 2024. This value was 149,000. He is cleared for surgery. He has had no bleeding. He is not taking aspirin.He had no bleeding during his recent surgery. 07/02/2025 DM (diabetes mellitu s) (ICD-10 - E11.9) 08/22/2024 Benign prostatic hyperplasia, unspecified whether lower [...] A thyroid ultrasound has been ordered. 05/14/2025 Multinodular thyroid (ICD-10 - E04.2) An incidental finding on neck arteriography recently was a multinodular thyroid. A thyroid ultrasound has been ordered. 07/02/2025 Hyperlipidemia type II (ICD-10 - E78.01) 08/22/2024 Herniated intervertebral disc of lumbar spine [...] He has recently undergone shoulder replacement in [place] on the left side.He says he is [...] to have a left shoulder arthroplasty at [facility]. I have seen and examined him carefully today. Assuming that he is cleared by the rn lactation he is cleared medically for the surgery. Because of his comorbidities his risk would be higher than that of the average 60-year-old man but I think the risk is acceptable. He has been instructed to take his insulin night before surgery but not thereafter. 05/14/2025 Benign prostatic hyperplasia, unspecified whether lower urinary tract symptoms present (ICD-10 - N40.0) He rises from sleep once or twice a night to urinate. We have discussed lifestyle modifications achromatic reduce nocturia. We have discussed medications he could take. 07/02/2025 Foreign body (FB) in soft tissue (ICD-10 - M79.5) 08/22/2024 Other specified arthritis, left shoulder (ICD-10 - M13.812) He is scheduled to have a left shoulder arthroplasty at [facility]. I have seen and examined him carefully today. Assuming that he is cleared by the rn lactation he is cleared medically for the surgery. [...] to have a left shoulder arthroplasty at [facility]. I have seen and examined him carefully today. Assuming that he is cleared by the rn lactation he is cleared medically for the surgery. Because of his comorbidities his risk would be higher than that of the average 60-year-old man but I think the risk is acceptable. He has been instructed to take his insulin night before surgery but not thereafter. 04/07/2025 Left shoulder pain (ICD-10 - M25.512) He has recently undergone shoulder replacement in [place] on the left side.He says he is feeling much better. 05/14/2025 Other specified arthritis, left shoulder (ICD-10 - M13.812) He is scheduled to have a left shoulder arthroplasty at [facility]. I have seen and examined him carefully today. Assuming that he is cleared by the rn lactation he is cleared medically for the surgery. Because of his comorbidities his risk would be higher than that of the average 60-year-old man but I think the risk is acceptable. He has been instructed to take his insulin night before surgery but not thereafter. 08/22/2024 DM (diabetes mellitu s) (ICD-10 - [...] will report immediately if he feels worse. 05/14/2025 Spinal stenosis of lumbar region with neurogenic claudication (ICD-10 - M48.062) He has been scheduled for a second laminectomy in [place] in the near future. Platelet count will be checked. 11/04/2024 Benign prostatic hyperplasia, unspecified whether lower urinary tract symptoms present (ICD-10 - N40.0) He rises from sleep once a night, sometimes twice. We discussed lifestyle modification as a way of reducing nocturia. 05/14/2025 Diabetes mellitus ty pe 2 in nonobese (ICD-10 - E11.9) He reports his fasting glucoses about 130 to 135.No changes in his regimen were made today. 11/04/2024 Multinodular thyroid (ICD-10 - E04.2) An incidental finding on neck arteriography recently was a multinodular thyroid. A thyroid ultrasound has been ordered. 11/04/2024 Other specified arthritis, left shoulder (ICD-10 - M13.812) He is scheduled to have a left shoulder arthroplasty at [facility]. I have seen and examined him carefully today. Assuming that he is cleared by the rn lactation he is cleared medically for the surgery. Because of his comorbidities his risk would be higher than that of the average 60-year-old man but I think the risk is acceptable. He has been instructed to take his insulin night before surgery but not thereafter. Plan Of Treatment Pending Test Test Name Order Date PROFILE, FASTING (COMPREHENSIVE METABOLI C) 11/04/2024 PROFILE, FASTING (COMPREHENSIVE METABOLI C) 03/17/2025 PROFILE, FASTING (COMPREHENSIVE METABOLI C) 07/02/2025 PROFILE, FASTING (COMPREHENSIVE METABOLI C) 12/23/2024 TSH (THYROID STIMULATING HORMONE) 2024 PSA, TOTAL 03/17/2025 PSA, TOTAL 07/02/2025 CBC w DIFF 11/04/2024 CBC w DIFF 03/17/2025 CBC w DIFF 07/02/2025 MRI LUMBAR SPINE NO CONTRAST 11/10/2017 MRI LUMBAR SPINE NO CONTRAST 04/27/2021 MRI PELVIS NO CONTRAST 04/27/2021 XR ABD UPRIGHT DECUB 07/02/2025 XR LUMBAR SPINE 4+ VIEWS 11/03/2017 CBC WITH AUTO DIFF 12/23/2024 Lipid Panel 11/04/2024 Lipid Panel 03/17/2025 Lipid Panel 07/02/2025 Lipid Panel 12/23/2024 Free T4 (Free Thyroxine) 11/04/2024 Microalbumin, Random 03/17/2025 Microalbumin, Random 07/02/2025 Microalbumin, Random 11/04/2024 Hemoglobin A1c 12/23/2024 Hemoglobin A1c 03/17/2025 Hemoglobin A1c 07/02/2025 Hemoglobin A1c 11/04/2024 Next Appt Details Provider Name:Xander Carin, 09/01/2025 10:30:00 AM, [address] [place] [address] [address], [place], [address], Provider Name:Xander Del Rosario, 05/18/2026 10:00:00 AM, [address] [place] [address] [address], [place], [address], Insurance Providers Payer Name Payer Address Payer Phone Subscriber Number Group Number Insured Name Patient Relationship to Insured Coverage Start Date Coverage End Date MEDICARE NGS [address] [place] [address] [phone] [id number] Ap Jones Self - patient is the insured [facility] CLAIM DIV [address] [place] [address] [id number] Ap Jones Self - patient is the insured Medical (General) History Medical History History ICD Code diabetes mellitus obesity hypertension penicillin allergy erythromycin allergy back pain herniated disc lumbosacral pain hyperlipidemia Mild aortic stenosis Bicuspid aortic multiple thyroid nodules Surgical History Surgery Date(Month/Year) Right hip surgery - scoped, no complicat ions since. Shoulder replacement surgery - august 29, [facility] 07/2024 Left shoulder replacement 08/29/[address] Jones 01/2018 cardiac catheterization: 25% LAD, EF 65% 02/2011 right hip arthroplasty fractured left ankle laminectomy of the spine Hospitalization History Reason Date(Month/Year) Left shoulder replacement, [place] 2024 intomas Lizeth due to hypertension/dehydrati on/vertigo 03/16/2024
--- OUTSIDE RECORDS SUMMARY | 2025-07-03 09:03 | XMS_ITS | Patient Health Record ---
[facility] Address [address] [place] [address] Care Team Providers Care Stave Hewer Name Role Phone Xander Del Rosario MD Primary Care Provider Rogelio Yepez Unavailable [phone] Allergies Allergen (clinical drug ingredient) Drug/Non Drug Allergy documented on EMR Reaction Allergy Type Onset Date Status Biaxin Unknown Drug Allergy Active erythromycin Erythromycin Unknown Drug Allergy A ctive Penicillin Unknown Drug Allergy Active Z Pac Unknown Drug Allergy Active Reason For Referral No Information Medications Medication SIG (Take, Route, Fr equency, Duration) Notes Start Date End Date Status metFORMIN HCl 850 MG Oral; Duration: 30 Active NovoLIN R Active Lisinopril 40 MG Oral; Duration: 30 Active Meloxicam 15 MG 1 tablet Orally Once a day; Duration: 30 day(s) 01/16/2015 Active NovoLIN N Active Meloxicam 15 MG 1 tablet Orally Once a day; Duration: 30 day(s) Active Fenofibrate 600 mg Oral Once a day Active glipiZIDE 10 MG Oral; Duration: 30 Active Crestor Active Social History Tobacco use other than smoking: Question Answer Notes Are you an other tobacco user? No Problems Problem Type SNOMED Code ICD Code Onset Dates Problem Status W/U Status Risk Notes Problem Polyneuropathy due to diabetes mellitus type I (066075741) Type 1 diabetes mellitus with diabetic polyneuropathy (E10.42) Active confirmed Plan Of Treatment Pending Test Test Name Order Date Glucose Fasting 01/16/2015 X ray : Foot, right 3V 01/16/2015 [id number] SKIN LESIONS, OVER 4 02/12/20 16 Insurance Providers Payer Name Payer Address Payer Phone Subscriber Number Group Number Insured Name Patient Relationship to Insured Coverage Start Date Coverage End Date [facility] [address] [place] [address] [phone] [id number] Ap [place] Self - patient is the insured Medical (General) History Medical History History ICD Code Back,Hip,and Knee pain Chicken pox Diabetes mellitus High blood pressure Surgical History Surgery Date(Month/Year) back surgery hip surgery
--- OUTSIDE RECORDS SUMMARY | 2025-07-03 09:04 | XMS_ITS | Clinical Summary ---
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 Role Phone Xander Del Rosario MD Primary Care Provider [phone] Allergies Active Allergy Reactions Criticality Noted Date Comments Ciprofloxacin Anaphylaxis,Unknown High 08/13/2024 Clarithromycin Unknown 08/13/2024 diarrhea Erythromycin 11/10/2024 Penicillins Anaphylaxis,Unknown High 08/13/2024 Medications No known medications Social History Tobacco Use Types Packs/Day Years [...] 98 11/10/2024 1:28 PM EST Temperature 37.2 C (99 F) 11/10/2024 1:28 PM EST Respiratory Rate 20 [...] Panel) 09/27/2022 Colorectal Cancer Screening: Colonoscopy 09/27/2022 HIV Screening 09/27/2022 Hepatitis C Screening 09/27/2022 Medicare Annual Wellness Visit 09/27/2022 Social Influencers of Health Screening 09/27/2022 Pneumococcal Vaccine: 50+ Years (2 of 2 - PCV) 11/08/2022 11/08/2021, 08/31/2020 COVID-19 Vaccine (4 - season) 2024 08/27/2021, 02/02/2021, 01/05/2021 RSV Immunization Adult Patients (1 - Risk 60-74 years 1-dose series) 2024 Depression Screening 10/30/2024 Diabetes: Annual Urine Albumin-Creatinine Ratio (uACR) 11/10/2024 Diabetes: Blood Sugar Control Test (HGBA1C) 02/11/2025 08/13/2024 Influenza Vaccine (#1) 2025 , 08/04/2022, 11/08/2021, Additional history exists Diabetes: Annual GFR (Glomerular Filtration Rate) 11/10/2025 11/10/2024, 08/13/2024, 08/13/2024 Hypertension/CHF/CAD Annual BMP Blood Test 11/10/2025 11/10/2024, 08/13/2024, 08/13/2024 DTaP,Tdap,and Td Vaccines (2 - Td or Tdap) 01/30/2027 01/30/2017 Zoster Vaccines Completed 11/03/2020, 08/31/2020 HIB Vaccines Aged Out No longer eligi [...] age to complete this topic Meningococcal B Vaccine Aged Out No l onger eligible based on patient's age to complete this topic RSV Immunization Patients Under 20 months Aged Out No longer eligible based on patient's age to complete this topic Varicella Vaccines Aged Out No longer eligible based on patient's age to complete this topic Procedures Procedure Name Priority Date/Time Associated Diagnosis Comments BASIC METABOLIC PANEL STAT 11/10/2024 1:47 PM EST from Last 3 Months or Most Recently Relevant to Health Maintenance Results * (ABNORMAL) Basic metabolic panel (11/10/2024 1:47 PM EST) Sodium 131(L) 133 - 145 mmol/L LAB CHEMISTRY METHOD 11/10/2024 2:26 PM [facility] Potassium 4.2 3.5 - 5.5 mmol/L LAB CHEMISTRY METHOD 11/10/2024 2:26 PM [facility] Chloride 99 96 - 110 mmol/L LAB CHEMISTRY METHOD 11/10/2024 2:26 PM [facility] CO2 29 21 - 32 mmol/L LAB CHEMISTRY METHOD 11/10/2024 2:26 PM [facility] Anion Gap 3 3 - 11 LAB CHEMISTRY METHOD 11/10/2024 2:26 PM [facility] Glucose 114(H) 70 - 100 mg/dL LAB CHEMISTRY METHOD 11/10/2024 2:26 PM [facility] BUN 25 5 - 25 mg/dL LAB CHEMISTRY METHOD 11/10/2024 2:26 PM [facility] Creatinine 0.87 0.70 - 1.30 mg/dL LAB CHEMISTRY METHOD 11/10/2024 2:26 PM [facility] eGFR 99 >=60 mL/min/1. 73m2 LAB CHEMISTRY METHOD 11/10/2024 2:26 PM [facility] Comment:Calculation based on the Chronic Kidney Disease Epidemiology Collaboration (CKD-EPI) equation refit without adjustment for race. BUN/Creatinine Ratio 28.7 LAB CHEMISTRY METHOD 11/10/2024 2:26 PM [facility] Calcium 9.3 8.5 - 10.5 mg/dL LAB CHEMISTRY METHOD 11/10/2024 2:26 PM EST [facility] Blood Venous blood specimen / Unknown Venipuncture / Unknown 11/10/2024 1:47 PM EST 11/10/2024 1:59 PM EST Yosef Freed MD LAB BLOOD ORDERABLES Betty l Result [facility] [address] [place] [address], from Last 3 Months or Most Recently Relevant to Health Maintenance Insurance 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
== END 2025-07-03 08:34 | disposition home or self-care (01) ==
LOC: HO.XRAY 08:33
PROVIDERS: PCP Internal Medicine Medical Oncology; Visit Provider Internal Medicine Medical Oncology
DX: M79.5 Residual foreign body in soft tissue (principal)
CPT/HCPCS: 74021

== ENCOUNTER → 2025-07-03 08:40 | Outpatient (BNV) | payer MEDICARE, SELFPAY | PROVIDERS: PCP Internal Medicine Medical Oncology; Visit Provider Radiology Diagnostic Radiology | DX: K59.00 Constipation, unspecified (principal) | CPT/HCPCS: 74021 ==

== ENCOUNTER 2025-10-02 08:20 | Outpatient (AMB) | payer MEDICARE, SELFPAY ==
--- OUTSIDE RECORDS SUMMARY | 2025-04-14 06:10 | XMS_ITS ---
Author Organization Xander Del Rosario III, MD Address [address] [place] [address] [place] [address] Care Team Providers Care Implementation Advisor Name Role Phone Dr. Xander Del Rosario III Primary Care Provider REASON FOR VISIT Rx Refill/Message Medications Medication SIG (Take, Route, Frequency, Duration) Notes Start Date End Date Status NovoLOG 100 UNIT/ML 10-22 units Injection three times a day on sliding scale for 90 days DX: Diabetes E11.9 Active Social History Sex Assigned At : Social History Observation Description Sex Assigned At Male Encounters Encounter Location Date Provider Diagnosis Xander Del Rosario III, MD [address] [place] [address] [place] [address] 04/14/2025 Xander Del Rosario Plan Of Treatment Medication Medication Name Sig Start Date Stop Date Notes NovoLOG 100 UNIT/ML 10-22 units Injectio n three times a day on sliding scale for 90 days DX: Diabetes E 11.9 Next Appt Details Provider Name:Xander Del Rosario , 12/30/2025 09:45:00 AM, [address] [place] [address] [place], [address], Provider Name:Xander Del Rosario , 05/18/2026 10:00:00 AM, [address] [place] [address] [place], [address], Progress Notes * Ap JONESDOB: 4 (59 yo M)Acc No.[id number]:04/14/2025 Patient: Ap GAO :1965 A ge:59 Y S ex:Male Address:[address] [place] [address] * Refills Refill NovoLOG Solution, 100 UNIT/ML, 60, 10-22 units Injection three times a day on sliding scale, 90 days, Refills=3 * true * Date: Generated for Eladia ramires/Althea/Katiesmitting on: 12/03/2024 08:39 AM EST
--- OUTSIDE RECORDS SUMMARY | 2025-05-14 05:00 | XMS_ITS ---
Author Organization Xander Del Rosario III, MD Address [address] [place] [address] [place] [address] Care Team Providers Care Filler Operator Name Role Phone Dr. Xander Del Rosario III Primary Care Provider Allergies Allergen (clinical drug ingredient) Drug/Non Drug Allergy documented on EMR Reaction Allergy Type Onset Date Status Penicillin anaphylaxis Drug Allergy Acti ve erythromycin Erythromycin Unknown Drug Allergy A ctive ciprofloxacin Cipro Unknown Drug Allergy Act tyrese REASON FOR VISIT Annual Exam Medications Medication SIG (Take, Route, Frequency, Duration) Notes Start Date End Date Status Ozempic (2 MG/DOSE) 8 MG/3ML 2 mg Subcutaneous weekly 11/04/2024 Active Ketoconazole 2 % 1 application Externally Twice a day 10/06/2023 Active Lantus SoloStar 100 UNIT/ML INJECT 50 UNITS IN THE MORNING AND 70 UNITS AT BEDTIME Active Meloxicam Active Meclizine HCl 25 MG 1 tablet as needed Orally every 12 hrs Active Rosuvastatin Calcium 10 MG TAKE 1 TABLET BY MOUTH EVERY DAY Active diazePAM 10 MG 1 tablet as needed Orally before closed MRI procedure 04/10/2024 Active BD Insulin Syringe U/F 31G X 03/14 1 ML USE WITH INSULIN 5 TIMES DAILY Active FreeStyle Lite w/Device as directed - patient to test four times a day 10/04/2021 Active FreeStyle Lite Test - as directed In Vitro testing four times a day 10/04/2021 Active Clobetasol Propionate 0.05 % APPLY DAILY TO SKIN TO AFFECTED AREA TWICE A DAY FOR 2 WEEKS Active Basaglar KwikPen 100 UNIT/ML as directed Subcutaneous 50 units every morning and 70 units every evening please dispense one month supply 11/13/2024 Active Fenofibrate 160 MG TAKE 1 TABLET [...] three times a day on sliding scale DX: Diabetes E11.9 Active BD Pen Needle Original U/F 29G X 12.7MM use three times a day to administer insulin use three times a day to administer insulin DX: E11.9 Diabetes 08/07/2020 Active hydroCHLOROthiazide 25 MG 1 tablet every morning Orally Once a day Active Lisinopril 40 MG TAKE 1 TABLET BY MOUTH EVERY DAY Active Metoprolol Tartrate 25 MG TAKE 1 TABLET BY MOUTH TWICE A DAY WITH FOOD FOR 30 DAYS Active Social History Tobacco Use: Social History [...] Tobacco Non-User Ex-cigaret te smoker Vital Signs Temperature 98.0 degrees Fahrenheit 05/14/20 25 Blood pressure systolic 120 mm Hg 05/14/20 25 Blood pressure diastolic 80 mm Hg 025 Heart Rate 79 /min 05/14/2025 Height 71 in 05/14/2025 Weight 263 lbs 05/14/2025 BMI 36.68 kg/m2 05/14/2025 Encounters Encounter Location Date Provider Diagnosis Xander Del Rosario III, MD [address] [place] [address] [place] [address] 05/14/2025 Xander Del Rosario Former smoker Z87.89 1 ; Scoliosis of thoracolumbar spine, unspecified scoliosis type M41.9 ; Obesity E66.9 ; Essential hypertension I10 ; Thrombocytopenia D69.6 ; Multinodular thyroid E04.2 ; Benign prostatic hyperplasia, unspecified whether lower urinary tract symptoms present N40.0 ; Other specified arthritis, left shoulder M13.812 ; Spinal stenosis of lumbar region with neurogenic claudication M48.062 and Diabetes mellitus type 2 in nonobese E11.9 Assessments Encounter Date Diagnosis (ICD Code) Assessment Notes Treat ment Notes Treatment Clinical Notes 05/14/2025 Former smoker (ICD-1 0 - Z87.891) He is highly motivated not to smoke. He has a plan for prevention of abstinence. We have discussed abstinence today. 05/14/2025 Scoliosis of thoracolumbar spine, unspecified scoliosis type (ICD-10 - M41.9) Diagnosis stenosing orthopedic facility with spinal stenosis and scoliosis. Debilitating pain and has been scheduled for garry operative procedure. 05/14/2025 Obesity (ICD-10 - E66.9) His body mass index is 37. We discussed diet and nutrition. Continue issues Ebbers her weight loss. 05/14/2025 Essential hypertensi on (ICD-10 - I10) His blood pressure is 130/70. No change in his regimen was made today. 05/14/2025 Thrombocytopenia (ICD-10 - D69.6) His last platelet count was February 27, 2024. This value was 149,000. He is cleared for surgery. He has had no bleeding. He is not taking aspirin.He had no bleeding during his recent surgery. 05/14/2025 Multinodular thyroid (ICD-10 - E04.2) An incidental finding on neck arteriography recently was a multinodular thyroid. A thyroid ultrasound has been ordered. 05/14/2025 Benign prostatic hyperplasia, unspecified whether lower urinary tract symptoms present (ICD-10 - N40.0) He rises from sleep once or twice a night to urinate. We have discussed lifestyle modifications achromatic reduce nocturia. We have discussed medications he could take. 05/14/2025 Other specified arthritis, left shoulder (ICD-10 - M13.812) He is scheduled to have a left shoulder arthroplasty at [facility]. I have seen and examined him carefully today. Assuming that he is cleared by the cigar head puncher he is cleared medically for the surgery. Because of his comorbidities his risk would be higher than that of the average 60-year-old man but I think the risk is acceptable. He has been instructed to take his insulin night before surgery but not thereafter. 05/14/2025 Spinal stenosis of lumbar region with neurogenic claudication (ICD-10 - M48.062) He has been scheduled for a second laminectomy in [place] in the near future. Platelet count will be checked. 05/14/2025 Diabetes mellitus ty pe 2 in nonobese (ICD-10 - E11.9) He reports his fasting glucoses about 130 to 135.No changes in his regimen were made today. Plan Of Treatment Medication Medication Name Sig Start Date Stop Date Notes Ozempic (2 MG/DOSE) 8 MG/3ML 2 mg Subcut aneous weekly 11/04/2024 Ketoconazole 2 % 1 application Externally Twice a day 10/06/2023 Lantus SoloStar 100 UNIT/ML INJECT 50 UN ITS IN THE MORNING AND 70 UNITS AT BEDTIME Meloxicam Meclizine HCl 25 MG 1 tablet as needed Orally every 12 hrs Rosuvastatin Calcium 10 MG TAKE 1 TABLET BY MOUTH EVERY DAY diazePAM 10 MG 1 tablet as needed Orally before closed MRI procedure 04/10/2024 BD Insulin Syringe U/F 31G X 5/16 1 ML USE WITH INSULIN 5 TIMES DAILY FreeStyle Lite w/Device as directed - patient to test four times a day 10/04/2021 FreeStyle Lite Test - as directed In Vit ro testing four times a day 10/04/2021 Clobetasol Propionate 0.05 % APPLY DAILY TO SKIN TO AFFECTED AREA TWICE A DAY FOR 2 WEEKS Basaglar KwikPen 100 UNIT/ML as directed Subcutaneous 50 units every morning and 70 units every evening 11/13/2024 please dispense one month supply Fenofibrate 160 MG TAKE 1 TABLET BY MOUTH EVERY DAY WITH MEALS metFORMIN HCl 500 MG TAKE 2 TABLETS BY MOUTH TWICE A DAY WITH MEALS LORazepam 2 MG 1 tablet at bedtime as needed Orally every 6 hours x 2 days prn anxiety during air travel 07/30/2024 NovoLOG 100 UNIT/ML 10-22 units Injection three times a day on sliding scale DX: Diabetes E11.9 BD Pen Needle Original U/F 29G X 12.7MM use three times a day to administer insulin 08/07/2020 DX: E11.9 Diabetes hydroCHLOROthiazide 25 MG 1 tablet every morning Orally Once a day Lisinopril 40 MG TAKE 1 TABLET BY MOUTH EVERY DAY Metoprolol Tartrate 25 MG TAKE 1 TABLET BY MOUTH TWICE A DAY WITH FOOD FOR 30 DAYS Next Appt Details Follow Up: 6 Weeks, Reason: OV Provider Name:Xander Del Rosario , 12/30/2025 09:45:00 AM, [address] [facility] [address], [place], [address], Provider Name:Xander Del Rosario , 05/18/2026 10:00:00 AM, [address] [place] [address] [address], [place], [phone], Progress Notes * Ap JONESDOB: [birth year] (59 yo M)Acc No.[id number]:05/14/2025 Progress Notes Patient: Ap GAO Provider: Royce Del Rosario MD :1965 A ge:59 Y S ex:Male Date:05/14/2025 Address:[address] [place] [address] [id number] Subjective: * Chief Complaints: * A nnual Exam * HPI: D epression Screening: He returns to the office at the age of 59 for his annual physical examination. He was recently found to have a thyroid nodule that met criteria for biopsy. The first biopsy was equivocal. He reports that he was told the second biopsy was negative. He is under the care of orthopedics in [place] who of recommended a major surgical procedure to correct his scoliosis. He has decided to do it, but no day. He has yet been set. He continues on 2 mg of Ozempic a week. Bairon wilcox continues his efforts at weight loss.He has lost 8 pounds since his last visit. PHQ-9 L ittle interest or pleasure in doing things?Not at all F eeling down, depressed, or hopeless N ot at all T rouble falling or staying asleep, or sleeping too much S everal days F eeling tired or having little energy S everal days P oor appetite or overeating N ot at all F eeling bad about yourself or that you are a failure, or have let yourself or your family down N ot at all T rouble concentrating on things, such as reading the newspaper or watching television N ot at all M oving or speaking so slowly that other people could have noticed; or the opposite, being so fidgety or restless that you have been moving around a lot more than usual N ot at all T houghts that you would be better off or of hurting yourself in some way N ot at all T otal Score 2 I nterpretation M inimal Depression C OVID-19 Screening: Questions H ave you had any new onset fever, chills, cough, congestion, sore throat, shortness of breath, muscle aches? N o S EVAN Questions: SDOH Questions I n the past year have you been worried about losing your housing? N o I n the past year have you or any family members you live with been unable to get any of the following when it was really needed? Check all that apply: N one * ROS: G eneral/Constitutional: pain C hronic back pain. C hills d enies. F atigue a dmits. F ever d enies. E NT: Decreased hearing d enies. R espiratory: Cough d enies. C ardiovascular: Chest pain with exertion d enies. D yspnea on exertion?denies. S hortness of breath d enies. G astrointestinal: Constipation o ccasional. D ecreased appetite d enies. D iarrhea d enies. H eartburn o ccasional. N ausea d enies. R ectal bleeding d enies. V omiting d enies. H ematology: bruising d enies. p etechiae d enies. S wollen glands n one have been noted. G enitourinary: Frequent urination o nce a night. M usculoskeletal: Muscle aches d enies. P ainful joints d enies. S ciatica d enies. W eakness d enies. S kin: Itching d enies. R karen d enies. S kin lesion(s)?denies. N eurologic: Difficulty speaking d enies. D izziness d enies.?Headache d enies. L ow back pain t hat is chronic. P sychiatric: Depressed mood w hich is mild. * Medical History: * Surgical History: l aminectomy of the spine fractured left ankle right hip arthroplasty cardiac catheterization: 25% LAD, EF 65% 02/2011decompresion Dr. Jones 01/2018Left shoulder replacement 08/29/2024Shoulder replacement surgery - august 29, [facility] ight hip surgery - scoped, no complications since. * Hospitalization/Major Diagno stic Procedure: i npt [facility] due to hypertension/dehydration/vertigo 03/16/2024Left shoulder replacement, [place] 2024 * Family History: F ather: 51 yrs, diagnosed with Hyperlipidemia. M other: angina, hemochromatosis.?Maternal Grand Mother: hemochromatosis. 2 brother(s) . . His mother and grand mother had hemochromotosis. His mother had CAD and copd. His father at 51 of obesity, hyperlipidemia and CAD. He has a personal history of depression. Other than that, he has no knowledge of any family history of mental illness or substance use disorder, or addictions. * Social History: T obacco Use: T obacco Use/Smoking P atient is a f ormer smoker H ow long has it been since you last smoked??> 10 years A dditional Findings: Tobacco Non-User E x-cigarette smoker H e lives with his and does not smoke. 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 He was born in [place], [place]. * Medications: T akingBD Pen Needle Original U/F 29G X 12.7MM Miscellaneous use three times a day to administer insulin use three times a day to administer insulin, Notes to Pharmacist: DX: E11.9 DiabetesBasaglar KwikPen 100 UNIT/ML Solution Pen-injector as directed Subcutaneous 50 units every morning and 70 units every evening , Notes to Pharmacist: please dispense one month supplyFenofibrate 160 MG Tablet TAKE 1 TABLET BY MOUTH EVERY DAY WITH MEALS metFORMIN HCl 500 MG Tablet TAKE 2 TABLETS BY MOUTH TWICE A DAY WITH MEALS Rosuvastatin Calcium 10 MG Tablet TAKE 1 TABLET BY MOUTH EVERY DAY BD Insulin Syringe U/F 31G X 5/16 1 ML Miscellaneous USE WITH INSULIN 5 TIMES DAILY FreeStyle Lite w/Device Kit as directed - patient to test four times a day FreeStyle Lite Test - Strip as directed In Vitro testing four times a day Meloxicam 10 MG Capsule once daily in morning Orally Once a day Meclizine HCl 25 MG Tablet 1 tablet as needed Orally every 12 hrs Ozempic (2 MG/DOSE) 8 MG/3ML Solution Pen-injector 2 mg Subcutaneous weekly hydroCHLOROthiazide 25 MG Tablet 1 tablet every morning Orally Once a day Lisinopril 40 MG Tablet TAKE 1 TABLET BY MOUTH EVERY DAY Metoprolol Tartrate 25 MG Tablet TAKE 1 TABLET BY MOUTH TWICE A DAY WITH FOOD FOR 30 DAYS NovoLOG 100 UNIT/ML Solution 10-22 units Injection three times a day on sliding scale , Notes to Pharmacist: DX: Diabetes E11.9Taking BD Pen Needle Original U/F 29G X 12.7MM Miscellaneous use three times a day to administer insulin use three times a day to administer insulin, Notes to Pharmacist: DX: E11.9 DiabetesTaking Basaglar KwikPen 100 UNIT/ML Solution Pen-injector as directed Subcutaneous 50 units every morning and 70 units every evening , Notes to Pharmacist: please dispense one month supplyTaking Fenofibrate 160 MG Tablet TAKE 1 TABLET BY MOUTH EVERY DAY WITH MEALS Taking metFORMIN HCl 500 MG Tablet TAKE 2 TABLETS BY MOUTH TWICE A DAY WITH MEALS Taking Rosuvastatin Calcium 10 MG Tablet TAKE 1 TABLET BY MOUTH EVERY DAY Taking BD Insulin Syringe U/F 31G X 5/16 1 ML Miscellaneous USE WITH INSULIN 5 TIMES DAILY Taking FreeStyle Lite w/Device Kit as directed - patient to test four times a day Taking FreeStyle Lite Test - Strip as directed In Vitro testing four times a day Taking Meloxicam 10 MG Capsule once daily in morning Orally Once a day Taking Meclizine HCl 25 MG Tablet 1 tablet as needed Orally every 12 hrs Taking Ozempic (2 MG/DOSE) 8 MG/3ML Solution Pen-injector 2 mg Subcutaneous weekly Taking hydroCHLOROthiazide 25 MG Tablet 1 tablet every morning Orally Once a day Taking Lisinopril 40 MG Tablet TAKE 1 TABLET BY MOUTH EVERY DAY Taking Metoprolol Tartrate 25 MG Tablet TAKE 1 TABLET BY MOUTH TWICE A DAY WITH FOOD FOR 30 DAYS Taking NovoLOG 100 UNIT/ML Solution 10-22 units Injection three times a day on sliding scale , Notes to Pharmacist: DX: Diabetes E11.9DiscontinuedLORazepam 2 MG Tablet 1 tablet at bedtime as needed Orally every 6 hours x 2 days prn anxiety during air travel Clobetasol Propionate 0.05 % Cream APPLY DAILY TO SKIN TO AFFECTED AREA TWICE A DAY FOR 2 WEEKS diazePAM 10 MG Tablet 1 tablet as needed Orally before closed MRI procedure Ketoconazole 2 % Cream 1 application Externally Twice a day Lantus SoloStar 100 UNIT/ML Solution Pen-injector INJECT 50 UNITS IN THE MORNING AND 70 UNITS AT BEDTIME Medication List reviewed and reconciled with the patientDiscontinued LORazepam 2 MG Tablet 1 tablet at bedtime as needed Orally every 6 hours x 2 days prn anxiety during air travel Discontinued Clobetasol Propionate 0.05 % Cream APPLY DAILY TO SKIN TO AFFECTED AREA TWICE A DAY FOR 2 WEEKS Discontinued diazePAM 10 MG Tablet 1 tablet as needed Orally before closed MRI procedure Discontinued Ketoconazole 2 % Cream 1 application Externally Twice a day Discontinued Lantus SoloStar 100 UNIT/ML Solution Pen-injector INJECT 50 UNITS IN THE MORNING AND 70 UNITS AT BEDTIME Medication List reviewed and reconciled with the patient * Allergies: E rythromycinCiproPenicillin: anaphylaxisno[Allergies Verified] Objective: * Vitals: H t: 71, Wt: 263, BMI:36.68, BP: 120/80, HR: 79, Temp: 98.0, Ht-cm: 180.34, Wt-k.29. * Examination: G eneral Examination: GENERAL APPEARANCE: p leasant, well nourished, well developed, in no acute distress, calm and relaxed, obese, man. HEAD: a traumatic, normocephalic. EYES: e edis, perrla, anicteric, conjugate. EARS: n ormal. NOSE: s eptum intact. ORAL CAVITY: n ormal, unremarkable. NECK/THYROID: n o jugular venous distention, no carotid bruit, thyroid normal. LYMPH NODES: n o enlarged lymph nodes,spleen normal. SKIN: n o suspicious lesions, anicteric. HEART: n o clicks, gallops, murmurs, or rubs, regular rhythm, S1, S2 normal, no s3, or vascular bruits. LUNGS: c lear to auscultation . BREASTS: no masses palpable bilaterally. ABDOMEN: b owel sounds normal, no ascites, no organomegaly, no mass, centripital obesity. RECTAL EXAM: , normal tone, no external hemorrhoids, no masses palpable, no melena, no red blood, prostate normal, stool guaiac negative. MUSCULOSKELETAL: e xtremities unremarkable, no clubbing, cyanosis or edema,Decreased range of motion lumbar spine, old healed surgical incision lumbar spine, mild scoliosis. PERIPHERAL PULSES: n ormal. NEUROLOGIC: a lert and oriented, cranial nerves 2-12 grossly intact, deep tendon reflexes 2+ symmetrical, motor strength normal upper and lower extremities, sensory exam intact. PSYCH: a lert, oriented. Assessment: * Assessment: 1. S coliosis of thoracolumbar spine, unspecified scoliosis type - M41.9 (Primary) ?Notes :Diagnosis stenosing orthopedic facility with spinal stenosis and scoliosis. Debilitating pain and has been scheduled for garry operative procedure. 2 . F ormer smoker - Z87.891 N otes :He is highly motivated not to smoke. He has a plan for prevention of abstinence. We have discussed abstinence today. 3 . O besity - E66.9 N otes :His body mass index is 37. We discussed diet and nutrition. Continue issues Ebbers her weight loss. 4 . E ssential hypertension - I10 N otes :His blood pressure is 130/70. No change in his regimen was made today. 5 . T hrombocytopenia - D69.6 N otes :His last platelet count was February 27, 2024. This value was 149,000. He is cleared for surgery. He has had no bleeding. He is not taking aspirin.He had no bleeding during his recent surgery. 6 . M ultinodular thyroid - E04.2 N otes :An incidental finding on neck arteriography recently was a multinodular thyroid. A thyroid ultrasound has been ordered. 7 . B enign prostatic hyperplasia, unspecified whether lower urinary tract symptoms present - N40.0 N otes :He rises from sleep once or twice a night to urinate. We have discussed lifestyle modifications achromatic reduce nocturia. We have discussed medications he could take. 8 . O ther specified arthritis, left shoulder - M13.812 N otes :He is scheduled to have a left shoulder arthroplasty at [facility]. I have seen and examined him carefully today. Assuming that he is cleared by the cigar head puncher he is cleared medically for the surgery. Because of his comorbidities his risk would be higher than that of the average 60-year-old man but I think the risk is acceptable. He has been instructed to take his insulin night before surgery but not thereafter. 9 . S dipak stenosis of lumbar region with neurogenic claudication - M48.062? Notes :He has been scheduled for a second laminectomy in [place] in the near future. Platelet count will be checked. 1 0. D iabetes mellitus type 2 in nonobese - E11.9 N otes :He reports his fasting glucoses about 130 to 135.No changes in his regimen were made today. Plan: * Treatment: 2. O thers Continue NovoLOG Solution, 100 UNIT/ML, 10-22 units Injection three times a day on sliding scale, Notes to Pharmacist: DX: Diabetes E11.9; C ontinue BD Pen Needle Original U/F Miscellaneous, 29G X 12.7MM, use three times a day to administer insulin use three times a day to administer insulin, Notes to Pharmacist: DX: E11.9 Diabetes; C ontinue Basaglar KwikPen Solution Pen-injector, 100 UNIT/ML, as directed, Subcutaneous, 50 units every morning and 70 units every evening, Notes to Pharmacist: please dispense one month supply; C ontinue Fenofibrate Tablet, 160 MG, TAKE 1 TABLET BY MOUTH EVERY DAY WITH MEALS; C ontinue metFORMIN HCl Tablet, 500 MG, TAKE 2 TABLETS BY MOUTH TWICE A DAY WITH MEALS; C ontinue LORazepam Tablet, 2 MG, 1 tablet at bedtime as needed, Orally, every 6 hours x 2 days prn anxiety during air travel; C ontinue Clobetasol Propionate Cream, 0.05 %, APPLY DAILY TO SKIN TO AFFECTED AREA TWICE A DAY FOR 2 WEEKS; C ontinue Rosuvastatin Calcium Tablet, 10 MG, TAKE 1 TABLET BY MOUTH EVERY DAY; C ontinue diazePAM Tablet, 10 MG, 1 tablet as needed, Orally, before closed MRI procedure; C ontinue BD Insulin Syringe U/F Miscellaneous, 31G X 5/16 1 ML, USE WITH INSULIN 5 TIMES DAILY; C ontinue FreeStyle Lite Kit, w/Device, as directed, -, patient to test four times a day; C ontinue FreeStyle Lite Test Strip, -, as directed, In Vitro, testing four times a day; C ontinue Ketoconazole Cream, 2 %, 1 application, Externally, Twice a day; C ontinue Lantus SoloStar Solution Pen-injector, 100 UNIT/ML, INJECT 50 UNITS IN THE MORNING AND 70 UNITS AT BEDTIME; C ontinue Meloxicam; C ontinue Meclizine HCl Tablet, 25 MG, 1 tablet as needed, Orally, every 12 hrs; C ontinue hydroCHLOROthiazide Tablet, 25 MG, 1 tablet every morning, Orally, Once a day; C ontinue Lisinopril Tablet, 40 MG, TAKE 1 TABLET BY MOUTH EVERY DAY; C ontinue Metoprolol Tartrate Tablet, 25 MG, TAKE 1 TABLET BY MOUTH TWICE A DAY WITH FOOD FOR 30 DAYS. * Procedure Codes: 8 2270 TEST FOR BLOOD, FECES * Preventive Medicine: Counseling: C are goal follow-up plan: Counseling for abnormal BMI given Y es Above Normal BMI Follow-up D ietary management education, guidance, and counseling, Dietary needs education, Exercise promotion: strength training, Exercise promotion: stretching, Feeding regime, Giving encouragement to exercise, Lifestyle education regarding diet, Nutrition / feeding management, Nutrition therapy, Prescribed activity/exercise education, Prescribed diet education, Prescribed dietary intake, Special diet education, Weight monitoring , Intervention, Order not done: Medical or Other reason not done S moking/Tobacco Use Patient counseled on the dangers of tobacco use and urged to quit. 0 05/13/2025 DM Care Plan: P atient Lifestyle Goals P atient wants to be able to manage diabetes without too much effort. T reatment Goals B lood Sugars less than < 115, HbA1C < 7.0. B arriers n o barriers. S elf-Managment Goals W ork on weight loss, with a goal of losing 1 lb per week. * Follow Up: 6 Weeks (Reason: OV) * Images: * Sign off status: Completed true * Provider: Royce Del Rosario MD Date: 0 05/14/2025 Generated for Eladia ramires/Althea/Samanthaitting on: 12/03/2024 08:40 AM EST History and Physical Notes * HPI (History of Present Illness) Category Sub-Category Detail Notes Depression Screening PHQ-9 Little inte rest or pleasure in doing things: Not at all Feeling down, depressed, or hopeless: No t at all Trouble falling or staying asleep, or sl eeping too much: Several days Feeling tired or having little energy: S everal days Poor appetite or overeating: Not at all Feeling bad about yourself o r that you are a failure, or have let yourself or your family down: Not at all Trouble concentrating on thi ngs, such as reading the newspaper or watching television: Not at all Moving or speaking so slowly that other people could have noticed; or the opposite, being so fidgety or restless that you have been moving around a lot more than usual: Not at all Thoughts that you would be b roberto off or of hurting yourself in some way: Not at all Total Score: 2 Interpretation: Minimal Depression COVID-19 Screening Questions Have you had any new onset fever, chills, cough, congestion, sore throat, shortness of breath, muscle aches?: No SDOH Questions SDOH Questions In the past year have you been worried about losing your housing?: No In the past year have you or any family members you live with been unable to get any of the following when it was really needed? Check all that apply:: None Examination Category Sub-Category Detail Notes General Examination GENERAL APPEARANCE: pleasant , well nourished, well developed, in no acute distress, calm and relaxed, obese, man HEAD: atraumatic, normocep halic EYES: eomi, perrla, anicte tosin, conjugate EARS: normal NOSE: septum intact NECK/THYROID: no jugular venous di stention, no carotid bruit, thyroid normal HEART: no clicks, gallops, murmurs, or rubs, regular rhythm, S1, S2 normal, no s3, or vascular bruits LUNGS: clear to auscultatio n ABDOMEN: bowel sounds normal, no ascites, no organomegaly, no mass, centripital obesity NEUROLOGIC: alert and oriented, cranial nerves 2-12 grossly intact, deep tendon reflexes 2+ symmetrical, motor strength normal upper and lower extremities, sensory exam intact SKIN: no suspicious lesion s, anicteric PERIPHERAL PULSES: normal BREASTS: no masses palpable b ilaterally MUSCULOSKELETAL: extremities unremark able, no clubbing, cyanosis or edema,Decreased range of motion lumbar spine, old healed surgical incision lumbar spine, mild scoliosis LYMPH NODES: no enlarged lymph no zohra,spleen normal RECTAL EXAM: , normal tone, no ex ternal hemorrhoids, no masses palpable, no melena, no red blood, prostate normal, stool guaiac negative PSYCH: alert, oriented ORAL CAVITY: normal, unremarkable
--- OUTSIDE RECORDS SUMMARY | 2025-06-06 09:36 | XMS_ITS ---
Author Organization Xander Del Rosario III, MD Address [address] [place] [address] [place] [address] Care Team Providers Care Drop Forge Hand Name Role Phone Dr. Xander Del Rosario III Primary Care Provider Social History Sex Assigned At : Social History Observation Description Sex Assigned At Male Encounters Encounter Location Date Provider Diagnosis Xander Del Rosario III, MD [address] [place] [address] [place] [address] 06/06/2025 Xander Del Rosario Plan Of Treatment Next Appt Details Provider Name:Xander Del Rosario , 12/30/2025 09:45:00 AM, [address] [place] [address] [place], [address], Provider Name:Xander Del Rosario , 05/18/2026 10:00:00 AM, [address] [place] [address] [place], [address], Progress Notes * Ap JONESDOB: 4 (59 yo M)Acc No.[id number]:06/06/2025 Patient: Ap GAO :1965 A ge:59 Y S ex:Male Address:[address] [place], [place] [address] [address] * true * Date: Generated for Printi ng/Faxing/eTransmitting on: 1 12/03/2024 08:40 AM EST
--- OUTSIDE RECORDS SUMMARY | 2025-06-25 12:15 | XMS_ITS ---
Author Organization Xander Del Rosario III, MD Address [address] [place] [address] [place] [address] Care Team Providers Care Orthopedics Pediatric Physician Name Role Phone Dr. Xander Del Rosario III Primary Care Provider [phone] REASON FOR VISIT Follow up Social History Sex Assigned At : Social History Observation Description Sex Assigned At Male Encounters Encounter Location Date Provider Diagnosis Xander Del Rosario III, MD [address] [place] [address] [place] [address] 06/25/2025 Xander Del Rosario Plan Of Treatment Next Appt Details Provider Name:Xander Del Rosario , 12/30/2025 09:45:00 AM, [address] [place] [address] [place], [address], Provider Name:Xander Del Rosario , 05/18/2026 10:00:00 AM, [address] [place] [address] [place], [address], Progress Notes * JORGE AAp GUERRERODOB: 4 (60 yo M)Acc No.[id number]:06/25/2025 Progress Notes Patient: Ap GAO Provider: Royce Del Rosario MD :1965 A ge:59 Y S ex:Male Date:06/25/2025 Address:[address] [id number] Subjective: * Chief Complaints: * 1 . Follow up. * Medical History: Objective: * Vitals: Assessment: Plan: * Treatment: * Images: * The named appointment provid er may or may not be the originator of this progress note, and it is not deemed complete until electronically signed by the appointment provider. Sign off status: Pending * Provider: Royce Del Rosario MD Date: 0 06/25/2025 Generated for Eladia ramires/Althea/Samanthaitting on: 12/03/2024 08:39 AM EST
--- OUTSIDE RECORDS SUMMARY | 2025-08-08 09:49 | XMS_ITS ---
Author Organization Xander Del Rosario III, MD Address [address] [place] [address] [place] [address] Care Team Providers Care Managed Care Liaison Name Role Phone Dr. Xander Del Rosario III Primary Care Provider REASON FOR VISIT Refill request Social History Sex Assigned At : Social History Observation Description Sex Assigned At Male Encounters Encounter Location Date Provider Diagnosis Xander Del Rosario III, MD [address] [place] [address] [place] [address] 08/08/2025 Xander Del Rosario Plan Of Treatment Next Appt Details Provider Name:Xander Del Rosario , 12/30/2025 09:45:00 AM, [address] [place] [address] [place], [address], Provider Name:Xander Del Rosario , 05/18/2026 10:00:00 AM, [address] [place] [address] [place], [address], Progress Notes * Ap JONESDOB: [birth year] (59 yo M)Acc No.[id number]:08/08/2025 Patient: Ap GAO :1965 A ge:59 Y S ex:Male Address:[address] [place], [place] [address] [place] [address] * true * Date: Generated for Eladia ramires/Althea/eTransmitting on: 1 12/03/2024 08:40 AM EST
--- OUTSIDE RECORDS SUMMARY | 2025-08-22 10:15 | XMS_ITS ---
Author Organization Xander Del Rosario III, MD Address [address] [place] [address] [address] [place] [address] Care Team Providers Care Director Inpatient Headache Program Name Role Phone Dr. Xander Del Rosario III Primary Care Provider Allergies Allergen (clinical drug ingredient) Drug/Non Drug Allergy documented on EMR Reaction Allergy Type Onset Date Status Penicillin anaphylaxis Drug Allergy Acti ve erythromycin Erythromycin Unknown Drug Allergy A ctive ciprofloxacin Cipro Unknown Drug Allergy Act tyrese REASON FOR VISIT acute Lower back pain, obesity, Hypertension, Depression, Diabetes, Left foot drop, Benign prostatic hypertrophy Medications Medication SIG (Take, Route, Frequency, Duration) Notes Start Date End Date Status Meclizine HCl 25 MG 1 tablet as needed Orally every 12 hrs Active hydroCHLOROthiazide 25 MG 1 tablet every morning Orally Once a day Active Lisinopril 40 MG TAKE 1 TABLET BY MOUTH EVERY DAY Active Metoprolol Tartrate 25 MG TAKE 1 TABLET BY MOUTH TWICE A DAY WITH FOOD FOR 30 DAYS Active Ozempic (2 MG/DOSE) 8 MG/3ML 2 mg Subcutaneous weekly 11/04/2024 Active Ketoconazole 2 % 1 application Externally Twice a day 10/06/2023 Active Lantus SoloStar 100 UNIT/ML INJECT 50 UNITS IN THE MORNING AND 70 UNITS AT BEDTIME Active Meloxicam Active Cyclobenzaprine HCl 10 MG 1 tablet Orall y twce a day for 10 days 08/22/2025 08/31/2025 Active Cyclobenzaprine HCl 10 MG 1 tablet Orall y three times a day for 10 days 08/22/2025 Active Clobetasol Propionate 0.05 % APPLY DAILY TO SKIN TO AFFECTED AREA TWICE A DAY FOR 2 WEEKS Active diazePAM 10 MG 1 tablet as [...] on sliding scale DX: Diabetes E11.9 Active Basaglar KwikPen 100 UNIT/ML as directed [...] prn anxiety during air travel 07/30/2024 Active Pen Mcmechen 31G X 8 MM use to administer insulin three times a day DX E11.9 Diabetes Active Cyclobenzaprine HCl 10 MG 1 tablet at bedtime as needed Orally three times a day for 10 days 08/22/2025 08/31/2025 Active Rosuvastatin Calcium 10 MG TAKE 1 [...] Non-User Ex-cigaret te smoker Vital Signs Temperature 97.3 degrees Fahrenheit 08/22/20 25 Blood pressure systolic 115 mm Hg 08/22/20 25 Blood pressure diastolic 70 mm Hg 025 Heart Rate 97 /min 08/22/2025 Height 71 in 08/22/2025 Weight 262 lbs 08/22/2025 BMI 36.54 kg/m2 08/22/2025 Encounters Encounter Location Date Provider Diagnosis Xander Del Rosario III, MD [address] [place] [address] [place] [address] 08/22/2025 Xander Blackwoodrne DM (diabetes mellitu s) E11.9 ; Spinal stenosis of lumbar region with neurogenic claudication M48.062 ; Obesity E66.9 ; Essential hypertension I10 ; Thrombocytopenia D69.6 ; Reactive depression F32.9 ; Hyperlipidemia type II E78.01 and Left foot drop M21.372 Assessments Encounter Date Diagnosis (ICD Code) Assessment Notes T reatment Notes Treatment Clinical Notes 08/22/2025 DM (diabetes mellitu s) (ICD-10 - E11.9) His diabetes remained stable and no change in his regimen was needed. 08/22/2025 Spinal stenosis of lumbar region with neurogenic claudication (ICD-10 - M48.062) He has had laminectomy surgery in the past. He now has severe muscle spasm to the right of the lumbar spine in the area of prior surgery. This is likely nerve impingement with secondary muscle spasm. He was given dexamethasone and cyclobenzaprine on a follow-up visit. He will use heat and rest. 08/22/2025 Obesity (ICD-10 - E66.9) He has lost 4 pounds.. His body mass index is 36.5. We reviewed his weight loss strategy. We discussed diet and nutrition today at length. 08/22/2025 Essential hypertensi on (ICD-10 - I10) His blood pressure is normal. No change in his regimen was made today. 08/22/2025 Thrombocytopenia (ICD-10 - D69.6) There was no bleeding recently. He has no petechiae or purpura. Is avoiding aspirin will be observed. 08/22/2025 Reactive depression (ICD-10 - F32.9) He has lost his Perdomo feels very sad. He did not wish to take an antidepressant. He was given emotional support and close follow-up. 08/22/2025 Hyperlipidemia type II (ICD-10 - E78.01) He was continued on current medication. 08/22/2025 Left foot drop (ICD- 10 - M21.372) He continues to wear the brace to good effect. His gait is fairly normal. Plan Of Treatment Medication Medication Name Sig Start Date Stop Date Notes Meclizine HCl 25 MG 1 tablet as needed Orally every 12 hrs hydroCHLOROthiazide 25 MG 1 tablet every morning Orally Once a day Lisinopril 40 MG TAKE 1 TABLET BY MOUTH EVERY DAY Metoprolol Tartrate 25 MG TAKE 1 TABLET BY MOUTH TWICE A DAY WITH FOOD FOR 30 DAYS Ozempic (2 MG/DOSE) 8 MG/3ML 2 mg Subcutaneous weekly 11/04/2024 Ketoconazole 2 % 1 application Externally Twice a day 10/06/2023 Lantus SoloStar 100 UNIT/ML INJECT 50 UN ITS IN THE MORNING AND 70 UNITS AT BEDTIME Meloxicam Cyclobenzaprine HCl 10 MG 1 tablet Orall y twce a day for 10 days 08/22/2025 08/31/2025 Cyclobenzaprine HCl 10 MG 1 tablet Orall y three times a day for 10 days 08/22/2025 Clobetasol Propionate 0.05 % APPLY DAILY TO SKIN TO AFFECTED AREA TWICE A DAY FOR 2 WEEKS diazePAM 10 MG 1 tablet as needed Orally before closed MRI procedure 04/10/2024 BD Insulin Syringe U/F 31G X 5/16 1 ML USE WITH INSULIN 5 TIMES DAILY FreeStyle Lite w/Device as directed - patient to test four times a day 10/04/2021 FreeStyle Lite Test - as directed In Vit ro testing four times a day 10/04/2021 NovoLOG 100 UNIT/ML 10-22 units Injection three times a day on sliding scale DX: Diabetes E11.9 Basaglar KwikPen 100 UNIT/ML as directed Subcutaneous [...] days prn anxiety during air travel 07/30/2024 Pen Mcmechen 31G X 8 MM use to administer insulin three times a day Cyclobenzaprine HCl 10 MG 1 tablet at be dtime as needed Orally three times a day for 10 days 08/22/2025 08/31/2025 Rosuvastatin Calcium 10 MG TAKE 1 TABLET BY MOUTH EVERY DAY Next Appt Details Follow Up: As Scheduled, Rosenda son: OV Provider Name:Xander Del Rosario , 12/30/2025 09:45:00 AM, [address] [place] [address] , [facility] [address], [place], [address], Provider Name:Xander Del Rosario , 05/18/2026 10:00:00 AM, [address] [place] [address] [address], [place], [address], Progress Notes * Ap JONESDOB: 4 (60 yo M)Acc No.[id number]:08/22/2025 Progress Notes Patient: Ap GAO Provider: Royce Del Rosario MD :1965 A ge:60 Y S ex:Male Date:08/22/2025 Address:[address] [place], [place] [id number] Subjective: * Chief Complaints: * a cute Lower back painObesityHypertensionDepressionDiabetesLeft foot dropBenign prostatic hypertrophy * HPI: C OVID-19 Screening: Bairon wilcox comes in for a same day visit because of acute exacerbation of lumbar spine pain. This has been present for several days. He went to an urgent care center in [facility] on August 19, 2025 was given prednisone and a muscle relaxer. The pain is slightly better.? She has been using Tylenol as well. The morning before the pain began he had been loading heavy batteries into his boat.He has no muscle weakness. He is uncomfortable in all positions. Questions H ave you had any new onset fever, chills, cough, congestion, sore throat, shortness of breath, muscle aches? N o * ROS: G eneral/Constitutional: pain 8 out of 10 pain in the muscles to the right of the lumbar spine and upper buttock.. C hills d enies. F atigue a dmits. F ever d enies. E NT: Decreased hearing d enies. R espiratory: Cough d enies. C ardiovascular: Chest pain with exertion d enies. D yspnea on exertion?denies. S hortness of breath d enies. G astrointestinal: Constipation o ccasional. D ecreased appetite d enies. D iarrhea d enies. H eartburn d enies. N ausea d enies. R ectal bleeding [...] L ow back pain t hat is new. P sychiatric: Depressed mood w hich is moderate. * Medical History: * Surgical History: l aminectomy of the spine fractured left ankle right hip arthroplasty cardiac catheterization: 25% LAD, EF 65% 02/2011decompresion Dr. Jones 01/2018Le shoulder replacement 08/29/2024Shoulder replacement surgery - august 29, [facility] ight hip surgery - scoped, no complications since. 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 He was born in [place], [place]. * Medications: T akingRosuvastatin Calcium 10 MG Tablet TAKE 1 TABLET BY MOUTH EVERY DAY Pen Mcmechen 31G X 8 MM Miscellaneous use to administer insulin three times a day DX E11.9 DiabetesNovoLOG 100 UNIT/ML Solution 10-22 units Injection three times a day on sliding scale , Notes to Pharmacist: DX: Diabetes E11.9Basaglar KwikPen 100 UNIT/ML Solution Pen-injector as directed [...] as needed Orally before closed MRI procedure BD Insulin Syringe U/F 31G X 5/16 [...] tablet as needed Orally every 12 hrs hydroCHLOROthiazide 25 MG Tablet 1 tablet every morning Orally Once a day Lisinopril 40 MG Tablet TAKE 1 TABLET BY MOUTH EVERY DAY Metoprolol Tartrate 25 MG Tablet TAKE 1 TABLET BY MOUTH TWICE A DAY WITH FOOD FOR 30 DAYS Ozempic (2 MG/DOSE) 8 MG/3ML Solution Pen-injector 2 mg Subcutaneous weekly Medication List reviewed and reconciled with the patientTaking Rosuvastatin Calcium 10 MG Tablet TAKE 1 TABLET BY MOUTH EVERY DAY Taking Pen Mcmechen 31G X 8 MM Miscellaneous use to administer insulin three times a day DX E11.9 DiabetesTaking NovoLOG 100 UNIT/ML Solution 10-22 units Injection three times a day on sliding scale , Notes to Pharmacist: DX: Diabetes E11.9Taking Basaglar KwikPen 100 UNIT/ML Solution Pen-injector as [...] days prn anxiety during air travel Taking Clobetasol Propionate 0.05 % Cream APPLY DAILY TO SKIN TO AFFECTED AREA TWICE A DAY FOR 2 WEEKS Taking diazePAM 10 MG Tablet 1 tablet as needed Orally before closed MRI procedure Taking BD Insulin Syringe U/F 31G X [...] as needed Orally every 12 hrs Taking hydroCHLOROthiazide 25 MG Tablet 1 tablet every morning Orally Once a day Taking Lisinopril 40 MG Tablet TAKE 1 TABLET BY MOUTH EVERY DAY Taking Metoprolol Tartrate 25 MG Tablet TAKE 1 TABLET BY MOUTH TWICE A DAY WITH FOOD FOR 30 DAYS Taking Ozempic (2 MG/DOSE) 8 MG/3ML Solution Pen-injector 2 mg Subcutaneous weekly Medication List reviewed and reconciled with the patient * Allergies: E rythromycinCiproPenicillin: anaphylaxisno[Allergies Verified] Objective: * Vitals: H t: 71, Wt: 262, BMI:36.54, BP: 115/70, HR: 97, Temp: 97.3, Ht-cm: 180.34, Wt-k.84. * Examination: G eneral Examination: GENERAL APPEARANCE: p leasant, well nourished, well developed, in no acute distress, calm and relaxed: obese: man. HEAD: a traumatic, normocephalic. EYES: e [...] sounds normal, no ascites, no organomegaly, no mass: centripital obesity. RECTAL EXAM: n ot examined. MUSCULOSKELETAL: e xtremities unremarkable, no clubbing, cyanosis or edema, Diminished range of motion lumbar spine in all directions, marketed muscle spasm in the paravertebral muscle, mom the right from L1 down to the sacrum. Tenderness palpation of these muscles. Positive straight leg raising. PERIPHERAL PULSES: n ormal. NEUROLOGIC: a lert and oriented, cranial nerves 2-12 grossly intact, deep tendon reflexes 2+ symmetrical, motor strength normal upper and lower extremities, sensory exam intact. PSYCH: a lert, oriented. Assessment: * Assessment: 1. S dipak stenosis of lumbar region with neurogenic claudication - M48.062 (Primary) ? N otes :He has had laminectomy surgery in the past. He now has severe muscle spasm to the right of the lumbar spine in the area of prior surgery. This is likely nerve impingement with secondary muscle spasm. He was given dexamethasone and cyclobenzaprine on a follow-up visit. He will use heat and rest. 2 . D M (diabetes mellitus) - E11.9 N otes :His diabetes remained stable and no change in his regimen was needed. 3 . O besity - E66.9 N otes :He has lost 4 pounds.. His body mass index is 36.5. We reviewed his weight loss strategy. We discussed diet and nutrition today at length. 4 . E ssential hypertension - I10 N otes :His blood pressure is normal. No change in his regimen was made today. 5 . T hrombocytopenia - D69.6 N otes :There was no bleeding recently. He has no petechiae or purpura. Is avoiding aspirin will be observed. 6 . R eactive depression - F32.9 N otes :He has lost his Perdomo feels very sad. He did not wish to take an antidepressant. He was given emotional support and close follow-up. 7 . H yperlipidemia type II - E78.01 N otes :He was continued on current medication. 8 . L eft foot drop - M21.372 N otes :He continues to wear the brace to good effect. His gait is fairly normal. Plan: * Treatment: 2. O thers Continue Rosuvastatin Calcium Tablet, 10 MG, TAKE 1 TABLET BY MOUTH EVERY DAY; C ontinue Pen Mcmechen Miscellaneous, 31G X 8 MM, use to [...] FOOD FOR 30 DAYS. * Procedure Codes: * Preventive Medicine: Counseling: C are goal [...] of tobacco use and urged to quit. 1 DM Care Plan: P atient Lifestyle Goals P atient wants to be able to manage diabetes without too much effort. T reatment Goals B lood Sugars less than < 115, HbA1C < 7.0. B arriers n o barriers. S elf-Managment Goals W ork on weight loss, with a goal of losing 1 lb per week. * Follow Up: A s Scheduled (Reason: OV) * Images: * Sign off status: Completed true * Provider: Royce Del Rosario MD Date: Generated for Eladia ramires/Althea/eTcocosmitting on: 12/03/2024 08:39 AM EST History and Physical Notes * HPI (History of Present Illness) Category Sub-Category Detail Notes COVID-19 Screening Questions Have you had any new onset fever, chills, cough, congestion, sore throat, shortness of breath, muscle aches?: No Examination Category Sub-Category Detail Notes General Examination GENERAL APPEARANCE: pleasant , well nourished, well developed, in no acute distress, calm and relaxed: obese: man HEAD: atraumatic, normocep halic EYES: eomi, perrla, anicte tosin, conjugate EARS: normal NOSE: septum intact NECK/THYROID: no jugular venous di stention, no carotid bruit, thyroid normal HEART: no clicks, gallops, murmurs, or rubs, regular rhythm, S1, S2 normal, no s3, or vascular bruits LUNGS: clear to auscultatio n ABDOMEN: bowel sounds normal, no ascites, no organomegaly, no mass: centripital obesity NEUROLOGIC: alert and oriented, cranial nerves 2-12 grossly intact, deep tendon reflexes 2+ symmetrical, motor strength normal upper and lower extremities, sensory exam intact SKIN: no suspicious lesion s, anicteric PERIPHERAL PULSES: normal BREASTS: no masses palpable b ilaterally MUSCULOSKELETAL: extremities unremark able, no clubbing, cyanosis or edema, Diminished range of motion lumbar spine in all directions, marketed muscle spasm in the paravertebral muscle, mom the right from L1 down to the sacrum. Tenderness palpation of these muscles. Positive straight leg raising LYMPH NODES: no enlarged lymph no zohra,spleen normal RECTAL EXAM: not examined PSYCH: alert, oriented ORAL CAVITY: normal, unremarkable
--- OUTSIDE RECORDS SUMMARY | 2025-08-25 05:41 | XMS_ITS ---
Author Organization Xander Del Rosario III, MD Address [address] [place] [address] [place] [address] Care Team Providers Care Traveling Accountant Name Role Phone Dr. Xander Del Rosario III Primary Care Provider REASON FOR VISIT FYI only Social History Sex Assigned At : Social History Observation Description Sex Assigned At Male Encounters Encounter Location Date Provider Diagnosis Xander Del Rosario III, MD [address] [place] [address] [place] [address] 08/25/2025 Xander Del Rosario Plan Of Treatment Next Appt Details Provider Name:Xander Del Rosario , 12/30/2025 09:45:00 AM, [address] [place] [address] [place], [address], Provider Name:Xander Del Rosario , 05/18/2026 10:00:00 AM, [address] [place] [address] [place], [address], Progress Notes * Ap JONESDOB: 4 (60 yo M)Acc No.[id number]:08/25/2025 Patient: Ap GAO :1965 A ge:60 Y S ex:Male Address:[address] [place], [place] [address] [address] * true * Date: Generated for Eladia ramires/Althea/eTransmitting on: 1 12/03/2024 08:40 AM EST
--- OUTSIDE RECORDS SUMMARY | 2025-08-26 04:18 | XMS_ITS ---
Author Organization Xander Del Rosario III, MD Address [address] [place] [address] [place] [address] Care Team Providers Care Anhydrous Ammonia Production Supervisor Name Role Phone Dr. Xander Del Rosario III Primary Care Provider [phone] Reason For Referral Reason Evaluate and Treat Diagnosis 1 Spinal stenosis of l umbar region with neurogenic claudication (M48.062) Diagnosis 2 Dorsalgia, unspecifi ed (M54.9) Diagnosis 3 Unspecified thoracic , thoracolumbar and lumbosacral intervertebral disc disorder (M51.9) Diagnosis 4 Left foot drop (M21. 372) Referral Organization Xander Del Rosario III, MD Referring Provider First Name Xander Referring Provider Last Name Carin Referring Provider Speciality Internal edicine Referred Provider [facility] er, Pain Management Referred Provider Specialty Pain Medicin e General Notes D, Clemencia 08/26/2025 11:22:15 AM > Referral and progress notes faxed. Referral Priority Routine Reason Evaluate and Treat Diagnosis 1 Herniated interverte bral disc of lumbar spine (M51.26) Diagnosis 2 Left foot drop (M21. 372) Diagnosis 3 Dorsalgia, unspecifi ed (M54.9) Diagnosis 4 Muscle spasm of back (M62.830) Referral Organization Xander Del Rosario III, MD Referring Provider First Name Xander Referring Provider Last Name Carin Referring Provider Speciality Internal M edicine Referred Provider [facility] Referred Provider Specialty Physical The rapist Referral Priority Routine Referral Appointment Date 08/29/2025 REASON FOR VISIT Message Social History Sex Assigned At : Social History Observation Description Sex Assigned At Male Encounters Encounter Location Date Provider Diagnosis Xander Del Rosario III, MD [address] [place] [address] [place] [address] 08/26/2025 Xander Del Rosario Plan Of Treatment Referrals Referral Date Details 08/26/2025 08/26/2025, Evaluate and Treat, Pain Management [facility] 08/26/2025 08/26/2025, Evaluate and Treat, Therapy and Wellness [facility] Physical Next Appt Details Provider Name:Xander Del Rosario , 12/30/2025 09:45:00 AM, [address] [place] [address] [address], [place], [address], Provider Name:Xander Del Rosario , 05/18/2026 10:00:00 AM, [address] [place] [address] [address], [place], [address], Progress Notes * Ap JONESDOB: [birth year] (60 yo M)Acc No.[id number]:08/26/2025 Patient: Ap GAO :1965 A ge:60 Y S ex:Male Address:[address] [place] [address] [facility] [place] [address] Subjective: * Chief Complaints: * M essage * Medical History: * Surgical History: * Hospitalization/Major Diagno stic Procedure: * Medications: Objective: * Vitals: * Physical Examination: Assessment: Plan: * Treatment: * Procedure Codes: * true * Date: Generated for Eladia ramires/Althea/eTransmitting on: 1 12/03/2024 08:41 AM EST Consultation Request Notes Referral Date Referring Provider Referred Provider Not es 08/26/2025 Xander Del Rosario [facility], Pain Management Evaluate and Treat 08/26/2025 Xander Del Rosario [facility], Therapy and Wellness Evaluate and Treat
--- OUTSIDE RECORDS SUMMARY | 2025-09-01 05:30 | XMS_ITS ---
Author Organization Xander Del Rosario III, MD Address [address] [place] [address] [address] [place] [address] Care Team Providers Care Skiagrapher Name Role Phone Dr. Xander Del Rosario III Primary Care Provider Allergies Allergen (clinical drug ingredient) Drug/Non Drug Allergy documented on EMR Reaction Allergy Type Onset Date Status Penicillin anaphylaxis Drug Allergy Acti ve erythromycin Erythromycin Unknown Drug Allergy A ctive ciprofloxacin Cipro Unknown Drug Allergy Act tyrese REASON FOR VISIT Obesity, Hypertension, Thrombocytopenia, Depression, Diabetes, Benign prostatic hypertrophy, Ozempic weight-loss program Medications Medication SIG (Take, Route, Frequency, Duration) Notes Start Date End Date Status LORazepam 2 MG 1 tablet at bedtime as needed Orally every 6 hours x 2 days prn anxiety during air travel 07/30/2024 Active Clobetasol Propionate 0.05 % APPLY DAILY [...] MOUTH TWICE A DAY WITH MEALS Active Pen [place] 31G X 8 MM use to administer insulin three times a day DX E11.9 Diabetes Active NovoLOG 100 UNIT/ML 10-22 units Injection three times a day on sliding scale DX: Diabetes E11.9 Active Cyclobenzaprine HCl 10 MG 1 tablet Orall y twce a day 08/22/2025 Active Rosuvastatin Calcium 10 MG TAKE 1 TABLET BY MOUTH EVERY DAY Active Cyclobenzaprine HCl 10 MG 1 tablet Orall y three times a day 08/22/2025 Active Ozempic (2 MG/DOSE) 8 MG/3ML 2 mg Subcutaneous weekly 11/04/2024 Active Cyclobenzaprine HCl 10 MG 1 tablet at bedtime as needed Orally three times a day 08/22/2025 Active Lisinopril 40 MG TAKE 1 TABLET BY MOUTH EVERY DAY Active Metoprolol Tartrate 25 MG TAKE 1 TABLET BY MOUTH TWICE A DAY WITH FOOD FOR 30 DAYS Active hydroCHLOROthiazide 25 MG 1 tablet every morning Orally Once a day Active Ketoconazole 2 % 1 application Externally Twice a day 10/06/2023 Active Lantus SoloStar 100 UNIT/ML INJECT 50 UNITS IN THE MORNING AND 70 UNITS AT BEDTIME Active FreeStyle Lite Test - as directed In Vitro testing four times a day 10/04/2021 Active Meloxicam Active Meclizine HCl 25 MG 1 tablet as needed Orally every 12 hrs Active diazePAM 10 MG 1 tablet as needed Orally before closed MRI procedure 04/10/2024 Active BD Insulin Syringe U/F 31G X 5/16 1 ML USE WITH INSULIN 5 TIMES DAILY Active FreeStyle Lite w/Device as directed - patient to test four times a day 10/04/2021 Active Social History Tobacco Use: Social History [...] Non-User Ex-cigaret te smoker Vital Signs Temperature 96.8 degrees Fahrenheit 09/01/20 25 Heart Rate 90 /min 09/01/2025 Respiratory Rate 16 /min 09/01/2025 Height 71 in 09/01/2025 Weight 267 lbs 09/01/2025 BMI 37.23 kg/m2 09/01/2025 Oximetry 99 % 09/01/2025 Encounters Encounter Location Date Provider Diagnosis Xander Del Rosario III, MD [address] [place] [address] [address], [place] [id number] 09/01/2025 Xander Del Rosario DM (diabetes mellitu s) E11.9 ; Spinal stenosis of lumbar region with neurogenic claudication M48.062 ; Obesity E66.9 ; Thrombocytopenia D69.6 ; Hyperlipidemia type II E78.01 ; Multinodular thyroid E04.2 ; Other specified arthritis, left shoulder M13.812 and Former smoker Z87.891 Assessments Encounter Date Diagnosis (ICD Code) Assessment Notes T reatment Notes Treatment Clinical Notes 09/01/2025 DM (diabetes mellitu s) (ICD-10 - E11.9) His diabetes remained stable and no change in his regimen was needed. 09/01/2025 Spinal stenosis of lumbar region with neurogenic claudication (ICD-10 - M48.062) He has had laminectomy surgery in the past. He now has severe muscle spasm to the right of the lumbar spine in the area of prior surgery. This is likely nerve impingement with secondary muscle spasm. He was given dexamethasone and cyclobenzaprine on a follow-up visit. He will use heat and rest. 09/01/2025 Obesity (ICD-10 - E66.9) He has gained 5 pounds since his last visit despite the Ozempic. His body mass index is 37. We have discussed stress eating and calorie intake at length today. He will continue on the Ozempic. He will try to limit is calories and find other ways to nearly a emotional stress. 09/01/2025 Thrombocytopenia (ICD-10 - D69.6) He has had no bleeding. His platelets are currently stable. 09/01/2025 Hyperlipidemia type II (ICD-10 - E78.01) Comprehensive blood work has been ordered prior to his next visit. He will have a fasting lipid profile. We have discussed weight loss and a healthy diet at length today.He continues on the Rosuvastatin 09/01/2025 Multinodular thyroid (ICD-10 - E04.2) An incidental finding on neck arteriography recently was a multinodular thyroid. A thyroid ultrasound has been ordered. 09/01/2025 Other specified arthritis, left shoulder (ICD-10 - M13.812) He is scheduled to have a left shoulder arthroplasty at [facility]. I have seen and examined him carefully today. Assuming that he is cleared by the silk screen printer helper he is cleared medically for the surgery. Because of his comorbidities his risk would be higher than that of the average 60-year-old man but I think the risk is acceptable. He has been instructed to take his insulin night before surgery but not thereafter. 09/01/2025 Former smoker (ICD-1 0 - Z87.891) He is highly motivated not to smoke. He has a plan for prevention of abstinence. We have discussed abstinence today. Plan Of Treatment Medication Medication Name Sig Start Date Stop Date Notes LORazepam 2 MG 1 tablet at bedtime as needed Orally every 6 hours x 2 days prn anxiety during air travel 07/30/2024 Clobetasol Propionate 0.05 % APPLY DAILY TO [...] BY MOUTH TWICE A DAY WITH MEALS Pen [place] 31G X 8 MM use to administer insulin three times a day NovoLOG 100 UNIT/ML 10-22 units Injection three times a day on sliding scale DX: Diabetes E11.9 Cyclobenzaprine HCl 10 MG 1 tablet Orall y twce a day 08/22/2025 Rosuvastatin Calcium 10 MG TAKE 1 TABLET BY MOUTH EVERY DAY Cyclobenzaprine HCl 10 MG 1 tablet Orall y three times a day 08/22/2025 Ozempic (2 MG/DOSE) 8 MG/3ML 2 mg Subcut aneous weekly 11/04/2024 Cyclobenzaprine HCl 10 MG 1 tablet at be dtime as needed Orally three times a day 08/22/2025 Lisinopril 40 MG TAKE 1 TABLET BY MOUTH EVERY DAY Metoprolol Tartrate 25 MG TAKE 1 TABLET BY MOUTH TWICE A DAY WITH FOOD FOR 30 DAYS hydroCHLOROthiazide 25 MG 1 tablet every morning Orally Once a day Ketoconazole 2 % 1 application Externally Twice a day 10/06/2023 Lantus SoloStar 100 UNIT/ML INJECT 50 UN ITS IN THE MORNING AND 70 UNITS AT BEDTIME FreeStyle Lite Test - as directed In Vit ro testing four times a day 10/04/2021 Meloxicam Meclizine HCl 25 MG 1 tablet as needed Orally every 12 hrs diazePAM 10 MG 1 tablet as needed Orally before closed MRI procedure 04/10/2024 BD Insulin Syringe U/F 31G X 5/16 1 ML USE WITH INSULIN 5 TIMES DAILY FreeStyle Lite w/Device as directed - patient to test four times a day 10/04/2021 Pending Test Test Name Order Date PROFILE, FASTING (COMPREHENSIVE METABOLI C) 09/01/2025 CBC w DIFF 09/01/2025 Lipid Panel 09/01/2025 Microalbumin, Random 09/01/2025 Hemoglobin A1c 09/01/2025 Next Appt Details Follow Up: 4 Months, Reason: OV Provider Name:Xander Del Rosario , 12/30/2025 09:45:00 AM, [address] [place] [address] [address], [place], [id number], Provider Name:Xander Del Rosario , 05/18/2026 10:00:00 AM, [address] [place] [address] [address], [place], [id number], Progress Notes * JORGE A ApDOB: 4 (60 yo M)Acc No.[id number]:09/01/2025 Progress Notes Patient: Ap GAO Provider: Royce Del Rosario MD :1965 A ge:60 Y S ex:Male Date:09/01/2025 Address:[address] [place] [address] [place], [id number] Subjective: * Chief Complaints: * O besityHypertensionThrombocytopeniaDepressionDiabetesBenign prostatic hypertrophyOzempic weight-loss program * HPI: C OVID-19 Screening: [facility] moody for medical management of numerous issues. He says his diabetes has been okay, but there is room for improvement. He was discouraged today by his chronic back pain. He had been looking forward to having surgery to fix the issue but the surgeon at the posterior office of [facility] has recommended prolonged physical therapy. He has gained 5 pounds. His Ozempic continues.His right ankle occasionally swells but is hips are free of pain.? He has no complaints about his knees. Questions H ave you had any new [...] Depressed mood d enies. * Medical History: * Surgical History: l aminectomy of the spine fractured left ankle right hip arthroplasty cardiac catheterization: 25% LAD, EF 65% 02/2011decompresion Dr. Jones 01/2018[facility] shoulder replacement 08/29/2024Shoulder replacement surgery - august 29, [facility] ight hip surgery - scoped, no complications since. 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 He was born in [place], [place]. * Medications: T akingRosuvastatin Calcium 10 MG Tablet TAKE 1 TABLET BY MOUTH EVERY DAY Pen [place] 31G X 8 MM Miscellaneous use to [...] MG/3ML Solution Pen-injector 2 mg Subcutaneous weekly Cyclobenzaprine HCl 10 MG Tablet 1 tablet Orally three times a day Medication List reviewed and reconciled with the patientTaking Rosuvastatin Calcium 10 MG Tablet TAKE 1 TABLET BY MOUTH EVERY DAY Taking Pen [place] 31G X 8 MM Miscellaneous use to [...] Solution Pen-injector 2 mg Subcutaneous weekly Taking Cyclobenzaprine HCl 10 MG Tablet 1 tablet Orally three times a day Medication List reviewed and reconciled with the patient * Allergies: E rythromycinCiproPenicillin: anaphylaxisno[Allergies Verified] Objective: * Vitals: H t: 71, Wt: 267, BMI:37.23, HR: 90, RR: 16, Temp: 96.8, Oxygen sat %: 99, Ht-cm: 180.34, Wt-k.11. * Examination: G eneral Examination: GENERAL APPEARANCE: p ezraasant, well nourished, well developed, in no acute [...] besity - E66.9 N otes :He has gained 5 pounds since his last visit despite the Ozempic. His body mass index is 37. We have discussed stress eating and calorie intake at length today. He will continue on the Ozempic. He will try to limit is calories and find other ways to nearly a emotional stress. 4 . T hrombocytopenia - D69.6 N otes :He has had no bleeding. His platelets are currently stable. 5 . H yperlipidemia type II - E78.01 N otes :Comprehensive blood work has been ordered prior to his next visit. He will have a fasting lipid profile. We have discussed weight loss and a healthy diet at length today.He continues on the Rosuvastatin 6 . M ultinodular thyroid - E04.2 N otes :An incidental finding on neck arteriography recently was a multinodular thyroid. A thyroid ultrasound has been ordered. 7 . O ther specified arthritis, left shoulder - M13.812 N otes :He is scheduled to have a left shoulder arthroplasty at [facility]. I have seen and examined him carefully today. Assuming that he is cleared by the silk screen printer helper he is cleared medically for the surgery. Because of his comorbidities his risk would be higher than that of the average 60-year-old man but I think the risk is acceptable. He has been instructed to take his insulin night before surgery but not thereafter. 8 . F ormer smoker - Z87.891 N otes :He is highly motivated not to smoke. He has a plan for prevention of abstinence. We have discussed abstinence today. Plan: * Treatment: 2. O besity L AB: PROFILE, FASTING (COMPREHENSIVE METABOLIC) L AB: CBC w DIFF L AB: Lipid Panel L AB: Microalbumin, Random L AB: Hemoglobin A1c 3. T hrombocytopenia L AB: PROFILE, FASTING (COMPREHENSIVE METABOLIC) L AB: CBC w DIFF L AB: Lipid Panel L AB: Microalbumin, Random L AB: Hemoglobin A1c 4. H yperlipidemia type II L AB: PROFILE, FASTING (COMPREHENSIVE METABOLIC) L AB: CBC w DIFF L AB: Lipid Panel L AB: Microalbumin, Random L AB: Hemoglobin A1c 5. O thers Continue Rosuvastatin Calcium Tablet, 10 MG, TAKE 1 TABLET BY MOUTH EVERY DAY; C ontinue Pen [place] Miscellaneous, 31G X 8 MM, use to [...] FOOD FOR 30 DAYS. * Procedure Codes: 9 4760 MEASURE BLOOD OXYGEN LEVEL * Preventive Medicine: Counseling: C are goal [...] tobacco use and urged to quit. 1 11/01/2024 * Follow Up: 4 Months (Reason: OV) * Images: * Sign off status: Completed true * Provider: Royce Del Rosario MD Date: 11/01/2024 Generated for Maryi ng/Althea/eTransmitting on: 12/03/2024 08:39 AM EST History and [...]
--- NOTE | 2025-10-02 08:22 | MHC.OFFVIS ---
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 He has a history of L4-L5 spinal surgery in 1989 and 2017, as well as chronic sacroiliac (SI) joint pain. The patient reports his pain is an 8-9/10 today, with radiation down his right leg associated with numbness, sharpening, aching, and tingling. He also has a chronic left foot drop. In 2020, he saw Dr. Lay and underwent a diagnostic sacroiliac joint injection that provided complete pain relief for 7 hours. At that time, he was offered a peripheral neurostimulator or SI joint fusion but wanted to defer the decision. He more recently received an SI joint cortisone injection from Dr. Hemphill at [facility] about 5-6 months ago, which provided temporary relief. Dr. Hemphill had initially suggested surgery but then determined he was not a good candidate. His pain is exacerbated by daily activities, walking, and sitting. He reports partial relief from Tylenol and stretching and is currently in physical therapy, which he states provides minimal help. - Location: Pain is in the low back, originating on the right side and radiating across to the left. - Severity: The patient rates his pain as an 8-9 out of 10 today. - Quality: The pain is described as sharpening and aching. - Radiation: The pain radiates down his right leg. - Associated Symptoms: He experiences numbness in his right foot and tingling in the right leg. - Exacerbating Factors: Pain is worsened by daily activities, walking, sitting, and bending backward. - Relieving Factors: He reports partial relief with Tylenol and stretching; physical therapy is minimally helpful. - Analgesia: He currently uses Tylenol for pain. - Current Pain: Today, his pain is an 8-9/10. Morning-night 10, noon 05/08 - Activities of Daily Living: Pain is exacerbated by daily activities, walking, prolonged driving, getting up from sitting and sitting. - Affect/Aberrant Behaviors: No aberrant drug-related behaviors or impact on mood were discussed. Oswestry Low Back Pain Disability Score=22 PRIOR 09/06/2021 Dr. Lay: Ap is a pleasant 55 year old male who presents to the office with complaints of low back pain. His pain is mostly midline and radiates across the low back. He reports heaviness of BLE. Denies any numbness, tingling, or bowel/bladder dysfunction. He does report weakness but has drop foot on the left which he has had for many years. He is currently wearing a LLE brace. He reports lumbar spine surgery in 1989 and again in 2018. Prior to surgery he did have injections but has not had any since surgery. He denies any hardware placement. His PCP has sent him for imaging a few weeks ago which revealed postoperative changes at L3-L5 as well as moderate-severe multilevel stenosis of the central canal and neuroforaminal. He has not been evaluated by a neurosurgeon since this imaging. He was scheduled and got performed the bilateral diagnostic sacroiliac joint injection he reported absence of pain for 7 hours after the injection. He was explained his options of treating bilateral sacroiliitis with peripheral nerve stimulator of sacroiliac joint innervation is versus sacroiliac joint fusion we would need to do a bilateral procedure. He decided to think about it. He will let us know. 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 His pain is mostly midline and radiates across the low back. He reports heaviness of BLE. Denies any numbness, tingling, or bowel/bladder dysfunction. He does report weakness but has drop foot on the left which he has had for many years. He is currently wearing a LLE brace. He reports lumbar spine surgery in 1989 and again in 2018. Prior to surgery he did have injections but has not had any since surgery. He denies any hardware placement. His PCP has sent him for imaging a few weeks ago which revealed postoperative changes at L3-L5 as well as moderate-severe multilevel stenosis of the central canal and neuroforaminal. He has not been evaluated by a neurosurgeon since this imaging. The pain is worse in the afternoon/evening and less severe midmorning. He reports pain onset was gradual, constant and rates the pain a 9/10. He states the pain is interfering with sleep, activities of daily living and he cannot function normally. The patient reports the pain in terms of tissue damage as shooting, stabbing, heavy, tiring fearful and spreading. His pain is exacerbated by prolonged sitting, bending, standing and walking, as well as uphill walking He report some alleviating with ibuprofen, tylenol, his hot tub and stretching. He has also tried topicals with little to no relief. He notes some alleviation with leaning forward as well. Previously he has tried physical therapy and felt his symptoms were unchanged. Today he presents to discuss interventional treatment options. [facility] Medical History (Updated 10/05/25 @ 22:13 by KARIS Jin) History of fracture of left ankle Bicuspid aortic valve Hyperlipidemia Obesity Back pain Erythromycin allergy Penicillin allergy Left foot drop Diabetes Depression Hypertension Chronic back pain Multinodular goiter Surgical History History of cardiac catheterization History of arthroplasty of right hip History of laminectomy of thoracic spine History of biopsy History of left shoulder replacement Social History Alcohol intake: current Alcohol intake frequency: does not drink Patient Tobacco Use Status: Former Tobacco user Tobacco use type: Cigarette Use of substances other than those prescribed or required for medical reasons: No Review of Systems Const Details: - Musculoskeletal: Reports chronic low back pain and pain with backward bending. - Neurological: Reports pain radiating down to the right buttock and right leg with associated numbness, aching, tingling, and sharpening quality. - Neurological: Reports numbness in the right foot and chronic foot drop on the left. - General: Denies pain with driving. All systems reviewed & are unremarkable except as noted in HPI and below Physical Exam Vital Signs: Last Vital Signs Pulse 86 10/02/25 08:27 BP 177/85 H 10/02/25 08:30 Pulse Ox 98 10/02/25 08:27 Oxygen Delivery Method Room Air 10/02/25 08:27 BMI result Body Mass Index 37.0 General: Appears afebrile. Alert and oriented. Mood and affect appropriate. Follows and participates in conversation appropriately. Respiratory effort is unlabored. No cough. Able to transition from sit to stand unassisted. Ambulates with bilaterally normal heel strike, cannot stand on toes, left foot drop with brace. Const Orientation/consciousness: patient oriented x3 General: Yes no CVA tenderness Back/Spine/Pelvis Other: Limited lumbar ROM due to pain. Lumbar extension and flexion reproduces moderate pain. Difficulty getting up from bending position. Demonstrates 5/5 strength of quadriceps bilaterally as well as flexion/dorsiflexion of bilateral feet against resistance. 2+ pedal pulses bilaterally. Straight leg rise with dorsiflexion negative bilaterally. DTR diminished bilaterally. Pelvic compression, Salazar's, Gaenslen and Stinchfield tests positive bilaterally, worse on the right. Back: no CVA tenderness Cervical Spine: cervical ROM normal, cervical muscular tenderness and No Cervical spine tenderness Thoracic/Lumbar Spine: thoracic and lumbar spine normal to inspection, Thoracic/lumbar spine scar(s), Lasegue's sign negative, straight leg raise negative bilaterally, pain with thoraco-lumbar ROM, No paraspinal muscle tenderness, thoraco-lumbar ROM limited, thoracic spinal tenderness and lumbar spinal tenderness (L4-S1) Pelvis: buttock tenderness bilaterally Sacroiliac joints: bilaterally tender to palpation Neuro General: patient oriented x3, gait normal, moves all extremities and Normal light touch and pain sensation Cognition (Neuro): normal cognition Gait exam (Neuro): Antalgic gait present Motor exam (neuro): 5/5 motor strength present throughout and no tremor noted Deep tendon reflexes (DTR's): Right patellar reflex intensity grade: 1+, Left patellar reflex intensity grade: 1+, Right ankle reflex intensity grade: 1+ and Left ankle reflex intensity grade: 1+ Results Reviewed Results Reviewed: LUMBAR SPINE MRI 04/2021 T12-L1: Disc desiccation. Mild facet arthrosis.? No central canal stenosis mild bilateral neural foraminal narrowing. L2-L1: Diffuse annular bulge with slight increase in central left paracentral disc osteophyte complex contributing to left lateral recess stenosis and medialization of the traversing L2 nerve root.? Mild central canal stenosis. [id number] bilateral neural foraminal narrowing. L2-L3: Disc desiccation and diffuse annular bulge with focal central disc protrusion with sub ligamentous extension to the inferior aspect of the L2 vertebral body.? There is moderate to severe central canal stenosis, facet arthrosis and ligamentous laxity. There is severe right and moderate left neural foraminal narrowing. There is complete effacement of the lateral recesses bilaterally. Annular abutment is present in the far lateral compartment bilaterally impacting the exiting L2 nerve roots. Posterior medial displacement of the traversing right L3 nerve root was present. L3-L4: Diffuse annular bulge with asymmetric right subarticular disc protrusion abutting the exiting L3 nerve root. There is mild central canal stenosis with mass effect upon the thecal sac. There is severe right and left neural foraminal narrowing. Post-laminectomy changes present. There is osteophyte spurring extending from the medial aspect of the left facet articulation. L4-L5: Disc desiccation and loss in height. Postoperative laminectomy change. Bilateral facet arthrosis and mild ligamentous laxity. There is focal central disc protrusion and mild osteophyte formation. There is severe bilateral neuroforaminal narrowing and moderate central canal stenosis. There is impact on the exiting L4 nerve roots in the inferior lateral neural foramina bilaterally. L5-S1: Mild disc desiccation. No central canal stenosis or neural foraminal narrowing. Assessment & Plan Assessment & Plan (1) Post-laminectomy syndrome: Code(s): M96.1 - Postlaminectomy syndrome, not elsewhere classified Category: Medical (2) Sacroiliac joint pain: Code(s): M53.3 - Sacrococcygeal disorders, not elsewhere classified Category: Medical (3) Lumbosacral spondylosis: Code(s): M47.817 - Spondylosis without myelopathy or radiculopathy, lumbosacral region Category: Medical (4) Lumbar degenerative disc disease: Code(s): M51.369 - Other intervertebral disc degeneration, lumbar region without mention of lumbar back pain or lower extremity pain Category: Medical (5) Chronic back pain: Code(s): M54.9 - Dorsalgia, unspecified; G89.29 - Other chronic pain Category: Medical (6) Obesity, Class II, BMI 35-39.9: Code(s): E66.812 - Obesity, class 2 Category: Medical Plan The patient will sign a medical release to request prior imaging reports, including an MRI from [place] and X-rays from Dr. Hemphill in [place]. A prescription for a sacroiliac joint belt will be sent to [facility] for fitting. Options for pain management were discussed, including SI joint radiofrequency ablation, SI joint fusion, peripheral nerve stimulation, spinal cord stimulation, and an intrathecal pain pump. The patient was informed that implantable devices would require a psychological evaluation and a trial period. He was provided with educational brochures for these procedures. Patient is interested in SI joint RFA at this time. Schedule for right diagnostic sacroiliac joint injections with local and fluoroscopy. Expectations, risks and benefits were reviewed. Patient is aware he will be contacted to schedule this procedure. The patient is encouraged to continue with physical therapy and work on weight loss to help his back pain. All questions and concerns have been answered and patient agreed with the treatment plan. Follow up after injection and sooner as needed. Patient was informed and verbally consented to the use of an ambient scribe for clinic note documentation during this visit. Medications: New sacroiliac belt As directed 1 ea 0RF lumbosacral support G89.29 - Other chronic pain, M53.3 - Sacrococcygeal disorders, not elsewhere classified, M54.9 - Dorsalgia, unspecified Coding Level of Care Code New Pt Level 4 (07848) Diagnoses Post-laminectomy syndrome M96.1 Sacroiliac joint pain M53.3 Lumbosacral spondylosis M47.817 Lumbar degenerative disc disease M51.369 Chronic back pain M54.9; G89.29 Obesity, Class II, BMI 35-39.9 E66.812
[2025-10-02 08:27] VITALS: BP 216/97; PULSE 86; O2SAT 98; BMI 37.0
[2025-10-02 08:30] VITALS: BP 177/85
--- OUTSIDE RECORDS SUMMARY | 2025-10-02 08:39 | XMS_ITS | Patient Health Record ---
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 Xander Del [...] date:12/06/2024 09:31:56 AM Interpretation: Performing Lab: Notes/Report: [address] [address] Ultrasound Report Signed Patient: Ap Jones MR#: [id number] 41 : 1965 Acct:[id number] Age/Sex: 59 / M ADM Date: 10/14/24 Loc: HO.US Attending Dr: Xander Del Rosario MD Ordering Physician: Xander Del Rosario MD Date of Service: 10/14/24 Procedure(s): US thyroid Accession Number(s): [id number] cc: Xander Del Rosario MD EXAMINATION: US [...] than or equal to 1 cm: 3. 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 Health And Social Care Teacher nodul es are described as follows: 1. [...] by: Chase Richard MD 11/12/2024 03:38 PM [facility] Dictated By: Chase Richard MD Signed By: <Electron ically signed by Chase Richard MD in OV> 11/12/24 1538 DD/ TD/TT: 10/14/24 0916 Production Mechanic Tin Cans: [facility] Pathology Reviewed date:02/08/2025 04:55:00 AM Interpretation: Performing Lab:[facility], [address] [place] [address] Notes/Report: Name: Ap Jones Age/Sex: 59/M : 1965 Unit#: [id number] Attend Dr: Laura Villatoro MD Re01/08/25 Status : [facility] REF Location: [facility] Disch: SPEC : [id number] RECD : 01/09/25 STATUS: MIRANDA FELIX NUM: [id number] JONO: 01/08/25 [facility] DR: Laura Villatoro MD ENTERED: 01/09/25 SP TYPE: Cytology OTHR DR: Xander Del Rosario MD ORDERED: Cell Block, Fine Ndl Asp/2 Diagnosis A. Thyroid, right mi d pole 2 cm nodule, fine needle aspiration: Non-diagnostic ([place] category I). COMMENT (A): Blood, fibrin and peripheral blood elements only. No follicular epithelial cells identified. Th e cell block is acellular and non-contributory. B. Thyroid, left mid pole 2.5 cm nodule, fine needle aspiration: Benign ([place] category II). COMMENT (B): Satisfa ctory for [...] prepared. Copies To: Xander Del Rosario MD [address] [place] [address], [address] [place], [place] [id number] Laura Villatoro MD [facility] [address] [place] [address] [address] [place] [address] [email or web address] CONTINUED ON NEXT PAGE Name: Ap Jones Age/Sex: 59/M : 1965 Unit#: [id number] Attend Dr: Laura Villatoro MD Re01/08/25 Status : DEP REF Location: [facility] Disch: SPEC : [id number] RECD : 01/09/25 STATUS: MIRANDA FELIX NUM: [id number] JONO: 01/08/25 [facility] DR: Laura Villatoro MD ENTERED: 01/09/25-05 21 SP TYPE: Cytology OTHR DR: Xander Del Rosario MD ORDERED: Dalia Berrios Asp/2 Signed (si gnature on file) Philipp Andrade MD 01/10/25 4597 END OF REPORT Pathology Reviewed date:05/02/2025 07:20:23 PM Interpretation: Performing Lab:[facility], [address] [place] [address] Notes/Report: Name: Ap Jones Age/Sex: 59/M : 1965 Unit#: [id number] Attend Dr: Laura Villatoro MD Re04/02/25 Status : DEP REF Location: [facility] Disch: SPEC : [id number] RECD : 04/02/25114 STATUS: MIRANDA FELIX NUM: [id number] JONO: 04/02/25-1016 [facility] [address]: Laura Villatoro MD ENTERED: 04/02/25-12 02 SP TYPE: Cytology OTHR DR: Xander Del Rosario MD ORDERED: Cell Block, Fine Ndl Asp Diagnosis Thyroid, right mid n odule, fine needle aspiration: Non-diagnostic ([place] category I). COMMENT: Review of t he [...] and their performance characte ristics determined by [facility]. They have not been cleared or appr laurel by the U.S. Food and Drug Administration (FDA). However, the FDA has determined that such clearance or approval is not necessary. This laboratory is certified under the Clinical Laboratory Improvement Amendments of 1988 (CLIA) as qualified to perform high comp lexity clinical laboratory testing. Copies To: Xander Del Rosario MD [address] [place] [address], [address] [place] [address] Laura Villatoro MD [facility] [address] [place] [address] [address] [place] [address] CONTINUED ON NEXT PAGE Name: Ap Jones Age/Sex: 59/M : 1965 Unit#: [id number] Attend Dr: Laura Villatoro MD Re04/02/25 Status : DEP REF Location: [facility] Disch: SPEC : [id number] RECD : 04/02/25-114 STATUS: MIRANDA FELIX NUM: [id number] JONO: 04/02/25-1015 [facility] [address]: Laura Villatoro MD ENTERED: 04/02/25-09 30 SP TYPE: Cytology OTHR DR: Xander Del Rosario MD ORDERED: Cell Block, Fine Ndl Asp Copies To: (Continued) [email or web address] Signed (si gnature on file) Marybeth Ang MD 04/03/25 1038 END OF REPORT XR abdomen w decubitus Reviewed date:07/14/2025 01:04:09 PM Interpretation: Performing Lab: Notes/Report: [address] [address] XRay Report Signed Patient: Ap Jones MR#: [id number] 41 : 1965 Acct:[id number] Age/Sex: 59 / M ADM Date: 07/03/25 Loc: HO.XRAY Attending Dr: Xander Del Rosario MD Ordering Physician: Xander Del Rosario MD Date of Service: 07/03/25 Procedure(s): XR abdomen w decubitus Accession Number(s): [id number] cc: Xander Del Rosario MD Reason for Exam: FOREIGN BODY IN LEFT LOWER QUADRANT OF ABD EXAMINATION: XR ABDOMEN WITH DECUBITUS VIEWS CLINICAL INDICATION: FOREIGN BODY IN LEFT LOWER QUADRANT OF ABD COMPARISON: None available. TECHNIQUE: AP view abdomen and pelvis in supine position. FINDINGS: Patient's large body habitus. No gross metallic or radiopaque foreign body. There are a few, linear radiopaque structures both sides of the abdomen and pelvis probably artifactual. There is abundant stool in a nondilated large intestine. No air-fluid levels. Multilevel thoracolumbar spondylosis. Degenerative changes in the coxofemoral joints, mild to moderate. XR/XR abdomen w decubitus IMPRESSION: No radiopaque foreign body. No intestinal obstruction pattern. Electronically signed by: Prateek Kendrick MD 07/03/2025 09:08 AM EDT Dictated By: Prateek Travis MD Signed By: <Electronically signed by Prateek Frazier MD in OV> 07/03/25 0908 DD/ 0840 TD/TT: 07/03/25 0902 Production Mechanic Tin Cans: [place] [address] XRay Report Signed Patient: Lui Jones MR#: [id number] 41 : 1965 Acct:[id number] Age/Sex: 59 / M ADM Date: 07/03/25 Loc: HO.XRAY Attending Dr: Xander Del Rosario MD Ordering Physician: Xander Del Rosario MD Date of Service: 07/03/25 Procedure(s): XR abd omen w decubitus Accession Number(s): [id number] cc: Xander Del Rosario MD Reason for Exam: FOR EIGN BODY IN LEFT LOWER QUADRANT OF ABD EXAMINATION: XR ABDOMEN WITH DECUBITUS VIEWS CLINICAL INDICATION: FOREIGN BODY IN LEFT LOWER QUADRANT OF ABD COMPARISON: None available. TECHNIQUE: AP view abdomen and pelvis in supine position. FINDINGS: Patient's large body habitus. No gross metallic or radiopaque foreign body. There are a few, holland ear radiopaque structures both sides of the abdomen and pelvis probably artifactual. There is abundant st ool in a nondilated large intestine. No air-fluid levels. Multilevel thoracolu mbar spondylosis. Degenerative changes in the coxofemoral joints, mild to moderate. X R/XR abdomen w decubitus IMPRESSION: No radiopaque foreign body. No intestinal obstru ction pattern. Electronically sandoval d by: Prateek Kendrick MD 07/03/2025 09:08 AM EDT RP Dictated By: Prateek Alves MD Signed By: <Tashia icacarlee signed by Prateek Frazier MD in OV> 07/03/25 0908 DD/ 0840 TD/TT: 07/03/25 0902 Production Mechanic Tin Cans: Reason For Referral Reason Evaluate and Treat Thyroid Nodule that meets criteria for biospy Diagnosis 1 Thyroid nodule (E04. 1) Referral Organization Xander Del Rosario III, MD Referring Provider First Name Xander Referring Provider Last Name Del Rosario Referring Provider Speciality Internal M edicine Referred Provider [facility] Referred Provider Specialty Endocrinolog y General Notes D, 11/13/2024 01:57:20 PM > Referral, Ultrasounds, and last progress note faxed., 11/26/2024 09:28:29 AM > patient is being seen by Dr. Villatoro on 12/20/24 @ 8am Referral Priority Routine Referral Appointment Date 12/20/2024 Reason Evaluate and Treat Diagnosis 1 Spinal [...] Provider Speciality Internal M edicine Referred Provider [facility], Pain Management Referred Provider Specialty [...] Referral Priority Routine Referral Appointment Date 08/29/2025 Medications Medication SIG (Take, Route, Frequency, Duration) Notes Start Date End Date Status Meclizine HCl 25 MG 1 tablet as needed Orally every 12 hrs Active hydroCHLOROthiazide 25 MG 1 tablet every morning Orally Once a day Active diazePAM 10 MG 1 tablet as needed Orally before closed MRI procedure 04/10/2024 Active Ozempic (2 MG/DOSE) 8 MG/3ML 2 mg Subcutaneous weekly 11/04/2024 Active BD Insulin Syringe U/F 31G X 5/16 1 ML USE WITH INSULIN 5 TIMES DAILY Active Cyclobenzaprine HCl 10 MG 1 tablet at bedtime as needed Orally three times a day 08/22/2025 Active LORazepam 2 MG 1 tablet at bedtime as needed Orally every 6 hours x 2 days prn anxiety during air travel 07/30/2024 Active Lisinopril 40 MG TAKE 1 TABLET BY MOUTH EVERY DAY Active Clobetasol Propionate 0.05 % APPLY DAILY TO SKIN TO AFFECTED AREA TWICE A DAY FOR 2 WEEKS Active Metoprolol Tartrate 25 MG TAKE 1 TABLET BY MOUTH TWICE A DAY WITH FOOD FOR 30 DAYS Active Pen [place] 31G X 8 MM use to administer insulin three times a day DX E11.9 Diabetes Active Ketoconazole 2 % 1 application Externally Twice a day 10/06/2023 Active metFORMIN HCl 500 MG TAKE 2 TABLETS BY MOUTH TWICE A DAY WITH MEALS for 90 Active NovoLOG 100 UNIT/ML 10-22 units Injection three times a day on sliding scale DX: Diabetes E11.9 Active Lantus SoloStar 100 UNIT/ML INJECT 50 UNITS IN THE MORNING AND 70 UNITS AT BEDTIME Active FreeStyle Lite w/Device as directed - patient to test four times a day 10/04/2021 Active Cyclobenzaprine HCl 10 MG 1 tablet Orall y twce a day 08/22/2025 Active Rosuvastatin Calcium 10 MG TAKE 1 TABLET BY MOUTH EVERY DAY Active FreeStyle Lite Test - as directed In Vitro testing four times a day 10/04/2021 Active Cyclobenzaprine HCl 10 MG 1 tablet Orall y three times a day 08/22/2025 Active Fenofibrate 160 MG TAKE 1 TABLET BY MOUTH EVERY DAY WITH MEALS for 90 Active Basaglar KwikPen 100 UNIT/ML as directed Subcutaneous 50 units every morning and 70 units every evening please dispense one month supply 11/13/2024 Active Meloxicam Active Immunizations Vaccine Route Administration Date Status [...] Problem Status W/U Status Risk Notes Problem 1379290 Former smoker (Z87.891) Active confirmed He is highly motivated not to smoke. He has a plan for prevention of abstinence. We have discussed abstinence today. Problem 222952625 Obesity (E66.9) Active confirmed He has gained 5 pounds since his last visit despite the Ozempic. His body mass index is 37. We have discussed stress eating and calorie intake at length today. He will continue on the Ozempic. He will try to limit is calories and find other ways to nearly a emotional stress. Problem DM - Diabetes mellitus (28422023) DM (diabetes mellitus) (E11.9) Active confirmed His diabetes remained stable and no change in his regimen was needed. Problem 452806216 Thrombocytopeni a (D69.6) Active confirmed He has had no bleeding. His platelets are currently stable. Problem 9323931 Other specified arthritis, left shoulder (M13.812) Active confirmed He is scheduled to have a left shoulder arthroplasty at [facility]. I have seen and examined him carefully today. Assuming that he is cleared by the documentation specialist he is cleared medically for the surgery. Because of his comorbidities his risk would be higher than that of the average 60-year-old man but I think the risk is acceptable. He has been instructed to take his insulin night before surgery but not thereafter. Problem Intervertebral disc disorder (45824207) Unspecified thoracic, thoracolumbar and lumbosacral intervertebral disc disorder (M51.9) Active confirmed Problem 19804964 Essential hypertension (I10) Active confirmed His blood pressure is normal. No change in his regimen was made today. Problem 00280812 Penicillin allergy (Z88.0) Active confirmed Problem 979949268 Multinodular thyroid (E04.2) Active confirmed An incidenta l finding on neck arteriography recently was a multinodular thyroid. A thyroid ultrasound has been ordered. Problem Pure hypercholesterole nguyễn (864786567) Hyperlipidemia type II (E78.01) Active confirmed Comprehensive blood work has been ordered prior to his next visit. He will have a fasting lipid profile. We have discussed weight loss and a healthy diet at length today.He continues on the Rosuvastatin Problem 86144920 Reactive depression (F32.9) Active confirmed He has lost his Perdomo feels very sad. He did not wish to take an antidepressant. He was given emotional support and close follow-up. Problem 217577834 Benign prostatic hyperplasia, unspecified whether lower urinary tract symptoms present (N40.0) Active confirmed He rises fro m sleep once or twice a night to urinate. We discussed lifestyle modifications he could make to reduce nocturia. Problem 59618110 Spinal stenosis of lumbar region with neurogenic claudication (M48.062) Active confirmed He has had laminectomy surgery in the past. He now has severe muscle spasm to the right of the lumbar spine in the area of prior surgery. This is likely nerve impingement with secondary muscle spasm. He was given dexamethasone and cyclobenzaprine on a follow-up visit. He will use heat and rest. Problem 124480570883549 Left foot drop (M21.372) Active confirmed He continues to wear the brace to good effect. His gait is fairly normal. Problem 452904162 Scoliosis of thoracolumbar spine, unspecified scoliosis type (M41.9) Active confirmed Diagnosis stenosing orthopedic facility with spinal stenosis and scoliosis. Debilitating pain and has been scheduled for garry operative procedure. Vital Signs Heart Rate 90 /min 09/01/2025 Temperature 96.8 degrees Fahrenheit 09/01/2025 Respiratory Rate 16 /min 09/01/2025 Oximetry 99 % 09/01/2025 Blood pressure diastolic 70 mm Hg 08/22/2025 Height 71 in 09/01/2025 Blood pressure systolic 115 mm Hg 08/22/2025 Weight 267 lbs 09/01/2025 BMI 37.23 kg/m2 09/01/2025 Encounters Encounter Location Date Provider Diagnosis Xander Del Rosario III, MD [address] [place] [address] [place] [address] 11/04/2024 Xander Del Rosario Former smoker Z87.89 [...] shoulder M13.812 Xander Del Rosario III, MD [address] [place] [address] [place] [address] 11/25/2024 Xander Del Rosario Former smoker Z87.89 1 ; Left thyroid nodule E04.1 ; Essential hypertension I10 ; Diabetes mellitus type 2 in nonobese E11.9 ; Obesity E66.9 ; Thrombocytopenia D69.6 ; Left shoulder pain M25.512 and Left foot drop M21.372 Xander Del Rosario III, MD [address] [place] [address] [place] [address] 12/23/2024 Xander Del Rosario Former smoker Z87.89 1 ; Diabetes mellitus type 2 in nonobese E11.9 ; Essential hypertension I10 ; Obesity E66.9 and Acute non-recurrent sinusitis of other sinus J01.80 Xander Del Rosario III, MD [address] [place] [address] [place] [address] 02/03/2025 Xander Del Rosario Former smoker Z87.89 1 ; Spinal stenosis of lumbar region with neurogenic claudication M48.062 ; Obesity E66.9 ; Essential hypertension I10 ; Thrombocytopenia D69.6 ; Reactive depression F32.9 ; Scoliosis of thoracolumbar spine, unspecified scoliosis type M41.9 and DM (diabetes mellitus) E11.9 Xander Del Rosario III, MD [address] [place] [address] [place] [address] 03/17/2025 Xander Lernerne Former smoker Z87.89 1 ; Spinal stenosis of lumbar region with neurogenic claudication M48.062 ; Obesity E66.9 ; Essential hypertension I10 ; Diabetes mellitus type 2 in nonobese E11.9 ; Benign prostatic hyperplasia, unspecified whether lower urinary tract symptoms present N40.0 ; Multinodular thyroid E04.2 and Other specified arthritis, left shoulder M13.812 Xander Del Rosario III, MD [address] [place] [address] [place] [address] 04/07/2025 Xander Del Rosario Former smoker Z87.89 1 ; Benign prostatic hyperplasia, unspecified whether lower urinary tract symptoms present N40.0 ; Obesity E66.9 ; Essential hypertension I10 ; Thrombocytopenia D69.6 ; Multinodular thyroid E04.2 ; Other specified arthritis, left shoulder M13.812 ; Left shoulder pain M25.512 and Viral syndrome B34.9 Xander Del Rosario III, MD [address] [place] [address] [place] [address] 05/14/2025 Xander Blackwoodrne Former smoker Z87.89 1 ; Scoliosis of [...] nonobese E11.9 Xander Del Rosario III, MD [address] [place] [address] [place] [address] 07/02/2025 Xander Del Rosario Former smoker Z87.89 1 ; DM (diabetes mellitus) E11.9 ; Obesity E66.9 ; Thrombocytopenia D69.6 ; Benign prostatic hyperplasia, unspecified whether lower urinary tract symptoms present N40.0 ; Hyperlipidemia type II E78.01 and Foreign body (FB) in soft tissue M79.5 Xander Del Rosario III, MD [address] [place] [address] [place] [address] 08/22/2025 Xander Del Rosario DM (diabetes mellitu s) E11.9 ; Spinal stenosis of lumbar region with neurogenic claudication M48.062 ; Obesity E66.9 ; Essential hypertension I10 ; Thrombocytopenia D69.6 ; Reactive depression F32.9 ; Hyperlipidemia type II E78.01 and Left foot drop M21.372 Xander Del Rosario III, MD [address] [place] [address] [place] [address] 09/01/2025 Xander Del Rosario DM (diabetes mellitu s) E11.9 ; Spinal stenosis of lumbar region with neurogenic claudication M48.062 ; Obesity E66.9 ; Thrombocytopenia D69.6 ; Hyperlipidemia type II E78.01 ; Multinodular thyroid E04.2 ; Other specified arthritis, left shoulder M13.812 and Former smoker Z87.891 Xander Del Rosario III, MD [address] [place] [address] [place] [address] 10/02/2024 Xander Del Rosario III, MD [address] [place] [address] [place] [address] 10/02/2024 Xander Del Rosario III, MD [address] [place] [address] [place] [address] 10/21/2024 Xander Del Rosario Urinary tract infect ion without hematuria, site unspecified N39.0 Xander Del Rosario III, MD [address] [facility] [place] [address] 10/21/2024 Xander Del Rosario III, MD [address] [facility] [place] [address] 11/07/2024 Xander Del Rosario III, MD [address] [facility] [place] [address] 11/11/2024 Xander Del Rosario III, MD [address] [facility] [place] [address] 11/12/2024 Xander Del Rosario III, MD [address] [facility] [place] [address] 11/13/2024 Xander Del Rosario III, MD [address] [facility] [place] [address] 11/13/2024 Xander Del Rosario III, MD [address] [place] [address] [place] [address] 12/02/2024 Xander Del Rosario III, MD [address] [place] [address] [place] [address] 12/02/2024 Xander Del Rosario III, MD [address] [facility] [place] [address] 12/03/2024 Xander Del Rosario III, MD [address] [place] [address] [place] [address] 12/03/2024 Xander Del Rosario III, MD [address] [facility] [place] [address] 01/07/2025 Xander Del Rosario III, MD [address] [place] [address] [place] [address] 04/14/2025 Xander Del Rosario III, MD [address] [facility] [place] [address] 06/06/2025 Xander Del Rosario III, MD [address] [place] [address] [place] [address] 08/08/2025 Xander Del Rosario III, MD [address] [place] [address] [place] [address] 08/25/2025 Xander Del Rosario III MD [address] [place] [address] [place] [address] 08/26/2025 Xander Del Rosario Assessments Encounter Date Diagnosis (ICD Code) Assessment Notes T reatment Notes Treatment Clinical Notes 11/04/2024 Former smoker (ICD-1 0 - Z87.891) He is highly motivated not to smoke. He has a plan for prevention of abstinence. We have discussed abstinence today. 11/04/2024 Low back pain (ICD-1 0 - M54.5) He has undergone surgery with decompression in the past. Scheduled for further surgery in [place] on his back in the near future. [...] been scheduled for a second laminectomy in [place] in the near future. Platelet count will be checked. 03/17/2025 Former smoker (ICD-1 0 - Z87.891) He is highly motivated not to smoke. He has a plan for prevention of abstinence. We have discussed abstinence today. 03/17/2025 Spinal stenosis of lumbar region with neurogenic claudication (ICD-10 - M48.062) He has been scheduled for a second laminectomy in [place] in the near future. Platelet count will [...] has been scheduled for garry operative procedure. 07/02/2025 Former smoker (ICD-1 0 - Z87.891) He is highly motivated not to smoke. He has a plan for prevention of abstinence. We have discussed abstinence today. 07/02/2025 DM (diabetes mellitu s) (ICD-10 - E11.9) His diabetes remained stable and no change in his regimen was needed. 08/22/2025 DM (diabetes mellitu s) (ICD-10 - [...] He will use heat and rest. 09/01/2025 DM (diabetes mellitu s) (ICD-10 - [...] visit. He will use heat and rest. 10/21/2024 Urinary tract infection without hematuria, site unspecified (ICD-10 - N39.0) 11/04/2024 Essential hypertensi on (ICD-10 - I10) [...] Continue issues Ebbers her weight loss. 07/02/2025 Obesity (ICD-10 - E66.9) He has gained 3 pounds without peripheral edema. We reviewed his weight loss strategy. We discussed diet and nutrition today at length. 08/22/2025 Obesity (ICD-10 - E66.9) He has lost 4 pounds.. His body mass index is 36.5. We reviewed his weight loss strategy. We discussed diet and nutrition today at length. 09/01/2025 Obesity (ICD-10 - E66.9) He has gained 5 pounds since his last visit despite the Ozempic. His body mass index is 37. We have discussed stress eating and calorie intake at length today. He will continue on the Ozempic. He will try to limit is calories and find other ways to nearly a emotional stress. 11/04/2024 Diabetes mellitus ty pe 2 in [...] in his regimen was made today. 07/02/2025 Thrombocytopenia (ICD-10 - D69.6) There was no bleeding recently. He has no petechiae or purpura. Is avoiding aspirin will be observed. 08/22/2025 Essential hypertensi on (ICD-10 - I10) His blood pressure is normal. No change in his regimen was made today. 09/01/2025 Thrombocytopenia (ICD-10 - D69.6) He has had no bleeding. His platelets are currently stable. 11/04/2024 Obesity (ICD-10 - E66.9) He has [...] no bleeding during his recent surgery. 07/02/2025 Benign prostatic hyperplasia, unspecified whether lower urinary tract symptoms present (ICD-10 - N40.0) He rises from sleep once or twice a night to urinate. We discussed lifestyle modifications he could make to reduce nocturia. 08/22/2025 Thrombocytopenia (ICD-10 - D69.6) There was no bleeding recently. He has no petechiae or purpura. Is avoiding aspirin will be observed. 09/01/2025 Hyperlipidemia type II (ICD-10 - E78.01) Comprehensive blood work has been ordered prior to his next visit. He will have a fasting lipid profile. We have discussed weight loss and a healthy diet at length today.He continues on the Rosuvastatin 11/04/2024 Thrombocytopenia (ICD-10 - D69.6) His last [...] 07/02/2025 Hyperlipidemia type II (ICD-10 - E78.01) He was continued on current medication. 08/22/2025 Reactive depression (ICD-10 - F32.9) He has lost his Perdomo feels very sad. He did not wish to take an antidepressant. He was given emotional support and close follow-up. 09/01/2025 Multinodular thyroid (ICD-10 - E04.2) An incidental finding on neck arteriography recently was a multinodular thyroid. A thyroid ultrasound has been ordered. 11/04/2024 Herniated intervertebral disc of lumbar spine (ICD-10 - M51.26) He continues to have back pain radiates down his leg. He has seen a neurosurgeon. This workup is in progress and treatment will be available. 11/25/2024 Left shoulder pain (ICD-10 - M25.512) He has recently undergone shoulder replacement in [place] on the left side.He says he is [...] to have a left shoulder arthroplasty at [facility]. I have seen and examined him carefully today. Assuming that he is cleared by the documentation specialist he is cleared medically for the surgery. [...] (FB) in soft tissue (ICD-10 - M79.5) There was no metallic foreign body in the abdominal wall. 08/22/2025 Hyperlipidemia type II (ICD-10 - E78.01) He was continued on current medication. 09/01/2025 Other specified arthritis, left shoulder (ICD-10 - M13.812) He is scheduled to have a left shoulder arthroplasty at [facility]. I have seen and examined him carefully today. Assuming that he is cleared by the documentation specialist he is cleared medically for the surgery. Because of his comorbidities his risk would be higher than that of the average 60-year-old man but I think the risk is acceptable. He has been instructed to take his insulin night before surgery but not thereafter. 11/04/2024 Hyperlipidemia type II (ICD-10 - E78.0) [...] to have a left shoulder arthroplasty at [facility]. I have seen and examined him carefully today. Assuming that he is cleared by the documentation specialist he is cleared medically for the surgery. Because of his comorbidities his risk would be higher than that of the average 60-year-old man but I think the risk is acceptable. He has been instructed to take his insulin night before surgery but not thereafter. 04/07/2025 Left shoulder pain (ICD-10 - M25.512) He has recently undergone shoulder replacement in [place] on the left side.He says he is feeling much better. 05/14/2025 Other specified arthritis, left shoulder (ICD-10 - M13.812) He is scheduled to have a left shoulder arthroplasty at [facility]. I have seen and examined him carefully today. Assuming that he is cleared by the documentation specialist he is cleared medically for the surgery. Because of his comorbidities his risk would be higher than that of the average 60-year-old man but I think the risk is acceptable. He has been instructed to take his insulin night before surgery but not thereafter. 08/22/2025 Left foot drop (ICD- 10 - M21.372) He continues to wear the brace to good effect. His gait is fairly normal. 09/01/2025 Former smoker (ICD-1 0 - Z87.891) He is highly motivated not to smoke. He has a plan for prevention of abstinence. We have discussed abstinence today. 11/04/2024 Left foot drop (ICD- 10 - [...] been scheduled for a second laminectomy in [place] in the near future. Platelet count will [...] to have a left shoulder arthroplasty at [facility]. I have seen and examined him carefully today. Assuming that he is cleared by the documentation specialist he is cleared medically for the surgery. [...] C) 07/02/2025 PROFILE, FASTING (COMPREHENSIVE METABOLI C) 09/01/2025 PROFILE, FASTING (COMPREHENSIVE METABOLI C) 12/23/2024 TSH (THYROID STIMULATING HORMONE) 2024 PSA, TOTAL 03/17/2025 PSA, TOTAL 07/02/2025 CBC w DIFF 11/04/2024 CBC w DIFF 03/17/2025 CBC w DIFF 09/01/2025 CBC w DIFF 07/02/2025 CBC WITH AUTO DIFF 12/23/2024 Lipid Panel 07/02/2025 Lipid Panel 11/04/2024 Lipid Panel 03/17/2025 Lipid Panel 09/01/2025 Lipid Panel 12/23/2024 Free T4 (Free Thyroxine) 11/04/2024 Microalbumin, Random 03/17/2025 Microalbumin, Random 09/01/2025 Microalbumin, Random 11/04/2024 Microalbumin, Random 07/02/2025 Hemoglobin A1c 12/23/2024 Hemoglobin A1c 03/17/2025 Hemoglobin A1c 09/01/2025 Hemoglobin A1c 07/02/2025 Hemoglobin A1c 11/04/2024 Next Appt Details Provider Name:Xander Del Rosario , 12/30/2025 09:45:00 AM, [address] [facility] [address], [place], [address], Provider Name:Xander Del Rosario , 05/18/2026 10:00:00 AM, [address] [facility] [address], [place], [address], Insurance Providers Payer Name Payer Address Payer Phone Subscriber Number Group Number Insured Name Patient Relationship to Insured Coverage Start Date Coverage End Date MEDICARE N[place] [address] [place] [phone] [id number] [id number] Self - patient is the insured [facility] CLAIM DIV [address] [address] [place] [address] [id number] AubreyAp hare Self - patient is the insured Medical (General) History Medical History History ICD Code diabetes mellitus obesity hypertension penicillin allergy erythromycin allergy back pain herniated disc lumbosacral pain hyperlipidemia Mild aortic stenosis Bicuspid aortic multiple thyroid nodules Surgical History Surgery Date(Month/Year) Right hip surgery - scoped, no complicat ions since. Shoulder replacement surgery - august 29, [facility] 07/2024 Left shoulder replacement 08/29/[address] Jones 01/2018 cardiac catheterization: 25% LAD, EF 65% 02/2011 right hip arthroplasty fractured left ankle laminectomy of the spine Hospitalization History Reason Date(Month/Year) Left shoulder replacement, [place] 2024 intomas [place] due to hypertension/dehydrati on/vertigo 03/16/2024
--- OUTSIDE RECORDS SUMMARY | 2025-10-02 08:40 | XMS_ITS | Patient Health Record ---
[facility] [place] Address [address] [place] [address] Care Team Providers Care Exhauster Name Role Phone Xander Del Rosario MD Primary Care Provider Unavailab Rogelio Sullivan Unavailable [phone] Allergies Allergen (clinical drug ingredient) Drug/Non Drug [...] Polyneuropathy due to diabetes mellitus type I ([id number]) Type 1 diabetes mellitus with diabetic polyneuropathy (E10.42) Active confirmed Plan Of Treatment Pending Test Test Name Order Date Glucose Fasting 01/16/2015 X ray : Foot, right 3V 01/16/2015 [id number] SKIN LESIONS, OVER 4 02/12/20 16 Insurance Providers Payer Name Payer Address Payer Phone Subscriber Number Group Number Insured Name Patient Relationship to Insured Coverage Start Date Coverage End Date [facility] [address] [place] [address] [id number] Ap Burg[place] Self - patient is the insured Medical (General) History Medical History History ICD Code Back,Hip,and Knee pain Chicken pox Diabetes mellitus High blood pressure Surgical History Surgery Date(Month/Year) back surgery hip surgery
--- OUTSIDE RECORDS SUMMARY | 2025-10-02 08:40 | XMS_ITS | Clinical Summary ---
Author Organization [facility] Address [address] [place] [phone] Phone Care Team Providers Care Anatomic Pathologist Name Role Phone Xander Del Rosario MD Primary Care Provider [phone] Allergies Active Allergy Reactions Criticality Noted Date [...] Health Maintenance Due Date Last Done Comments Colorectal Cancer Screening: Colonoscopy 1964 Diabetes: Annual Foot Exam 1974 Diabetes: Annual Retina Eye Exam 1974 RSV Immunization Adult Patients (1 - Risk 50-74 years 1-dose series) 2014 Cholesterol Screening (Lipid Panel) 09/27/2022 HIV Screening 09/27/2022 Hepatitis C Screening 09/27/2022 Medicare Annual Wellness Visit 09/27/2022 Social Influencers of Health Screening 09/27/2022 Pneumococcal Vaccine: 50+ Years (2 of 2 - PCV) 11/08/2022 11/08/2021, 08/31/2020 Depression Screening 10/30/2024 Diabetes: Annual Urine Albumin-Creatinine Ratio (uACR) 11/10/2024 Diabetes: Blood Sugar Control Test (HGBA1C) 02/11/2025 08/13/2024 COVID-19 Vaccine ( season) 2025 08/27/2021, 02/02/2021, 01/05/2021 Influenza Vaccine (#1) 2025 , 08/04/2022, 11/08/2021, [...] mmol/L LAB CHEMISTRY METHOD 11/10/2024 2:26 PM [facility] Potassium 4.2 3.5 - 5.5 mmol/L LAB CHEMISTRY METHOD 11/10/2024 2:26 PM [facility] Chloride 99 96 - 110 mmol/L LAB CHEMISTRY METHOD 11/10/2024 2:26 PM [facility] CO2 29 21 - 32 mmol/L LAB CHEMISTRY METHOD 11/10/2024 2:26 PM [facility] Anion Gap 3 3 - 11 LAB CHEMISTRY METHOD 11/10/2024 2:26 PM [facility] Glucose 114(H) 70 - 100 mg/dL LAB CHEMISTRY METHOD 11/10/2024 2:26 PM [facility] BUN 25 5 - 25 mg/dL LAB CHEMISTRY METHOD 11/10/2024 2:26 PM [facility] Creatinine 0.87 0.70 - 1.30 mg/dL LAB CHEMISTRY METHOD 11/10/2024 2:26 PM [facility] eGFR 99 >=60 mL/min/1. 73m2 LAB CHEMISTRY METHOD 11/10/2024 2:26 PM [facility] Comment:Calculation based on the Chronic Kidney Disease Epidemiology Collaboration (CKD-EPI) equation refit without adjustment for race. BUN/Creatinine Ratio 28.7 LAB CHEMISTRY METHOD 11/10/2024 2:26 PM [facility] Calcium 9.3 8.5 - 10.5 mg/dL LAB CHEMISTRY METHOD 11/10/2024 2:26 PM EST [facility] Blood Venous blood specimen / Unknown Venipuncture / Unknown 11/10/2024 1:47 PM EST 11/10/2024 1:59 PM EST Yosef Freed MD LAB BLOOD ORDERABLES Betty l Result [facility] [address] [place] [address], from Last 3 Months or Most Recently Relevant to Health Maintenance Insurance [facility] MEDICARE Care Teams Anatomic Pathologist Relationship Specialty Start Date End Date Xander Del Rosario MD PCP - General Oncology 01/10/18
== END 2025-10-02 09:06 | disposition home or self-care (01) ==
LOC: HO.PMC 08:21
PROVIDERS: PCP Internal Medicine Medical Oncology; Visit Provider Nurse Practitioner Family
DX: M96.1 Postlaminectomy syndrome, not elsewhere classified (principal); M53.3 Sacrococcygeal disorders, not elsewhere classified; M47.817 Spondylosis without myelopathy or radiculopathy, lumbosacral region; M51.369 Other intervertebral disc degeneration, lumbar region without mention of lumbar back pain or lower extremity pain; M54.9 Dorsalgia, unspecified; G89.29 Other chronic pain; E66.812 Obesity, class 2
CPT/HCPCS: 99204

== ENCOUNTER → 2025-10-02 08:20 | Outpatient (BNVA) | payer MEDICARE, SELFPAY | PROVIDERS: PCP Internal Medicine Medical Oncology; Visit Provider Nurse Practitioner Family | DX: M96.1 Postlaminectomy syndrome, not elsewhere classified (principal); M53.3 Sacrococcygeal disorders, not elsewhere classified; M47.817 Spondylosis without myelopathy or radiculopathy, lumbosacral region; M51.369 Other intervertebral disc degeneration, lumbar region without mention of lumbar back pain or lower extremity pain; G89.29 Other chronic pain; E66.812 Obesity, class 2 | CPT/HCPCS: 99202 ==